=== PATIENT | female | born 1990 | race Caucasian/White ===

== ENCOUNTER → 2019-11-03 13:45 | Outpatient (CLI) | payer OTHER, SELFPAY ==
[2019-11-03 13:15] VITALS: BMI 18.1
[2019-11-03 15:29] LABS: Absolute Lymphocyte Count 2.03 X10^3/uL (0.83-4.51); Absolute Neutrophil Count 4.5 X10^3/uL (2.0-7.7); Basophil# 0.06 X10^3/uL; Basophil% 0.8 % (0-1); Eosinophil# 0.15 X10^3/uL; Hematocrit 40.6 % (37-47); Hemoglobin 13.5 g/dL (12.0-15.0); Lymphocyte # 2.03 X10^3/ul (4.0); Lymphocyte % 27.5 % (19-41); Mean Corp Hgb Conc 33.3 g/dL (32-36); Mean Corpuscular Hgb 30.8 pg (27.0-32.0); Mean Corpuscular Volume 92.5 fL (81-99); Mean Platelet Vol. 10.6 fl (6.2-12.0); Monocyte# 0.59 X10^3/uL; NRBC Flagged by Analyzer 0 % (0-5); Neutrophil # 4.54 X10^3/uL (2.7-7.7); Neutrophil % 61.4 % (47-70); Platelet Count 268 K/mm3 (150-450); RBC Distribution Width CV 12.5 % (11.6-14.6); RBC Distribution Width SD 42.1 fl (35.1-43.9); Red Blood Count 4.39 M/mm3 (4.2-5.4); White Blood Count 7.4 K/mm3 (4.4-11.0)
[2019-11-03 16:01] LABS: ALB/GLOB Ratio 1.2 RATIO (0.9-2.4); AST(SGOT) 17 U/L (15-37); Alanine Aminotransfer ALT/SGPT 21 U/L (13-56); Albumin, Serum 3.9 g/dL (3.2-5.0); Alkaline Phosphatase 56 U/L (45-117); Anion Gap 4 (5-15); BUN 16 mg/dL (7-18); BUN/Creat Ratio 21.7 RATIO (10-20); Calcium,Total 8.5 mg/dL (8.5-10.1); Chloride 106 mmol/L (98-107); Creatinine, Serum 0.74 mg/dL (0.55-1.02); EST Glomerular Filtration Rate 98 mL/min (>60); Est Glom Filt Rate - Afr Amer 118 mL/min (>60); Globulin 3.3 g/dL (2.2-4.2); Glucose 90 mg/dL (74-106); Potassium 3.7 mmol/L (3.5-5.1); Protein, Total 7.2 g/dL (6.4-8.2); Sodium Level 140 mmol/L (136-145); T4 Free Direct 0.83 ng/dL (0.76-1.46)
== END ==
PROVIDERS: PCP Internal Medicine; Visit Provider Internal Medicine
DX: N92.6 Irregular menstruation, unspecified (principal); R10.9 Unspecified abdominal pain
CPT/HCPCS: 36415; 80053; 84439; 84443; 85025

== ENCOUNTER → 2019-11-18 13:44 | Outpatient (CLI) | payer OTHER, SELFPAY ==
[2019-11-03 13:15] VITALS: BMI 18.1
--- NOTE | 2019-11-18 13:46 | RAD_ITS ---
STUDY: X-RAY - CERVICAL SPINE REASON FOR EXAM: Female, 29 years old. chronic neck pain TECHNIQUE: 3 view(s) of the cervical spine were obtained. COMPARISON: None FINDINGS: Normal anterior atlantoaxial articulation. Normal odontoid process. Normal cervical lordosis. Normal vertebral bodies and endplates. Normal disc space heights. The soft tissue structures are unremarkable. RAD/Cerv Spine 2 or 3 Views IMPRESSION: Normal x-ray examination of the visualized cervical spine. Electronically Signed: Deejay Marin MD at 17:54 EDT Tel , Service support ,
== END ==
PROVIDERS: PCP Internal Medicine; Referring Provider Internal Medicine; Visit Provider Internal Medicine
DX: M54.2 Cervicalgia (principal); G89.29 Other chronic pain
CPT/HCPCS: 72040

== ENCOUNTER → 2019-12-15 08:20 | Outpatient (CLI) | payer OTHER, SELFPAY ==
[2019-11-03 13:15] VITALS: BMI 18.1
--- NOTE | 2019-12-15 08:25 | RAD_ITS ---
PROCEDURE: SMALL BOWEL SERIES DATE OF EXAMINATION: 12/15/2019.. INDICATION: Female, 29 years old. Chronic constipation. PHYSICIAN: Pedro Fuller M.D. FLUOROSCOPY TIME (if supplied): (0:27) minutes/seconds TECHNIQUE: Radiographic and fluoroscopic images were taken of the small intestine following the ingestion of barium. COMPARISON: None. FINDINGS: A preliminary supine KUB was obtained. There is an unremarkable bowel gas pattern. A large amount of fecal material is present throughout the colon. The lung bases are unremarkable. Mild degree of levoscoliosis. The patient orally ingested approximately 12 ounces of thin barium Normal visualized fundus, body, and antrum of the stomach. Normal duodenal bulb, C-loop, and proximal jejunum. Normal visualized mucosal folds of the jejunum and ileum. There are no demonstrated dilatations, strictures, or masses of the small intestine. There is no mass displacement of the loops of small intestine. There is a normal motor pattern with barium reaching the colon within approximately 60 minutes. Spot films under fluoroscopic observation demonstrated a normal terminal ileum and ileocecal valve. RAD/Small Bowel Series Only IMPRESSION: Normal small bowel series. Electronically Signed: Pedro Fuller, at 12:33 EDT , Service support ,
== END ==
PROVIDERS: PCP Internal Medicine; Referring Provider Internal Medicine Gastroenterology; Visit Provider Internal Medicine Gastroenterology
DX: R10.9 Unspecified abdominal pain (principal)
CPT/HCPCS: 74250

== ENCOUNTER → 2020-04-08 13:54 | Outpatient (CLI) | payer OTHER, SELFPAY ==
[2020-04-08 08:22] VITALS: BMI 18.6
[2020-04-12 21:44] LABS: HPV APTIMA, High Risk Negative (Negative)
== END ==
PROVIDERS: PCP Internal Medicine; Referring Provider Obstetrics & Gynecology; Visit Provider Obstetrics & Gynecology
DX: Z12.4 Encounter for screening for malignant neoplasm of cervix (principal)
CPT/HCPCS: 87624; 88175; G0145

== ENCOUNTER → 2020-04-16 13:21 | Outpatient (CLI) | payer OTHER, SELFPAY ==
[2020-04-08 08:22] VITALS: BMI 18.6
--- NOTE | 2020-04-16 13:24 | US_ITS ---
STUDY: ULTRASOUND OF THE FEMALE PELVIS - COMPLETE REASON FOR EXAM: Female, 29 years old. PELVIC PAIN LMP: 04/10/2020. TECHNIQUE: Transabdominal and Transvaginal TECHNICAL QUALITY: Adequate. COMPARISON: None. FINDINGS: The uterus is anteverted and is in a midline position. The uterus measures 8.6 cm x 4.6 cm x 3 cm. Normal uterine cervix. The endometrium measures 5 mm in thickness, and is hyperechoic. There is no demonstrated endometrial mass. There is no demonstrated myometrial mass. I.U.D. - The patient does not have an I.U.D. The right ovary is visualized. The right ovary measures 3.4 cm x 3.5 cm x 1.6 cm. There is no right ovarian cyst or ovarian mass. There is no visualized right adnexal mass or complex lesion. There is normal arterial and normal venous vascularity. The left ovary is visualized. The left ovary measures 3.7 cm x 4.3 cm x 2.4 cm. A dominant follicle is seen within the left ovary measuring 1.8 cm x 1.1 cm x 0.9 cm There is no visualized left adnexal mass or complex lesion. There is normal arterial and normal venous vascularity. There is minimal fluid in the cul-de-sac. The pre void volume of the bladder was 295 ml. Polycystic ovary disease: No. US/Transvaginal Non- IMPRESSION: A dominant follicle is seen in the left ovary measuring 1.8 cm x 1.1 cm x 0.9 cm. Electronically Signed: Pedro Fuller MD at 15:25 EST , Service support ,
--- NOTE | 2020-04-16 13:24 | US_ITS ---
STUDY: ULTRASOUND OF THE FEMALE PELVIS - COMPLETE REASON FOR EXAM: Female, 29 years old. PELVIC PAIN LMP: 04/10/2020. TECHNIQUE: Transabdominal and Transvaginal TECHNICAL QUALITY: Adequate. COMPARISON: None. FINDINGS: The uterus is anteverted and is in a midline position. The uterus measures 8.6 cm x 4.6 cm x 3 cm. Normal uterine cervix. The endometrium measures 5 mm in thickness, and is hyperechoic. There is no demonstrated endometrial mass. There is no demonstrated myometrial mass. I.U.D. - The patient does not have an I.U.D. The right ovary is visualized. The right ovary measures 3.4 cm x 3.5 cm x 1.6 cm. There is no right ovarian cyst or ovarian mass. There is no visualized right adnexal mass or complex lesion. There is normal arterial and normal venous vascularity. The left ovary is visualized. The left ovary measures 3.7 cm x 4.3 cm x 2.4 cm. A dominant follicle is seen within the left ovary measuring 1.8 cm x 1.1 cm x 0.9 cm There is no visualized left adnexal mass or complex lesion. There is normal arterial and normal venous vascularity. There is minimal fluid in the cul-de-sac. The pre void volume of the bladder was 295 ml. Polycystic ovary disease: No. US/Pelvic (Non ) IMPRESSION: A dominant follicle is seen in the left ovary measuring 1.8 cm x 1.1 cm x 0.9 cm. Electronically Signed: Pedro Fuller MD at 15:25 EST , Service support ,
== END ==
PROVIDERS: PCP Internal Medicine; Referring Provider Obstetrics & Gynecology; Visit Provider Obstetrics & Gynecology
DX: R10.2 Pelvic and perineal pain (principal)
CPT/HCPCS: 76830; 76856; 93976

== ENCOUNTER 2020-06-04 09:00 | Outpatient (RCR) | payer OTHER, SELFPAY ==
[2020-04-08 08:22] VITALS: BMI 18.6
[2020-06-04] MEDS: COVID-19 VACC, MRNA(PFIZER)/PF 30 MCG/0.3 ML SYRINGE IM (11:16)
[2020-06-24] MEDS: COVID-19 VACC, MRNA(PFIZER)/PF 30 MCG/0.3 ML SYRINGE IM (16:25)
== END 2020-08-10 23:59 ==
LOC: IMMUN 09:00
PROVIDERS: PCP Internal Medicine; Visit Provider Family Medicine
DX: Z23 Encounter for immunization (principal)
CPT/HCPCS: 0001A; 0002A; 91300

== ENCOUNTER → 2020-10-12 10:49 | Outpatient (CLI) | payer OTHER, SELFPAY ==
[2020-09-28 13:18] VITALS: BMI 18.1
[2020-10-12 11:30] LABS: Absolute Neutrophil Count 3.3 X10^3/uL (2.0-7.7); Basophil# 0.08 X10^3/uL; Basophil% 1.3 % (0-1); Eosinophil# 0.11 X10^3/uL; Eosinophils% 1.8 % (0-5); Hemoglobin 14.2 g/dL (12.0-15.0); Lymphocyte % 31.9 % (19-41); Mean Corp Hgb Conc 32.3 g/dL (32-36); Mean Corpuscular Hgb 29.6 pg (27.0-32.0); Mean Corpuscular Volume 91.9 fL (81-99); Mean Platelet Vol. 10.1 fl (6.2-12.0); Monocyte# 0.54 X10^3/uL; Monocyte% 9.1 % (0-10); NRBC Flagged by Analyzer 0 % (0-5); Neutrophil % 55.6 % (47-70); Platelet Count 305 K/mm3 (150-450); RBC Distribution Width CV 12.3 % (11.6-14.6); RBC Distribution Width SD 42.1 fl (35.1-43.9); Red Blood Count 4.79 M/mm3 (4.2-5.4)
[2020-10-12 12:02] LABS: ALB/GLOB Ratio 1.3 RATIO (0.9-2.4); AST(SGOT) 15 U/L (15-37); Alanine Aminotransfer ALT/SGPT 21 U/L (13-56); Albumin, Serum 4.2 g/dL (3.2-5.0); Alkaline Phosphatase 61 U/L (45-117); Anion Gap 4 (5-15); BUN 13 mg/dL (7-18); BUN/Creat Ratio 19.2 RATIO (10-20); Calcium,Total 8.8 mg/dL (8.5-10.1); Chloride 103 mmol/L (98-107); Cholesterol 148 mg/dL (200); Creatinine, Serum 0.68 mg/dL (0.55-1.02); EST Glomerular Filtration Rate 108 mL/min (>60); Est Glom Filt Rate - Afr Amer 130 mL/min (>60); Globulin 3.2 g/dL (2.2-4.2); Glucose 85 mg/dL (74-106); High Density Lipoprotein 81 mg/dL; Potassium 3.7 mmol/L (3.5-5.1); Protein, Total 7.4 g/dL (6.4-8.2); Sodium Level 137 mmol/L (136-145); Triglycerides 58 mg/dL; Very Low Density Lipoprotein 12 mg/dL (5-40)
== END ==
PROVIDERS: PCP Internal Medicine; Referring Provider Internal Medicine; Visit Provider Internal Medicine
DX: Z00.00 Encounter for general adult medical examination without abnormal findings (principal)
CPT/HCPCS: 36415; 80053; 80061; 85025

== ENCOUNTER 2021-03-29 09:31 | Day surgery (SDC) | payer OTHER, SELFPAY ==
[2021-03-29] VITALS (7 sets, daily range): BP systolic 100–115; BP diastolic 63–76; PULSE 65–90; RESP 16–20; TEMP 36.3–36.8; O2SAT 96–100; BMI 17.7
--- NOTE | 2021-03-29 | FALS_PTH ---
PATIENT: PATRICIA DAVIES LOC: [facility] [place] U#:[id number] AGE/SX: 30/ ROOM: RE03/29/[address]: Dr. Mary Alicia DO : 1990 BED: DIS: 03/29/2021 SPEC #: [id number] RECD: 03/29/21 12:38 STATUS: DARYA BHAVIN #: [id number] DOMINIK: 03/29/21 00:[address]: Mary Alicia DEPT: SURGICAL PATHOLOGY RECD BY: Juanjose Blakely ENTERED: 03/29/21 12:38 SP TYPE: FALL TUBES OTHR DR: Dr. Mariya Bocanegra MD Tissues: Fallopian tube Procedures: Surgery Specimen Level IV HEADER OPERATION: Diagnostic laparoscopy, fulguration endometriosis PRE-OP DIAGNOSIS: Pelvic pain, infertility TISSUE SUBMITTED: Left fallopian tube MICROSCOPIC DIAGNOSIS Left fallopian tube, salpingectomy: Fallopian tube, no pathologic diagnosis. See comment. ISIS:isabel 03/30/2021 COMMENT Clinical correlation and appropriate follow up are necessary. MICROSCOPIC DESCRIPTION Slides are reviewed. GROSS DESCRIPTION Received in fixative is one container labeled with the patient's name and designated left fallopian tube. The specimen consists of a fallopian tube including fimbrial end. The fallopian tube measures 6 cm in length and 0.8 cm in diameter. Sections reveal unremarkable cut surfaces. The entire specimen is submitted in two cassettes. / ISIS:isabel 03/29/2021 TC:4 CPT: 44494
[2021-03-29 09:53] LABS: Internal QC Validated? YES +Cl - CLEAR BKGD; Pregnancy, Urine Negative Negative
--- NOTE | 2021-03-29 09:53 | HP.PCM_ITS ---
History and Physical Date of Admission: 03/29/21 :1990 Provider:Dr. Mary Alicia, DOAge/Sex: 30/F [facility] Intake Vital Signs 03/18/21 11:50 Height 5 ft 4 in Weight: 104 lb 6 oz BMI 17.9 BP 100/78 Intake Visit Reasons: preop diag. lap. 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 Required: No Is patient in pain?: No Allergies No Known Allergies Allergy (Verified 03/18/21 11:50) Medications inulin 2 gram chewable tablet g PO 02/17/21 [History Confirmed 03/18/21] multivitamin 1 tab PO DAILY 02/17/21 [History Confirmed 03/18/21] multivitamin with minerals 1 tab PO DAILY 02/17/21 [History Confirmed 03/18/21] Post menopausal: No Patient : No : No PFSH Medical History Female infertility unexplained after evaluation Flu vaccine need Preventative health care Seasonal allergies Surgical History History of tonsillectomy and adenoidectomy Family History Mother Cancer Aunt Breast cancer Grandfather Parkinson disease Grandmother Respiratory disease Social History Smoking Status: Never smoker alcohol intake: current alcohol intake frequency: a few times a month Alcohol type: wine substance use type: does not use caffeine: Yes frequency: 1-2 times per week seatbelt use: always do you feel safe at home: Yes additional social history: - [facility] preop diag. lap. Details: PATRICIA DAVIES is a 30 year old who presents for pre-op visit. She is scheduled for a diagnostic laparoscopy, possible fulguration of endometriosis, chromopertubation using methylene blue. She suffers with a long history of endometriosis pain and infertility. She has one adopted daughter currently and is working on adopting baby #2. Pregancy History 0 Elective abortions Hx Para Spontaneous abortions Hx # Term Pregnancies Ectopic pregnancies Hx # Pregnancies Multiple births # of living children ROS Const ROS Unobtainable: All systems reviewed & are unremarkable except as noted in H Resp Resp: Reports system reviewed and no additional complaints, except as documented; Denies cough GI GI: Reports as per HPI Psych Psych: Reports system reviewed and no additional complaints, except as documented Exam Const General: cooperative, healthy appearing, comfortable and no acute distress Resp Effort & Inspection: normal respiratory effort Skin General: no rashes or lesions noted Psych Appearance: grossly normal Speech and Movement: speech and movement normal Coding Level of Care Code Off vis,est,level 3 Diagnoses Pelvic pain R10.2 Female infertility unexplained after evaluation N97.9 Assessment and Plan Assessment and Plan (1) Pelvic pain: Status: Acute Plan - Dr. Mary Alicia DO: Plan for diagnostic laparoscopy, Chromopertubation using methylene blue, possible fulguration of endometriosis on Mar 29 at 7:30 am. consent form signed. (2) Female infertility unexplained after evaluation: Status: Chronic UPDATE- I have seen the patient and performed any clinically relevant updates to the history and physical exam. Mary Alicia DO
--- NOTE | 2021-03-29 09:54 | PCM.DC ---
Discharge Instructions Diet Discharge Diet: No restrictions Activity Discharge Activity: Return to Normal Activity, May Not Drive (for two weeks or while taking narcotic pain medications.), May Shower and May Take a Tub Bath (in 7 days) May resume sexual activity in: 1 week Weight Bearing Status: Full weight bearing Dressing / Incision Call your doctor if you observe: Using more than 1 pad per hour, Shortness of breath, Chest pain and Uncontrolled pain Suture Line Care: Avoid Pulling/Pushing and Avoid Pinching/Bending Remove Dressing in: 1 week (if present) Cleanse incision/area with: Soap & Water and Keep Dressing Clean & Dry Follow Up Care Please Follow Up With: Mary Alicia DO When: Call to make an appointment with your doctor for a follow up incision check in 1-2 weeks. Test Results: Test results from this visit will be discussed in further detail at your follow-up appointment, if applicable. Discharge Plan Admission Primary Reason for Your Visit: laparoscopy Attending Provider: Mary Alicia Primary Care Provider: Mariya Bocanegra Discharge Orders/Prescriptions Prescriptions: New ibuprofen 800 mg tablet 800 mg PO Q8H PRN (Reason: pain) 7 Days Qty: 30 RF: 0 oxycodone-acetaminophen [Percocet] 7.5-325 mg tablet 1 tab PO Q4H PRN (Reason: pain) 3 Days Qty: 18 RF: 0 Continued multivitamin Tablet 1 tab PO DAILY RF: 0 azelaic acid 15 % gel 1 applic TOPICAL DAILY RF: 0 Probiotic 10 billion cell Capsule 10,000 mmu cells PO DAILY RF: 0 Referrals / Follow Up: Mariya Bocanegra MD [Primary Care Provider] - Disposition Disposition (needs filled in before D/C Order can be placed): Home, Self Care
[2021-03-29] MEDS: Lactated Ringers 1,000 ML 15 ML IV (09:55)
[2021-03-29 10:05] LABS: Mean Corp Hgb Conc 32.6 g/dL (32-36); Mean Corpuscular Hgb 29.6 pg (27.0-32.0); Mean Corpuscular Volume 90.9 fL (81-99); Mean Platelet Vol. 10.4 fl (6.2-12.0); Platelet Count 253 K/mm3 (150-450); RBC Distribution Width CV 12.1 % (11.6-14.6); RBC Distribution Width SD 40.6 fl (35.1-43.9); Red Blood Count 4.73 M/mm3 (4.2-5.4); White Blood Count 5.3 K/mm3 (4.4-11.0)
[2021-03-29] MEDS: Bupivacaine 0.25% 30 ML Vial (10:51)
--- NOTE | 2021-03-29 11:50 | OP.PCM_ITS ---
Problems Associated Problem List Diagnoses (1) Abdominal pain: (2) Pelvic pain: (3) Endometriosis: Operative Report Date of Procedure: 03/29/21 Pre- operative diagnosis: unexplained infertility, chronic pelvic pain Post-operative diagnosis pelvic pain, endometriosis EBL: less than 5cc Surgeon: Mary Alicia DO Diaper Machine Tender: KIERRA Hdz Urine output : 200cc Specimens removed: left fallopian tube Procedure: diagnostic laparoscopy, fulguration of endometriosis, reroller hand mopertubation, left salpingectomy Findings: endometriosis of cul-de-sac, patent right fallopian tube, non-flowing left fallopian tube. left fallopian tube appeared slightly smaller and pale in color as compared to right fallopian tube. Surgical details: The patient was taken in the operating room and was placed under general anesthesia was prepped and draped in normal sterile fashion in the dorsal lithotomy position. Bladder was drained of clear urine and SCDs were on preoperatively. Uterus was sounded to 9cm and a uterine manipulator was placed. a 60 cc syringe filled with dilute methylene blue was attached to the manipulator. Attention was then paid to the abdominal portion of the procedure and the umbilicus and injected with Marcaine and after a 5 mm incision was made and a 5mm trocar was inserted into the abdomen under direct visualization with the laparoscope. Abdomen was insufflated with CO2 gas and a 5 mm optical trocar was placed under direct visualization at the left lower quadrant Uterus was well visualized and bilateral fallopian tubes and ovaries were visualized. There was noted to be adhesions of the cul-de-sac consistent with mild endometriosis. This was cauterized using the LigaSure device. Further powder burn stokes were noted on the anterior aspect of the uterus. The chromotubation was performed by pushing the methylene blue dye into the uterus. The right fallopian tube was freely flowing, however the left fallopian tube appeared slightly pale in color and did not spill dye despite reposition the uterine manipulator and even completely removed the device and re-inserting. The patient's was called and permission was given to remove the defective tubes. The left fallopian tube was elevated and transected across the mesosalpinx and the attachment to the uterine corpus. The tube was removed through the 5 mm port site. Excellent hemostasis was noted. Liver, bowel, and upper abdomen were visualized notably within normal limits and no other gross abnormalities were seen in the abdomen. All instruments removed from the abdomen after gas was desufflated. Port sites were closed with 3-0 Monocryl Steri's and op sites were applied. All instruments removed from the vagina and patient was awoken and taken recovery in stable condition. complications: none Implanted material: none Multi Select Codes Urinary/Genital Urinary/Genital CPT Codes: 80794 Laproscopic ablation endometriosis (laparoscopic left salpingectomy )
== END 2021-03-29 23:59 | disposition home or self-care (01) ==
LOC: SDC 09:34 → AC 09:37
PROVIDERS: PCP Internal Medicine; Referring Provider Obstetrics & Gynecology; Visit Provider Obstetrics & Gynecology
PROC: (CPT 49320; principal; 2021-03-29 10:50)
DX: N80.3 Endometriosis of pelvic peritoneum (principal); N97.9 Female infertility, unspecified; G89.29 Other chronic pain; Z20.822 Contact with and (suspected) exposure to COVID-19
CPT/HCPCS: 58662; 58661; 58350; 00840; 81025; 85027; 86850; 86900; 86901; 87426; 88302; 88305; J7120; J2405; Q9968

== ENCOUNTER → 2022-10-06 | Outpatient (CLI) | payer OTHER, SELFPAY ==
[2022-10-06 12:38] LABS: Absolute Lymphocyte Count 1.49 X10^3/uL (0.83-4.51); Absolute Neutrophil Count 2.5 X10^3/uL (2.0-7.7); Basophil# 0.06 X10^3/uL; Basophil% 1.3 % (0-1); Eosinophil# 0.11 X10^3/uL; Eosinophils% 2.4 % (0-5); Hematocrit 41.4 % (37-47); Hemoglobin 13.5 g/dL (12.0-15.0); Lymphocyte # 1.49 X10^3/ul (0.83-4.51); Lymphocyte % 32.3 % (19-41); Mean Corp Hgb Conc 32.6 g/dL (32-36); Mean Corpuscular Hgb 30.8 pg (27.0-32.0); Mean Corpuscular Volume 94.5 fL (81-99); Mean Platelet Vol. 10.7 fl (6.2-12.0); Monocyte# 0.45 X10^3/uL; Monocyte% 9.7 % (0-10); NRBC Flagged by Analyzer 0 % (0-5); Neutrophil % 54.1 % (47-70); Platelet Count 264 K/mm3 (150-450); RBC Distribution Width CV 13.2 % (11.6-14.6); Red Blood Count 4.38 M/mm3 (4.2-5.4); White Blood Count 4.6 K/mm3 (4.4-11.0)
[2022-10-06 12:52] LABS: ALB/GLOB Ratio 1.1 RATIO (0.9-2.4); AST(SGOT) 13 U/L (15-37); Alanine Aminotransfer ALT/SGPT 19 U/L (13-56); Albumin, Serum 3.7 g/dL (3.2-5.0); Alkaline Phosphatase 45 U/L (45-117); Anion Gap 4 (5-15); BUN 13 mg/dL (7-18); BUN/Creat Ratio 16.7 RATIO (10-20); Calcium,Total 8.9 mg/dL (8.5-10.1); Chloride 106 mmol/L (98-107); Cholesterol 148 mg/dL (200); Creatinine, Serum 0.78 mg/dL (0.55-1.02); EST Glomerular Filtration Rate 91 mL/min (>60); Est Glom Filt Rate - Afr Amer 110 mL/min (>60); Globulin 3.5 g/dL (2.2-4.2); Glucose 93 mg/dL (74-106); High Density Lipoprotein 100 mg/dL; Potassium 4.5 mmol/L (3.5-5.1); Protein, Total 7.2 g/dL (6.4-8.2); Sodium Level 139 mmol/L (136-145); Triglycerides 64 mg/dL; Very Low Density Lipoprotein 13 mg/dL (5-40)
== END | disposition home or self-care (01) ==
LOC: BIMLAB 08:27
PROVIDERS: PCP Internal Medicine; Referring Provider Internal Medicine; Visit Provider Internal Medicine
DX: Z00.00 Encounter for general adult medical examination without abnormal findings (principal)
CPT/HCPCS: 36415; 80053; 80061; 85025

== ENCOUNTER → 2023-02-02 | Outpatient (CLI) | payer OTHER, SELFPAY ==
--- NOTE | 2023-02-02 14:27 | US_ITS ---
STUDY: ULTRASOUND BREAST - right breast pain. REASON FOR EXAM: Female, 32 years old. Right breast pain. TECHNIQUE: Axial and longitudinal images of the right breast pain. breast were performed with a high resolution ultrasound transducer. # OF IMAGES: 0 COMPARISON: Comparison is made with prior mammogram done earlier in the day. FINDINGS: right breast pain. Breast: The upper outer quadrant of the right breast was examined with ultrasound. There is a 1.7 cm x 1.5 cm x 0.9 cm cyst at the 10:00 position of the breast at 4 cm from the nipple. US/Breast Limited Unilateral IMPRESSION: 1.7 cm x 1.5 cm x 0.9 cm cyst at the 10:00 position of the breast at 4; some nipple. ASSESSMENT CATEGORY: BIRADS Category 2: Benign. A letter regarding these results will be sent to the patient by the facility within 30 days. Electronically Signed: Pedro Fuller MD at 15:34 EST ,
--- NOTE | 2023-02-02 14:27 | BI_ITS ---
MAMMOGRAPHY - BILATERAL DIAGNOSTIC REASON FOR EXAM: Female, 32 years old. Pain in both upper outer quadrants of the breasts. PERTINENT HISTORY: Aunt with breast cancer. TECHNIQUE: Digital bilateral breast bowen (3D mammographic acquisition) in the CC and MLO projections. 2-D mediolateral oblique (MLO) and craniocaudad (CC) views of both breasts were obtained. CAD: Full Field Digital Mammography with Computer Added Detection was performed. COMPARISON: None. Baseline examination. FINDINGS: Breast Composition: The breasts are extremely dense, which lowers the sensitivity of mammography. There are no dominant masses or suspicious calcifications. No other significant abnormalities are identified. BI/DIAG MAMM W/CAD, BILAT IMPRESSION: Negative diagnostic mammogram. With the patient''s history of buttock pain in both upper outer quadrants, correlation with ultrasound is recommended. ASSESSMENT CATEGORY: BIRADS Category 0: Incomplete. Need additional imaging evaluation. A letter regarding these results will be sent to the patient by the facility within 30 days. Approximately 10% of breast cancers are not detected by mammography. A normal mammogram should not delay biopsy of a clinically suspicious abnormality. Electronically Signed: Pedro Fuller MD at 15:13 EST ,
== END | disposition home or self-care (01) ==
PROVIDERS: PCP Internal Medicine; Visit Provider Obstetrics & Gynecology
DX: N64.4 Mastodynia (principal)
CPT/HCPCS: 76642; 77062; 77066; G0279

== ENCOUNTER → 2023-11-07 | Outpatient (CLI) | payer OTHER, SELFPAY ==
[2023-11-07 16:37] LABS: Absolute Lymphocyte Count 1.92 X10^3/uL (0.83-4.51); Absolute Neutrophil Count 4.9 X10^3/uL (2.0-7.7); Basophil# 0.08 X10^3/uL; Eosinophil# 0.11 X10^3/uL; Eosinophils% 1.4 % (0-5); Hematocrit 40.6 % (37-47); Hemoglobin 13.2 g/dL (12.0-15.0); Lymphocyte # 1.92 X10^3/ul (0.83-4.51); Lymphocyte % 24.7 % (19-41); Mean Corp Hgb Conc 32.5 g/dL (32-36); Mean Corpuscular Hgb 29.9 pg (27.0-32.0); Mean Corpuscular Volume 91.9 fL (81-99); Mean Platelet Vol. 11.1 fl (6.2-12.0); Monocyte# 0.75 X10^3/uL; Monocyte% 9.6 % (0-10); NRBC Flagged by Analyzer 0 % (0-5); Platelet Count 262 K/mm3 (150-450); RBC Distribution Width CV 12.6 % (11.6-14.6); RBC Distribution Width SD 42.5 fl (35.1-43.9); Red Blood Count 4.42 M/mm3 (4.2-5.4); White Blood Count 7.8 K/mm3 (4.4-11.0)
[2023-11-07 16:56] LABS: ALB/GLOB Ratio 1.3 RATIO (0.9-2.4); AST(SGOT) 13 U/L (15-37); Alanine Aminotransfer ALT/SGPT 15 U/L (13-56); Alkaline Phosphatase 56 U/L (45-117); Anion Gap 4 (5-15); BUN 10 mg/dL (7-18); BUN/Creat Ratio 13.6 RATIO (10-20); Calcium,Total 9.4 mg/dL (8.5-10.1); Chloride 106 mmol/L (98-107); Cholesterol 151 mg/dL (200); Creatinine, Serum 0.74 mg/dL (0.55-1.02); EST Glomerular Filtration Rate 96 mL/min (>60); Est Glom Filt Rate - Afr Amer 116 mL/min (>60); Glucose 95 mg/dL (74-106); High Density Lipoprotein 92 mg/dL; Potassium 3.6 mmol/L (3.5-5.1); Sodium Level 138 mmol/L (136-145); Triglycerides 44 mg/dL; Very Low Density Lipoprotein 9 mg/dL (5-40)
== END | disposition home or self-care (01) ==
LOC: BIMLAB 14:29
PROVIDERS: PCP Internal Medicine; Visit Provider Internal Medicine
DX: Z00.00 Encounter for general adult medical examination without abnormal findings (principal)
CPT/HCPCS: 36415; 80053; 80061; 85025

== ENCOUNTER → 2024-01-19 | Outpatient (CLI) | payer OTHER, SELFPAY ==
--- NOTE | 2024-01-19 10:12 | RAD_ITS ---
INDICATION: sitz marker EXAMINATION/TECHNIQUE: X-RAY - XR Abdomen 2 views COMPARISON: December 15, 2019 FINDINGS: BOWEL GAS PATTERN: Non-obstructive. No bowel or stomach distention. FREE AIR: Not assessed on a single supine view. ORGANOMEGALY: Not seen. CALCIFICATIONS: No abnormal calcifications observed. LOWER CHEST: No acute pathology. BONES AND SOFT TISSUES: No acute pathology. There is a linear lucency projecting over the pelvis suggestive of a tampon. RAD/Abdomen Single View IMPRESSION: No Sitz marker identified. Nonspecific bowel gas pattern. Electronically Signed: Colleen Copeland MD at 17:13 EST ,
[2024-01-19 10:47] LABS: Erythrocyte Sedimentation Rate 1 mm/hr (0-30)
[2024-01-19 11:12] LABS: Amylase 54 U/L (25-115); CRP 5.36 mg/L (0.0-3.0); Ferritin 58 ng/mL (8-252); Iron 40 ug/dL (50-170); Iron Binding Capacity,Total 241 ug/dL (250-450); LDH 156 U/L (84-246); Lipase 37 U/L (13-75)
[2024-01-21 08:09] LABS: Vitamin D,25 Hydroxy 27.3 ng/mL
[2024-01-24 14:10] LABS: Anti-Centromere B Ab <0.2 AI (0.0-0.9); Anti-Chromatin <0.2 AI (0.0-0.9); Anti-Jo <0.2 AI (0.0-0.9); Anti-Scleroderma-70 AB <0.2 AI (0.0-0.9); Anti-dsDNA Ab <1 IU/mL (0-9); Beef <0.10 kU/L (Class 0); Chocolate <0.10 kU/L (Class 0); Codfish <0.10 kU/L (Class 0); Corn <0.10 kU/L (Class 0); Egg, Whole <0.10 kU/L (Class 0); Milk (Cow) <0.10 kU/L (Class 0); Mussels <0.10 kU/L (Class 0); Peanut 0.32 kU/L (Class I); Pork <0.10 kU/L (Class 0); RNP Ab <0.2 AI (0.0-0.9); SJOGREN'S Anti-SS-A test < 0.2 AI (0.0-0.9); SJOGREN'S Anti-SS-B test < 0.2 AI (0.0-0.9); Salmon <0.10 kU/L (Class 0); Shrimp <0.10 kU/L (Class 0); Smith Ab <0.2 AI (0.0-0.9); Soybean <0.10 kU/L (Class 0); Tuna <0.10 kU/L (Class 0); Vitamin D 1,25-Dihydroxy 48.3 pg/mL (24.8-81.5); Wheat <0.10 kU/L (Class 0)
[2024-01-25 16:10] LABS: ACCA 53 units (0-90); ALCA 22 units (0-60); AMCA 54 units (0-100); Albumin 4.2 g/dL (2.9-4.4); Alpha-1-Globulins 0.2 g/dL (0.0-0.4); Alpha-2-Globulins 0.6 g/dL (0.4-1.0); Chromogranin A 36.1 ng/mL (0.0-101.8); Cytoplasmic Ab (C-ANCA) <1:20 titer (Neg:<1:20); Endomysial Antibody IgA Negative (Negative); Gamma Globulin 1.2 g/dL (0.4-1.8); Gastrin, Serum 44 pg/mL (0-115); Haptoglobin 58 mg/dL (33-278); IMMUNOFIXATION RESULT,S Comment: (.); IgG, Quant 1159 mg/dL (586-1602); Immunoglobulin A 162 mg/dL (87-352); Immunoglobulin E 104 IU/mL (6-495); Immunoglobulin G, Subclass 1 571 mg/dL (248-810); Immunoglobulin G, Subclass 2 426 mg/dL (130-555); Immunoglobulin G, Subclass 3 50 mg/dL (15-102); Immunoglobulin G, Subclass 4 38 mg/dL (2-96); Immunoglobulin M 94 mg/dL (26-217); PROEL- TOTAL PROTEIN 6.9 g/dL (6.0-8.5); Perinuclear Ab (P-ANCA) <1:20 titer (Neg:<1:20); gASCA 5 units (0-50); t-Transglutaminase IgA <2 U/mL (0-3)
== END | disposition home or self-care (01) ==
LOC: LAB 09:48
PROVIDERS: PCP Internal Medicine; Referring Provider Internal Medicine Gastroenterology; Visit Provider Internal Medicine Gastroenterology
DX: R10.9 Unspecified abdominal pain (principal)
CPT/HCPCS: 36415; 74018; 82150; 82306; 82652; 82728; 82784; 82785; 82787; 82941; 83010; 83516; 83540; 83550; 83615; 83690; 84165; 84443; 85652; 86003; 86005; 86036; 86037; 86140; 86225; 86235; 86255; 86316; 86334; 86671

== ENCOUNTER → 2024-03-10 | Outpatient (CLI) | payer OTHER, SELFPAY ==
--- NOTE | 2024-03-10 13:09 | NM_ITS ---
CLINICAL: 33-year-old female with history of abdominal pain and bloating. SEMI-SOLID PHASE 99m Tc SULFUR COLLOID GASTRIC EMPTYING STUDY COMPARISON: None available FINDINGS: The patient was administered 7.98 mCi of 99m Tc sulfur colloid mixed with oatmeal and consumed per os. Image acquisitions in the anterior projection were obtained for 26 documented minutes of image acquisition. There is prompt visualization of the stomach. There is no gastroesophageal reflux identified. T ? linear fit was calculated to be 40.11 minutes, (Normal: 12-56 minutes). NM/Gastric Emptying Study IMPRESSION: 1. NORMAL 99m Tc sulfur colloid semi-solid phase (oatmeal) gastric emptying imaging examination. A. There is normal and preserved semi-solid phase gastric emptying compared to normal controls with maintained first order kinetics throughout all components of the examination. (Cara et al, J Nucl Med Tech 38: 186, 2010). Electronically Signed: Bertin Gamble DO at 22:07 EST ,
== END | disposition home or self-care (01) ==
PROVIDERS: PCP Internal Medicine; Referring Provider Internal Medicine Gastroenterology; Visit Provider Internal Medicine Gastroenterology
DX: R10.9 Unspecified abdominal pain (principal); R14.0 Abdominal distension (gaseous)
CPT/HCPCS: 78264; A9541

== ENCOUNTER 2024-03-18 10:55 | Day surgery (SDC) | payer OTHER, SELFPAY ==
[2024-03-18] VITALS (7 sets, daily range): BP systolic 92–119; BP diastolic 55–93; PULSE 64–78; RESP 14–16; TEMP 36.5–36.9; O2SAT 97–100; BMI 17.7
[2024-03-18 11:19] LABS: Internal QC Validated? YES +Cl - CLEAR BKGD; Pregnancy, Urine Negative Negative
--- NOTE | 2024-03-18 11:40 | PRE.ANES_ITS ---
ASA Classification* ASA Classification ASA Classification: 1 Assessment & Plan Anesthesia* Anesthesia Assessment Anesthesia Assessment: Discussed sedation and/or anesthesia options, risks, benefits, and alternatives with patient/parents/legal guardian/POA. Questions invited. The patient/parents/legal guardian/POA seems to understand and agrees to proceed with anesthesia plan. Reviewed the physical assessment, medical history, allergy history and patient home medications list prior to surgery/procedure/anesthetic and documented any changes. Performed airway and anesthesia risk assessments. Anesthesia Type Anesthesia Type: MAC History Source History Obtained from:: Patient and Chart Anesthesia Focused Assessment* Temperature: 98.1 F Pulse Rate: 78 Blood Pressure: 119/93 Respiratory Rate: 16 Pulse Ox: 100 Oxygen Delivery Method: Room Air Airway Assessment Mouth opens: >3 cm Mallampati Score: II Teeth Condition: Intact Neck Range of motion (ROM): Full ROM Focused Labs Anesthesia Preop lab: CBC WBC 7.8 K/mm3 (4.4-11.0) 11/07/23 14:30 RBC 4.42 M/mm3 (4.2-5.4) 11/07/23 14:30 Hgb 13.2 g/dL (12.0-15.0) 11/07/23 14:30 Hct 40.6 % (37-47) 11/07/23 14:30 Plt Count 262 K/mm3 (150-450) 11/07/23 14:30 CHEMISTRY Potassium 3.6 mmol/L (3.5-5.1) 11/07/23 14:30 Sodium 138 mmol/L (136-145) 11/07/23 14:30 BUN 10 mg/dL (7-18) 11/07/23 14:30 Creatinine 0.74 mg/dL (0.55-1.02) 11/07/23 14:30 Glucose 95 mg/dL (74-106) 11/07/23 14:30 TSH 1.140 uIU/mL (0.358-3.740) 01/19/24 09:51 COAG Urine Test Negative Negative 03/18/24 11:05 Pre-Assessment Diagnosis/Proposed Procedure Planned Operative Procedure(s): COLONOSCOPY Anesthesia History Anesthesia History - energy assistant: Anesthesia History - energy assistant Hx Hospitalization No 03/14/24 15:14 Any Problems With Anesthesia No 03/14/24 15:14 Cholinesterase deficiency No 03/14/24 15:14 You/Your Family Experience No 03/14/24 15:14 fever (hyperthermia) with Relationship Recent Exposure to Contagious No 03/18/24 11:15 Disease Does patient have nerve No 03/14/24 15:14 stimulator Patient instructed to have device shut off --Does patient have Pacemaker No 03/18/24 11:16 or ICD? When Was Last Pacemaker Check QUESTION #4 FULL TEXT: You/Your Family Experience fever (hyperthermia) with Anesthesia Last Oral Intake Last Oral intake: Last Oral Intake NPO since 09:00 03/18/24 11:16 Meds taken in AM with sips of No 03/18/24 11:16 water? Meds patient instructed to take am of surgery Any additional information?: Yes NPO since: 08:50 (Patient is a glass of water 8:50 AM.) PONV PONV - energy assistant: PONV - energy assistant Female Yes 03/14/24 15:14 HX of Motion Sickness No 03/14/24 15:14 HX of N/V After Surgery No 03/14/24 15:14 Non-Smoker Yes 03/14/24 15:14 Duration of Surgery greater No 03/14/24 15:14 than 60 minutes Number of Risk Factors 2 03/14/24 15:14 PONV Score Moderate Risk 03/14/24 15:14 Height & Weight Height & Weight: Anesthesia: Height & Weight Height 5 ft 4 in 03/18/24 11:16 Weight: 47 kg 03/18/24 11:16 Body Mass Index (BMI) 17.7 03/18/24 11:16 Respiratory Assessment Respiratory Assessment - energy assistant: Respiratory Tract Infection Hx - energy assistant Hx Respiratory Tract Infection No 03/14/24 15:14 STOP Sleep Apnea STOP Sleep Apnea - energy assistant: STOP Sleep Apnea - energy assistant Hx Hypertension No 03/14/24 15:14 Hx Sleep Apnea No 03/14/24 15:14 CPAP BIPAP Do you snore loudly (louder No 03/14/24 15:14 than talking or can be heard Do you often feel tired/ No 03/14/24 15:14 fatigued/ sleepy during daytime? Has anyone observed you stop No 03/14/24 15:14 breathing during sleep? STOP Results Negative 03/14/24 15:14 QUESTION #5 FULL TEXT : Do you snore loudly (louder than talking or can be heard through closed doors)? Tobacco Use History Tobacco Use History - energy assistant: Tobacco Use History - energy assistant Tobacco Use Smoking Status Never smoker 03/14/24 15:14 Hx Tobacco Use No 03/14/24 15:14 Years Smoking Packs Smoked per Day Smoking Cessation Date was within the last 15 years Hx Smoking Cessation Date Hx Smoking Cessation Counseling Hematologic Medial History Hematologic Hx - energy assistant: Hematologic Medical Hx - [employer] Hx of Blood Transfusion No 03/14/24 15:14 Hx of Transfusion in last 3 No 03/14/24 15:14 Months Date of Last Transfusion (if within last 3 months) Ever experience any problems No 03/14/24 15:14 with transfusion(s)? Specify any problems Hx of Preganancy in last 3 No 03/14/24 15:14 Months Nurse Filling Out Transfusion [email or web address] 03/14/24 15:14 & Questions: Date: 03/14/24 03/14/24 15:14 Time: 15:16 03/14/24 15:14 Patient unable to answer at this time (ie. confused, unrespo /Reproduction History /Reproductive History - energy assistant: /Reproductive Hx- energy assistant Hx Now No 03/14/24 15:14 Gestational Age (in weeks): EDC: Hx Hx Para Hx Section SAB No 03/14/24 15:14 PFSH Medical History Alcohol use Non-smoker Flu vaccine need Preventative health care Female infertility unexplained after evaluation Seasonal allergies Home Medications ?Medication ?Instructions ?Recorded ?Last Taken ?Type lactobacillus combo no.11 15 1 cap PO DAILY 01/17/23 03/16/24 History billion cell sprinkle capsule (Probiotic) calcium 600 mg (as 2 tab PO DAILY 03/14/24 03/16/24 History carbonate)-vitamin D3 5 mcg (200 unit) tablet (Calcium 600 + D(3)) Allergy/AdvReac Type Severity Reaction Status Date / Time No Known Allergies Allergy Verified 03/14/24 15:12 Family History Mother Cancer Aunt Breast cancer Grandfather Parkinson disease Grandmother Respiratory disease Surgical History H/O unilateral salpingectomy S/P laparoscopy History of tonsillectomy and adenoidectomy Social History household members: spouse and other details: adopted daughter Annabella Smoking Status: Never smoker alcohol intake: current alcohol intake frequency: a few times a month Alcohol type: wine substance use type: does not use caffeine: Yes what type of physical activity do you participate in: none seatbelt use: always do you feel safe at home: Yes additional social history: - [employer] Review of Systems (Anesthesia) ROS Narrative System reviewed and no additional complaints, except as documented.
--- NOTE | 2024-03-18 12:00 | COLBX_PTH ---
PATIENT: PATRICIA DAVIES LOC: EN U#:[id number] AGE/SX: 33/F ROOM: RE03/18/[address]: Dr. Jani Pahram DO : 1990 BED: DIS: 03/18/2024 SPEC #: [id number] RECD: 03/18/24 14:11 STATUS: DARYA RETiffanie #: [id number] DOMINIK: 03/18/24 12:[address]: Jani Parham DEPT: SURGICAL PATHOLOGY RECD BY: Sylwia Elmore ENTERED: 03/19/24 09:55 SP TYPE: COLON BX OTHR DR: Dr. Mariya Bocanegra MD Tissues: Ileum, NOS Procedures: Surgery Specimen Level IV HEADER OPERATION: Colonoscopy with biopsy PRE-OP DIAGNOSIS: Abdominal symptoms, abdominal pain TISSUE SUBMITTED: Terminal ileum biopsy MICROSCOPIC DIAGNOSIS Terminal ileum, biopsy: Fragments of small intestinal mucosa, no pathologic diagnosis. See lakeisha. 03/20/2024 COMMENT Prominent lymphoid aggregates are noted. MICROSCOPIC DESCRIPTION Slides are reviewed. GROSS DESCRIPTION Received in fixative is one container labeled with the patient's name and designated Terminal ileum biopsy. The specimen consists of multiple irregular fragments of light gonzalez soft tissue that in aggregate measure 0.9 x 0.4 x 0.2 cm. The specimen is totally submitted in one cassette. 03/19/2024 TC:4 CPT:99272
--- NOTE | 2024-03-18 12:25 | PCM.HP.STD ---
HPI - General General Date of Admission: 03/18/24 Date of Service: 03/18/24 Chief Complaint: Abdominal pain, bloating and constipation HPI Narrative PATRICIA DAVIES, is a 33 F who presents for colonoscopy to evaluate ongoing problems with abdominal pain and change in bowel habits. *BGI established 11.5.24 pt presents with a long history of episodes of constipation, nausea, gas/bloating, and severe abd pain. pt reports she has significantly changed her diet and is only having these episodes about twice a month. Pt reports these episodes last about 3-4 days. Pt reports that these episodes begin when she is unable to have a bm and then throughout the day will begin to have extreme abd aching and fullness that only heat and pressure will help. Pt reports when she is feeling well she is having a daily bm. [facility] Medical History Alcohol use Non-smoker Flu vaccine need Preventative health care Female infertility unexplained after evaluation Seasonal allergies Home Medications ?Medication ?Instructions ?Recorded ?Last Taken ?Type lactobacillus combo no.11 15 1 cap PO DAILY 01/17/23 03/16/24 History billion cell sprinkle capsule (Probiotic) calcium 600 mg (as 2 tab PO DAILY 03/14/24 03/16/24 History carbonate)-vitamin D3 5 mcg (200 unit) tablet (Calcium 600 + D(3)) Allergy/AdvReac Type Severity Reaction Status Date / Time No Known Allergies Allergy Verified 03/14/24 15:12 Family History Mother Cancer Aunt Breast cancer Grandfather Parkinson disease Grandmother Respiratory disease Surgical History H/O unilateral salpingectomy S/P laparoscopy History of tonsillectomy and adenoidectomy Social History household members: spouse and other details: adopted daughter Annabella Smoking Status: Never smoker alcohol intake: current alcohol intake frequency: a few times a month Alcohol type: wine substance use type: does not use caffeine: Yes what type of physical activity do you participate in: none seatbelt use: always do you feel safe at home: Yes additional social history: - Yoandy AYAD Constitutional Constitutional: Denies fatigue, fever(s), poor appetite, weight gain or weight loss Gastrointestinal Gastrointestinal: Denies belching, bloating, change in bowel habits, change in stool character, chewing difficulty, coffee ground emesis, constipation, cramping, diarrhea, dyspepsia, dysphagia, early satiety, excessive flatus, fecal incontinence, heartburn, hematemesis, hematochezia, hemorrhoids, loose stools, melena, nausea, odynophagia, rectal bleeding, tenesmus, vomiting or weight changes Vital Signs Vital Signs Vital Signs: 03/18/24 11:15 03/18/24 11:16 03/18/24 11:44 Temperature 98.1 F 98.1 F Temperature Source Temporal Pulse Rate 78 78 Respiratory Rate 16 16 Respiratory Pattern Normal Blood Pressure 119/93 H 119/93 H Blood Pressure Mean 101 Blood Pressure Source Monitor Blood Pressure Position Sitting Blood Pressure Location Left Arm Pulse Ox 100 100 Oxygen Delivery Method Room Air Room Air Weight Weight: 103 lb 9.876 oz Body Mass Index (BMI) 17.7 Physical Exam Const alert, oriented x3, no apparent distress and healthy appearing General Appearance: cooperative GI normal to inspection, nondistended, normoactive bowel sounds, soft to palpation, non-tender and non-distended Percussion: normal to percussion Rectal Exam: deferred Results Lab / Micro Data Labs: Laboratory Results - last 24 hr 03/18/24 11:05: Urine Test Negative Assessment & Plan Assessment/Plan (1) Abdominal pain: PLAN: (1) Abdominal symptoms: (2) Abdominal pain: Status: Chronic Plan: This is a very pleasant 33-year-old who comes in for the evaluation of abdominal pain that is gone on for a long time. It is not effective her weight. Sometimes it can vary with the food that she eats. Her is gluten-free because he has celiac disease so she has been maintaining a gluten-free diet also. She is struggled with some infertility issues. She denies any worsening stress abdominal pain or cramping. She did see it quality analyst several years ago and she was diagnosed with IBS C and recommended that she take MiraLAX on a daily basis. She comes in today wanting to know the etiology of her symptoms. Differential diagnosis does include: H. pylori associated gastritis or peptic ulcer disease because she does take Motrin, duodenal ulcer and duodenitis, for inflammatory bowel disease, acute intermittent porphyria Recommendations: She will undergo EGD and colonoscopy along with gastric emptying study and octreotide scan. She was explained alternatives, risk, benefits include not withstanding bleeding, infection, sepsis, perforation, need for charge and . She will have an ASA of 3.
--- NOTE | 2024-03-18 13:03 | PCM.POST.ANE ---
Anesthesia: Postop Eval I Current Vital Signs Temperature: 97.7 F Pulse Rate: 64 Blood Pressure: 92/55 Respiratory Rate: 16 Pulse Ox: 97 Oxygen Delivery Method: Room Air Assessment Airway patent: Yes Spontaneous unlabored respirations: Yes Mental status: Awake and Calm nausea: No Vomiting: No Anesthesia Complication: No Fluid Hydration Crystalloid volume administer (ml): 50 Total IV fluid infused: 50 Progress Note Anesthesia document: Postop Eval 1 completed: Yes
--- NOTE | 2024-03-18 13:05 | OP.COLON_ITS ---
Patient Name: Eula Suazo Procedure Date: 03/18/2024 12:22 PM Date of : 1990 Age: 33 Procedure: Colonoscopy Indications: Abdominal pain in the left lower quadrant, Abdominal pain in the left upper quadrant, Abdominal pain in the right lower quadrant, Abdominal pain in the right upper quadrant, Suspected irritable bowel syndrome Providers: Jani Parham DO Referring MD: Mariya Bocanegra MD Medicines: Monitored Anesthesia Care Patient Profile: This is a 33 year old female. Refer to note in patient chart for documentation of history and physical. Last Colonoscopy: none. The patient's first colonoscopy is today. Complications: No immediate complications. Procedure: Pre-Anesthesia Assessment: - Prior to the procedure, a History and Physical was performed, and patient medications and allergies were reviewed. The patient is competent. The risks and benefits of the procedure and the sedation options and risks were discussed with the patient. All questions were answered and informed consent was obtained. Patient identification and proposed procedure were verified by the physician in the pre-procedure area. Mental Status Examination: alert and oriented. Airway Examination: normal oropharyngeal airway and neck mobility. Respiratory Examination: clear to auscultation. CV Examination: normal. Prophylactic Antibiotics: The patient does not require prophylactic antibiotics. Prior Anticoagulants: The patient has taken no anticoagulant or antiplatelet agents except for NSAID medication. ASA Grade Assessment: II - A patient with mild systemic disease. After reviewing the risks and benefits, the patient was deemed in satisfactory condition to undergo the procedure. The anesthesia plan was to use monitored anesthesia care (MAC). Immediately prior to administration of medications, the patient was re-assessed for adequacy to receive sedatives. The heart rate, respiratory rate, oxygen saturations, blood pressure, adequacy of pulmonary ventilation, and response to care were monitored throughout the procedure. The physical status of the patient was re-assessed after the procedure. After I obtained informed consent, the scope was passed under direct vision. Throughout the procedure, the patient's blood pressure, pulse, and oxygen saturations were monitored continuously. The pediatric colonoscope was introduced through the anus and advanced to the terminal ileum. The colonoscopy was performed without difficulty. The patient tolerated the procedure well. The quality of the bowel preparation was adequate. The terminal ileum, ileocecal valve, appendiceal orifice, and rectum were photographed. Scope In: 12:40:34 PM Scope Withdrawal Time 0 hours 7 minutes 23 seconds Scope Out: 12:55:05 PM Total Procedure Duration Time 0 hours 14 minutes 31 seconds Findings: The perianal and digital rectal examinations were normal. The recto-sigmoid colon and hepatic flexure were moderately tortuous. A patchy area of the terminal ileum was congested. Biopsies were taken with a cold forceps for histology. Verification of patient identification for the specimen was done. Estimated blood loss was minimal. Impression: - Tortuous colon. - Congested mucosa in the terminal ileum. Biopsied. Recommendation: - Discharge patient to home. - Resume previous diet. - Continue present medications. - Await pathology results. - Repeat colonoscopy in 10 years for screening purposes. Procedure Code(s): --- Professional --- 05801, Colonoscopy, flexible; with biopsy, single or multiple CPT copyright 2021 [employer]. All rights reserved. The codes documented in this report are preliminary and upon custom designer review may be revised to meet current compliance requirements. Jani Parham DO 03/18/2024 1:04:25 PM This report has been signed electronically. Number of Addenda: 0 Note Initiated On: 03/18/2024 12:22 PM
--- NOTE | 2024-03-18 13:05 | OP.CCLET_ITS ---
03/18/2024 Mariya Bocanegra MD [address] [place] [address] [place] [address] Re : Colonoscopy procedure for Eula Gabriele Dear Dr. Bocanegra This procedure was performed on Monday, March 18, 2024. My impressions and recommendations are as follows: Impressions : - Tortuous colon. - Congested mucosa in the terminal ileum. Biopsied. Recommendations : - Discharge patient to home. - Resume previous diet. - Continue present medications. - Await pathology results. - Repeat colonoscopy in 10 years for screening purposes. My findings are described in the full procedure note, which is enclosed. If I can be of further assistance, please feel free to contact me at . Sincerely, Jani Parham, 03/18/2024 1:04:25 PM This report has been signed electronically.
--- NOTE | 2024-03-18 20:31 | PCM.POSTANE2 ---
Anesthesia Postop Eval I Sum Postop Eval Completion status Anesthesia document: Postop Eval 1 completed: Yes Anesthesia Postop Eval I Summary Anesthesia Postop Eval I Summary: Anesthesia Postop Eval I: Assessment Summary Airway patent Yes 03/18/24 13:05 [email or web address] Spontaneous unlabored Yes 03/18/24 13:05 [email or web address] respirations Mental status Awake,Calm 03/18/24 13:05 [email or web address] nausea No 03/18/24 13:05 [email or web address] Vomiting No 03/18/24 13:05 [email or web address] Anesthesia Postop Eval I: Fluid Summary Crystalloid volume administer 50 03/18/24 13:05 [email or web address] (ml) Colloids volume administered ( ml) Blood Product volume administered (ml) Total IV fluid infused 50 03/18/24 13:05 [email or web address] Anesthesia Postop Eval I: Summary Notes Anesthesia Complication No 03/18/24 13:05 [email or web address] Anesthesia Complication Comment: Post-operative progress note Anesthesia: Postop Eval II Evaluation Mental status: Awake and Calm Pain Level: 0 nausea: No Vomiting: No Complications Anesthesia Complication: No
== END 2024-03-18 13:44 | disposition home or self-care (01) ==
LOC: EN 10:56 → AC 10:58
PROVIDERS: Anesthesiology; PCP Internal Medicine; Referring Provider Internal Medicine; Visit Provider Internal Medicine Gastroenterology
PROC: 0DJD8ZZ Inspection of Lower Intestinal Tract, Via Natural or Artificial Opening Endoscopic (ICD-10-PCS; CPT 45378; principal; 2024-03-18 11:55)
DX: K63.89 Other specified diseases of intestine (principal); K58.9 Irritable bowel syndrome, unspecified; R10.31 Right lower quadrant pain; Q43.8 Other specified congenital malformations of intestine; R10.32 Left lower quadrant pain; R10.11 Right upper quadrant pain; R10.12 Left upper quadrant pain
CPT/HCPCS: 45380; 81025; 88305; A4216; J2405

== ENCOUNTER → 2024-07-22 | Outpatient (CLI) | payer OTHER, SELFPAY ==
[2024-07-22 14:33] LABS: hCG Titer Quant., Serum 2527 mIU/mL (<9 non-preg)
== END | disposition home or self-care (01) ==
PROVIDERS: PCP Internal Medicine; Referring Provider Obstetrics & Gynecology; Visit Provider Obstetrics & Gynecology
DX: O99.891 Other specified diseases and conditions complicating pregnancy (principal); N97.9 Female infertility, unspecified; Z3A.00 Weeks of gestation of pregnancy not specified
CPT/HCPCS: 36415; 84702

== ENCOUNTER → 2024-07-24 | Outpatient (CLI) | payer OTHER, SELFPAY ==
[2024-07-24 15:36] LABS: hCG Titer Quant., Serum 5436 mIU/mL (<9 non-preg)
== END | disposition home or self-care (01) ==
LOC: BWCLAB 13:54
PROVIDERS: Obstetrics & Gynecology; PCP Internal Medicine; Referring Provider Obstetrics & Gynecology; Visit Provider Obstetrics & Gynecology
DX: O99.891 Other specified diseases and conditions complicating pregnancy (principal); N97.9 Female infertility, unspecified; Z3A.00 Weeks of gestation of pregnancy not specified
CPT/HCPCS: 36415; 84702

== ENCOUNTER → 2024-07-26 | Outpatient (CLI) | payer OTHER, SELFPAY ==
--- NOTE | 2024-07-26 08:21 | US_ITS ---
PROCEDURE: TRANSVAGINAL W/PREG US 07/26/2024 REASON FOR EXAM: BLEEDING IN TECHNIQUE: Transvaginal ultrasound was performed in this 1st trimester sonogram COMPARISON: None FINDINGS: Intrauterine gestational is noted with gestational sac diameter of 0.9 cm, corresponding to gestational age of 5 weeks and 5 days. Yolk sac of 0.2 cm. CRL of 0.1 cm. No heart rate is detected at this time although this is likely due to early gestational age. Cervix is closed. Moderate fluid is noted within the cul-de-sac. Uterus measures 8.5 x 5.7 x 4.2 cm. Right ovary measures 3.2 x 2.1 x 1.8 cm and left ovary measures 2.3 x 2.0 x 1.0 cm. A 1.7 cm cyst is noted within the right ovary. Normal vasculature of the ovaries. US/Transvaginal w/Preg US IMPRESSION: Intrauterine gestational corresponding to 5 weeks and 5 days. No fet al heart rate is detected at this time although this is likely due to early gestational age. Cervix is closed. Moderate fluid noted within the cul-de-sac. Otherwise unremarkable. Reading Location: [id number]
== END | disposition home or self-care (01) ==
LOC: US 08:21
PROVIDERS: PCP Internal Medicine; Referring Provider Obstetrics & Gynecology; Visit Provider Obstetrics & Gynecology
DX: O46.90 Antepartum hemorrhage, unspecified, unspecified trimester (principal); Z3A.00 Weeks of gestation of pregnancy not specified
CPT/HCPCS: 76817

== ENCOUNTER → 2024-08-01 | Outpatient (CLI) | payer OTHER, SELFPAY ==
[2024-08-04 23:07] LABS: Chlamydia By Nucleic Acid AMP Negative (Negative); Gonococcus By Nucleic Acid AMP Negative (Negative)
== END | disposition home or self-care (01) ==
LOC: LABSPEC 14:49
PROVIDERS: PCP Internal Medicine; Referring Provider Obstetrics & Gynecology; Visit Provider Obstetrics & Gynecology
DX: N63.0 Unspecified lump in unspecified breast (principal)
CPT/HCPCS: 87086; 87491; 87591

== ENCOUNTER → 2024-08-27 | Outpatient (CLI) | payer OTHER, SELFPAY ==
[2024-08-27 12:08] LABS: Absolute Lymphocyte Count 1.52 X10^3/uL (0.83-4.51); Absolute Neutrophil Count 3.6 X10^3/uL (2.0-7.7); Basophil# 0.04 X10^3/uL; Basophil% 0.7 % (0-1); Eosinophil# 0.06 X10^3/uL; Hematocrit 37.8 % (37-47); Hemoglobin 12.7 g/dL (12.0-15.0); Lymphocyte # 1.52 X10^3/ul (0.83-4.51); Lymphocyte % 26.4 % (19-41); Mean Corp Hgb Conc 33.6 g/dL (32-36); Mean Corpuscular Hgb 30.8 pg (27.0-32.0); Mean Corpuscular Volume 91.5 fL (81-99); Mean Platelet Vol. 10.5 fl (6.2-12.0); Monocyte# 0.53 X10^3/uL; Monocyte% 9.2 % (0-10); NRBC Flagged by Analyzer 0 % (0-5); Neutrophil # 3.59 X10^3/uL (2.7-7.7); Neutrophil % 62.4 % (47-70); Platelet Count 270 K/mm3 (150-450); RBC Distribution Width CV 12.8 % (11.6-14.6); RBC Distribution Width SD 42.4 fl (35.1-43.9); Red Blood Count 4.13 M/mm3 (4.2-5.4); White Blood Count 5.8 K/mm3 (4.4-11.0)
[2024-08-27 12:56] LABS: HIV Nonreactive (Nonreactive); Hepatitis B Surface Antigen Nonreactive (Nonreactive); Hepatitis C Antibody Nonreactive (Nonreactive); Rubella IgG REAC (Nonreactive); Syphilis Antibodies Nonreactive (Nonreactive)
== END | disposition home or self-care (01) ==
PROVIDERS: PCP Internal Medicine; Referring Provider Obstetrics & Gynecology; Visit Provider Obstetrics & Gynecology
DX: Z34.01 Encounter for supervision of normal first pregnancy, first trimester (principal)
CPT/HCPCS: 36415; 85025; 86703; 86762; 86780; 86803; 86850; 86900; 86901; 87340

== ENCOUNTER → 2024-11-21 | Outpatient (CLI) | payer OTHER, SELFPAY | END | disposition home or self-care (01) | LOC: BWCLAB 10:37 | PROVIDERS: Advanced Practice Midwife; PCP Internal Medicine; Referring Provider Obstetrics & Gynecology; Visit Provider Obstetrics & Gynecology | DX: O09.92 Supervision of high risk pregnancy, unspecified, second trimester (principal); Z3A.00 Weeks of gestation of pregnancy not specified | CPT/HCPCS: 36415 ==

== ENCOUNTER → 2024-12-22 | Outpatient (CLI) | payer OTHER, SELFPAY ==
[2024-12-22 15:18] LABS: Hematocrit 33.8 % (37-47); Hemoglobin 11.7 g/dL (12.0-15.0); Immature Granulocytes Count 0.100 X10^3/uL (0.0-0.0); Mean Corp Hgb Conc 34.6 g/dL (32-36); Mean Corpuscular Volume 93.4 fL (81-99); Mean Platelet Vol. 9.4 fl (6.2-12.0); NRBC Flagged by Analyzer 0 % (0-5); Platelet Count 271 K/mm3 (150-450); RBC Distribution Width CV 13.5 % (11.6-14.6); RBC Distribution Width SD 46.7 fl (35.1-43.9); Red Blood Count 3.62 M/mm3 (4.2-5.4); White Blood Count 13.2 K/mm3 (4.4-11.0)
[2024-12-22 15:50] LABS: AST(SGOT) 23 U/L (<=31); Alanine Aminotransfer ALT/SGPT 22 U/L (<=34); Albumin, Serum 3.7 g/dL (3.5-5.0); Alkaline Phosphatase 74 U/L (35-104); Anion Gap 8 (5-15); BUN 7 mg/dL (4-19); BUN/Creat Ratio 12.4 RATIO (10-20); Calcium,Total 8.7 mg/dL (7.6-11.0); Carbon Dioxide 24.3 mmol/L (21.0-32.0); Chloride 105 mmol/L (98-108); Globulin 2.3 g/dL (2.2-4.2); Glucose 70 mg/dL (70-99); Potassium 3.8 mmol/L (3.3-5.1)
== END | disposition home or self-care (01) ==
LOC: LAB 14:47
PROVIDERS: PCP Internal Medicine; Referring Provider Internal Medicine; Visit Provider Internal Medicine
DX: Z00.00 Encounter for general adult medical examination without abnormal findings (principal)
CPT/HCPCS: 36415; 80053; 85025

== ENCOUNTER → 2024-12-25 | Outpatient (CLI) | payer OTHER, SELFPAY ==
[2024-12-25 10:36] LABS: Mucous, Urine 0 SEEN /hpf (<or=2+); Red Blood Cells-Urine 0 SEEN /hpf (0-5)
[2024-12-25 11:04] LABS: Color, Urine Yellow (Yellow); Glucose, Dipstick Normal (Normal); Ketone-Dipstick Negative (Negative); Leukocyte Esterase-Dipstick 25 /ul (Negative); Nitrite-Dipstick Negative (Negative); Occult Blood-Urine Negative /ul (Negative); Protein-Dipstick Negative (Negative); Specific Gravity, Urine 1.010 (1.002-1.030); Urine Bilirubin Dipstick Negative (Negative)
[2024-12-25 11:11] LABS: Squamous Epithelial Cells - UA 0-5 SEEN /hpf (5-10)
== END | disposition home or self-care (01) ==
LOC: LAB 10:31
PROVIDERS: PCP Internal Medicine; Referring Provider Internal Medicine; Visit Provider Internal Medicine
DX: Z34.90 Encounter for supervision of normal pregnancy, unspecified, unspecified trimester (principal); D72.829 Elevated white blood cell count, unspecified; R82.90 Unspecified abnormal findings in urine
CPT/HCPCS: 81001; 87086

== ENCOUNTER → 2024-12-29 | Outpatient (CLI) | payer OTHER, SELFPAY ==
[2024-12-29 12:25] LABS: Hematocrit 35.8 % (37-47); Hemoglobin 11.9 g/dL (12.0-15.0); Immature Granulocytes Count 0.130 X10^3/uL (0.0-0.0); Mean Corp Hgb Conc 33.2 g/dL (32-36); Mean Corpuscular Volume 94.5 fL (81-99); Mean Platelet Vol. 9.7 fl (6.2-12.0); NRBC Flagged by Analyzer 0 % (0-5); Platelet Count 267 K/mm3 (150-450); RBC Distribution Width CV 13.6 % (11.6-14.6); RBC Distribution Width SD 46.9 fl (35.1-43.9); Red Blood Count 3.79 M/mm3 (4.2-5.4); White Blood Count 10.5 K/mm3 (4.4-11.0)
[2024-12-29 13:17] LABS: Glucose Challenge Gest 1H 50g 92 mg/dL (70-140); HIV Nonreactive (Nonreactive); Syphilis Antibodies Nonreactive (Nonreactive)
== END | disposition home or self-care (01) ==
PROVIDERS: PCP Internal Medicine; Referring Provider Advanced Practice Midwife; Visit Provider Advanced Practice Midwife
DX: O09.92 Supervision of high risk pregnancy, unspecified, second trimester (principal); Z3A.25 25 weeks gestation of pregnancy; Z13.1 Encounter for screening for diabetes mellitus
CPT/HCPCS: 36415; 82950; 85025; 86703; 86780

== ENCOUNTER → 2025-01-30 | Outpatient (CLI) | payer OTHER, SELFPAY ==
--- NOTE | 2025-01-30 17:46 | US_ITS ---
PROCEDURE: OB LIMITED WITH BIOMETRICS 01/30/2025 REASON FOR EXAM: GROWTH TECHNIQUE: Procedure Code: [id number] Modality: US Procedure: OB LIMITED WITH BIOMETRICS COMPARISON: None FINDINGS LMP: June 15, 2024 Number: 1 Position: Vertex Placental Position: Anterior and not low lying. Placental Abnormalities: No placenta previa. DIMENSIONS: Biparietal Diameter: 8 cm: 32 weeks and 0 days: 23rd percentile/ Head Circumference: 29.9 cm: 33 weeks and 1 day: 24 percentile/ Abdominal Circumference: 28.5 cm: 32 weeks and 4 days: 46 percentile/ Femur Length: 6.3 cm: 32 weeks and 4 days: 34 percentile/ ESTIMATED WEIGHT: 2007 g plus/-301 g ESTIMATED WEIGHT PERCENTILE (24+ weeks): 37 ESTIMATED GESTATIONAL AGE: Baseline: 32 weeks and 5 days By Ultrasound: 32 weeks and 2 days ESTIMATED DATE OF DELIVERY: Baseline: March 22, 2025 By Ultrasound: March 25, 2025 BIOPHYSICAL ASSESSMENT: Amniotic Fluid Volume: 4.2 cm Amniotic Fluid Index: 15.4 (8-24 cm normal range) Cardiac Motion: 160 beats per minute (average) Trunk and Limb Motion: Present. US/OB Limited With Biometrics IMPRESSION: Single live intrauterine gestation with a mean gestational age of 32 weeks and 2 days. Reading Location: [place] [id number]
--- OUTSIDE RECORDS SUMMARY | 2025-01-30 18:05 | XMS RPT_ITS | CCD ---
Author Organization [facility] Care Team Providers Care Income Tax Investigator Name Role Phone Daljit AG, Dr. Meraz Primary Care Provider Dr. Mary Alicia DO Attending Provider Dr. Mary Alicia DO Referring Provider Trista AG, Dr. Meneses Attending Provider [phone] Dr. Zaira Wesotn MD Referring Provider [phone] Daljit AG, Dr. Meraz Referring Provider [phone] Mraguerite Valencia CNM Attending Provider Stephy Starkey Attending Provider [phone] Daljit AG, Dr. Meraz Primary Care Physician Dr. Mariya Bocanegra MD Referring Provider [phone] Marguerite Valencia CNM Attending Physician [phone] Dr. Mary Alicia DO Attending Physician Dr. Mary Alicia DO Referring Provider Stephy Starkey Attending Physician [phone] Dr. Zaira Weston MD Attending Physician Daljit AG, Dr. Meraz Primary Care Physician Dr. Mariya Bocanegra MD Referring Provider [phone] Ashley Joseph CNM Attending Physician MARY GAMING Referring Unavail KARISHMA Kay Attending Unavailable OLEGHE, EFEWONGBE B Primary Care Unavailable MARY SMITH Attending Unavailable OLEGHE, EFEWONGBE B Primary Care Unavailable MARY GAMING Referring Unavailab vasu Bocanegra MD, Dr. Meraz Primary Care Physician Dr. Mariya Bocanegra MD Referring Provider [phone] Dr. Mary Alicia DO Attending Physician Christine NAVARRO-C, Stephy Attending Physician [phone] Trista AG, Dr. Meneses Attending Physician Dr. Mary Alicia DO Referring Provider Ashley Joseph CNM Attending Physician [phone] Daljit AG, Dr. Meraz Attending Physician [phone] Ashley Joseph CNM Referring Provider [phone] Mary Alicia Attending Unavailabl e Oleghe, Efewongbe Primary Care Unavailable Oleghe, Efewongbe Referring Unavailable Vande Mary Herndon Attending Unavailabl e Oleghe, Efewongbe Primary Care Unavailable Oleghe, Efewongbe Referring Unavailable Friend, Jani Attending Unavailable Friend, Jani Consulting Unavailable Oleghe, Efewongbe Referring Unavailable Oleghe, Efewongbe Primary Care Unavailable Vande Mary Herndon Attending Unavailabl e Oleghe, Efewongbe Primary Care Unavailable Oleghe, Efewongbe Referring Unavailable Oleghe, Efewongbe Referring Unavailable Oleghe, Efewongbe Attending Unavailable Oleghe, Efewongbe Primary Care Unavailable Vande VelMary watson Referring Unavailabl e Vande Mary Herndon Attending Unavailabl e Oleghe, Efewongbe Primary Care Unavailable Oleghe, Efewongbe Primary Care Unavailable Zaira Weston Attending Unavailable Zaira Weston Referring Unavailable VandMary Brown Attending Unavailabl e Vande VelMary watson Referring Unavailabl e Oleghe, Efewongbe Primary Care Unavailable Oleghe, Efewongbe Referring Unavailable aZira Weston Attending Unavailable Oleghe, Efewongbe Primary Care Unavailable Oleghe, Efewongbe Attending Unavailable Oleghe, Efewongbe Primary Care Unavailable Oleghe, Efewongbe Referring Unavailable Oleghe, Efewongbe Primary Care Unavailable Zaira Weston Attending Unavailable Oleghe, Efewongbe Referring Unavailable Vande Velshirley, Mary Attending Unavailabl e Oleghe, Efewongbe Primary Care Unavailable Oleghe, Efewongbe Referring Unavailable Vande Velde, Mary Attending Unavailabl e Vande Velde, Mary Referring Unavailabl e Oleghe, Efewongbe Primary Care Unavailable Vande Velde, Mary Referring Unavailabl e Vande Velde, Mary Attending Unavailabl e Oleghe, Efewongbe Primary Care Unavailable Vande Velde, Mary Attending Unavailabl e Vande Velde, Mary Referring Unavailabl e Oleghe, Efewongbe Primary Care Unavailable Oleghe, Efewongbe Referring Unavailable Oleghe, Efewongbe Attending Unavailable Oleghe, Efewongbe Primary Care Unavailable Oleghe, Efewongbe Primary Care Unavailable Ashley Joseph Referring Unavailable Ashley Joseph Attending Unavailable Friend, Jani Attending Unavailable Oleghe, Efewongbe Referring Unavailable Oleghe, Efewongbe Primary Care Unavailable Friend, Jani Referring Unavailable Friend, Jani Attending Unavailable Oleghe, Efewongbe Primary Care Unavailable Oleghe, Efewongbe Primary Care Unavailable Oleghe, Efewongbe Referring Unavailable [place]ia COUGAR HUNTERStephy Attending Unavailable Friend, Jani Referring Unavailable Friend, Jani Attending Unavailable Oleghe, Efewongbe Primary Care Unavailable Oleghe, Efewongbe Primary Care Unavailable Oleghe, Efewongbe Referring Unavailable Christine COUGAR HUNTERStephy Attending Unavailable Oleghe, Efewongbe Referring Unavailable Oleghe, Efewongbe Primary Care Unavailable Solgoh[place]ia COUGAR HUNTERStephy Attending Unavailable Oleghe, Efewongbe Primary Care Unavailable Ashley Joseph Attending Unavailable Oleghe, Efewongbe Referring Unavailable Marguerite Valencia Attending Unavailable Oleghe, Efewongbe Primary Care Unavailable Oleghe, Efewongbe Referring Unavailable Medications Current Medications Medication Drug Class(es) Dates Sig (Normalized) Sig (Original) cetirizine hydrochloride 10 mg oral capsule (1 source) Histamine-1 Receptor Antagonist Start: 12-22-2024 take 1 capsule by mouth once daily as needed Lactobacillus Combo No.11 (Probiotic) 15 billion cell capsule, sprinkle (15 sources) Start: 01-17-2023 Start: 01-17-2023 Lactobacillus Combo No.11 (Probiotic) 15 billion cell capsule, sprinkle Active 1 NMA PO DAILY January 17, 2023 1:00am do not crush/chew/cut; swallow whole OR may open and sprinkle in cold drink/food Complies with drug therapy Start: 01-17-2023 Start: 01-17-2023 Lactobacillus Combo No.11 (Probiotic) 15 billion cell capsule, sprinkle Active 1 NMA PO DAILY January 17, 2023 1:00am do not crush/chew/cut; swallow whole OR may open and sprinkle in cold drink/food Mv-Mins 99-Oukh-Iokrk No.1-D koenig (Pnv-Lakeside) 28-1-300 mg capsule (15 sources) Start: 07-25-2024 Start: 07-25-2024 Mv-Mins 71-Iro n-Folic No.1-Dha (Pnv-Lakeside) 28-1-300 mg capsule Active NMA PO July 25, 2024 12:00am Complies with drug therapy Start: 07-25-2024 Start: 07-25-2024 Mv-Mins 71-Iro n-Folic No.1-Dha (Pnv-Lakeside) 28-1-300 mg capsule Active NMA PO July 25, 2024 12:00am nitrofurantoin, macrocrystals 25 mg / nitrofurantoin, monohydrate 75 mg oral capsule (1 source) Nitrofuran Antibacterial Start: 12-25-2024 End: 01-01-2025 take 1 capsule by mouth twice daily at mealtime Nitrofurantoin Monohyd/M-Cryst (Macrobid) 100 mg capsule Discontinued 100 mg PO TWICE A DAY 14 7 0 December 24, 2024 11:00pm December 30, 2024 11:00pm December 31, 2024 11:09pm must administer with a meal/food Completed/Discontinued Medications Medication Drug Class(es) Dates Sig (Normalized) Sig (Original) acetaminophen 325 mg / oxyCODONE hydrochloride 7.5 mg oral tablet (15 sources) Opioid Agonist Start: 03-29-2021 End: 04-13-2021 Oxycodone-Acetaminop hen (Percocet) 7.5-325 mg tablet Discontinued 1 {tbl} PO Q4H as needed for pain 18 3 0 March 29, 2021 April 13, 2021 11:52am Pain in pelvis Postoperative state Pelvic and perineal pain Other specified postprocedural states azelaic acid 0.15 mg/mg topical gel (15 sources) Start: 03-22-2021 End: 04-13-2021 Azelaic Acid 15 % gel Discontinued 1 NMA TOPICAL DAILY March 22, 2021 12:00am April 13, 2021 11:51am calcium carbonate 1250 mg oral tablet (20 sources) Start: 04-13-2021 End: 10-06-2022 take 1 tablet by mouth once daily Calcium Carbonate 500 mg calcium (1,250 mg) tablet Discontinued 500 mg PO DAILY April 13, 2021 12:00am October 06, 2022 7:05am Start: 10-15-2019 End: 02-17-2021 take 1 tablet by mouth once daily Calcium Carbonate (Calcium 500) 500 mg calcium (1,250 mg) tablet Discontinued 500 mg PO DAILY October 14, 2019 11:00pm February 17, 2021 1:06pm calcium carbonate 1500 mg / cholecalciferol 200 unt oral tablet (15 sources) Vitamin D Start: 03-14-2024 End: 12-22-2024 Calcium Carbonate-Vitamin D3 (Calcium 600 + D(3)) 600 mg-5 mcg (200 unit) tablet Discontinued 2 {tbl} PO DAILY March 14, 2024 12:00am December 22, 2024 1:06pm cholecalciferol 0.05 mg oral capsule (15 sources) Vitamin D Start: 04-13-2021 End: 10-06-2022 take 1 capsule by mouth once daily Cholecalciferol (Vitamin D3) 50 mcg (2,000 unit) capsule Discontinued 50 ug PO DAILY April 13, 2021 12:00am October 06, 2022 7:04am Clascoterone (15 sources) Start: 10-06-2021 End: 10-06-2022 Clascoterone (Winlevi) 1 % cream Discontinued 1 NMA TOPICAL DAILY October 05, 2021 11:00pm October 06, 2022 7:04am Start: 10-06-2021 End: 10-06-2022 Clascoterone (Winlevi) 1 % c ream Discontinued 1 NMA TOPICAL DAILY October 06, 2021 12:00am October 06, 2022 8:04am Norgestimate-Ethinyl Estradiol (15 sources) Progestin, Estrogen Start: 08-25-2022 End: 01-17-2023 Norgestimate-Ethinyl Estradiol (Sprintec (28)) 0.25-35 mg-mcg tablet Discontinued 1 {tbl} PO DAILY 84 4 August 24, 2022 11:00pm January 17, 2023 2:51pm Start: 08-25-2022 End: 01-17-2023 Norgestimate-Ethinyl Estradi ol (Sprintec (28)) 0.25-35 mg-mcg tablet Discontinued 1 {tbl} PO DAILY 84 4 August 25, 2022 12:00am January 17, 2023 3:51pm Start: 08-25-2022 End: 01-17-2023 Norgestimate-Ethinyl Estradi ol (Sprintec (28)) 0.25-35 mg-mcg tablet Discontinued 1 {tbl} PO DAILY 84 August 25, 2022 12:00am January 17, 2023 3:51pm fexofenadine hydrochloride 180 mg oral tablet (15 sources) Histamine-1 Receptor Antagonist Start: 10-15-2019 End: 02-17-2021 take 1 tablet by mouth once daily Fexofenadine (Cintia Allergy) 180 mg tablet Discontinued 180 mg PO DAILY October 14, 2019 11:00pm February 17, 2021 1:06pm ibuprofen 800 mg oral tablet (15 sources) Nonsteroidal Anti-inflammatory Drug Start: 03-29-2021 End: 04-13-2021 take 1 tablet by mouth every eight hours as needed for pain Ibuprofen 800 mg tablet Discontinued 800 mg PO Q8H as needed for pain 30 7 0 March 29, 2021 12:00am April 13, 2021 11:51am lactobacillus acidophilus [id number] unt oral capsule (15 sources) Start: 03-22-2021 End: 04-13-2021 take 10 capsules by mouth once daily Lactobacillus Acidophilus (Probiotic) 10 billion cell Capsule Discontinued 39662 NMA PO DAILY March 22, 2021 12:00am April 13, 2021 11:51am letrozole 2.5 mg oral tablet (15 sources) Aromatase Inhibitor Start: 04-13-2021 End: 10-06-2021 take 3 tablets by mouth once daily, then take 3-7 tablets by mouth once daily Letrozole 2.5 mg tablet Discontinued 2.5 mg PO DAILY 5 5 2 April 13, 2021 12:00am October 06, 2021 1:00pm take daily from day 3 of cycle (days 3-7) for 5 days Multivitamin tablet (15 sources) Start: 02-17-2021 End: 10-06-2022 Multivitamin tablet Discontinued 1 {tbl} PO DAILY February 17, 2021 12:00am October 06, 2022 7:04am Start: 02-17-2021 End: 10-06-2022 Multivitamin tablet Disconti nued 1 {tbl} PO DAILY February 17, 2021 1:00am October 06, 2022 8:04am Lakeside-3 Fatty Acids 1,000 mg capsule (15 sources) Start: 04-13-2021 End: 10-06-2022 take 1 capsule by mouth once daily Lakeside-3 Fatty Acids 1,000 mg capsule Discontinued 1000 mg PO DAILY April 13, 2021 12:00am October 06, 2022 7:05am Start: 04-13-2021 End: 10-06-2022 take 1 capsule by mouth once daily Lakeside-3 Fatty Acids 1,000 mg capsule Discontinued 1000 mg PO DAILY April 13, 2021 1:00am October 06, 2022 8:05am ondansetron 4 mg disintegrating oral tablet (20 sources) Serotonin-3 Receptor Antagonist Start: 08-01-2024 End: 11-11-2024 take 1 tablet by mouth every six hours as needed for nausea and vomiting Ondansetron 4 mg tablet,disintegrating Discontinued 4 mg PO EVERY 6 HOURS as needed for nausea and vomiting 01 09July 31, 2024 11:00pm November 11, 2024 9:43am Start: 03-29-2021 End: 04-13-2021 take 1 tablet by mouth three times daily as needed for nausea and vomiting Ondansetron 4 mg tablet,disintegrating Discontinued 4 mg PO THREE TIMES A DAY as needed for nausea and vomiting 5 0 March 29, 2021 12:00am April 13, 2021 11:51am Start: 03-29-2021 End: 04-13-2021 take 1 tablet by mouth every eight hours as needed for nausea and vomiting Ondansetron 4 mg tablet,disintegrating Discontinued 4 mg PO Q8H as needed for nausea and vomiting 20 5 0 March 29, 2021 12:00am April 13, 2021 11:51am polyethylene glycol 3350 74826 mg powder for oral solution (15 sources) Osmotic Laxative Start: 01-26-2020 End: 02-17-2021 Polyethylene Glycol 3350 (Miralax) 17 gram powder in packet Discontinued 17 g PO DAILY January 26, 2020 12:00am February 17, 2021 1:06pm Prenat.Vits,Gilson,Min-Iron -Folic tablet (15 sources) Start: 10-15-2019 End: 02-17-2021 Prenat.Vits,Gilson,Min-Iron -Folic tablet Discontinued 1 {tbl} PO DAILY October 14, 2019 11:00pm February 17, 2021 1:06pm Start: 10-15-2019 End: 02-17-2021 Prenat.Vits,Gilson,Ewg-Jrdk-Tys ic tablet Discontinued 1 {tbl} PO DAILY October 15, 2019 12:00am February 17, 2021 2:06pm progesterone 100 mg vaginal insert (20 sources) Progesterone Start: 07-26-2024 End: 11-11-2024 Progesterone Micronized 100 mg insert Discontinued 200 mg VAGINAL BEDTIME 60 70 3 July 25, 2024 11:00pm November 11, 2024 9:43am Start: 04-13-2021 End: 10-06-2021 Progesterone Micronized (Pro metrium) 100 mg capsule Discontinued 100 mg PO EVERY MORNING 21 21 April 13, 2021 12:00am October 06, 2021 1:00pm start taking 2 days after ovulation and take for 21 days. Take test after 21 days. saccharomyces boulardii 250 mg oral capsule (15 sources) Start: 10-15-2019 End: 02-17-2021 take 1 capsule by mouth twice daily Saccharomyces Boulardii (Daily Probiotic (S. Boulardii)) 250 mg capsule Discontinued 250 mg PO TWICE A DAY October 14, 2019 11:00pm February 17, 2021 1:06pm swallow whole Problems Active Problems Problem Classification Problem Date Documented Da te Episodic/Chronic Diseases of white blood cells (1 source) Leukocytosis; Translations: [Elevated white blood cell count, unspecified] 12-29-2024 Chronic Endometriosis (20 sources) Endometriosis (clinical); Translations: [Endometriosis, unspecified] Onset: 08-27-2024 03-29-2021 Chronic Female infertility (20 sources) Female infertility; Translations: [Female infertility, unspecified] Onset: 08-27-2024 10-15-2019 Chronic Genitourinary symptoms and ill-defined conditions (1 source) Abnormal urinalysis; Translations: [Unspecified abnormal findings in urine] 12-29-2024 Episodic Immunizations and screening for infectious disease (16 sources) Needs influenza immunization; Translations: [Encounter for immunization] Onset: 12-29-2024 07-25-2024 Episodic Menstrual disorders (20 sources) Amenorrhea; Translations: [Amenorrhea, unspecified] 07-29-2024 Chronic Other complications of (20 sources) High risk ; Translations: [Supervision of high risk , unspecified, unspecified trimester] 07-25-2024 Episodic Comment on above: , DUANE 03/22/24, Adopted 2 children-Annabella, Asael Yoandy PRR , DUANE , Adopted 2 children-Annabella, Asael Yoandy PRR , DUANE , boy Adopted 2 children-Annabella, Asael Yoandy Other complications of (20 sources) Advanced maternal age ; Translations: [Elderly multigravida, unspecified as to episode of care or not applicable] 07-25-2024 Episodic Comment on above: deliver by 39 and 36 weeks growth US Other complications of (2 sources) Urinary tract infection in ; Translations: [Unspecified infection of urinary tract in , unspecified trimester] 12-29-2024 Episodic Comment on above: neg culture. Other complications of (1 source) Supervision of high risk , unspecified, second trimester; Translations: [Supervision of high risk , unspecified, second trimester] Onset: 01-08-2025 Episodic Other gastrointestinal disorders (20 sources) Constipation; Translations: [Constipation, unspecified] 07-25-2024 Episodic Other nervous system disorders (1 source) Other chronic pain; Translations: [Other chronic pain] Onset: 08-27-2024 Chronic Other and delivery including normal (20 sources) Early stage of ; Translations: [Encounter for supervision of normal , unspecified, unspecified trimester] Onset: 09-01-2024 07-21-2024 Episodic Comment on above: discussed NIPT & Car rier testing- undecided NIPT low risk, elizabeth er neg. 14 NIPT low risk, elizabeth er neg. . nl anatomy undecided about afp screen. Other upper respiratory disease (20 sources) Seasonal allergy; Translations: [Other seasonal allergic rhinitis] 10-15-2019 Chronic Other upper respiratory disease (1 source) Other seasonal allergic rhinitis; Translations: [Other seasonal allergic rhinitis] Onset: 08-27-2024 Chronic Residual codes; unclassified (12 sources) Infertile 04-13-2021 Episodic Residual codes; unclassified (1 source) 25 weeks gestation of ; Translations: [25 weeks gestation of ] Onset: 12-08-2024 Episodic Unclassified (1 source) Other specified diseases and conditions complicating ; Translations: [Other specified diseases and conditions complicating ] Onset: 07-31-2024 Past or Other Problems Problem Classification Problem Date Documented Da te Episodic/Chronic Abdominal pain (20 sources) Pain in pelvis; Translations: [Pelvic and perineal pain] Onset: 04-08-2024 02-17-2021 Episodic Hemorrhage during ; abruptio placenta; placenta previa (20 sources) Antepartum hemorrhage; Translations: [Hemorrhage in early , unspecified] Onset: 07-31-2024 07-26-2024 Episodic Comment on above: intrauterine pregnan cy on scan 07/26/24- started on progesterone suppositories 200 q hs for threatened intrauterine pregnan cy on scan 07/26/24- started on progesterone suppositories 200 q hs for threatened . Stopped at 16 wk <2cm from cervix. Pe lvic rest. Rpt US 28 wk resolved Nonmalignant breast conditions (20 sources) Lump of upper outer quadrant of breast; Translations: [Unspecified lump in unspecified breast] Onset: 08-27-2024 01-17-2023 Episodic Other complications of (1 source) Other specified related conditions, unspecified trimester; Translations: [Other specified related conditions, unspecified trimester] Onset: 10-01-2024 Episodic Other complications of (1 source) Supervision of high risk , unspecified, unspecified trimester; Translations: [Supervision of high risk , unspecified, unspecified trimester] Onset: 08-27-2024 Episodic Other gastrointestinal disorders (1 source) Constipation, unspecified; Translations: [Constipation, unspecified] Onset: 08-27-2024 Episodic Residual codes; unclassified (1 source) 17 weeks gestation of ; Translations: [17 weeks gestation of ] Onset: 10-13-2024 Episodic Residual codes; unclassified (1 source) 10 weeks gestation of ; Translations: [10 weeks gestation of ] Onset: 08-27-2024 Episodic Residual codes; unclassified (1 source) Less than 8 weeks gestation of ; Translations: [Less than 8 weeks gestation of ] Onset: 08-08-2024 Episodic Spondylosis; intervertebral disc disorders; other back problems (20 sources) Chronic neck pain; Translations: [Cervicalgia] Onset: 08-27-2024 11-03-2019 Episodic Results Test Name Value Interpretation Reference Range Facility Absolute lymphocyte countOrd ered By: Ashley Joseph on 12-29-2024 Lymphocytes Auto (Unsp spec) [#/Vol] 1.44 10*3/uL 0.83-4.51 [facility] Absolute neutrophil countOrd ered By: Ashley Joseph on 12-29-2024 Neutrophils (Bld) [#/Vol] 8.2 10*3/uL High 2.0-7.7 [facility] Automated lymphocyte count a s percentage of total leukocytesOrdered By: Ashley Joseph on 12-29-2024 Lymphocytes/100 WBC Auto (Unsp spec) 13.8 % Low 19-41 [facility] Basophil percentageOrdered B y: Ashley Joseph on 12-29-2024 Basophils/100 WBC (Bld) 0.6 % 0-1 [facility] CBC W/Diff, Automatedon 12-04 Absolute Lymph 1.44 X10 3/uL Normal 0.83-4.51 [facility] Comment on above: Performed By: #### L 100.0100, L509.4006, L509.8002, L3890.6102, L3890.6006, L3890.6301, BTS #### [facility] [address] [place], [address] Absolute Neut 8.2 X10 3/uL High 2.0-7.7 [facility] Comment on above: Performed By: #### L 100.0100, L509.4006, L509.8002, L3890.6102, L3890.6006, L3890.6301, BTS #### [facility] [address] [place], [address] Basophils/100 WBC (Bld) 0.6 % Normal 0-1 [facility] Comment on above: Performed By: #### L 100.0100, L509.4006, L509.8002, L3890.6102, L3890.6006, L3890.6301, BTS #### [facility] [address] [place], [address] Eosinophils/100 WBC (Bld) 0.4 % Normal 0-5 [facility] Comment on above: Performed By: #### L 100.0100, L509.4006, L509.8002, L3890.6102, L3890.6006, L3890.6301, BTS #### [facility] [address] [place], [address] Erythrocyte distribution width (RBC) [Ratio] 13.6 % Normal 11.6-14.6 [facility] Comment on above: Performed By: #### L 100.0100, L509.4006, L509.8002, L3890.6102, L3890.6006, L3890.6301, BTS #### [facility] [address] [place], [address] Hematocrit (Bld) [Volume fraction] 35.8 % Low 37-47 [facility] Comment on above: Performed By: #### L 100.0100, L509.4006, L509.8002, L3890.6102, L3890.6006, L3890.6301, BTS #### [facility] [address] [place], [address] Hemoglobin (Bld) [Mass/Vol] 11.9 g/dL Low 12.0-15.0 [facility] Comment on above: Performed By: #### L 100.0100, L509.4006, L509.8002, L3890.6102, L3890.6006, L3890.6301, BTS #### [facility] [address] [place], [address] IG% 1.200 High 0.0-0.9 [facility] Comment on above: Result Comment: IG% - Immature Granulocytes (promyelocytes, myelocytes and metamyelocytes) > 1% indicates that a LEFT SHIFT is Present. Performed By: #### L 100.0100, L509.4006, L509.8002, L3890.6102, L3890.6006, L3890.6301, BTS #### [facility] [address] [place], [address] Lymphocytes/100 WBC (Bld) 13.8 % Low 19-41 [facility] Comment on above: Performed By: #### L 100.0100, L509.4006, L509.8002, L3890.6102, L3890.6006, L3890.6301, BTS #### [facility] [address] [place], [address] MCH (RBC) [Entitic mass] 31.4 pg Normal 27.0-32.0 [facility] Comment on above: Performed By: #### L 100.0100, L509.4006, L509.8002, L3890.6102, L3890.6006, L3890.6301, BTS #### [facility] [address] [place], [address] MCHC (RBC) [Mass/Vol] 33.2 g/dL Normal 32-36 [facility] Comment on above: Performed By: #### L 100.0100, L509.4006, L509.8002, L3890.6102, L3890.6006, L3890.6301, BTS #### [facility] [address] [place], [address] MCV (RBC) [Entitic vol] 94.5 fL Normal 81-99 [facility] Comment on above: Performed By: #### L 100.0100, L509.4006, L509.8002, L3890.6102, L3890.6006, L3890.6301, BTS #### [facility] [address] [place], [address] Monocytes/100 WBC (Bld) 6.0 % Normal 0-10 [facility] Comment on above: Performed By: #### L 100.0100, L509.4006, L509.8002, L3890.6102, L3890.6006, L3890.6301, BTS #### [facility] [address] [place], [address] Neutrophils/100 WBC (Bld) 78.0 % High 47-70 [facility] Comment on above: Performed By: #### L 100.0100, L509.4006, L509.8002, L3890.6102, L3890.6006, L3890.6301, BTS #### [facility] [address] [place], [address] Nucleated RBC (Bld) [#/Vol] 0 10*3/uL Normal 0-5 [facility] Comment on above: Performed By: #### L 100.0100, L509.4006, L509.8002, L3890.6102, L3890.6006, L3890.6301, BTS #### [facility] [address] [place], [address] Platelet mean volume (Bld) [Entitic vol] 9.7 fL Normal 6.2-12.0 [facility] Comment on above: Performed By: #### L 100.0100, L509.4006, L509.8002, L3890.6102, L3890.6006, L3890.6301, BTS #### [facility] [address] [place], [address] Platelets (Bld) [#/Vol] 267 10*3/uL Normal 150-450 [facility] Comment on above: Performed By: #### L 100.0100, L509.4006, L509.8002, L3890.6102, L3890.6006, L3890.6301, BTS #### [facility] [address] [place], [address] RBC (Bld) [#/Vol] 3.79 10*6/uL Low 4.2-5.4 [facility] Comment on above: Performed By: #### L 100.0100, L509.4006, L509.8002, L3890.6102, L3890.6006, L3890.6301, BTS #### [facility] [address] [place], [address] RDW SD 46.9 fl High 35.1-43.9 [facility] Comment on above: Performed By: #### L 100.0100, L509.4006, L509.8002, L3890.6102, L3890.6006, L3890.6301, BTS #### [facility] [address] [place], [address] WBC (Bld) [#/Vol] 10.5 10*3/uL Normal 4.4-11.0 [facility] Comment on above: Performed By: #### L 100.0100, L509.4006, L509.8002, L3890.6102, L3890.6006, L3890.6301, BTS #### [facility] [address] [place], [address] Eosinophil percentageOrdered By: Ashley Joseph on 12-29-2024 Eosinophils/100 WBC (Bld) 0.4 % 0-5 [facility] Erythrocyte distribution wid th ratioOrdered By: Ashley Joseph on 12-29-2024 Erythrocyte distribution width (RBC) [Ratio] 13.6 % 11.6-14.6 [facility] Erythrocyte distribution wid th standard deviationOrdered By: Ashley Joseph on 12-29-2024 Erythrocyte distribution width (RBC) [Ratio] 46.9 fl High 35.1-43.9 [facility] Glucose Challenge Gest 1H 50 carmen 12-29-2024 GLU GEST 50g 1H 92 mg/dL Normal 70-140 [facility] Comment on above: Performed By: #### L 100.0100, L509.4006, L509.8002, L3890.6102, L3890.6006, L3890.6301, BTS #### [facility] [address] [place], [address] Glucose measurement at 2 alessandro rs post-dose gestational glucose tolerance testOrdered By: Ashley Joseph on 12-29-2024 Glucose [Mass/Vol] 92 mg/dL 70-140 [facility] HIVon 12-29-2024 HIV Non-Reactive Normal Nonreactive [facility] Comment on above: Result Comment: Non- Reactive Reactive Repeatedly reactive samples must be confirmed according to CDC recommended confirmatory algorithms. The subresults for either HIVAG or AHIV can be used as an aid in the selection of the confirmation algorithm for reactive samples. Send out specimens with Reactive results to [facility] for confirmation. Order the HIV antibody detection and differentiation: lc#[id number] Performed By: #### L 100.0100, L509.4006, L509.8002, L3890.6102, L3890.6006, L3890.6301, BTS #### [facility] [address] [place], [place], [id number] Hematocrit Auto (Bld) [Volum e fraction]Ordered By: Ashley Joseph on 12-29-2024 Hematocrit (Bld) [Volume fraction] 35.8 % Low 37-47 [facility] Hemoglobin measurementOrdere d By: Ashley Joseph on 12-29-2024 Hemoglobin (Bld) [Mass/Vol] 11.9 g/dL Low 12.0-15.0 [facility] Immature granulocytes/100 WB C Auto (Bld)Ordered By: Ashley Joseph on 12-29-2024 Immature granulocytes/100 WBC (Bld) 1.200 % High 0.0-0.9 [facility] Comment on above: IG% - Immature Granu locytes (promyelocytes, myelocytes and metamyelocytes) > 1% indicates that a LEFT SHIFT is Present. Laboratory - Chemistry and C hemistry - challengeOrdered By: Stephy King on 12-29-2024 Glucose Ql (U) Negative [facility] - UrinalysisOrder ed By: Stephy King on 12-29-2024 Protein Ql (U) Negative [facility] MCV (mean corpuscular volume ) determinationOrdered By: Ashley Joseph on 12-29-2024 MCV (RBC) [Entitic vol] 94.5 fL 81-99 [facility] Mean corpuscular hemoglobin (MCH) determinationOrdered By: Ashley Joseph on 12-29-2024 MCH (RBC) [Entitic mass] 31.4 pg 27.0-32.0 [facility] Mean corpuscular hemoglobin concentration (MCHC) determinationOrdered By: Ashley Joseph on 12-29-2024 MCHC (RBC) [Mass/Vol] 33.2 g/dL 32-36 [facility] Mean platelet volume determi nationOrdered By: Ashley Joseph on 12-29-2024 Platelet mean volume (Bld) [Entitic vol] 9.7 fL 6.2-12.0 [facility] Monocyte percentageOrdered B y: Ashley Joseph on 12-29-2024 Monocytes/100 WBC (Bld) 6.0 % 0-10 [facility] Neutrophil percentageOrdered By: Ashley Joseph on 12-29-2024 Neutrophils/100 WBC (Bld) 78.0 % High 47-70 [facility] No Panel InformationOrdered By: Ashley Joseph on 12-29-2024 HIV (1&2) Antibody Non-Reactive Nonreactive [facility] Comment on above: Non-ReactiveReactive Repeatedly reactive samples must be confirmed according to CDC recommended confirmatory algorithms. The subresults for either HIVAG or AHIV can be used as an aid in the selection of the confirmation algorithm for reactive samples.Send out specimens with Reactive results to [facility] for confirmation.Order the HIV antibody detection and differentiation: #[id number] Nucleated red blood cell per centageOrdered By: Ashley Joseph on 12-29-2024 Nucleated RBC/100 WBC (Bld) [Ratio] 0 % 0-5 [facility] Visit Reporton 12-29-2024 [facility] Visit Report [facility] [address], [address] [place] [address] OFFICE VISIT Date of Service: 12/29/24 MR#: [id number] Acct: [id number] Name: PATRICIA DAVIES Rep #: [id number] : 1990 Provider: RUPAL luis Age/Sex: 34/F Location: [facility] Status: Signed Intake Vital Signs 10/13/24 08:26 12/22/24 14:11 12/29/24 09:39 Height 5 ft 4 in 5 ft 4 in 5 ft 4 in Weight: 131 lb 131 lb BMI 22.4 22.4 BP 112/64 109/69 Blood Pressure Location Lt brachial Position Sitting Respiration 16 Pulse 88 Pulse Source Monitor Temp 98 F Pulse Oximetry (%) 98 Oxygen Delivery Method room air Intake Visit Reasons: 28 WK OB/GLUCOSE Tetryl Dissolver Operator Required: No Is patient in pain?: No Allergies No Known Allergies Allergy (Verified 12/29/24 09:38) Medications ???Medication ???Instructions ???Recorded ???Confirmed ???Type lactobacillus combo no.11 15 1 cap PO DAILY 01/17/23 12/29/24 H istory billion cell sprinkle capsule (Probiotic) multivit-min no.71-iron fum 28 cap PO 07/25/24 12/29/24 History mg-folate no.1 1 mg-dha 300 mg capsule (PNV-[place]) cetirizine 10 mg capsule (Zyrtec) 10 mg PO QDAY PRN 12/22/24 History nitrofurantoin 100 mg PO BID 7 days #14 caps 12/0412/29/24 Rx monohydrate/macrocrystals 100 mg capsule (Macrobid) Last Menstrual Period: 06/15/24 Zika: Zika virus screening: Negative : Yes PFSH PFSH Medical History Abnormal urinalysis Leukocytosis Preventative health care Abdominal pain Alcohol use Non-smoker Flu vaccine need Female infertility unexplained after evaluation Seasonal allergies Surgical History H/O unilateral salpingectomy S/P laparoscopy History of tonsillectomy and adenoidectomy Family History Mother Cancer, Onset Age: 59 Dermafibroid sarcadoma Family history of recurrent miscarriage 2 losses one at 24 wks Aunt Breast cancer, Onset Age: 50 Maternal Maternal Grandfather Parkinson disease Maternal Grandmother Respiratory disease Paternal Grandfather Cancer metastic cancer Social History adopted: No household members: spouse, children and other details: adopted daughter Annabella Vyas housing: house number of children: 2 current occupation: [employer] pets and animals: Yes pets and animals: dog(s) history of recent travel: Yes ([place], [place], [place]) out of state: Yes out of country: No sexually active: Yes Smoking Status: Never smoker alcohol intake: current alcohol intake frequency: a few times a month Alcohol type: wine details: Not while substance use type: does not use diet: gluten free and lactose free well-balanced diet: daily or most days caffeine: No eating out: 1-3 times/week during the past year weight has: remained stable what type of physical activity do you participate in: none frequency: does not exercise minh/mandaeism: Faith seatbelt use: always do you feel safe at home: Yes additional social history: - Yoandy History 1 Elective abortions Hx Para 0 Spontaneous abortions Hx # Term Pregnancies Ectopic pregnancies Hx # Pregnancies Multiple births # of living children Past Pregnancies Del. Date Name GA/Weeks Outcome Route Bth Weight Infant Gen Labor Lgth Anesthesia Del Locatn Provider FOB 03/23/18 Adopted- Annabella 11/05/21 Adopted- Vyas HPI 28 WK OB/GLUCOSE Details: PATRICIA DAVIES is a 34 year old who presents for routine OB visit. OB Visit DUANE Calculator Estimated Delivery Date Method Current WG Current Estimate 03/22/25 LMP (Certain) 28w 1d Other Estimates 03/24/25 Ultrasound #1 27w 6d Expected Delivery Route/Plan Labor Preferences- CB/BF classes: encouraged labor support person: Yoandy labor intervention preferences: [] pain management options preferred: epidural cut cord/dad catch: yes : yes PP control planned: discussed. discussed possible routes of delivery and associated risks: [] special requests: [] Specific Issue/Plans Covid status: [] Flu vaccine: given Tdap vaccine: given Rhogam: na LARC form signed: yes Problem list reviewed and updated with the most current plan of care details and appropriate orders placed. Relevant counseling for the gestational age provided. Continue routine care and follow up unless otherwise noted in visit notes/problem list details Initial Weight: Not Recorded Date -???-???-???-???-???-???- ???-???-???-???-???-???- EGA Weight BP Urine Prot (more content not included)... Normal [facility] Platelet countOrdered By: David Joseph on 12-29-2024 Platelets (Bld) [#/Vol] 267 10*3/uL 150-450 [facility] RBC Auto (Bld) [#/Vol]Ordere d By: Ashley Joseph on 12-29-2024 RBC (Bld) [#/Vol] 3.79 10*6/uL Low 4.2-5.4 [facility] Syphilis Antibodieson 2024 Syphilis Abs Non-Reactive Normal Nonreactive [facility] Comment on above: Performed By: #### L 100.0100, L509.4006, L509.8002, L3890.6102, L3890.6006, L3890.6301, BTS #### [facility] [address] [place], [address] White blood cell (WBC) count Ordered By: Ashley Joseph on 12-29-2024 WBC (Bld) [#/Vol] 10.5 10*3/uL 4.4-11.0 [facility] Urine Cultureon 12-26-2024 URC Culture exhibits no growth. Normal [facility] Comment on above: Performed By: #### L 100.0100, L509.4006, L509.8002, L3890.6102, L3890.6006, L3890.6301, BTS #### [facility] [address] [place], [place], [id number] Amorphous sediment detection in urine sediment by light microscopyOrdered By: Mariya Bocanegra on 12-25-2024 Amorphous sediment LM Ql (Urine sed) 2+ [facility] Bilirubin Test strip Ql (U)O rdered By: Mariya Bocanegra on 12-25-2024 Bilirubin Ql (U) Negative Negative [facility] Ketones Test strip Ql (U)Ord ered By: Mariya Bocanegra on 12-25-2024 Ketones Ql (U) Negative Negative [facility] Microscopic analysis of urin e for red blood cells (RBC)Ordered By: Mariya Bocanegra on 12-25-2024 Microscopic analysis of urine for red blood cells (RBC) 0 SEEN /hpf 0-5 [facility] Mucus LM Ql (Urine sed)Order ed By: Mariya Bocanegra on 12-25-2024 Mucus Ql (Urine sed) 0 SEEN /hpf [facility] Nitrite Test strip Ql (U)Ord ered By: Mariya Bocanegra on 12-25-2024 Nitrite Ql (U) Negative Negative [facility] Protein Test strip Ql (U)Ord ered By: Saeidedith Daljit on 12-25-2024 Protein Ql (U) Negative Negative [facility] Squamous epithelial cells de tection in urine sediment by light microscopyOrdered By: Champjames Daljit on 12-25-2024 Epithelial cells.squamous LM Ql (Urine sed) 0-5 SEEN /hpf 5-10 [facility] Urinalysis, Completeon 12-25 AMORPHOUS 2+ Normal [facility] Comment on above: Order Comment: [place] CTOR TO SPECIFY Performed By: #### L 7000.0300 #### [facility] [address] [facility] [address] BACTERIA 2+ /hpf Normal None Seen [facility] Comment on above: Order Comment: [place] CTOR TO SPECIFY Performed By: #### L 7000.0300 #### [facility] [address] [place], [address] EPI,SQUAMOUS 0-5 SEEN Normal 5-10 [facility] Comment on above: Order Comment: [place] CTOR TO SPECIFY Performed By: #### L 7000.0300 #### [facility] [address] [place], [address] WBC 0-5 SEEN Normal 0-5 [facility] Comment on above: Order Comment: [place] CTOR TO SPECIFY Performed By: #### L 7000.0300 #### [facility] [address] [place], [address] Mucus Ql (Urine sed) 0 SEEN Normal [facility] Comment on above: Order Comment: [place] CTOR TO SPECIFY Performed By: #### L 7000.0300 #### [facility] [address] [place], [address] RBC 0 SEEN Normal 0-5 [facility] Comment on above: Order Comment: [place] CTOR TO SPECIFY Performed By: #### L 7000.0300 #### [facility] [address] [place], [address] Urine clarityOrdered By: Bartolo Bocanegra on 12-25-2024 Clarity (U) Cloudy Clear [facility] Urine color determinationOrd ered By: Mariya Bocanegra on 12-25-2024 Color (U) Yellow Yellow [facility] Urine cultureOrdered By: Bartolo Bocanegra on 12-25-2024 Bacteria identified Cx Nom (U) Culture exhibits no growth. [facility] Urine glucose detectionOrder ed By: Mariya Bocanegra on 12-25-2024 Glucose Ql (U) Normal mg/dl Normal [facility] Urine leukocyte esterase det ection by dipstickOrdered By: Mariya Bocanegra on 12-25-2024 Leukocyte esterase Test strip Ql (U) 25 /ul High Negative [facility] Urine pHOrdered By: Reagan Bocanegra on 12-25-2024 pH (U) 7.0 [pH] 5.0 - 8.0 [facility] Urine sediment bacteria coun t by microscopy (number/high power field)Ordered By: Mariya Bocanegra on 12-25-2024 Bacteria LM.HPF (Urine sed) [#/Area] 2 /[HPF] None Seen [facility] Urine specific gravity measu rementOrdered By: Mariya Bocanegra on 12-25-2024 Specific gravity (U) [Rel density] 1.010 1.002-1.030 [facility] Urine urobilinogen measureme ntOrdered By: Mariya Bocanegra on 12-25-2024 Urobilinogen Ql (U) Normal mg/dl Normal [facility] White blood cell countOrdere d By: Mariya Bocanegra on 12-25-2024 White blood cell count 0-5 SEEN /hpf 0-5 [facility] Absolute lymphocyte countOrd ered By: Mariya Bocanegra on 12-22-2024 Lymphocytes Auto (Unsp spec) [#/Vol] 2.06 10*3/uL 0.83-4.51 [facility] Absolute neutrophil countOrd ered By: Mariya Bocanegra on 12-22-2024 Neutrophils (Bld) [#/Vol] 9.9 10*3/uL High 2.0-7.7 [facility] Anion gap in Serum or Plasma Ordered By: Mariya Bocanegra on 12-22-2024 Anion gap [Moles/Vol] 8 mmol/L 07-17 [facility] Automated lymphocyte count a s percentage of total leukocytesOrdered By: Mariya Bocanegra on 12-22-2024 Lymphocytes/100 WBC Auto (Unsp spec) 15.6 % Low [facility] BUN/creatinine ratioOrdered By: [facility]an[facility] on 12-22-2024 Urea nitrogen/Creatinine [Mass ratio] 12.4 mg/mg 12-22 [facility] Basophil percentageOrdered B y: Mariya Bocanegra on 12-22-2024 Basophils/100 WBC (Bld) 0.4 % 0-1 [facility] Bilirubin, totalOrdered By: Mariya Bocanegra on 12-22-2024 Bilirubin [Mass/Vol] 0.15 mg/dL 0.00-1.30 [facility] CBC W/Diff, Automatedon 12-04 Absolute Lymph 2.06 X10 3/uL Normal 0.83-4.51 [facility] Comment on above: Performed By: #### L 100.0100, L500.4050 #### [facility] [address] [place], [address] Absolute Neut 9.9 X10 3/uL High 2.0-7.7 [facility] Comment on above: Performed By: #### L 100.0100, L500.4050 #### [facility] [address] [place], [address] Basophils/100 WBC (Bld) 0.4 % Normal 0-1 [facility] Comment on above: Performed By: #### L 100.0100, L500.4050 #### [facility] [address] [place], [address] Eosinophils/100 WBC (Bld) 0.8 % Normal 0-5 [facility] Comment on above: Performed By: #### L 100.0100, L500.4050 #### [facility] [address] [place], [address] Erythrocyte distribution width (RBC) [Ratio] 13.5 % Normal 11.6-14.6 [facility] Comment on above: Performed By: #### L 100.0100, L500.4050 #### [facility] [address] [place], [address] Hematocrit (Bld) [Volume fraction] 33.8 % Low 37-47 [facility] Comment on above: Performed By: #### L 100.0100, L500.4050 #### [facility] [address] [place], [address] Hemoglobin (Bld) [Mass/Vol] 11.7 g/dL Low 12.0-15.0 [facility] Comment on above: Performed By: #### L 100.0100, L500.4050 #### [facility] [address] [place], [address] IG% 0.800 Normal 0.0-0.9 [facility] Comment on above: Result Comment: IG% - Immature Granulocytes (promyelocytes, myelocytes and metamyelocytes) > 1% indicates that a LEFT SHIFT is Present. Performed By: #### L 100.0100, L500.4050 #### [facility] [address] [place], [address] Lymphocytes/100 WBC (Bld) 15.6 % Low 19-41 [facility] Comment on above: Performed By: #### L 100.0100, L500.4050 #### [facility] [address] [place], [address] MCH (RBC) [Entitic mass] 32.3 pg High 27.0-32.0 [facility] Comment on above: Performed By: #### L 100.0100, L500.4050 #### [facility] [address] [place], [address] MCHC (RBC) [Mass/Vol] 34.6 g/dL Normal 32-36 [facility] Comment on above: Performed By: #### L 100.0100, L500.4050 #### [facility] [address] [place], [address] MCV (RBC) [Entitic vol] 93.4 fL Normal 81-99 [facility] Comment on above: Performed By: #### L 100.0100, L500.4050 #### [facility] [address] [place], [address] Monocytes/100 WBC (Bld) 7.9 % Normal 0-10 [facility] Comment on above: Performed By: #### L 100.0100, L500.4050 #### [facility] [address] [place], [address] Neutrophils/100 WBC (Bld) 74.5 % High 47-70 [facility] Comment on above: Performed By: #### L 100.0100, L500.4050 #### [facility] [address] [place], [address] Nucleated RBC (Bld) [#/Vol] 0 10*3/uL Normal 0-5 [facility] Comment on above: Performed By: #### L 100.0100, L500.4050 #### [facility] [address] [place], [address] Platelet mean volume (Bld) [Entitic vol] 9.4 fL Normal 6.2-12.0 [facility] Comment on above: Performed By: #### L 100.0100, L500.4050 #### [facility] [address] [place], [address] Platelets (Bld) [#/Vol] 271 10*3/uL Normal 150-450 [facility] Comment on above: Performed By: #### L 100.0100, L500.4050 #### [facility] [address] [place], [address] RBC (Bld) [#/Vol] 3.62 10*6/uL Low 4.2-5.4 [facility] Comment on above: Performed By: #### L 100.0100, L500.4050 #### [facility] [address] [place], [address] RDW SD 46.7 fl High 35.1-43.9 [facility] Comment on above: Performed By: #### L 100.0100, L500.4050 #### [facility] [address] [place], [address] WBC (Bld) [#/Vol] 13.2 10*3/uL High 4.4-11.0 [facility] Comment on above: Performed By: #### L 100.0100, L500.4050 #### [facility] [address] [place], [address] Carbon dioxide, total [Moles /volume] in Central venous bloodOrdered By: Mariya Bocanegra on 12-22-2024 CO2 [Moles/Vol] 24.3 mmol/L 21.0-32.0 [facility] Chloride assayOrdered By: Champ Bocanegra on 12-22-2024 Chloride [Moles/Vol] 105 mmol/L 98-108 [facility] Comprehensive Metabolic Prof ilon 12-22-2024 Albumin [Mass/Vol] 3.7 g/dL Normal 3.5-5.0 [facility] Comment on above: Performed By: #### L 100.0100, L500.4050 #### [facility] [address] [place], [address] Albumin/Globulin [Mass ratio] 1.6 {ratio} Normal 0.9-2.4 [facility] Comment on above: Performed By: #### L 100.0100, L500.4050 #### [facility] [address] [place], [address] ALK PHOS 74 U/L Normal 35-104 [facility] Comment on above: Performed By: #### L 100.0100, L500.4050 #### [facility] [address] [place], [address] ALT [Catalytic activity/Vol] 22 U/L Normal <=34 [facility] Comment on above: Performed By: #### L 100.0100, L500.4050 #### [facility] [address] [place], [address] AST [Catalytic activity/Vol] 23 U/L Normal <=31 [facility] Comment on above: Performed By: #### L 100.0100, L500.4050 #### [facility] [address] [place], [address] Bilirubin [Mass/Vol] 0.15 mg/dL Normal 0.00-1.30 [facility] Comment on above: Performed By: #### L 100.0100, L500.4050 #### [facility] [address] [place], [address] BUN/CRE 12.4 RATIO Normal 10-20 [facility] Comment on above: Performed By: #### L 100.0100, L500.4050 #### [facility] [address] [place], [address] Calcium [Mass/Vol] 8.7 mg/dL Normal 7.6-11.0 [facility] Comment on above: Performed By: #### L 100.0100, L500.4050 #### [facility] [address] [place], [address] Chloride [Moles/Vol] 105 mmol/L Normal 98-108 [facility] Comment on above: Performed By: #### L 100.0100, L500.4050 #### [facility] [address] [place], [address] CO2 [Moles/Vol] 24.3 mmol/L Normal 21.0-32.0 [facility] Comment on above: Performed By: #### L 100.0100, L500.4050 #### [facility] [address] [place], [address] Creatinine [Mass/Vol] 0.52 mg/dL Low 0.70-1.20 [facility] Comment on above: Performed By: #### L 100.0100, L500.4050 #### [facility] [address] [place], [address] GAP 8 Normal 5-15 [facility] Comment on above: Performed By: #### L 100.0100, L500.4050 #### [facility] [address] [place], [address] GFR/1.73 sq M.predicted among non-blacks MDRD (S/P/Bld) [Vol rate/Area] 124 mL/min/{1.73_m2} Normal >60 [facility] Comment on above: Result Comment: mL/m in/1.73m2 CKD-EPI Creatinine Equation (2020) Performed By: #### L 100.0100, L500.4050 #### [facility] [address] [place], [address] Globulin (S) [Mass/Vol] 2.3 g/dL Normal 2.2-4.2 [facility] Comment on above: Performed By: #### L 100.0100, L500.4050 #### [facility] [address] [place], [address] Glucose [Mass/Vol] 70 mg/dL Normal 70-99 [facility] Comment on above: Performed By: #### L 100.0100, L500.4050 #### [facility] [address] [place], [address] Potassium [Moles/Vol] 3.8 mmol/L Normal 3.3-5.1 [facility] Comment on above: Performed By: #### L 100.0100, L500.4050 #### [facility] [address] [place], [address] Sodium [Moles/Vol] 138 mmol/L Normal 133-145 [facility] Comment on above: Performed By: #### L 100.0100, L500.4050 #### [facility] [address] [place], [address] T PROT 6.0 g/dL Normal 5.9-8.4 [facility] Comment on above: Performed By: #### L 100.0100, L500.4050 #### [facility] [address] [place], [address] Urea nitrogen [Mass/Vol] 7 mg/dL Normal 4-19 [facility] Comment on above: Performed By: #### L 100.0100, L500.4050 #### [facility] [address] [place], [address] Eosinophil percentageOrdered By: Mariya Bocanegra on 12-22-2024 Eosinophils/100 WBC (Bld) 0.8 % 0-5 [facility] Erythrocyte distribution wid th ratioOrdered By: Mariya Bocanegra on 12-22-2024 Erythrocyte distribution width (RBC) [Ratio] 13.5 % 11.6-14.6 [facility] Erythrocyte distribution wid th standard deviationOrdered By: Mariya Bocanegra on 12-22-2024 Erythrocyte distribution width (RBC) [Ratio] 46.7 fl High 35.1-43.9 [facility] Glomerular filtration rate ( GFR) estimation/1.73 sq m using serum, plasma, or whole bOrdered By: Mariya Bocanegra on 12-22-2024 GFR/1.73 sq M.predicted among non-blacks MDRD (S/P/Bld) [Vol rate/Area] 124 mL/min/{1.73_m2} >60 [facility] Comment on above: mL/min/1.73m2 CKD-EP I Creatinine Equation (2020) Hematocrit Auto (Bld) [Volum e fraction]Ordered By: Mariya Bocanegra on 12-22-2024 Hematocrit (Bld) [Volume fraction] 33.8 % Low 37-47 [facility] Hemoglobin measurementOrdere d By: Mariya Bocanegra on 12-22-2024 Hemoglobin (Bld) [Mass/Vol] 11.7 g/dL Low 12.0-15.0 [facility] Immature granulocytes/100 WB C Auto (Bld)Ordered By: Mariya Bocanegra on 12-22-2024 Immature granulocytes/100 WBC (Bld) 0.800 % 0.0-0.9 [facility] Comment on above: IG% - Immature Granu locytes (promyelocytes, myelocytes and metamyelocytes) > 1% indicates that a LEFT SHIFT is Present. Internal Medicine Office Vis ludmila 12-22-2024 Internal Medicine Office Visit [facility] Internal Medicine [facility] [place] [address] [place] [address] OFFICE VISIT Date of Service: 12/22/24 MR#: [id number] Acct: [id number] Name: PATRICIA DAVIES Rep #: [id number] : 1990 Provider: Dr. Mariya dewitt MD Age/Sex: 34/F [facility] [facility] Status: Signed Intake Vital Signs 11/07/23 14:10 10/13/24 08:26 12/08/24 10:23 12/22/24 14:11 Height 5 ft 4 in 5 ft 4 in 5 ft 4 in 5 ft 4 in Weight: 131 lb BMI 22.4 BP 112/64 Blood Pressure Location Lt brachial Position Sitting Respiration 16 Pulse 88 Pulse Source Monitor Temp 98 F Temp Source Temporal Pulse Oximetry (%) 98 Oxygen Delivery Method room air Intake Visit Reasons: Yearly Chief Complaint: Yearly visit Tetryl Dissolver Operator Required: No Is patient in pain?: No Allergies No Known Allergies Allergy (Verified 12/22/24 14:01) Medications ???Medication ???Instructions ???Recorded ???Confirmed ???Type lactobacillus combo no.11 15 1 cap PO DAILY 01/17/23 12/22/24 H istory billion cell sprinkle capsule (Probiotic) multivit-min no.71-iron fum 28 cap PO 07/25/24 12/22/24 History mg-folate no.1 1 mg-dha 300 mg capsule (PNV-Lakeside) cetirizine 10 mg capsule (Zyrtec) 10 mg PO QDAY PRN 12/22/24 History PFSH Medical History (Updated 12/22/24 @ 15:[address] Mariya Bocanegra MD) Preventative health care Abdominal pain Alcohol use Non-smoker Flu vaccine need Female infertility unexplained after evaluation Seasonal allergies Surgical History H/O unilateral salpingectomy S/P laparoscopy History of tonsillectomy and adenoidectomy Family History (Updated 12/22/24 @ 14:08 by Liana Finney MA) Mother Cancer, Onset Age: 59 Dermafibroid sarcadoma Family history of recurrent miscarriage 2 losses one at 24 wks Aunt Breast cancer, Onset Age: 50 Maternal Maternal Grandfather Parkinson disease Maternal Grandmother Respiratory disease Paternal Grandfather Cancer metastic cancer Social History (Updated 12/22/24 @ 14:10 by Liana Finney MA) adopted: No household members: spouse, children and other details: adopted daughter Annabella Vyas housing: house number of children: 2 current occupation: [employer] pets and animals: Yes pets and animals: dog(s) history of recent travel: Yes ([place], [place], [place]) out of state: Yes out of country: No sexually active: Yes Smoking Status: Never smoker alcohol intake: current alcohol intake frequency: a few times a month Alcohol type: wine details: Not while substance use type: does not use diet: gluten free and lactose free well-balanced diet: daily or most days caffeine: No eating out: 1-3 times/week during the past year weight has: remained stable what type of physical activity do you participate in: none frequency: does not exercise minh/mandaeism: Faith seatbelt use: always do you feel safe at home: Yes additional social history: - Yoandy HPI HPI Chief Complaint: Yearly visit Details: PATRICIA DAVIES, is a 34-year-old 1 female, with no significant medical history, presenting for an annual wellness visit. The patient is currently under the care of Dr. Alicia for her , with an DUANE of March 25 2025. This was unexpected. She reports no concerns today and is sleeping well with a good appetite. She denies emesis, dysphagia, or odynophagia. Bowel movements and urination are normal, though she does experience nocturia. She denies paresthesia or pedal edema. She received her last Tdap vaccination in the fall of 2018 and typically receives the influenza vaccine annually. There have been no changes in her family medical history since her last visit. ROS Const Constitutional: No body ache, chills, excessive sweating, fatigue, fever(s), frequent falls, headache(s), snoring, weakness, sleep problems or change in appetite Eyes Eyes: No blurry vision, change in vision, bulging eyes, floaters, visual disturbances, eye pain or Light sensitivity ENT ENT: No abnormal hearing, ear or mastoid pain, tinnitus, balance problems, nosebleed/epistaxis, nasal congestion, headache(s), neck pain or sore throat Resp Respiratory: No cough, excessive phlegm production, pain on inspiration, shortness of breath, snoring or wheezing Cardio Cardiology: No chest pain at rest, chest pain with exertion, excessive sweating, shortness of breath, dyspnea on exertion, lightheadedness, orthopnea or palpitations Gastro GI: No abdominal pain, change in bowel habits, constipation, cramping, diarrhea, nausea/dyspepsia or vomiting Genitourinary-Female: No burning urination, painful urination, urinary incontine (more content not included)... Normal [facility] - Chemistry and C hemistry - challengeOrdered By: Mariya Bocanegra on 12-22-2024 AST [Catalytic activity/Vol] 23 U/L <32 [facility] MCV (mean corpuscular volume ) determinationOrdered By: Mariya Bocanegra on 12-22-2024 MCV (RBC) [Entitic vol] 93.4 fL 81-99 [facility] Mean corpuscular hemoglobin (MCH) determinationOrdered By: Mariya Oliviereulaliosantiago on 12-22-2024 MCH (RBC) [Entitic mass] 32.3 pg High 27.0-32.0 [facility] Mean corpuscular hemoglobin concentration (MCHC) determinationOrdered By: Mariya Bocanegra on 12-22-2024 MCHC (RBC) [Mass/Vol] 34.6 g/dL 32-36 [facility] Mean platelet volume determi nationOrdered By: Mariya Bocanegra on 12-22-2024 Platelet mean volume (Bld) [Entitic vol] 9.4 fL 6.2-12.0 [facility] Monocyte percentageOrdered B y: Mariya Bocanegra on 12-22-2024 Monocytes/100 WBC (Bld) 7.9 % 0-10 [facility] Neutrophil percentageOrdered By: Mariya Oliviereulaliosantiago on 12-22-2024 Neutrophils/100 WBC (Bld) 74.5 % High 47-70 [facility] Nucleated red blood cell per centageOrdered By: Mariya Bocanegra on 12-22-2024 Nucleated RBC/100 WBC (Bld) [Ratio] 0 % 0-5 [facility] Platelet countOrdered By: Champ jusbev Bocanegra on 12-22-2024 Platelets (Bld) [#/Vol] 271 10*3/uL 150-450 [facility] Potassium measurement (mass/ volume)Ordered By: Mariya Bocanegra on 12-22-2024 Potassium (Unsp spec) [Mass/Vol] 3.8 mmol/L 3.3-5.1 [facility] RBC Auto (Bld) [#/Vol]Ordere d By: Mariya Bocanegra on 12-22-2024 RBC (Bld) [#/Vol] 3.62 10*6/uL Low 4.2-5.4 [facility] Serum creatinine measurement (mass/volume)Ordered By: Mariya Bocanegra on 12-22-2024 Creatinine [Mass/Vol] 0.52 mg/dL Low 0.70-1.20 [facility] Serum globulin measurementOr dered By: Mariya Bocanegra on 12-22-2024 Globulin (S) [Mass/Vol] 2.3 g/dL 2.2-4.2 [facility] Serum glucose measurement (m ass/volume)Ordered By: Mariya Bocanegra on 12-22-2024 Glucose [Mass/Vol] 70 mg/dL 70-99 [facility] Serum or plasma alanine verduzco otransferase (ALT) measurementOrdered By: Mariya Bocanegra on 12-22-2024 ALT [Catalytic activity/Vol] 22 U/L <35 [facility] Serum or plasma albumin talita urement (mass/volume)Ordered By: Mariya Bocanegra on 12-22-2024 Albumin [Mass/Vol] 3.7 g/dL 3.5-5.0 [facility] Serum or plasma albumin/glob ulin mass ratioOrdered By: Mariya Bocanegra on 12-22-2024 Albumin/Globulin [Mass ratio] 1.6 {ratio} 0.9-2.4 [facility] Serum or plasma alkaline sanjay sphatase measurementOrdered By: Mariya Bocanegra on 12-22-2024 ALP [Catalytic activity/Vol] 74 U/L 35-104 [facility] Serum or plasma calcium talita urement (mass/volume)Ordered By: Mariya Bocanegra on 12-22-2024 Calcium [Mass/Vol] 8.7 mg/dL 7.6-11.0 [facility] Serum or plasma urea nitroge n measurement (mass/volume)Ordered By: Mariya Bocanegra on 12-22-2024 Urea nitrogen [Mass/Vol] 7 mg/dL 4-19 [facility] Sodium levelOrdered By: Barbara Bocanegra on 12-22-2024 Sodium [Moles/Vol] 138 mmol/L 133-145 [facility] Total proteinOrdered By: Bartolo Bocanegra on 12-22-2024 Protein [Mass/Vol] 6.0 g/dL 5.9-8.4 [facility] White blood cell (WBC) count Ordered By: Mariya Bocanegra on 12-22-2024 WBC (Bld) [#/Vol] 13.2 10*3/uL High 4.4-11.0 [facility] - Chemistry and C hemistry - challengeOrdered By: Ashley Joseph on 12-08-2024 Glucose Ql (U) Negative [facility] - UrinalysisOrder ed By: Ashley Joseph on 12-08-2024 Protein Ql (U) Negative [facility] Visit Reporton 12-08-2024 [facility] Visit Report [facility] [address], [address] [place] [address] OFFICE VISIT Date of Service: 12/08/24 MR#: [id number] Acct: [id number] Name: PATRICIA DAVIES Rep #: [id number] : 1990 Provider: ERIC Dixon ams Age/Sex: 34/F Location: [facility] [place] [facility] Status: Signed Intake Vital Signs 10/01/24 13:40 11/11/24 09:29 12/08/24 10:23 Height 5 ft 4 in 5 ft 4 in 5 ft 4 in Weight: 126 lb 5 oz BMI 21.7 BP 107/74 Intake Visit Reasons: 25 WK OB Chief Complaint: 25wk OB Tetryl Dissolver Operator Required: No Is patient in pain?: No Allergies No Known Allergies Allergy (Verified 12/08/24 10:22) Medications ???Medication ???Instructions ???Recorded ???Confirmed ???Type lactobacillus combo no.11 15 1 cap PO DAILY 01/17/23 12/08/24 H istory billion cell sprinkle capsule (Probiotic) calcium 600 mg (as 2 tab PO DAILY 03/14/24 12/08/24 H istory carbonate)-vitamin D3 5 mcg (200 unit) tablet (Calcium 600 + D(3)) multivit-min no.71-iron fum 28 cap PO 07/25/24 12/08/24 History mg-folate no.1 1 mg-dha 300 mg capsule (PNV-Lakeside) Last Menstrual Period: 06/15/24 : No Have you fallen in the past year?: No PFSH PFSH Medical History Abdominal pain Alcohol use Non-smoker Flu vaccine need Preventative health care Female infertility unexplained after evaluation Seasonal allergies Surgical History H/O unilateral salpingectomy S/P laparoscopy History of tonsillectomy and adenoidectomy Family History Mother Cancer, Onset Age: 59 Dermafibroid sarcadoma Family history of recurrent miscarriage 2 losses one at 24 wks Aunt Breast cancer, Onset Age: 50 Maternal Grandfather Parkinson disease Maternal Grandmother Respiratory disease Paternal Social History adopted: No household members: spouse, children and other details: adopted daughter Annabella son Asael housing: house number of children: 2 current occupation: [employer] pets and animals: Yes pets and animals: dog(s) history of recent travel: Yes ([place], [place], [place]) out of state: Yes out of country: No sexually active: Yes Smoking Status: Never smoker alcohol intake: current alcohol intake frequency: a few times a month Alcohol type: wine details: Not while substance use type: does not use diet: gluten free and lactose free well-balanced diet: daily or most days caffeine: No eating out: 1-3 times/week during the past year weight has: remained stable what type of physical activity do you participate in: none minh/mandaeism: Faith seatbelt use: always do you feel safe at home: Yes additional social history: - Yoandy History 1 Elective abortions Hx Para 0 Spontaneous abortions Hx # Term Pregnancies Ectopic pregnancies Hx # Pregnancies Multiple births # of living children Past Pregnancies Del. Date Name GA/Weeks Outcome Route Bth Weight Gen Labor Lgth Anesthesia Del Locatn Provider FOB 03/23/18 Adopted- Annabella 11/05/21 Adopted- Asael HPI 25 WK OB Details: PATRICIA DAVIES is a 34 year old who presents for routine OB visit. OB Visit DUANE Calculator Estimated Delivery Date Method Current WG Current Estimate 03/22/25 LMP (Certain) 25w 1d Other Estimates 03/24/25 Ultrasound #1 24w 6d Expected Delivery Route/Plan Labor Preferences- CB/BF classes: [] labor support person: [] labor intervention preferences: [] pain management options preferred: [] cut cord/dad catch: [] : [] PP control planned: [] discussed possible routes of delivery and associated risks: [] special requests: [] Specific Issue/Plans Covid status: [] Flu vaccine: [] Tdap vaccine: [] Rhogam: [] LARC form signed: [] Problem list reviewed and updated with the most current plan of care details and appropriate orders placed. Relevant counseling for the gestational age provided. Continue routine care and follow up unless otherwise noted in visit notes/problem list details Initial Weight: Not Recorded Date -???-???-???-???-???-???- ???-???-???-???-???-???- EGA Weight BP Urine Prot -???-???-???-???-???-???- ???-???-???-???-???-???- Glucose FHR FuHt Pres Dilation -???-???-???-???-???-???- ???-???-???-???-???-???- Effaced St Visit Note 08/01/24 -???-???-???-???-???-???- ???-???-???-???-???-???- 6w 5d 110 lb 4 oz 120/77 -???-???-???-???-???-???- ???-???-???-???-???-???- 122 -???-???-???-???-???-???- ???-???-???-???-???-???- JV- CRL is c onsistent with LMP. desires NIPT. since had bleeding and has (more content not included)... Normal [facility] [id number] 11-27-2024 [facility] Misc. COMMENT Normal . [facility] Comment on above: Order Comment: Speci men Comment: SEE END OF THIS REPORT FOR CORRECTED REPORT COMMENTS [id number] AFP Result Comment: Test Ordered: [id number] AFP, Serum, Open Spina Bifida Results Comment TG Reference Range: . The MOM and risk factors of this report have been modified based on new information supplied to us by the client or their designated lifeline representatives. The Gestational Age Based On was changed from As provided to DUANE 03/22/2025. The Gestational Age was changed from Not provided. to 22.7. The Insulin Dependent Diabetes was changed from Not provided. to No. The Multiple Gestation was changed from Not provided. to No. The Race was changed from Not provided. to . The Weight was changed from Not provided. to 122. Test Results: Note: TG *Screen Negative* Reference Range: . Gest. Age on Collection Date 22.7 weeks TG Reference Range: . Gestat. Age Based On DUANE TG Reference Range: . 03/22/2025 Recalculations are not recommended when gestational dating by LMP and ultrasound are within 10 days. Maternal Age At DUANE 35.9 yr TG Reference Range: . Race TG Reference Range: . Weight 122 lbs TG Reference Range: . Insulin Dep Diabetes No TG Reference Range: . Multiple Gestation No TG Reference Range: . AFP Value 112.8 ng/mL TG Reference Range: . AFP MoM 1.21 TG Reference Range: . OSBR Risk 1 IN 6301 TG Reference Range: . Interpretation Comment TG Reference Range: . Interpretation: Screen Negative This result is screen negative for OSB. The AFP MoM calculated is based on the gestational age provided. MS-AFP can identify up to 80% of open neural tube defects. Closed neural tube defects and some open defects may not be detected by this test. This test does not screen for Down Syndrome or Trisomy 18. If screening for Down Syndrome or Trisomy 18 is desired, contact [facility] to discuss available options. The [employer] recommends amniocentesis be offered to women age 35 and older. This is a corrected report. The previously reported result(s) were: Test Result Date First Reported Updates reported on: 11/27/2024 11:17 AM AFP MOM VALUE 11/25/2024 10:01 PM See interpretation. INTERP 11/25/2024 10:01 PM Interpretation: An interpretation CANNOT be provided for this patient because necessary patient information was not provided (one or more of: gestational age, weight, or patient age). Please call us with new clinical information. OSBR RISK 1 IN 11/25/2024 10:01 PM See interpretation. TEST RESULTS: SCREEN 11/25/2024 10:01 PM See interpretation. Comment: Comment TG Reference Range: . Ritu Moss, Ph.D., [facility] Director References: Available Upon Request. Multiples Of Median Cutoffs For AFP Elevations Alfaro 2.5 Black 2.8 IDD 2.0 Twins 4.5 Abbreviation Definitions IDD - Insulin Dep Diabetes OSBR - Open Spina Bifida Risk For further inquiries contact [facility] at [phone]. This test was developed and its performance characteristics determined by [employer]. It has not been cleared or approved by the Food and Drug Administration. Performed at: - [address] [id number] Grocery Bagger: Gina Thompson [facility], Phone: [phone] Performed at: CB - [address] [id number] [employer]: Ok Bauer PhD, Phone: [phone] AMENDED REPORT 11/27/24 1209 [facility]. previously reported as: COMMENT Test Ordered: [id number] AFP, Serum, Open Spina Bifida Results Report TG Reference Range: . Test Results: Note: TG See interpretation. Reference Range: . Gest. Age on Collection Date Comment weeks TG Reference Range: . Not provided. Gestat. Age Based On As provided TG Reference Range: . Recalculations are not recommended when gestational dating by LMP and ultrasound are within 10 days. Maternal Age At DUANE 36.0 yr TG Reference Range: . Race Comment TG Reference Range: . Not provided. Weight Comment lbs TG Reference Range: . Not provided. Insulin Dep Diabetes Comment TG Reference Range: . Not provided. Multiple Gestation Comment TG Reference Range: . Not provided. AFP Value 112.8 ng/mL TG Reference Range: . AFP MoM Note: TG See interpretation. Reference Range: . OSBR Risk 1 IN Note: TG See interpretation. Reference Range: . Interpretation Comment TG Reference Range: . Interpretation: An interpretation CANNOT be provided for this patient because necessary patient information was not provided (one or more of: gestational age, weight, or patient age). Please call us with new clinical information. Comment: Comment TG Reference Range: . Ritu Moss, Ph.D., [facility] Director References: Available Upon Request. Multiples Of Median Cutoffs For AFP Elevations Alfaro 2.5 Black 2.8 IDD 2.0 Twins 4.5 Abbreviation Definitions IDD - Insulin Dep Diabete (more content not included)... Performed By: #### L 3410.9992 #### [facility] [address] [place], [address] Fecal Fat, Qualitativeon FATS, NEUTRAL Normal [facility] Comment on above: Result Comment: NO L ONGER NEEDED PER PT Performed By: #### L 7000.0300 #### [facility] [address] [place], [address] FATS, TOTAL Normal [facility] Comment on above: Result Comment: NO L ONGER NEEDED PER PT Performed By: #### L 7000.0300 #### [facility] [address] [place], [address] Laboratory - Chemistry and C hemistry - challengeOrdered By: Zaira Weston on 11-11-2024 Glucose Ql (U) Negative [facility] - UrinalysisOrder ed By: Zaira Weston on 11-11-2024 Protein Ql (U) Negative [facility] Visit Reporton 11-11-2024 [facility] Visit Report [facility] [address] [place] [address] OFFICE VISIT Date of Service: 11/11/24 MR#: [id number] Acct: [id number] Name: PATRICIA DAVIES Rep #: [id number] : 1990 Provider: Dr. Zaira carroll MD Age/Sex: 34/F Location: [facility] Status: Signed Intake Vital Signs 09/10/24 10:40 10/13/24 08:26 11/11/24 09:28 11/11/24 09:29 Height 5 ft 4 in 5 ft 4 in 5 ft 4 in 5 ft 4 in Weight: 122 lb 3 oz BMI 20.9 BP 110/72 Intake Visit Reasons: 21 wk ob Tetryl Dissolver Operator Required: No Is patient in pain?: No Allergies No Known Allergies Allergy (Verified 11/11/24 09:28) Medications ???Medication ???Instructions ???Recorded ???Confirmed ???Type lactobacillus combo no.11 15 1 cap PO DAILY 01/17/23 11/11/24 H istory billion cell sprinkle capsule (Probiotic) calcium 600 mg (as 2 tab PO DAILY 03/14/24 11/11/24 H istory carbonate)-vitamin D3 5 mcg (200 unit) tablet (Calcium 600 + D(3)) multivit-min no.71-iron fum 28 cap PO 07/25/24 11/11/24 History mg-folate no.1 1 mg-dha 300 mg capsule (PNV-Lakeside) progesterone micronized 100 mg 200 mg vaginal HS 10 weeks #60 ea 07/26/24 11/11/24 Rx vaginal insert ondansetron 4 mg disintegrating 4 mg PO Q6H PRN nausea and 5 11/11/24 Rx tablet vomiting #30 tabs Last Menstrual Period: 06/15/24 Zika: Zika virus screening: Negative : No PFSH PFSH Medical History (Updated 11/11/24 @ 10:[address] Zaira Weston MD) Abdominal pain Alcohol use Non-smoker Flu vaccine need Preventative health care Female infertility unexplained after evaluation Seasonal allergies Surgical History H/O unilateral salpingectomy S/P laparoscopy History of tonsillectomy and adenoidectomy Family History Mother Cancer, Onset Age: 59 Dermafibroid sarcadoma Family history of recurrent miscarriage 2 losses one at 24 wks Aunt Breast cancer, Onset Age: 50 Maternal Grandfather Parkinson disease Maternal Grandmother Respiratory disease Paternal Social History adopted: No household members: spouse, children and other details: adopted daughter Annabella son Asael housing: house number of children: 2 current occupation: [employer] pets and animals: Yes pets and animals: dog(s) history of recent travel: Yes ([place], [place], [place]) out of state: Yes out of country: No sexually active: Yes Smoking Status: Never smoker alcohol intake: current alcohol intake frequency: a few times a month Alcohol type: wine details: Not while substance use type: does not use diet: gluten free and lactose free well-balanced diet: daily or most days caffeine: No eating out: 1-3 times/week during the past year weight has: remained stable what type of physical activity do you participate in: none minh/mandaeism: Faith seatbelt use: always do you feel safe at home: Yes additional social history: - Yoandy History 1 Elective abortions Hx Para 0 Spontaneous abortions Hx # Term Pregnancies Ectopic pregnancies Hx # Pregnancies Multiple births # of living children Past Pregnancies Del. Date Name GA/Weeks Outcome Route Bth Weight Gen Labor Lgth Anesthesia Del Locatn Provider FOB 03/23/18 Adopted- Annabella 11/05/21 Adopted- [facility] HPI 21 wk ob Details: PATRICIA DAVIES is a 34 year old who presents for routine OB visit. OB Visit DUANE Calculator Estimated Delivery Date Method Current WG Current Estimate 03/22/25 LMP (Certain) 21w 2d Other Estimates 03/24/25 Ultrasound #1 21w 0d Expected Delivery Route/Plan Labor Preferences- CB/BF classes: [] labor support person: [] labor intervention preferences: [] pain management options preferred: [] cut cord/dad catch: [] : [] PP control planned: [] discussed possible routes of delivery and associated risks: [] special requests: [] Specific Issue/Plans Covid status: [] Flu vaccine: [] Tdap vaccine: [] Rhogam: [] LARC form signed: [] Problem list reviewed and updated with the most current plan of care details and appropriate orders placed. Relevant counseling for the gestational age provided. Continue routine care and follow up unless otherwise noted in visit notes/problem list details Initial Weight: Not Recorded Date -???-???-???-???-???-???- ???-???-???-???-???-???- EGA Weight BP Urine Prot -???-???-???-???-???-???- ???-???-???-???-???-???- Glucose FHR FuHt Pres Dilation -???-???-???-???-???-???- ???-???-???-???-???-???- Effaced St Visit Note 08/01/24 -???-?? (more content not included)... Normal [facility] - Chemistry and C hemistry - challengeOrdered By: Stephy King on 10-13-2024 Glucose Ql (U) Negative [facility] - UrinalysisOrder ed By: Stephy King on 10-13-2024 Protein Ql (U) Negative [facility] Visit Reporton 10-13-2024 [facility] Visit Report [facility] [address], [address] [place] [address] OFFICE VISIT Date of Service: 10/13/24 MR#: [id number] Acct: [id number] Name: PATRICIA DAVIES Rep #: [id number] : 1990 Provider: RUPAL luis Age/Sex: 34/F Location: [facility] [place] Status: Signed Intake Vital Signs 09/10/24 10:40 10/01/24 13:40 10/13/24 08:26 Height 5 ft 4 in 5 ft 4 in 5 ft 4 in Weight: 117 lb 3 oz BMI 20.1 BP 109/64 Intake Visit Reasons: 16 wk ob Tetryl Dissolver Operator Required: No Is patient in pain?: No Allergies No Known Allergies Allergy (Verified 10/13/24 08:26) Medications ???Medication ???Instructions ???Recorded ???Confirmed ???Type lactobacillus combo no.11 15 1 cap PO DAILY 01/17/23 10/13/24 H istory billion cell sprinkle capsule (Probiotic) calcium 600 mg (as 2 tab PO DAILY 03/14/24 10/13/24 H istory carbonate)-vitamin D3 5 mcg (200 unit) tablet (Calcium 600 + D(3)) multivit-min no.71-iron fum 28 cap PO 07/25/24 10/13/24 History mg-folate no.1 1 mg-dha 300 mg capsule (PNV-Lakeside) progesterone micronized 100 mg 200 mg vaginal HS 10 weeks #60 ea 07/26/24 10/13/24 Rx vaginal insert ondansetron 4 mg disintegrating 4 mg PO Q6H PRN nausea and 5 10/13/24 Rx tablet vomiting #30 tabs Last Menstrual Period: 06/15/24 Zika: Zika virus screening: Negative : No Have you fallen in the past year?: No PFSH PFSH Medical History Abdominal pain Alcohol use Non-smoker Flu vaccine need Preventative health care Female infertility unexplained after evaluation Seasonal allergies Surgical History H/O unilateral salpingectomy S/P laparoscopy History of tonsillectomy and adenoidectomy Family History Mother Cancer, Onset Age: 59 Dermafibroid sarcadoma Family history of recurrent miscarriage 2 losses one at 24 wks Aunt Breast cancer, Onset Age: 50 Maternal Grandfather Parkinson disease Maternal Grandmother Respiratory disease Paternal Social History adopted: No household members: spouse, children and other details: adopted daughter Annabella Vyas housing: house number of children: 2 current occupation: [employer] pets and animals: Yes pets and animals: dog(s) history of recent travel: Yes ([place], [place], [place]) out of state: Yes out of country: No sexually active: Yes Smoking Status: Never smoker alcohol intake: current alcohol intake frequency: a few times a month Alcohol type: wine details: Not while substance use type: does not use diet: gluten free and lactose free well-balanced diet: daily or most days caffeine: No eating out: 1-3 times/week during the past year weight has: remained stable what type of physical activity do you participate in: none minh/mandaeism: Faith seatbelt use: always do you feel safe at home: Yes additional social history: - Yoandy History 1 Elective abortions Hx Para 0 Spontaneous abortions Hx # Term Pregnancies Ectopic pregnancies Hx # Pregnancies Multiple births # of living children Past Pregnancies Del. Date Name GA/Weeks Outcome Route Bth Weight Infant Gen Labor Lgth Anesthesia Del Locatn Provider FOB 03/23/18 Adopted- Annabella 11/05/21 Adopted- Vyas HPI 16 wk ob Details: PATRICIA DAVIES is a 34 year old who presents for routine OB visit. OB Visit DUANE Calculator Estimated Delivery Date Method Current WG Current Estimate 03/22/25 LMP (Certain) 17w 1d Other Estimates 03/24/25 Ultrasound #1 16w 6d Expected Delivery Route/Plan Labor Preferences- CB/BF classes: [] labor support person: [] labor intervention preferences: [] pain management options preferred: [] cut cord/dad catch: [] : [] PP control planned: [] discussed possible routes of delivery and associated risks: [] special requests: [] Specific Issue/Plans Covid status: [] Flu vaccine: [] Tdap vaccine: [] Rhogam: [] LARC form signed: [] Problem list reviewed and updated with the most current plan of care details and appropriate orders placed. Relevant counseling for the gestational age provided. Continue routine care and follow up unless otherwise noted in visit notes/problem list details Initial Weight: Not Recorded Date -???-???-???-???-???-???- ???-???-???-???-???-???- EGA Weight BP Urine Prot -???-???-???-???-???-???- ???-???-???-???-???-???- Glucose FHR FuHt Pres Dilation -???-???-???-???-???-???- ???-???-???-???-???-???- Effaced St Visit Note 08/01/24 -???-???-???-???-??? (more content not included)... Normal [facility] - Chemistry and C hemistry - challengeOrdered By: Stephy King on 10-01-2024 Bilirubin Ql (U) Negative [facility] Glucose Ql (U) Negative [facility] Ketones Ql (U) Negative [facility] pH (U) 5.0 [pH] [facility] Specific gravity (U) [Rel density] 1.005 [facility] Urobilinogen (U) [Mass/Vol] Negative [facility] - Hematology and Cell countsOrdered By: Stephy King on 10-01-2024 Hemoglobin Ql (U) Negative [facility] - Specimen inform ationOrdered By: Stephy King on 10-01-2024 Clarity (U) Clear [facility] Color (U) Colorless [facility] - UrinalysisOrder ed By: Stephy King on 10-01-2024 Nitrite Ql (U) Negative [facility] Protein Ql (U) Negative [facility] No Panel InformationOrdered By: Stephy King on 10-01-2024 Urine Leukocytes Negatve [facility] Urine Non-Hemolyzed Blood Negative [facility] Visit Reporton 10-01-2024 [facility] Visit Report [facility] [address], [address] [place] [address] OFFICE VISIT Date of Service: 10/01/24 MR#: [id number] Acct: [id number] Name: PATRICIA DAVIES Rep #: [id number] : 1990 Provider: RUPAL luis Age/Sex: 34/F Location: [facility] Status: Signed Intake Vital Signs 09/10/24 10:40 10/01/24 09:10 10/01/24 13:40 Height 5 ft 4 in 5 ft 4 in 5 ft 4 in Weight: 114 lb BMI 19.5 BP 107/67 Intake Visit Reasons: cramping/FHT Chief Complaint: Cramping/FHT check Tetryl Dissolver Operator Required: No Is patient in pain?: No Allergies No Known Allergies Allergy (Verified 10/01/24 13:32) Medications ???Medication ???Instructions ???Recorded ???Confirmed ???Type lactobacillus combo no.11 15 1 cap PO DAILY 01/17/23 10/01/24 H istory billion cell sprinkle capsule (Probiotic) calcium 600 mg (as 2 tab PO DAILY 03/14/24 10/01/24 H istory carbonate)-vitamin D3 5 mcg (200 unit) tablet (Calcium 600 + D(3)) multivit-min no.71-iron fum 28 cap PO 07/25/24 10/01/24 History mg-folate no.1 1 mg-dha 300 mg capsule (PNV-Lakeside) progesterone micronized 100 mg 200 mg vaginal HS 10 weeks #60 ea 07/26/24 10/01/24 Rx vaginal insert ondansetron 4 mg disintegrating 4 mg PO Q6H PRN nausea and 5 10/01/24 Rx tablet vomiting #30 tabs Last Menstrual Period: 06/15/24 Zika: Zika virus screening: Negative : No PFSH PFSH Medical History Abdominal pain Alcohol use Non-smoker Flu vaccine need Preventative health care Female infertility unexplained after evaluation Seasonal allergies Surgical History H/O unilateral salpingectomy S/P laparoscopy History of tonsillectomy and adenoidectomy Family History Mother Cancer, Onset Age: 59 Dermafibroid sarcadoma Family history of recurrent miscarriage 2 losses one at 24 wks Aunt Breast cancer, Onset Age: 50 Maternal Grandfather Parkinson disease Maternal Grandmother Respiratory disease Paternal Social History adopted: No household members: spouse, children and other details: adopted daughter Annabella son Asael housing: house number of children: 2 current occupation: [employer] pets and animals: Yes pets and animals: dog(s) history of recent travel: Yes ([place], [place], [place]) out of state: Yes out of country: No sexually active: Yes Smoking Status: Never smoker alcohol intake: current alcohol intake frequency: a few times a month Alcohol type: wine details: Not while substance use type: does not use diet: gluten free and lactose free well-balanced diet: daily or most days caffeine: No eating out: 1-3 times/week during the past year weight has: remained stable what type of physical activity do you participate in: none minh/mandaeism: Faith seatbelt use: always do you feel safe at home: Yes additional social history: - Yoandy History 1 Elective abortions Hx Para 0 Spontaneous abortions Hx # Term Pregnancies Ectopic pregnancies Hx # Pregnancies Multiple births # of living children Past Pregnancies Del. Date Name GA/Weeks Outcome Route Bth Weight Gen Labor Lgth Anesthesia Del Locatn Provider FOB 03/23/18 Adopted- Annabella 11/05/21 Adopted- Asael HPI cramping/FHT Details: PATRICIA DAVIES is a 34 year old who presents for routine OB visit. OB Visit DUANE Calculator Estimated Delivery Date Method Current WG Current Estimate 03/22/25 LMP (Certain) 15w 3d Other Estimates 03/24/25 Ultrasound #1 15w 1d Expected Delivery Route/Plan Labor Preferences- CB/BF classes: [] labor support person: [] labor intervention preferences: [] pain management options preferred: [] cut cord/dad catch: [] : [] PP control planned: [] discussed possible routes of delivery and associated risks: [] special requests: [] Specific Issue/Plans Covid status: [] Flu vaccine: [] Tdap vaccine: [] Rhogam: [] LARC form signed: [] Problem list reviewed and updated with the most current plan of care details and appropriate orders placed. Relevant counseling for the gestational age provided. Continue routine care and follow up unless otherwise noted in visit notes/problem list details Initial Weight: Not Recorded Date -???-???-???-???-???-???- ???-???-???-???-???-???- EGA Weight BP Urine Prot -???-???-???-???-???-???- ???-???-???-???-???-???- Glucose FHR FuHt Pres Dilation -???-???-???-???-???-???- ???-???-???-???-???-???- Effaced St Visit Note 08/01/24 (more content not included)... Normal [facility] - Chemistry and C hemistry - challengeOrdered By: Mary Herndon on 09-10-2024 Glucose Ql (U) Negative [facility] - UrinalysisOrder ed By: Mary Herndon on 09-10-2024 Protein Ql (U) Negative [facility] Visit Reporton 09-10-2024 [facility] Visit Report [facility] [address] [place] [address], [address] [place] [address] OFFICE VISIT Date of Service: 09/10/24 MR#: [id number] Acct: [id number] Name: PATRICIA DAVIES Rep #: [id number] : 1990 Provider: Dr. Mary Jones DO Age/Sex: 34/F Location: [facility] Status: Signed Intake Vital Signs 08/27/24 09:28 09/10/24 10:40 Height 5 ft 4 in 5 ft 4 in Weight: 112 lb BMI 19.2 BP 109/69 Intake Visit Reasons: 12 wk ob recheck Tetryl Dissolver Operator Required: No Is patient in pain?: No Allergies No Known Allergies Allergy (Verified 09/10/24 10:44) Medications ???Medication ???Instructions ???Recorded ???Confirmed ???Type lactobacillus combo no.11 15 1 cap PO DAILY 01/17/23 09/10/24 H istory billion cell sprinkle capsule (Probiotic) calcium 600 mg (as 2 tab PO DAILY 03/14/24 09/10/24 H istory carbonate)-vitamin D3 5 mcg (200 unit) tablet (Calcium 600 + D(3)) multivit-min no.71-iron fum 28 cap PO 07/25/24 09/10/24 History mg-folate no.1 1 mg-dha 300 mg capsule (PNV-Lakeside) progesterone micronized 100 mg 200 mg vaginal HS 10 weeks #60 ea 07/26/24 09/10/24 Rx vaginal insert ondansetron 4 mg disintegrating 4 mg PO Q6H PRN nausea and 5 09/10/24 Rx tablet vomiting #30 tabs Last Menstrual Period: 06/15/24 Zika: Zika virus screening: Negative : No PFSH PFSH Medical History Abdominal pain Alcohol use Non-smoker Flu vaccine need Preventative health care Female infertility unexplained after evaluation Seasonal allergies Surgical History H/O unilateral salpingectomy S/P laparoscopy History of tonsillectomy and adenoidectomy Family History Mother Cancer, Onset Age: 59 Dermafibroid sarcadoma Family history of recurrent miscarriage 2 losses one at 24 wks Aunt Breast cancer, Onset Age: 50 Maternal Grandfather Parkinson disease Maternal Grandmother Respiratory disease Paternal Social History adopted: No household members: spouse, children and other details: adopted daughter Annabella son Asael housing: house number of children: 2 current occupation: [employer] pets and animals: Yes pets and animals: dog(s) history of recent travel: Yes ([place], [place], [place]) out of state: Yes out of country: No sexually active: Yes Smoking Status: Never smoker alcohol intake: current alcohol intake frequency: a few times a month Alcohol type: wine details: Not while substance use type: does not use diet: gluten free and lactose free well-balanced diet: daily or most days caffeine: No eating out: 1-3 times/week during the past year weight has: remained stable what type of physical activity do you participate in: none minh/mandaeism: Faith seatbelt use: always do you feel safe at home: Yes additional social history: - Yoandy History 1 Elective abortions Hx Para 0 Spontaneous abortions Hx # Term Pregnancies Ectopic pregnancies Hx # Pregnancies Multiple births # of living children Past Pregnancies Del. Date Name GA/Weeks Outcome Route Bth Weight Infant Gen Labor Lgth Anesthesia Del Locatn Provider FOB 03/23/18 Adopted- Annabella 11/05/21 Adopted- Vyas HPI 12 wk ob recheck Details: PATRICIA DAVIES is a 34 year old who presents for routine OB visit. OB Visit DUANE Calculator Estimated Delivery Date Method Current WG Current Estimate 03/22/25 LMP (Certain) 12w 3d Other Estimates 03/24/25 Ultrasound #1 12w 1d Expected Delivery Route/Plan Labor Preferences- CB/BF classes: [] labor support person: [] labor intervention preferences: [] pain management options preferred: [] cut cord/dad catch: [] : [] PP control planned: [] discussed possible routes of delivery and associated risks: [] special requests: [] Specific Issue/Plans Covid status: [] Flu vaccine: [] Tdap vaccine: [] Rhogam: [] LARC form signed: [] Problem list reviewed and updated with the most current plan of care details and appropriate orders placed. Relevant counseling for the gestational age provided. Continue routine care and follow up unless otherwise noted in visit notes/problem list details Initial Weight: Not Recorded Date -???-???-???-???-???-???- ???-???-???-???-???-???- EGA Weight BP Urine Prot -???-???-???-???-???-???- ???-???-???-???-???-???- Glucose FHR FuHt Pres Dilation -???-???-???-???-???-???- ???-???-???-???-???-???- Effaced St Visit Note 08/01/24 -???-???-???-???-???-???- ???-???-???-???-???-???- 6w 5d 1 (more content not included)... Normal [facility] Absolute lymphocyte countOrd ered By: Mary Herndon on 08-27-2024 Lymphocytes Auto (Unsp spec) [#/Vol] 1.52 10*3/uL 0.83-4.51 [facility] Absolute neutrophil countOrd ered By: Mary Herndon on 08-27-2024 Neutrophils (Bld) [#/Vol] 3.6 10*3/uL 2.0-7.7 [facility] Automated lymphocyte count a s percentage of total leukocytesOrdered By: Mary Herndon on 08-27-2024 Lymphocytes/100 WBC Auto (Unsp spec) 26.4 % 19-41 [facility] Basophil percentageOrdered B y: Mary Herndon on 08-27-2024 Basophils/100 WBC (Bld) 0.7 % 0-1 [facility] CBC W/Diff, Automatedon 08-04 Absolute Lymph 1.52 X10 3/uL Normal 0.83-4.51 [facility] Comment on above: Performed By: #### L 100.0100, L509.4006, L509.8002, L3890.6102, L3890.6006, L3890.6301, BTS #### [facility] [address] [place], [address] Absolute Neut 3.6 X10 3/uL Normal 2.0-7.7 [facility] Comment on above: Performed By: #### L 100.0100, L509.4006, L509.8002, L3890.6102, L3890.6006, L3890.6301, BTS #### [facility] [address] [place], [address] Basophils/100 WBC (Bld) 0.7 % Normal 0-1 [facility] Comment on above: Performed By: #### L 100.0100, L509.4006, L509.8002, L3890.6102, L3890.6006, L3890.6301, BTS #### [facility] [address] [place], [address] Eosinophils/100 WBC (Bld) 1.0 % Normal 0-5 [facility] Comment on above: Performed By: #### L 100.0100, L509.4006, L509.8002, L3890.6102, L3890.6006, L3890.6301, BTS #### [facility] [address] [place], [address] Erythrocyte distribution width (RBC) [Ratio] 12.8 % Normal 11.6-14.6 [facility] Comment on above: Performed By: #### L 100.0100, L509.4006, L509.8002, L3890.6102, L3890.6006, L3890.6301, BTS #### [facility] [address] [place], [address] Hematocrit (Bld) [Volume fraction] 37.8 % Normal 37-47 [facility] Comment on above: Performed By: #### L 100.0100, L509.4006, L509.8002, L3890.6102, L3890.6006, L3890.6301, BTS #### [facility] [address] [place], [address] Hemoglobin (Bld) [Mass/Vol] 12.7 g/dL Normal 12.0-15.0 [facility] Comment on above: Performed By: #### L 100.0100, L509.4006, L509.8002, L3890.6102, L3890.6006, L3890.6301, BTS #### [facility] [address] [place], [address] IG% 0.300 Normal 0.0-0.9 [facility] Comment on above: Result Comment: IG% - Immature Granulocytes (promyelocytes, myelocytes and metamyelocytes) > 1% indicates that a LEFT SHIFT is Present. Performed By: #### L 100.0100, L509.4006, L509.8002, L3890.6102, L3890.6006, L3890.6301, BTS #### [facility] [address] [place], [address] Lymphocytes/100 WBC (Bld) 26.4 % Normal 19-41 [facility] Comment on above: Performed By: #### L 100.0100, L509.4006, L509.8002, L3890.6102, L3890.6006, L3890.6301, BTS #### [facility] [address] [place], [address] MCH (RBC) [Entitic mass] 30.8 pg Normal 27.0-32.0 [facility] Comment on above: Performed By: #### L 100.0100, L509.4006, L509.8002, L3890.6102, L3890.6006, L3890.6301, BTS #### [facility] [address] [place], [address] MCHC (RBC) [Mass/Vol] 33.6 g/dL Normal 32-36 [facility] Comment on above: Performed By: #### L 100.0100, L509.4006, L509.8002, L3890.6102, L3890.6006, L3890.6301, BTS #### [facility] [address] [place], [address] MCV (RBC) [Entitic vol] 91.5 fL Normal 81-99 [facility] Comment on above: Performed By: #### L 100.0100, L509.4006, L509.8002, L3890.6102, L3890.6006, L3890.6301, BTS #### [facility] [address] [place], [address] Monocytes/100 WBC (Bld) 9.2 % Normal 0-10 [facility] Comment on above: Performed By: #### L 100.0100, L509.4006, L509.8002, L3890.6102, L3890.6006, L3890.6301, BTS #### [facility] [address] [place], [address] Neutrophils/100 WBC (Bld) 62.4 % Normal 47-70 [facility] Comment on above: Performed By: #### L 100.0100, L509.4006, L509.8002, L3890.6102, L3890.6006, L3890.6301, BTS #### [facility] [address] [place], [address] Nucleated RBC (Bld) [#/Vol] 0 10*3/uL Normal 0-5 [facility] Comment on above: Performed By: #### L 100.0100, L509.4006, L509.8002, L3890.6102, L3890.6006, L3890.6301, BTS #### [facility] [address] [place], [address] Platelet mean volume (Bld) [Entitic vol] 10.5 fL Normal 6.2-12.0 [facility] Comment on above: Performed By: #### L 100.0100, L509.4006, L509.8002, L3890.6102, L3890.6006, L3890.6301, BTS #### [facility] [address] [place], [address] Platelets (Bld) [#/Vol] 270 10*3/uL Normal 150-450 [facility] Comment on above: Performed By: #### L 100.0100, L509.4006, L509.8002, L3890.6102, L3890.6006, L3890.6301, BTS #### [facility] [address] [place], [address] RBC (Bld) [#/Vol] 4.13 10*6/uL Low 4.2-5.4 [facility] Comment on above: Performed By: #### L 100.0100, L509.4006, L509.8002, L3890.6102, L3890.6006, L3890.6301, BTS #### [facility] [address] [place], [address] RDW SD 42.4 fl Normal 35.1-43.9 [facility] Comment on above: Performed By: #### L 100.0100, L509.4006, L509.8002, L3890.6102, L3890.6006, L3890.6301, BTS #### [facility] [address] [place], [address] WBC (Bld) [#/Vol] 5.8 10*3/uL Normal 4.4-11.0 [facility] Comment on above: Performed By: #### L 100.0100, L509.4006, L509.8002, L3890.6102, L3890.6006, L3890.6301, BTS #### [facility] [address] [place], [address] Eosinophil percentageOrdered By: Mary Herndon on 08-27-2024 Eosinophils/100 WBC (Bld) 1.0 % 0-5 [facility] Erythrocyte distribution wid th ratioOrdered By: Mary Herndon on 08-27-2024 Erythrocyte distribution width (RBC) [Ratio] 12.8 % 11.6-14.6 [facility] Erythrocyte distribution wid th standard deviationOrdered By: Mary Herndon on 08-27-2024 Erythrocyte distribution width (RBC) [Ratio] 42.4 fl 35.1-43.9 [facility] HIVon 08-27-2024 HIV Non-Reactive Normal Nonreactive [facility] Comment on above: Result Comment: Non- Reactive Reactive Repeatedly reactive samples must be confirmed according to CDC recommended confirmatory algorithms. The subresults for either HIVAG or AHIV can be used as an aid in the selection of the confirmation algorithm for reactive samples. Send out specimens with Reactive results to [facility] for confirmation. Order the HIV antibody detection and differentiation: lc#[id number] Performed By: #### L 100.0100, L509.4006, L509.8002, L3890.6102, L3890.6006, L3890.6301, BTS #### [facility] [address] [place], [place], [id number] Hematocrit Auto (Bld) [Volum e fraction]Ordered By: Mary Herndon on 08-27-2024 Hematocrit (Bld) [Volume fraction] 37.8 % 37-47 [facility] Hemoglobin measurementOrdere d By: Mary Herndon on 08-27-2024 Hemoglobin (Bld) [Mass/Vol] 12.7 g/dL 12.0-15.0 [facility] Hepatitis C Antibodyon 08-27 Hepatitis C Ab Non-Reactive Normal Nonreactive [facility] Comment on above: Result Comment: Reac tive: Presumptive evidence of antibodies to HCV. Follow CDC recommendations for supplemental testing. Non-Reactive: Antibodies to HCV were not detected; does not exclude the possibility of exposure to HCV Reactive Results are presumptive evidence of antibodies to HCV. Follow CDC recommendations for supplemental testing. Order confirmation testing: HCV Quant by PCR testing - HCVPCR #[id number] Non Reactive: < 0.8 Equivocal: >/= 0.8 to < 1.0 Reactive: >/= 1.0 The CDC requires that a reactive/equivocal HCV antibody result be sent out for confirmation. HCV Quant by PCR testing. Performed By: #### L 100.0100, L500.4050 #### [facility] [address] [place], [address] Immature granulocytes/100 WB C Auto (Bld)Ordered By: Mary Herndon on 08-27-2024 Immature granulocytes/100 WBC (Bld) 0.300 % 0.0-0.9 [facility] Comment on above: IG% - Immature Granu locytes (promyelocytes, myelocytes and metamyelocytes) > 1% indicates that a LEFT SHIFT is Present. L3890.6102on 08-27-2024 HEP B Surf Ag Non-Reactive Normal Nonreactive [facility] Comment on above: Result Comment: Reac tive: Presumptive evidence of HBV. Repeatedly reactive samples must be confirmed using a neutralization test ([employer] HBsAg Confirmatory Test) Non-Reactive: HBsAg not detected; does not exclude the possibility of exposure to HBV Performed By: #### L 100.0100, L509.4006, L509.8002, L3890.6102, L3890.6006, L3890.6301, BTS #### [facility] [address] [place], [place], [id number] L509.4006on 08-27-2024 Rubella IgG REAC Normal Nonreactive [facility] Comment on above: Result Comment: Anti body Result: Interpretation Non-Reactive: Non-Immune Reactive: Immune The following results were obtained with the [employer] Rubella IgG assay. Results from assays of other manufacturers cannot be used interchangeably. Performed By: #### L 100.0100, L509.4006, L509.8002, L3890.6102, L3890.6006, L3890.6301, BTS #### [facility] [address] [place], [place], [id number] Laboratory - Chemistry and C hemistry - challengeOrdered By: Mary Herndon on 08-27-2024 Glucose Ql (U) Negative [facility] - Microbiology an d Antimicrobial susceptibilityOrdered By: Mary Herndon on 08-27-2024 HBV surface Ag Ql (S) Non-Reactive Nonreactive [facility] Comment on above: Reactive: Presumptiv e evidence of HBV. Repeatedly reactive samples must be confirmed using a neutralization test ([employer] HBsAg Confirmatory Test)Non-Reactive: HBsAg not detected; does not exclude the possibility of exposure to HBV Laboratory - UrinalysisOrder ed By: Mary Herndon on 08-27-2024 Protein Ql (U) Negative [facility] MCV (mean corpuscular volume ) determinationOrdered By: Mary Herndon on 08-27-2024 MCV (RBC) [Entitic vol] 91.5 fL 81-99 [facility] Mean corpuscular hemoglobin (MCH) determinationOrdered By: Mary Herndon on 08-27-2024 MCH (RBC) [Entitic mass] 30.8 pg 27.0-32.0 [facility] Mean corpuscular hemoglobin concentration (MCHC) determinationOrdered By: Mary Herndon on 08-27-2024 MCHC (RBC) [Mass/Vol] 33.6 g/dL 32-36 [facility] Mean platelet volume determi nationOrdered By: Mary Herndon on 08-27-2024 Platelet mean volume (Bld) [Entitic vol] 10.5 fL 6.2-12.0 [facility] Monocyte percentageOrdered B y: Mary Herndon on 08-27-2024 Monocytes/100 WBC (Bld) 9.2 % 0-10 [facility] NATERAon 08-27-2024 NATURA SEE SCANNED REPORT Normal [facility] Comment on above: Performed By: #### L 7000.0300 #### [facility] [address] [place] [address], [address] Neutrophil percentageOrdered By: Mary Herndon on 08-27-2024 Neutrophils/100 WBC (Bld) 62.4 % 47-70 [facility] No Panel InformationOrdered By: Mary Herndon on 08-27-2024 HIV (1&2) Antibody Non-Reactive Nonreactive [facility] Comment on above: Non-ReactiveReactive Repeatedly reactive samples must be confirmed according to CDC recommended confirmatory algorithms. The subresults for either HIVAG or AHIV can be used as an aid in the selection of the confirmation algorithm for reactive samples.Send out specimens with Reactive results to [facility] for confirmation.Order the HIV antibody detection and differentiation: #[id number] Nucleated red blood cell per centageOrdered By: Mary Herndon on 08-27-2024 Nucleated RBC/100 WBC (Bld) [Ratio] 0 % 0-5 [facility] [employer] [facility] [facility] Visit Reporton 08-27-2024 [facility] Visit Report [facility] [address], [address] [place] [address] OFFICE VISIT Date of Service: 08/27/24 MR#: [id number] Acct: [id number] Name: PATRICIA DAVIES Rep #: [id number] : 1990 Provider: Dr. Mary Jones DO Age/Sex: 34/F Location: [facility] [place] Status: Signed Intake Vital Signs 07/24/24 12:53 08/08/24 11:36 08/27/24 09:26 08/27/24 09:28 Height 5 ft 4 in 5 ft 4 in 5 ft 4 in 5 ft 4 in Weight: 109 lb 4 oz BMI 18.7 BP 111/72 Intake Visit Reasons: 10 wk ob Tetryl Dissolver Operator Required: No Is patient in pain?: No Allergies No Known Allergies Allergy (Verified 08/27/24 09:26) Medications ???Medication ???Instructions ???Recorded ???Confirmed ???Type lactobacillus combo no.11 15 1 cap PO DAILY 01/17/23 08/27/24 H istory billion cell sprinkle capsule (Probiotic) calcium 600 mg (as 2 tab PO DAILY 03/14/24 08/27/24 H istory carbonate)-vitamin D3 5 mcg (200 unit) tablet (Calcium 600 + D(3)) multivit-min no.71-iron fum 28 cap PO 07/25/24 08/27/24 History mg-folate no.1 1 mg-dha 300 mg capsule (PNV-Lakeside) progesterone micronized 100 mg 200 mg vaginal HS 10 weeks #60 ea 07/26/24 08/27/24 Rx vaginal insert ondansetron 4 mg disintegrating 4 mg PO Q6H PRN nausea and 5 08/27/24 Rx tablet vomiting #30 tabs Last Menstrual Period: 06/15/24 Zika: Zika virus screening: Negative : No PFSH PFSH Medical History Abdominal pain Alcohol use Non-smoker Flu vaccine need Preventative health care Female infertility unexplained after evaluation Seasonal allergies Surgical History H/O unilateral salpingectomy S/P laparoscopy History of tonsillectomy and adenoidectomy Family History Mother Cancer, Onset Age: 59 Dermafibroid sarcadoma Family history of recurrent miscarriage 2 losses one at 24 wks Aunt Breast cancer, Onset Age: 50 Maternal Grandfather Parkinson disease Maternal Grandmother Respiratory disease Paternal Social History adopted: No household members: spouse, children and other details: adopted daughter Annabella Vyas housing: house number of children: 2 current occupation: [employer] pets and animals: Yes pets and animals: dog(s) history of recent travel: Yes ([place], [place], [place]) out of state: Yes out of country: No sexually active: Yes Smoking Status: Never smoker alcohol intake: current alcohol intake frequency: a few times a month Alcohol type: wine details: Not while substance use type: does not use diet: gluten free and lactose free well-balanced diet: daily or most days caffeine: No eating out: 1-3 times/week during the past year weight has: remained stable what type of physical activity do you participate in: none minh/mandaeism: Faith seatbelt use: always do you feel safe at home: Yes additional social history: - Yoandy History 1 Elective abortions Hx Para 0 Spontaneous abortions Hx # Term Pregnancies Ectopic pregnancies Hx # Pregnancies Multiple births # of living children Past Pregnancies Del. Date Name GA/Weeks Outcome Route Bth Weight Infant Gen Labor Lgth Anesthesia Del Locatn Provider FOB 03/23/18 Adopted- Annabella 11/05/21 Adopted- Asael HPI 10 wk ob Details: PATRICIA DAVIES is a 34 year old who presents for routine OB visit. OB Visit DUANE Calculator Estimated Delivery Date Method Current WG Current Estimate 03/22/25 LMP (Certain) 10w 3d Other Estimates 03/24/25 Ultrasound #1 10w 1d Expected Delivery Route/Plan Labor Preferences- CB/BF classes: [] labor support person: [] labor intervention preferences: [] pain management options preferred: [] cut cord/dad catch: [] : [] PP control planned: [] discussed possible routes of delivery and associated risks: [] special requests: [] Specific Issue/Plans Covid status: [] Flu vaccine: [] Tdap vaccine: [] Rhogam: [] LARC form signed: [] Problem list reviewed and updated with the most current plan of care details and appropriate orders placed. Relevant counseling for the gestational age provided. Continue routine care and follow up unless otherwise noted in visit notes/problem list details Initial Weight: Not Recorded Date -???-???-???-???-???-???- ???-???-???-???-???-???- EGA Weight BP Urine Prot -???-???-???-???-???-???- ???-???-???-???-???-???- Glucose FHR FuHt Pres Dilation -???-???-???-???-???-???- ???-???-???-???-???-???- Effaced St Visit Note 08/01/24 -???-??? (more content not included)... Normal [facility] Platelet countOrdered By: Norbert Herndon on 08-27-2024 Platelets (Bld) [#/Vol] 270 10*3/uL 150-450 [facility] RBC Auto (Bld) [#/Vol]Ordere d By: Mary Herndon on 08-27-2024 RBC (Bld) [#/Vol] 4.13 10*6/uL Low 4.2-5.4 [facility] Syphilis Antibodieson 2024 Syphilis Abs Non-Reactive Normal Nonreactive [facility] Comment on above: Performed By: #### L 100.0100, L509.4006, L509.8002, L3890.6102, L3890.6006, L3890.6301, BTS #### [facility] [address] [place], [place], [address] Type AND Screenon 08-27-2024 Ab SCREEN GEL Negative Normal [facility] Comment on above: Order Comment: PN Performed By: #### L 100.0100, L509.4006, L509.8002, L3890.6102, L3890.6006, L3890.6301, BTS #### [facility] [address] [place], [address] White blood cell (WBC) count Ordered By: Mary Herndon on 08-27-2024 WBC (Bld) [#/Vol] 5.8 10*3/uL 4.4-11.0 [facility] - Chemistry and C hemistry - challengeOrdered By: Marguerite Valencia on 08-08-2024 Glucose Ql (U) Negative [facility] - UrinalysisOrder ed By: Marguerite Valencia on 08-08-2024 Protein Ql (U) Negative [facility] Visit Reporton 08-08-2024 [facility] Visit Report [facility], [address] [place] [address] OFFICE VISIT Date of Service: 08/08/24 MR#: [id number] Acct: [id number] Name: PATRICIA DAVIES Rep #: [id number] : 1990 Provider: ERIC pinedo Age/Sex: 34/F Location: [facility] Status: Signed Intake Vital Signs 08/01/24 10:36 08/08/24 11:34 08/08/24 11:36 Height 5 ft 4 in 5 ft 4 in 5 ft 4 in Weight: 111 lb 8 oz BMI 19.1 BP 113/74 Intake Visit 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 Operator Required: No Is patient in pain?: No Allergies No Known Allergies Allergy (Verified 08/08/24 11:34) Medications ???Medication ???Instructions ???Recorded ???Confirmed ???Type lactobacillus combo no.11 15 1 cap PO DAILY 01/17/23 08/08/24 H istory billion cell sprinkle capsule (Probiotic) calcium 600 mg (as 2 tab PO DAILY 03/14/24 08/08/24 H istory carbonate)-vitamin D3 5 mcg (200 unit) tablet (Calcium 600 + D(3)) multivit-min no.71-iron fum 28 cap PO 07/25/24 08/08/24 History mg-folate no.1 1 mg-dha 300 mg capsule (PNV-Lakeside) progesterone micronized 100 mg 200 mg vaginal HS 10 weeks #60 ea 07/26/24 08/08/24 Rx vaginal insert ondansetron 4 mg disintegrating 4 mg PO Q6H PRN nausea and 5 08/08/24 Rx tablet vomiting #30 tabs Last Menstrual Period: 06/15/24 Zika: Zika virus screening: Negative : No PFSH PFSH Medical History Abdominal pain Alcohol use Non-smoker Flu vaccine need Preventative health care Female infertility unexplained after evaluation Seasonal allergies Surgical History H/O unilateral salpingectomy S/P laparoscopy History of tonsillectomy and adenoidectomy Family History Mother Cancer, Onset Age: 59 Dermafibroid sarcadoma Family history of recurrent miscarriage 2 losses one at 24 wks Aunt Breast cancer, Onset Age: 50 Maternal Grandfather Parkinson disease Maternal Grandmother Respiratory disease Paternal Social History adopted: No household members: spouse, children and other details: adopted daughter Annabella Vyas housing: house number of children: 2 current occupation: [employer] pets and animals: Yes pets and animals: dog(s) history of recent travel: Yes ([place], [place], [place]) out of state: Yes out of country: No sexually active: Yes Smoking Status: Never smoker alcohol intake: current alcohol intake frequency: a few times a month Alcohol type: wine details: Not while substance use type: does not use diet: gluten free and lactose free well-balanced diet: daily or most days caffeine: No eating out: 1-3 times/week during the past year weight has: remained stable what type of physical activity do you participate in: none minh/mandaeism: Faith seatbelt use: always do you feel safe at home: Yes additional social history: - Yoandy History 1 Elective abortions Hx Para 0 Spontaneous abortions Hx # Term Pregnancies Ectopic pregnancies Hx # Pregnancies Multiple births # of living children Past Pregnancies Del. Date Name GA/Weeks Outcome Route Bth Weight Infant Gen Labor Lgth Anesthesia Del Locatn Provider FOB 03/23/18 Adopted- Annabella 11/05/21 Adopted- Asael HPI HEARTBEAT CHECK Details: PATRICIA DAVIES is a 34 year old who presents for routine OB visit. OB Visit DUANE Calculator Estimated Delivery Date Method Current WG Current Estimate 03/22/25 LMP (Certain) 7w 5d Other Estimates 03/24/25 Ultrasound #1 7w 3d Expected Delivery Route/Plan Labor Preferences- CB/BF classes: [] labor support person: [] labor intervention preferences: [] pain management options preferred: [] cut cord/dad catch: [] : [] PP control planned: [] discussed possible routes of delivery and associated risks: [] special requests: [] Specific Issue/Plans Covid status: [] Flu vaccine: [] Tdap vaccine: [] Rhogam: [] LARC form signed: [] Problem list reviewed and updated with the most current plan of care details and appropriate orders placed. Relevant counseling for the gestational age provided. Continue routine care and follow up unless otherwise noted in visit notes/problem list details Initial Weight: Not Recorded Date -???-???-???-???-???-???- ???-???-???-???-???-???- EGA Weight BP Urine Prot -???-???-???-???-???-???- ???-???-???-???-???-???- Glucose FHR FuHt Pres Dilation -???-???-???-???-???-???- ???-???-???-???-???-???- Effaced St Visit Note 08/01/24 -???-???-???-???-???-???- ???-??? (more content not included)... Normal [facility] Chlamydia/GC RAMBO aptimaon CHLAMY,NUC ACID Negative Normal Negative [facility] Comment on above: Performed By: #### L 100.0100, L509.4006, L509.8002, L3890.6102, L3890.6006, L3890.6301, BTS #### [facility] [address] [place], [place], [id number] GC BY NUC ACID Negative Normal Negative [facility] Comment on above: Result Comment: Perf ormed at: =G - [facility] [address] [id number] Grocery Bagger: Bernarda Singleton MD, Phone: [phone] Performed By: #### L 100.0100, L509.4006, L509.8002, L3890.6102, L3890.6006, L3890.6301, BTS #### [facility] [address] [place], [place], [id number] Urine Cultureon 08-02-2024 URC Culture exhibits no growth. Normal [facility] Comment on above: Performed By: #### L 100.0100, L509.4006, L509.8002, L3890.6102, L3890.6006, L3890.6301, BTS #### [facility] [address] [place], [place], [id number] Chlamydia trachomatis rRNA d etection by probe and target amplification methodOrdered By: Mary Herndon on 08-01-2024 C. trachomatis rRNA RAMBO+probe Ql (Unsp spec) Negative Negative [facility] Neisseria gonorrhoeae nuclei c acid detection by amplified probe techniqueOrdered By: Mary Herndon on 08-01-2024 N. gonorrhoeae DNA RAMBO+probe Ql (Unsp spec) Negative Negative [facility] Comment on above: Performed at: =G - [facility] [id number] [place] [id number] Director: Bernarda Singleton MD, Phone: [phone] [facility] Visit Reporton 08-01-2024 [facility] Visit Report [facility] [address], [address] [place] [address] OFFICE VISIT Date of Service: 08/01/24 MR#: [id number] Acct: [id number] Name: PATRICIA DAVIES Rep #: [id number] : 1990 Provider: Dr. Mary Jones DO Age/Sex: 34/F Location: [facility] [place] Status: Signed Intake Vital Signs 03/18/24 11:16 07/24/24 12:53 08/01/24 10:36 Height 5 ft 4 in 5 ft 4 in 5 ft 4 in Weight: 110 lb 4 oz BMI 18.9 BP 120/77 Intake Visit Reasons: New OB! LMP 06/15, DUANE 03/22, hx infertility Tetryl Dissolver Operator Required: No Is patient in pain?: No Allergies No Known Allergies Allergy (Verified 08/01/24 10:34) Medications ???Medication ???Instructions ???Recorded ???Confirmed ???Type lactobacillus combo no.11 15 1 cap PO DAILY 01/17/23 08/01/24 H istory billion cell sprinkle capsule (Probiotic) calcium 600 mg (as 2 tab PO DAILY 03/14/24 08/01/24 H istory carbonate)-vitamin D3 5 mcg (200 unit) tablet (Calcium 600 + D(3)) multivit-min no.71-iron fum 28 cap PO 07/25/24 08/01/24 History mg-folate no.1 1 mg-dha 300 mg capsule (PNV-Lakeside) progesterone micronized 100 mg 200 mg vaginal HS 10 weeks #60 ea 07/26/24 08/01/24 Rx vaginal insert ondansetron 4 mg disintegrating 4 mg PO Q6H PRN nausea and 5 08/01/24 Rx tablet vomiting #30 tabs Last Menstrual Period: 06/15/24 Zika: Zika virus screening: Negative : No PFSH PFSH Medical History Abdominal pain Alcohol use Non-smoker Flu vaccine need Preventative health care Female infertility unexplained after evaluation Seasonal allergies Surgical History H/O unilateral salpingectomy S/P laparoscopy History of tonsillectomy and adenoidectomy Family History Mother Cancer, Onset Age: 59 Dermafibroid sarcadoma Family history of recurrent miscarriage 2 losses one at 24 wks Aunt Breast cancer, Onset Age: 50 Maternal Grandfather Parkinson disease Maternal Grandmother Respiratory disease Paternal Social History adopted: No household members: spouse, children and other details: adopted daughter Annabella Vyas housing: house number of children: 2 current occupation: [employer] pets and animals: Yes pets and animals: dog(s) history of recent travel: Yes ([place], [place], [place]) out of state: Yes out of country: No sexually active: Yes Smoking Status: Never smoker alcohol intake: current alcohol intake frequency: a few times a month Alcohol type: wine details: Not while substance use type: does not use diet: gluten free and lactose free well-balanced diet: daily or most days caffeine: No eating out: 1-3 times/week during the past year weight has: remained stable what type of physical activity do you participate in: none minh/mandaeism: Faith seatbelt use: always do you feel safe at home: Yes additional social history: - Yoandy History 1 Elective abortions Hx Para 0 Spontaneous abortions Hx # Term Pregnancies Ectopic pregnancies Hx # Pregnancies Multiple births # of living children Past Pregnancies Del. Date Name GA/Weeks Outcome Route Bth Weight Gen Labor Lgth Anesthesia Del Locatn Provider FOB 03/23/18 Adopted- Annabella 11/05/21 Adopted- [facility]ael HPI New OB! LMP 06/15, DUANE 03/22, hx infertility Details: PATRICIA DAVIES is a 34 year old who presents for New OB visit. OB Visit DUANE Calculator Estimated Delivery Date Method Current WG Current Estimate 03/22/25 LMP (Certain) 6w 5d Estimated Due Date: 03/22/25 Expected Delivery Route/Plan Labor Preferences- CB/BF classes: [] labor support person: [] labor intervention preferences: [] pain management options preferred: [] cut cord/dad catch: [] : [] PP control planned: [] discussed possible routes of delivery and associated risks: [] special requests: [] Specific Issue/Plans Covid status: [] Flu vaccine: [] Tdap vaccine: [] Rhogam: [] LARC form signed: [] Problem list reviewed and updated with the most current plan of care details and appropriate orders placed. Relevant counseling for the gestational age provided. Continue routine care and follow up unless otherwise noted in visit notes/problem list details Initial Weight: Not Recorded Date -???-???-???-???-???-???- ???-???-???-???-???-???- EGA Weight BP Urine Prot -???-???-???-???-???-???- ???-???-???-???-???-???- Glucose FHR FuHt Pres Dilation -???-???-???-???-???-???- ???-???-???-???-???-???- Effaced St Visit Note 05 (more content not included)... Normal [facility] Urine cultureOrdered By: Stephanie Herndon on 08-01-2024 Bacteria identified Cx Nom (U) Culture exhibits no growth. [facility] Transvaginal w/Preg USon Transvaginal w/Preg [facility] Services [address] [place] [address] Transvaginal w/Preg MR#: [id number] Acct: [id number] Name: PATRICIA DAVIES Rep #: [id number] : 1990 F 34 From: Aren Newsome PCP: Dr. Mariya Bocanegra MD Status: REG CLI Study: Transvaginal w/Preg US Date of Exam: 07/26/24 Exam# [id number] Ordering Dr: Mary Alicia DO PROCEDURE: TRANSVAGINAL W/PREG US 07/26/2024 REASON FOR EXAM: BLEEDING IN TECHNIQUE: Transvaginal ultrasound was performed in this 1st trimester sonogram COMPARISON: None FINDINGS: Intrauterine gestational is noted with gestational sac diameter of 0.9 cm, corresponding to gestational age of 5 weeks and 5 days. Yolk sac of 0.2 cm. CRL of 0.1 cm. No heart rate is detected at this time although this is likely due to early gestational age. Cervix is closed. Moderate fluid is noted within the cul-de-sac. Uterus measures 8.5 x 5.7 x 4.2 cm. Right ovary measures 3.2 x 2.1 x 1.8 cm and left ovary measures 2.3 x 2.0 x 1.0 cm. A 1.7 cm cyst is noted within the right ovary. Normal vasculature of the ovaries. US/Transvaginal w/Preg US IMPRESSION: Intrauterine gestational corresponding to 5 weeks and 5 days. No heart rate is detected at this time although this is likely due to early gestational age. Cervix is closed. Moderate fluid noted within the cul-de-sac. Otherwise unremarkable. Reading Location: [facility] CC: Dr. Mariya Bocanegra MD; Dr. Mary Alicia DO Flash Welding Machine Operator: Signed Normal [facility] - Chemistry and C hemistry - challengeOrdered By: Mary Herndon on 07-25-2024 HCG ( test) Ql (U) Positive [facility] Office Visit Reporton 2024 Office Visit Report [facility] [address] [place] [address] OFFICE VISIT Date of Service: 07/25/24 MR#: [id number] Acct: [id number] Patient: PATRICIA DAVIES Rep #: [id number] : 1990 Provider: Dr. Mary Jones DO Age/Sex: 34/F Location: [facility] [place] Status: Signed Intake Vital Signs 07/24/24 12:53 Height 5 ft 4 in Weight: 111 lb BMI 19.0 BP 100/64 Blood Pressure Location Lt brachial Position Sitting Intake Visit Reasons: Pre new ob, confirmation, vitals Chief Complaint: Yearly. Tetryl Dissolver Operator Required: No Is patient in pain?: No Allergies No Known Allergies Allergy (Verified 07/25/24 14:12) Medications ???Medication ???Instructions ???Recorded ???Confirmed ???Type lactobacillus combo no.11 15 1 cap PO DAILY 01/17/23 07/25/24 H istory billion cell sprinkle capsule (Probiotic) calcium 600 mg (as 2 tab PO DAILY 03/14/24 07/25/24 H istory carbonate)-vitamin D3 5 mcg (200 unit) tablet (Calcium 600 + D(3)) multivit-min no.71-iron fum 28 cap PO 07/25/24 07/25/24 History mg-folate no.1 1 mg-dha 300 mg capsule (PNV-Lakeside) progesterone micronized 100 mg 200 mg vaginal HS 10 weeks #60 ea 07/26/24 07/26/24 Rx vaginal insert Is last menstrual period known: Yes Last menstrual period: 06/15/24 Post menopausal: No Patient : Yes Current gender identity: female Nurse's Note: Pt here for secondary amenorrhea. Office UPT: positive. Vitals WNL. PNOB questions completed. Problem list, allergies, and medications updated. First trimester ACOG education completed. Results POC Urine Office , Urine Positive Last Edit by Shanel Busatmante on 07/25/24 14:15 Nursing Note here for amenorrhea and test Assessment and Plan Assessment and Plan (1) Amenorrhea: Status: Acute Orders: Orders CBC W/Diff, Automated 07/25/24 N63.0 - Unspecified lump in unspecified breast Type Screen 07/25/24 N63.0 - Unspecified lump in unspecified breast Rubella IgG 07/25/24 N63.0 - Unspecified lump in unspecified breast Hepatitis C Antibody 07/25/24 N63.0 - Unspecified lump in unspecified breast Hepatitis B Surface Antigen 07/25/24 N63.0 - Unspecified lump in unspecified breast Culture, Urine 07/25/24 N63.0 - Unspecified lump in unspecified breast Syphilis Antibodies 07/25/24 N63.0 - Unspecified lump in unspecified breast Chlamydia/GC RAMBO aptima 07/25/24 N63.0 - Unspecified lump in unspecified breast HIV 07/25/24 N63.0 - Unspecified lump in unspecified breast POC Urine 07/25/24 N91.2 - Amenorrhea, unspecified Medications: New progesterone micronized 200 mg vaginal HS 60 ea 3RF 10 weeks 07/29/24 1506 Date Mary Alicia DO [facility] Signature: Date (if applicable) CC: Normal [facility] Serum human chorionic gonado tropin detection for pregnancyOrdered By: Mary Herndon on 07-24-2024 HCG ( test) Ql 5436 mIU/mL High <9 [facility] Comment on above: Gestational Age0.2-1 Week: 5-50 mIU/mL1-2 Weeks: 50-500 mIU/mL2-3 Weeks: 100-5000 mIU/mL3-4 Weeks: 500-10,000 mIU/mL4-5 Weeks:1000-50,000 mIU/mL5-6 Weeks: 10,000-100,000 mIU/mL6-8 Weeks: 15,000-200,000 mIU/mL2-3 Months:10,000-100,000 mIU/mL hCG Titer Quant., Serumon HCG QUANT. 5436 mIU/mL High <9 non-preg [facility] Comment on above: Result Comment: Gest ational Age 0.2-1 Week: 5-50 mIU/mL 1-2 Weeks: 50-500 mIU/mL 2-3 Weeks: 100-5000 mIU/mL 3-4 Weeks: 500-10,000 mIU/mL 4-5 Weeks:1000-50,000 mIU/mL 5-6 Weeks: 10,000-100,000 mIU/mL 6-8 Weeks: 15,000-200,000 mIU/mL 2-3 Months:10,000-100,000 mIU/mL Performed By: #### L 100.0100, L509.4006, L509.8002, L3890.6102, L3890.6006, L3890.6301, BTS #### [facility] [address] [place], [address] Serum human chorionic gonado tropin detection for pregnancyOrdered By: Mary Herndon on 07-22-2024 HCG ( test) Ql 2527 mIU/mL High <9 [facility] Comment on above: Gestational Age0.2-1 Week: 5-50 mIU/mL1-2 Weeks: 50-500 mIU/mL2-3 Weeks: 100-5000 mIU/mL3-4 Weeks: 500-10,000 mIU/mL4-5 Weeks:1000-50,000 mIU/mL5-6 Weeks: 10,000-100,000 mIU/mL6-8 Weeks: 15,000-200,000 mIU/mL2-3 Months:10,000-100,000 mIU/mL hCG Titer Quant., Serumon HCG QUANT. 2527 mIU/mL High <9 non-preg [facility] Comment on above: Result Comment: Gest ational Age 0.2-1 Week: 5-50 mIU/mL 1-2 Weeks: 50-500 mIU/mL 2-3 Weeks: 100-5000 mIU/mL 3-4 Weeks: 500-10,000 mIU/mL 4-5 Weeks:1000-50,000 mIU/mL 5-6 Weeks: 10,000-100,000 mIU/mL 6-8 Weeks: 15,000-200,000 mIU/mL 2-3 Months:10,000-100,000 mIU/mL Performed By: #### L 100.0100, L500.4050 #### [facility] [address] [place], [address] Colonoscopy Reporton 025 Colonoscopy Report [facility] Medical Records Department [address] [place] [address] Colonoscopy Report MR#: [id number] Acct: [id number] Name: PATRICIA DAVIES Rep #: [id number] : 1990 33 From: Jani Parham DO PCP: Dr. Mariya Bocanegra MD Status:REG [facility] [place] Patient Name: Patricia Davies Procedure Date: 03/18/2024 12:22 PM Date of : 1990 Age: 33 Procedure: Colonoscopy Indications: Abdominal pain in the left lower quadrant, Abdominal pain in the left upper quadrant, Abdominal pain in the right lower quadrant, Abdominal pain in the right upper quadrant, Suspected irritable bowel syndrome Providers: Jani Parham DO Referring MD: Mariya Bocanegra MD Medicines: Monitored Anesthesia Care Patient Profile: This is a 33 year old female. Refer to note in patient chart for documentation of history and physical. Last Colonoscopy: none. The patient's first colonoscopy is today. Complications: No immediate complications. Procedure: Pre-Anesthesia Assessment: - Prior to the procedure, a History and Physical was performed, and patient medications and allergies were reviewed. The patient is competent. The risks and benefits of the procedure and the sedation options and risks were discussed with the patient. All questions were answered and informed consent was obtained. Patient identification and proposed procedure were verified by the physician in the pre-procedure area. Mental Status Examination: alert and oriented. Airway Examination: normal oropharyngeal airway and neck mobility. Respiratory Examination: clear to auscultation. CV Examination: normal. Prophylactic Antibiotics: The patient does not require prophylactic antibiotics. Prior Anticoagulants: The patient has taken no anticoagulant or antiplatelet agents except for NSAID medication. ASA Grade Assessment: II - A patient with mild systemic disease. After reviewing the risks and benefits, the patient was deemed in satisfactory condition to undergo the procedure. The anesthesia plan was to use monitored anesthesia care (MAC). Immediately prior to administration of medications, the patient was re-assessed for adequacy to receive sedatives. The heart rate, respiratory rate, oxygen saturations, blood pressure, adequacy of pulmonary ventilation, and response to care were monitored throughout the procedure. The physical status of the patient was re-assessed after the procedure. After I obtained informed consent, the scope was passed under direct vision. Throughout the procedure, the patient's blood pressure, pulse, and oxygen saturations were monitored continuously. The pediatric colonoscope was introduced through the anus and advanced to the terminal ileum. The colonoscopy was performed without difficulty. The patient tolerated the procedure well. The quality of the bowel preparation was adequate. The terminal ileum, ileocecal valve, appendiceal orifice, and rectum were photographed. Scope In: 12:40:34 PM Scope Withdrawal Time 0 hours 7 minutes 23 seconds Scope Out: 12:55:05 PM Total Procedure Duration Time 0 hours 14 minutes 31 seconds Findings: The perianal and digital rectal examinations were normal. The recto-sigmoid colon and hepatic flexure were moderately tortuous. A patchy area of the terminal ileum was congested. Biopsies were taken with a cold forceps for histology. Verification of patient identification for the specimen was done. Estimated blood loss was minimal. Impression: - Tortuous colon. - Congested mucosa in the terminal ileum. Biopsied. Recommendation: - Discharge patient to home. - Resume previous diet. - Continue present medications. - Await pathology results. - Repeat colonoscopy in 10 years for screening purposes. Procedure Code(s): --- Professional --- 70095, Colonoscopy, flexible; with biopsy, single or multiple CPT copyright 2021 [employer]. All rights reserved. The codes documented in this report are preliminary and upon director paid media review may be revised to meet current compliance requirements. Jani Parham DO 03/18/2024 1:04:25 PM This report has been signed electronically. Number of Addenda: 0 Note Initiated On: 03/18/2024 12:22 PM 03/18/24 1304 Date Jani Marsh Signature: Date (if indicated) CC: Dr. Mariya Bocanegra MD; Jani Parham DO Date Dictated: 03/18/24 1222 Date Transcribed: Flash Welding Machine Operator: RF Signed [facility] MR/POSTOP.ANEon 03-18-2024 MR/POSTOP.ANE [facility] Medical Records Department [address] [place] [address] Anesthesia Postop Eval I 03/18/24 1303 MR#: [id number] Acct: [id number] Name: PTARICIA DAVIES Rep #: [id number] : 1990 33 From: Paul Kan PCP: Dr. Mariya Bocanegra MD Status:REG [facility] Y Race: C Location: [place] [address] Anesthesia: Postop Eval I Current Vital Signs Temperature: 97.7 F Pulse Rate: 64 Blood Pressure: 92/55 Respiratory Rate: 16 Pulse Ox: 97 Oxygen Delivery Method: Room Air Assessment Airway patent: Yes Spontaneous unlabored respirations: Yes Mental status: Awake and Calm nausea: No Vomiting: No Anesthesia Complication: No Fluid Hydration Crystalloid volume administer (ml): 50 Total IV fluid infused: 50 Progress Note Anesthesia document: Postop Eval 1 completed: Yes 03/18/24 1305 Date Paul Shah Signature: Date CC: Signed [facility] [id number] 03-18-2024 MR/POSTOPAN2 [facility] Medical Records Department [address] [place] [address] Anesthesia Postop Eval II 03/18/24 203 MR#: [id number] Acct: [id number] Name: PATRICIA DAVIES Rep #: [id number] : 1990 33 From: Chai Rojas MD PCP: Dr. Mariya Bocanegra MD Status:[facility] Y Race: C Location: [place] Anesthesia Postop Eval I Sum Postop Eval Completion status Anesthesia document: Postop Eval 1 completed: Yes Anesthesia Postop Eval I Summary Anesthesia Postop Eval I Summary: Anesthesia Postop Eval I: Assessment Summary Airway patent Yes 03/18/24 13:05 [email or web address] Spontaneous unlabored Yes 03/18/24 13:05 [email or web address] respirations Mental status Awake,Calm 03/18/24 13:05 [email or web address] nausea No 03/18/24 13:05 [email or web address] Vomiting No 03/18/24 13:05 [email or web address] Anesthesia Postop Eval I: Fluid Summary Crystalloid volume administer 50 03/18/24 13:05 [email or web address] (ml) Colloids volume administered ( ml) Blood Product volume administered (ml) Total IV fluid infused 50 03/18/24 13:05 [email or web address] Anesthesia Postop Eval I: Summary Notes Anesthesia Complication No 03/18/24 13:05 [email or web address] Anesthesia Complication Comment: Post-operative progress note Anesthesia: Postop Eval II Evaluation Mental status: Awake and Calm Pain Level: 0 nausea: No Vomiting: No Complications Anesthesia Complication: No 03/18/242031 Date Chai Rojas MD Cosigner Signature: Date CC: Signed Normal [facility] ,Urineon 03-18-2024 Beta HCG ( test) Ql (U) Negative Normal [facility] Comment on above: Result Comment: Very dilute urine specimens, as indicated by a low specific gravity, may not contain lifeline representatives levels of hCG. If is still suspected, a first morning urine specimen should be collected 48 hours later and tested. Performed By: #### L 100.0100, L500.4050 #### [facility] [place], [address] Surgery Specimen Level Edelmira 03-18-2024 Surgery Specimen Level IV Patient Age/Sex Location Account Attending Physician PATRICIA DAVIES 33/F EN [id number] Jani Parham DO Specimen: [id number] Received: 03/18/24 Status: DARYA Rosado Num: [id number] Spec Type: COLON BX Subm Dr: Jnai Parham DO HEADAMBER OPERATION: Colonoscopy with biopsy PRE-OP DIAGNOSIS: Abdominal symptoms, abdominal pain TISSUE SUBMITTED: Terminal ileum biopsy MICROSCOPIC DIAGNOSIS Terminal ileum, biopsy: Fragments of small intestinal mucosa, no pathologic diagnosis. See comment. ISIS.mr 03/20/2024 COMMENT Prominent lymphoid aggregates are noted. MICROSCOPIC DESCRIPTION Slides are reviewed. GROSS DESCRIPTION Received in fixative is one container labeled with the patient's name and designated Terminal ileum biopsy. The specimen consists of multiple irregular fragments of light gonzalez soft tissue that in aggregate measure 0.9 x 0.4 x 0.2 cm. The specimen is totally submitted in one cassette. BW.mr 03/19/2024 TC:4 [facility]:[id number] Patient Age/Sex Location Account Attending Physician PATRICIA DAVIES 33/F EN [id number] Jani Parham DO Signed (signature on file) Dr. Ishan Bullard MD 03/20/24 1159 Normal [facility] Comment on above: Performed By: #### L 7000.0300 #### [facility] [address] [place], [place], [address] Gastric Emptying Studyon Gastric Emptying Study [facility] Imaging Services [address] [place] [address] Gastric Emptying Study MR#: [id number] Acct: [id number] Name: PATRICIA DAVIES Rep #: [id number] : 1990 F 33 From: Bertin Solorio PCP: Dr. Mariya Bocanegra MD Status: REG CLI Study: Gastric Emptying Study Date of Exam: 03/10/24 Exam# [id number] Ordering Dr: Jani Parham DO [id number] CLINICAL: 33-year-old female with history of abdominal pain and bloating. SEMI-SOLID PHASE 99m Tc SULFUR COLLOID GASTRIC EMPTYING STUDY COMPARISON: None available FINDINGS: The patient was administered 7.98 mCi of 99m Tc sulfur colloid mixed with oatmeal and consumed per os. Image acquisitions in the anterior projection were obtained for 26 documented minutes of image acquisition. There is prompt visualization of the stomach. There is no gastroesophageal reflux identified. T ? linear fit was calculated to be 40.11 minutes, (Normal: 12-56 minutes). NM/Gastric Emptying Study IMPRESSION: 1. NORMAL 99m Tc sulfur colloid semi-solid phase (oatmeal) gastric emptying imaging examination. A. There is normal and preserved semi-solid phase gastric emptying compared to normal controls with maintained first order kinetics throughout all components of the examination. (Alona, J Nucl Med Tech 38: 186, 2010). Electronically Signed: Bertin Gamble DO at 22:07 EST , CC: Dr. Mariya Bocanegra MD; Jani Friend, Flash Welding Machine Operator: Signed Normal [facility] ANCAon 01-25-2024 Atypical pANCA <1:20 Normal Neg:<1:20 [facility] Comment on above: Order Comment: Y Result Comment: The atypical pANCA pattern has been observed in a significant percentage of patients with ulcerative colitis, primary sclerosing cholangitis and autoimmune hepatitis. Performed By: #### L 7000.0300 #### [facility] [address] [place], [place], [id number] Cytoplasmic Ab <1:20 Normal Neg:<1:20 [facility] Comment on above: Order Comment: Y Performed By: #### L 7000.0300 #### [facility] [address] [place], [place], [id number] Perinuclear Ab. <1:20 Normal Neg:<1:20 [facility] Comment on above: Order Comment: Y Result Comment: The presence of positive fluorescence exhibiting P-ANCA or C-ANCA patterns alone is not specific for the diagnosis of Codie's Granulomatosis (WG) or microscopic polyangiitis. Decisions about treatment should not be based solely on ANCA IFA results. The International ANCA Group Consensus recommends follow up testing of positive sera with both MS- 3 and MPO-ANCA enzyme immunoassays. As many as 5% serum samples are positive only by EIA. Ref. AM J Clin Pathol 1999;111:507-513. Performed By: #### L 7000.0300 #### [facility] [address] [place], [address] Celiac Disease Profileon ENDOMYSIAL IGA Negative Normal Negative [facility] Comment on above: Order Comment: Y Performed By: #### L 7000.0300 #### [facility] [address] [place], [address] tTG IGA <2 Normal 0-3 [facility] Comment on above: Order Comment: Y Result Comment: Nega tive 0 - 3 Weak Positive 4 - 10 Positive >10 Tissue Transglutaminase (tTG) has been identified as the endomysial antigen. Studies have demonstr- ated that endomysial IgA antibodies have over 99% specificity for gluten sensitive enteropathy. Performed By: #### L 7000.0300 #### [facility] [address] [place], [place], [address] Gastrin, Serumon 01-25-2024 GASTRIN 44 pg/mL Normal 0-115 [facility] Comment on above: Order Comment: Y Result Comment: Siem ens Immulite 2000 Immunochemiluminometric assay (ICMA) Values obtained with different assay methods or kits cannot be used interchangeably. Results cannot be interpreted as absolute evidence of the presence or absence of malignant disease. Performed By: #### L 7000.0300 #### [facility] [address] [place], [place], [address] Haptoglobinon 01-25-2024 HAPTOGLOBIN 58 mg/dL Normal 33-278 [facility] Comment on above: Order Comment: Speci men Comment: SEE END OF THIS REPORT FOR CORRECTED REPORT COMMENTS [id number] AFP Result Comment: Perf ormed at: - [facility] [address] [id number] Grocery Bagger: Ok Bauer PhD, Phone: [phone] Performed at: - [facility] [address] [id number] Grocery Bagger: Delisa Sprague MD, Phone: [phone] Performed By: #### L 3410.9992 #### [facility] [address] [place], [place], [address] MAYDA + Protein Elect, Serumon 01-25-2024 Albumin [Mass/Vol] 4.2 g/dL Normal 2.9-4.4 [facility] Comment on above: Order Comment: Speci men Comment: SEE END OF THIS REPORT FOR CORRECTED REPORT COMMENTS [id number] AFP Performed By: #### L 3410.9992 #### [facility] [address] [place], [address] Albumin/Globulin [Mass ratio] 1.6 {ratio} Normal 0.7-1.7 [facility] Comment on above: Order Comment: Speci men Comment: SEE END OF THIS REPORT FOR CORRECTED REPORT COMMENTS [id number] AFP Performed By: #### L 3410.9992 #### [facility] [address] [place], [address] KAKJD-6-[id number] 0.2 g/dL Normal 0.0-0.4 [facility] Comment on above: Order Comment: Speci men Comment: SEE END OF THIS REPORT FOR CORRECTED REPORT COMMENTS [id number] AFP Performed By: #### L 3410.9992 #### [facility] [address] [place], [address] NQGHU-8-NAWK 0.6 g/dL Normal 0.4-1.0 [facility] Comment on above: Order Comment: Speci men Comment: SEE END OF THIS REPORT FOR CORRECTED REPORT COMMENTS [id number] AFP Performed By: #### L 3410.9992 #### [facility] [address] [place], [address] BETA GLOBULIN 0.7 g/dL Normal 0.7-1.3 [facility] Comment on above: Order Comment: Speci men Comment: SEE END OF THIS REPORT FOR CORRECTED REPORT COMMENTS [id number] AFP Performed By: #### L 3410.9992 #### [facility] [address] [place], [address] GAMMA GLOBULIN 1.2 g/dL Normal 0.4-1.8 [facility] Comment on above: Order Comment: Speci men Comment: SEE END OF THIS REPORT FOR CORRECTED REPORT COMMENTS [id number] AFP Performed By: #### L 3410.9992 #### [facility] [address] [place], [address] Globulin (S) [Mass/Vol] 2.7 g/dL Normal 2.2-3.9 [facility] Comment on above: Order Comment: Raymundo holguin Comment: SEE END OF THIS REPORT FOR CORRECTED REPORT COMMENTS [id number] AFP Performed By: #### L 3410.9992 #### [facility] [address] [place], [address] MAYDA RESULT,S Comment: Normal . [facility] Comment on above: Order Comment: Raymundo holguin Comment: SEE END OF THIS REPORT FOR CORRECTED REPORT COMMENTS [id number] AFP Result Comment: Pres ence of monoclonal protein is unclear at this time. Suggest repeat in 3 to 6 months if clinically indicated. Performed By: #### L 3410.9992 #### [facility] [address] [place], [address] IMMUNOGLOB A QN 162 mg/dL Normal 87-352 [facility] Comment on above: Order Comment: Raymundo holguin Comment: SEE END OF THIS REPORT FOR CORRECTED REPORT COMMENTS [id number] AFP Performed By: #### L 3410.9992 #### [facility] [address] [place], [address] IMMUNOGLOB M QN 94 mg/dL Normal 26-217 [facility] Comment on above: Order Comment: Raymundo holguin Comment: SEE END OF THIS REPORT FOR CORRECTED REPORT COMMENTS [id number] AFP Performed By: #### L 3410.9992 #### [facility] [address] [place], [address] M-Sai Not Observed Normal Not Observed [facility] Comment on above: Order Comment: Raymundo holguin Comment: SEE END OF THIS REPORT FOR CORRECTED REPORT COMMENTS [id number] AFP Performed By: #### L 3410.9992 #### [facility] [address] [place], [address] NOTE: Comment Normal . [facility] Comment on above: Order Comment: Speci men Comment: SEE END OF THIS REPORT FOR CORRECTED REPORT COMMENTS [id number] AFP Result Comment: Prot ein electrophoresis scan will follow via computer, mail, or middle school special education teacher delivery. Performed By: #### L 3410.9992 #### [facility] [address] [place], [address] Protein [Mass/Vol] 6.9 g/dL Normal 6.0-8.5 [facility] Comment on above: Order Comment: Speci men Comment: SEE END OF THIS REPORT FOR CORRECTED REPORT COMMENTS [id number] AFP Performed By: #### L 3410.9992 #### [facility] [address] [place], [address] IgG Subclasseson 01-25-2024 IgG, SUBCLASS 1 571 mg/dL Normal 248-810 [facility] Comment on above: Order Comment: Y Performed By: #### L 7000.0300 #### [facility] [address] [place], [address] IgG, SUBCLASS 2 426 mg/dL Normal 130-555 [facility] Comment on above: Order Comment: Y Performed By: #### L 7000.0300 #### [facility] [address] [place], [address] IgG, SUBCLASS 3 50 mg/dL Normal 15-102 [facility] Comment on above: Order Comment: Y Performed By: #### L 7000.0300 #### [facility] [address] [place], [address] IgG, SUBCLASS 4 38 mg/dL Normal 2-96 [facility] Comment on above: Order Comment: Y Performed By: #### L 7000.0300 #### [facility] [address] [place], [address] IGG,QUANT 1159 mg/dL Normal 586-1602 [facility] Comment on above: Order Comment: Y Performed By: #### L 7000.0300 #### [facility] [address] [place], [address] Immunoglobulins G/A/M/Antonio IMMUNOGLOB E QN 104 IU/mL Normal 6-495 [facility] Comment on above: Order Comment: Y Performed By: #### L 7000.0300 #### [facility] [address] [place], [address] L2100.0000on 01-25-2024 ACCA 53 units Normal 0-90 [facility] Comment on above: Order Comment: Speci men Comment: SEE END OF THIS REPORT FOR CORRECTED REPORT COMMENTS [id number] AFP Result Comment: Nega tive: <80 Equivocal: 80-90 Positive: >90 Performed By: #### L 3410.9992 #### [facility] [address] [place], [address] ALCA 22 units Normal 0-60 [facility] Comment on above: Order Comment: Speci men Comment: SEE END OF THIS REPORT FOR CORRECTED REPORT COMMENTS [id number] AFP Result Comment: Nega tive:<55 Equivocal: 55-60 Positive: >60 Performed By: #### L 3410.9992 #### [facility] [address] [place], [address] AMCA 54 units Normal 0-100 [facility] Comment on above: Order Comment: Speci men Comment: SEE END OF THIS REPORT FOR CORRECTED REPORT COMMENTS [id number] AFP Result Comment: Nega tive: <90 Equivocal: 90-100 Positive: >100 This test was developed and its performance characteristics determined by [facility]. It has not been cleared or approved by the Food and Drug Administration. The FDA has determined that such clearance or approval is not necessary. Performed By: #### L 3410.9992 #### [facility] [address] [place], [place], [address] Atypical pANCA Negative Normal Negative [facility] Comment on above: Order Comment: Speci men Comment: SEE END OF THIS REPORT FOR CORRECTED REPORT COMMENTS [id number] AFP Performed By: #### L 3410.9992 #### [facility] [address] [place], [address] COMMENT Comment Normal . [facility] Comment on above: Order Comment: Speci men Comment: SEE END OF THIS REPORT FOR CORRECTED REPORT COMMENTS [id number] AFP Result Comment: Juliette noelle is not suggestive of Inflammatory Bowel Disease Performed By: #### L 3410.9992 #### [facility] [address] [place], [address] Mariam 5 units Normal 0-50 [facility] Comment on above: Order Comment: Speci men Comment: SEE END OF THIS REPORT FOR CORRECTED REPORT COMMENTS [id number] AFP Result Comment: Nega tive: <45 Equivocal: 45-50 Positive: >50 Performed By: #### L 3410.9992 #### [facility] [address] [place], [address] L3100.4810on 01-25-2024 Chromogranin A 36.1 ng/mL Normal 0.0-101.8 [facility] Comment on above: Order Comment: Speci men Comment: SEE END OF THIS REPORT FOR CORRECTED REPORT COMMENTS [id number] AFP Result Comment: Frame Coverer mogranin A performed by [employer] KRYPTOR methodology Values obtained with different assay methods or kits cannot be used interchangeably. Performed By: #### L 3410.9992 #### [facility] [address] [place], [place], [id number] KERRI Comprehensive Panelon KERRI TABLE Comment Normal . [facility] Comment on above: Result Comment: Auto antibody Disease Association Condition Frequency --------- Antinuclear Antibody, SLE, mixed connective Direct (KERRI-D) tissue diseases --------- dsDNA SLE 40 - 60% --------- Chromatin Drug induced SLE 90% SLE 48 - 97% --------- SSA (Ro) SLE 25 - 35% Sjogren's Syndrome 40 - 70% Lupus 100% --------- SSB (La) SLE 10% Sjogren's Syndrome 30% --------- Sm (anti-Petersen) SLE 15 - 30% --------- SILVERING DEPARTMENT SUPERVISOR Mixed Connective Tissue Disease 95% (U1 nRNP, SLE 30 - 50% anti-ribonucleoprotein) Polymyositis and/or Dermatomyositis 20% --------- Scl-70 (antiDNA Scleroderma (diffuse) 20 - 35% topoisomerase) Crest 13% --------- Marylin-1 Polymyositis and/or Dermatomyositis 20 - 40% --------- Centromere B Scleroderma - Crest variant 80% Performed By: #### L 3410.9992 #### [facility] [address] [facility] [place], [address] ANTI-CENT B AB <0.2 Normal 0.0-0.9 [facility] Comment on above: Performed By: #### L 3410.9992 #### [facility] [address] [facility] [place], [address] ANTI-DNA (DS)AB <1 Normal 0-9 [facility] Comment on above: Result Comment: Nega tive <5 Equivocal 5 - 9 Positive >9 Performed By: #### L 3410.9992 #### [facility] [address] [place], [address] ANTI-MARYLIN-1 <0.2 Normal 0.0-0.9 [facility] Comment on above: Performed By: #### L 3410.9992 #### [facility] [address] [place], [address] ANTI-SS-A < 0.2 Normal 0.0-0.9 [facility] Comment on above: Performed By: #### L 3410.9992 #### [facility] [address] [place], [address] ANTI-SS-B < 0.2 Normal 0.0-0.9 [facility] Comment on above: Performed By: #### L 3410.9992 #### [facility] [address] [place], [address] ANTICHROMATIN <0.2 Normal 0.0-0.9 [facility] Comment on above: Performed By: #### L 3410.9992 #### [facility] [address] [place], [address] ANTISCLERODERM <0.2 Normal 0.0-0.9 [facility] Comment on above: Performed By: #### L 3410.9992 #### [facility] [address] [place], [address] SILVERING DEPARTMENT SUPERVISOR Ab <0.2 Normal 0.0-0.9 [facility] Comment on above: Performed By: #### L 3410.9992 #### [facility] [address] [place], [address] PETERSEN Ab <0.2 Normal 0.0-0.9 [facility] Comment on above: Performed By: #### L 3410.9992 #### [facility] [address] [place], [address] L5500.0550on 01-24-2024 BEEF <0.10 Normal Class 0 [facility] Comment on above: Performed By: #### L 3410.9992 #### [facility] [address] [place], [address] CHOCOLATE <0.10 Normal Class 0 [facility] Comment on above: Performed By: #### L 3410.9992 #### [facility] [address] [place], [place], [address] CODFISH <0.10 Normal Class 0 [facility] Comment on above: Performed By: #### L 3410.9992 #### [facility] [address] [place], [place], [address] COMMENT Comment Normal . [facility] Comment on above: Result Comment: Alpesh nolan of Specific IgE Class Description of Class ----- < 0.10 0 Negative 0.10 - 0.31 0/I Equivocal/Low 0.32 - 0.55 I Low 0.56 - 1.40 II Moderate 1.41 - 3.90 III High 3.91 - 19.00 IV Very High 19.01 - 100.00 V Very High >100.00 Very High Performed By: #### L 3410.9992 #### [facility] [address] [place], [place], [address] CORN <0.10 Normal Class 0 [facility] Comment on above: Performed By: #### L 3410.9992 #### [facility] [address] [place], [place], [address] EGG, WHOLE <0.10 Normal Class 0 [facility] Comment on above: Result Comment: Perf ormed at: [facility] [address] [id number] Grocery Bagger: Ok Bauer PhD, Phone: [phone] Performed at: [facility] [address] [id number] Grocery Bagger: Delisa Sprague MD, Phone: [phone] Performed By: #### L 3410.9992 #### [facility] [address] [place], [place], [address] MILK (COW) <0.10 Normal Class 0 [facility] Comment on above: Performed By: #### L 3410.9992 #### [facility] [address] [place], [address] MUSSELS <0.10 Normal Class 0 [facility] Comment on above: Performed By: #### L 3410.9992 #### [facility] [address] [place], [address] PEANUT 0.32 kU/L Abnormal Class I [facility] Comment on above: Performed By: #### L 3410.9992 #### [facility] [address] [place], [address] PORK <0.10 Normal Class 0 [facility] Comment on above: Performed By: #### L 3410.9992 #### [facility] [address] [place], [address] SALMON <0.10 Normal Class 0 [facility] Comment on above: Performed By: #### L 3410.9992 #### [facility] [address] [place], [address] SHRIMP <0.10 Normal Class 0 [facility] Comment on above: Performed By: #### L 3410.9992 #### [facility] [address] [place], [address] SOYBEAN <0.10 Normal Class 0 [facility] Comment on above: Performed By: #### L 3410.9992 #### [facility] [address] [place], [address] TUNA <0.10 Normal Class 0 [facility] Comment on above: Performed By: #### L 3410.9992 #### [facility] [address] [place], [address] WHEAT <0.10 Normal Class 0 [facility] Comment on above: Performed By: #### L 3410.9992 #### [facility] [address] [place], [place], [id number] Vitamin D 1,25-Dihydroxyon 1 03-25-2023 VIT D 1,25 DIHY 48.3 pg/mL Normal 24.8-81.5 [facility] Comment on above: Performed By: #### L 3410.9992 #### [facility] [address] [place], [place], [address] Vitamin D,25 Hydroxyon 01-20 Vitamin D 25-OH 27.3 ng/mL Normal [facility] Comment on above: Result Comment: Keya min D 25(OH) Status Range Deficiency <20 ng/mL (50nmol/L) Insufficiency 20 - 30 ng/mL (50 - 75 nmol/L) Sufficiency 30 - 100 ng/mL (75 - 250 nmol/L) Toxicity >100 ng/mL (>250 nmol/L) Performed By: #### L 7250.9992 #### [facility] [address] [place], [place], [id number] Abdomen Single Viewon 2023 Abdomen Single View [facility] [address] [place], [place] [id number] Abdomen Single View MR#: [id number] Acct: [id number] Name: PATRICIA DAVIES Rep #: [id number] : 1990 F 33 From: Colleen Copeland MD PCP: Dr. Mariya Bocanegra MD Status: REG CLI Study: Abdomen Single View Date of Exam: 01/19/24 Exam# [id number] Ordering Dr: Jani Parham DO [id number] INDICATION: sitz marker EXAMINATION/TECHNIQUE: X-RAY - XR Abdomen 2 views COMPARISON: December 15, 2019 FINDINGS: BOWEL GAS PATTERN: Non-obstructive. No bowel or stomach distention. FREE AIR: Not assessed on a single supine view. ORGANOMEGALY: Not seen. CALCIFICATIONS: No abnormal calcifications observed. LOWER CHEST: No acute pathology. BONES AND SOFT TISSUES: No acute pathology. There is a linear lucency projecting over the pelvis suggestive of a tampon. RAD/Abdomen Single View IMPRESSION: No Sitz marker identified. Nonspecific bowel gas pattern. Electronically Signed: Colleen Copeland MD at 17:13 EST , CC: Dr. Mariya Bocanegra MD; Jani Parham, [employer] Welding [employer] Operator: Signed Normal [facility] Amylaseon 01-19-2024 LALA 54 U/L Normal 25-115 [facility] Comment on above: Order Comment: 1 Performed By: #### L 100.0100, L500.4050 #### [facility] [address] [place], [address] CRPon 01-19-2024 C-REACTIVE PROT 5.36 mg/L High 0.0-3.0 [facility] Comment on above: Order Comment: 1 Result Comment: C-Re active Protein (CRP) provides useful information for the diagnosis, therapy and monitoring of inflammatory processes and associated diseases. For the evaluation of Relative Risk for Cardiovascular Disease, a High Sensitivity CRP (HSCRP) should be ordered. Performed By: #### L 100.0100, L500.4050 #### [facility] [address] [place], [address] Erythrocyte Sed Rateon 01-18 SED RATE 1 mm/hr Normal 0-30 [facility] Comment on above: Performed By: #### L 100.0100, L500.4050 #### [facility] [address] [place], [address] Ferritinon 11-16-2024 Ferritin [Mass/Vol] 58 ng/mL Normal 8-252 [facility] Comment on above: Order Comment: Speci men Comment: SEE END OF THIS REPORT FOR CORRECTED REPORT COMMENTS [id number] AFP Performed By: #### L 3410.9992 #### [facility] [address] [place], [address] Ironon 01-19-2024 Iron [Mass/Vol] 40 ug/dL Low 50-170 [facility] Comment on above: Order Comment: 1 Performed By: #### L 100.0100, L500.4050 #### [facility] [address] [place], [address] Iron Binding Capacity,Totalo n 01-19-2024 TIBC 241 ug/dL Low 250-450 [facility] Comment on above: Order Comment: 1 Performed By: #### L 100.0100, L500.4050 #### [facility] [address] [place], [address] LDHon 01-19-2024 LDH 156 U/L Normal 84-246 [facility] Comment on above: Order Comment: Speci men Comment: SEE END OF THIS REPORT FOR CORRECTED REPORT COMMENTS [id number] AFP Performed By: #### L 3410.9992 #### [facility] [address] [place], [address] Lipaseon 01-19-2024 Lipase [Catalytic activity/Vol] 37 U/L Normal 13-75 [facility] Comment on above: Order Comment: 1 Result Comment: Lou maya note: LIPASE revised reference range effective 22. New Lipase methodology. Expected to produce lower values than the previous assay method. NEW Reference Range: 13 - 75 U/L Performed By: #### L 100.0100, L500.4050 #### [facility] [address] [place], [address] Thyroid Stim Hormone (TSH)on 01-19-2024 TSH 1.140 uIU/mL Normal 0.358-3.740 [facility] Comment on above: Order Comment: 1 Performed By: #### L 100.0100, L500.4050 #### [facility] [address] [place], [address] Vital Signs Date Time Vital Sign Value Performing Clinician Faci frederick 12-29-2024 09:39-0400 Body height 162.[address] Mariya Bocanegra MD Work Phone: [facility] 12-29-2024 09:39-0400 Body mass index (BMI) [Ratio] 22.4 kg/m2 Dr. Mariya Bocanegra MD Work Phone: [facility] 12-29-2024 09:39-0400 Body weight 59.[address] Mariya Bocanegra MD Work Phone: [facility] 12-29-2024 09:39-0400 Diastolic blood pressure 69 mm[Hg] Dr. Mariya Bocanegra MD Work Phone: [facility] 12-29-2024 09:39-0400 Systolic blood pressure 109 mm[Hg] Dr. Mariya Bocanegra MD Work Phone: [facility] 12-22-2024 14:11-0400 Body mass index (BMI) [Ratio] 22.4 kg/m2 Dr. Mariya Bocanegra MD Work Phone: [facility] 12-22-2024 14:11-0400 Body temperature 98 [degF] Dr. Mariya Bocanegra MD Work Phone: [facility] 12-22-2024 14:11-0400 Body weight 59.[address] Mariya Bocanegra MD Work Phone: [facility] 12-22-2024 14:11-0400 Diastolic blood pressure 64 mm[Hg] Dr. Mariya Bocanegra MD Work Phone: [facility] 12-22-2024 14:11-0400 Heart rate 88 /min Dr. Mariya Bocanegra MD Work Phone: [facility] 12-22-2024 14:11-0400 Respiratory rate 16 /min Dr. Mariya Bocanegra MD Work Phone: [facility] 12-22-2024 14:11-0400 SaO2% (BldA) [Mass fraction] 98 % Dr. Mariya Bocanegra MD Work Phone: [facility] 12-22-2024 14:11-0400 Systolic blood pressure 112 mm[Hg] Dr. Mariya Bocanegra MD Work Phone: [facility] 12-08-2024 10:23-0400 Body height 162.[address] Mariya Bocanegra MD Work Phone: [facility] 12-08-2024 10:23-0400 Body mass index (BMI) [Ratio] 21.7 kg/m2 Dr. Mariya Bocanegra MD Work Phone: [facility] 12-08-2024 10:23-0400 Body weight 57.[address] Mariya Bocanegra MD Work Phone: [facility] 12-08-2024 10:23-0400 Diastolic blood pressure 74 mm[Hg] Dr. Mariya Bocanegra MD Work Phone: [facility] 12-08-2024 10:23-0400 Systolic blood pressure 107 mm[Hg] Dr. Mariya Bocanegra MD Work Phone: [facility] 11-11-2024 09:29-0400 Body height 162.[address] Mariya Bocanegra MD Work Phone: [facility] 11-11-2024 09:28-0400 Body mass index (BMI) [Ratio] 20.9 kg/m2 Dr. Mariya Bocanegra MD Work Phone: [facility] 11-11-2024 09:28-0400 Body weight 55.[address] Mariya Bocanegra MD Work Phone: [facility] 11-11-2024 09:28-0400 Diastolic blood pressure 72 mm[Hg] Dr. Mariya Bocanegra MD Work Phone: [facility] 11-11-2024 09:28-0400 Systolic blood pressure 110 mm[Hg] Dr. Mariya Bocanegra MD Work Phone: [facility] 10-13-2024 08:26-0400 Body height 162.[address] Mariya Bcoanegra MD Work Phone: [facility] 10-13-2024 08:26-0400 Body mass index (BMI) [Ratio] 20.1 kg/m2 Dr. Mariya Bocanegra MD Work Phone: [facility] 10-13-2024 08:26-0400 Body weight 53.[address] Mariya Bocanegra MD Work Phone: [facility] 10-13-2024 08:26-0400 Diastolic blood pressure 64 mm[Hg] Dr. Mariya Bocanegra MD Work Phone: [facility] 10-13-2024 08:26-0400 Systolic blood pressure 109 mm[Hg] Dr. Mariya Bocanegra MD Work Phone: [facility] 10-01-2024 13:40-0400 Body height 162.[address] Mariya Bocanegra MD Work Phone: [facility] 10-01-2024 09:10-0400 Body mass index (BMI) [Ratio] 19.5 kg/m2 Dr. Mariya Bocanegra MD Work Phone: [facility] 10-01-2024 09:10-0400 Body weight 51.[address] Mariya Bocanegra MD Work Phone: [facility] 10-01-2024 09:10-0400 Diastolic blood pressure 67 mm[Hg] Dr. Mariya Bocanegra MD Work Phone: [facility] 10-01-2024 09:10-0400 Systolic blood pressure 107 mm[Hg] Dr. Mariya Bocanegra MD Work Phone: [facility] 09-10-2024 10:40-0400 Body height 162.[address] Mariya Bocanegra MD Work Phone: [facility] 09-10-2024 10:40-0400 Body mass index (BMI) [Ratio] 19.2 kg/m2 Dr. Mariya Bocanegra MD Work Phone: [facility] 09-10-2024 10:40-0400 Body weight 50.[address] Mariya Bocanegra MD Work Phone: [facility] 09-10-2024 10:40-0400 Diastolic blood pressure 69 mm[Hg] Dr. Mariya Bocanegra MD Work Phone: [facility] 09-10-2024 10:40-0400 Systolic blood pressure 109 mm[Hg] Dr. Mariya Bocanegra MD Work Phone: [facility] 08-27-2024 09:28-0400 Body height 162.[address] Mariya Bocanegra MD Work Phone: [facility] 08-27-2024 09:26-0400 Body mass index (BMI) [Ratio] 18.7 kg/m2 Dr. Mariya Bocanegra MD Work Phone: [facility] 08-27-2024 09:26-0400 Body weight 49.[address] Mariya Bocanegra MD Work Phone: [facility] 08-27-2024 09:26-0400 Diastolic blood pressure 72 mm[Hg] Dr. Mariya Bocanegra MD Work Phone: [facility] 08-27-2024 09:26-0400 Systolic blood pressure 111 mm[Hg] Dr. Mariya Bocanegra MD Work Phone: [facility] 08-08-2024 11:36-0400 Body height 162.[address] Mariya Bocanegra MD Work Phone: [facility] 08-08-2024 11:34-0400 Body mass index (BMI) [Ratio] 19.1 kg/m2 Dr. Mariya Bocanegra MD Work Phone: [facility] 08-08-2024 11:34-0400 Body weight 50.[address] Mariya Bocanegra MD Work Phone: [facility] 08-08-2024 11:34-0400 Diastolic blood pressure 74 mm[Hg] Dr. Mariya Bocanegra MD Work Phone: [facility] 08-08-2024 11:34-0400 Systolic blood pressure 113 mm[Hg] Dr. Mariya Bocanegra MD Work Phone: [facility] 08-01-2024 10:36-0400 Body height 162.[address] Mariya Bocanegra MD Work Phone: [facility] 08-01-2024 10:36-0400 Body mass index (BMI) [Ratio] 18.9 kg/m2 Dr. Mariya Bocanegra MD Work Phone: [facility] 08-01-2024 10:36-0400 Body weight [address] Mariya Bocanegra MD Work Phone: [facility] 08-01-2024 10:36-0400 Diastolic blood pressure 77 mm[Hg] Dr. Mariya Bocanegra MD Work Phone: [facility] 08-01-2024 10:36-0400 Systolic blood pressure 120 mm[Hg] Dr. Mariya Bocanegra MD Work Phone: [facility] 07-24-2024 12:53-0400 Body height 162.[address] Mariya Bocanegra MD Work Phone: [facility] 07-24-2024 12:53-0400 Body mass index (BMI) [Ratio] 19 kg/m2 Dr. Mariya Bocanegra MD Work Phone: [facility] 07-24-2024 12:53-0400 Body weight 50.[address] Mariya Bocanegra MD Work Phone: [facility] 07-24-2024 12:53-0400 Diastolic blood pressure 64 mm[Hg] Dr. Mariya Bocanegra MD Work Phone: [facility] 07-24-2024 12:53-0400 Systolic blood pressure 100 mm[Hg] Dr. Mariya Bocanegra MD Work Phone: [facility] Encounters Encounter Date Encounter Type Care Provider Facility Start: 01-14-2025 ambulatory Mariya Bocanegra Facili ty:[facility] Start: 12-29-2024 Encounter for genera l adult medical examination without abnormal findings james Bocanegra [facility] Start: 12-29-2024 End: 12-29-2024 ambulatory Mariya Bocanegra Facility:[facility] [place] Start: 12-29-2024 End: 12-29-2024 ambulatory [facility] Daljit Facility:[facility] Start: 12-25-2024 End: 12-25-2024 ambulatory [facility] Start: 12-25-2024 End: 12-25-2024 [facility] Start: 12-22-2024 End: 12-22-[address] Mariya Bocanegra MD -[facility] Work Phone: Start: 12-22-2024 End: 12-22-[address] Mariya Bocanegra MD [facility] Start: 12-22-2024 End: 12-22-[address] Mariya Bocanegra MD Work Phone: -[facility] Start: 12-22-2024 End: 12-22-2024 ambulatory Mariya Bocanegra Facility:[facility] Start: 12-08-2024 End: 12-08-2024 Patient encounter procedure Ashley Jake REYES -[facility] Work Phone: Start: 12-08-2024 End: 12-08-[address] Mariya Bocanegra MD Work Phone: [facility] Start: 11-21-2024 End: 11-21-[address] Mariya Bocanegra MD Work Phone: [facility] Start: 11-21-2024 End: 11-21-[address] Mary Alicia [facility] Start: 11-21-2024 End: 11-21-2024 ambulatory Mary Alicia Facility:[facility] Start: 11-11-2024 End: 11-11-[address] Zaira Weston MD -[facility] Work Phone: Start: 11-11-2024 End: 11-11-[address] Mariya Bocanegra MD Work Phone: [facility] Start: 10-30-2024 End: 10-30-2024 ambulatory MARY GAMING [facility] Start: 10-13-2024 End: 10-13-2024 Patient encounter procedure Stephy GOLDSMITH -[facility] Work Phone: Start: 10-13-2024 End: 10-13-[address] Mariya Bocanegra MD Work Phone: [facility] Start: 10-01-2024 End: 10-01-2024 Patient encounter procedure Stephy GOLDSMITH -[facility] Work Phone: Start: 10-01-2024 End: 10-01-[address] Mariya Bocanegra MD Work Phone: [facility] Start: 09-10-2024 End: 09-10-[address] Mary Alicia DO [facility] Work Phone: Start: 09-10-2024 End: 09-10-[address] Mariya Bocanegra MD Work Phone: [facility] Start: 08-27-2024 End: 08-27-[address] Mary Alicia DO [facility] Work Phone: Start: 08-27-2024 End: 08-27-[address] Mariya Bocanegra MD Work Phone: [facility] Work Phone: Start: 08-27-2024 End: 08-27-2024 ambulatory Mary Alicia Facility:[facility] Start: 08-08-2024 End: 08-08-2024 Patient encounter procedure Marguerite Valencia [facility] Work Phone: Start: 08-08-2024 End: 08-08-[address] Mariya Bocanegra MD Work Phone: [facility] Work Phone: Start: 08-01-2024 End: 08-01-[address] Mariya Bocanegra MD Work Phone: [facility] Work Phone: Start: 08-01-2024 End: 08-01-[address] Mary Alicia DO [facility] Work Phone: Start: 08-01-2024 End: 08-01-[address] Mary Alicia DO [facility] Work Phone: Start: 08-01-2024 End: 08-01-[address] Mariya Bocanegra MD Work Phone: [facility] Work Phone: Start: 08-01-2024 End: 08-01-2024 ambulatory Mary Alicia Facility:[facility] Start: 07-26-2024 End: 07-26-[address] Mariya Bocanegra MD Work Phone: [facility] Work Phone: Start: 07-26-2024 End: 07-26-[address] Mary Alicia DO -[facility] Work Phone: Start: 07-25-2024 End: 07-25-[address] Mary Alicia DO -[facility] Work Phone: Start: 07-25-2024 End: 07-26-2024 ambulatory Mary Alicia Facility:[facility] Start: 07-24-2024 End: 07-24-[address] Mariya Bocanegra MD Work Phone: [facility] Work Phone: Start: 07-24-2024 End: 07-24-[address] Zaira Weston MD -[facility] Start: 07-24-2024 End: 07-24-2024 ambulatory Mariya Bocanegra Facility:[facility] Start: 07-22-2024 End: 07-22-[address] Mariya Bocanerga MD Work Phone: [facility] Work Phone: Start: 07-22-2024 End: 07-22-[address] Mary Alicia DO -[facility] Start: 07-22-2024 End: 07-22-2024 ambulatory Mary Alicia Facility:[facility] Start: 04-08-2024 Encounter for other preprocedural examination Jani Parham [facility] Start: 03-18-2024 ambulatory Jani Parham Facility :[facility] [place] Start: 03-18-2024 End: 03-18-2024 ambulatory Jani Parham Facility:[facility] Start: 03-10-2024 End: 03-10-2024 [facility] Janishe Parham Facility:[facility] Start: 01-19-2024 End: 01-19-2024 [facility] Jani [place] Facility:[facility] Start: 09-28-[address] Santiago Bocanegra MD Work Phone: [facility] Procedures Date Procedure Procedure Detail Performing Clinician Start: 12-29-2024 Serologic test for syphilis Dr. Reagan Bocanegra MD Work Phone: Start: 12-25-2024 Urnls dip stick/tablet reagent auto microscopy Dr. Mariya Bocanegra MD Work Phone: Start: 11-21-[address]ardia [address] assay [address] Jigar Bocanegra MD Work Phone: Start: 11-21-[address] [address] parasites identification [address] Barbara Bocanegra MD Work Phone: Start: 11-21-[address] Mariya Bocanegra MD Work Phone: Comment on above: Test Ordered: [id number] AFP, Serum, Open Sp siri BifidaResults Comment TG Reference Range: .The MOM and risk factors of this report have been modifiedbased on new information supplied to us by the client ortheir designated lifeline representatives.The Gestational Age Based On was changed from As provided to EDD03/22/2025.The Gestational Age was changed from Not provided. to 22.7.The Insulin Dependent Diabetes was changed from Not provided. to No.The Multiple Gestation was changed from Not provided. to No.The Race was changed from Not provided. to .The Weight was changed from Not provided. to 122.Test Results: Note: TG *Screen Negative* Reference Range: .Gest. Age on Collection Date 22.7 weeks TG Reference Range: .Gestat. Age Based On DUANE TG Reference Range: . 03/22/2025Recalculations are not recommended when gestational datingby LMP and ultrasound are within 10 days.Maternal Age [age] DUANE 35[age]9 yr TG Reference Range: .Race TG Reference Range: .Weight 122 lbs TG Reference Range: .Insulin Dep Diabetes No TG Reference Range: .Multiple Gestation No TG Reference Range: .AFP Value 112.8 ng/mL TG Reference Range: .AFP MoM 1.21 TG Reference Range: .OSBR Risk 1 [place] 6301 TG Reference Range: .Interpretation Comment TG Reference Range: .Interpretation: Screen NegativeThis result is screen negative for OSB. The AFP MoMcalculated is based on the gestational age provided. MS-AFPcan identify up to 80% of open neural tube defects.Closed neural tube defects and some open defects may not bedetected by this test. This test does not screen for fetalDown Syndrome or Trisomy 18. If screening for Down Syndromeor Trisomy 18 is desired, contact [employer] to discuss available options. The AmericanCollege of Obstetricians and Gynecologists recommendsamniocentesis be offered to women age 35 and older.This is a corrected report. The previously reported result(s) were:Test Result Date First Reported Updates reported on: 11/27/2024 11:17 AMAFP MOM VALUE 11/25/2024 10:01 PM See interpretation.INTERP 11/25/2024 10:01 PM Interpretation: An interpretation CANNOT be provided for this patient because necessary patient information was not provided (one or more of: gestational age, weight, or patient age). Please call us with new clinical information.OSBR RISK 1 IN 11/25/2024 10:01 PM See interpretation.TEST RESULTS: SCREEN 11/25/2024 10:01 PM See interpretation.Comment: Comment TG Reference Range: .Ritu Moss, Ph.D., DABCCDirectorReferences: Available Upon Request.Multiples Of Median Cutoffs For AFP ElevationsSingleton 2.5 Black 2.8IDD 2.0 Twins 4.5 Abbreviation DefinitionsIDD - Insulin Dep DiabetesOSBR - Open Spina Bifida RiskFor further inquiries contact [employer] [facility] at [phone].This test was developed and its performance characteristicsdetermined by [employer]. It has not been cleared or approvedby the Food and Drug Administration.Performed at: TG - [facility] [id number] [place], [place] [id number] Director: Gina Thompson [facility], Phone: [phone] at: CB - [facility] [address] [id number] Director: Ok Bauer PhD, Phone: [phone] reported result: COMMENT Edited by: ENIO on 11/27/24:1209 AMENDED REPORT 11/27/24 1209 [facility]. previously reported as: COMMENT Test Ordered: [id number] AFP, Serum, Open Spina BifidaResults Report TG Reference Range: .Test Results: Note: TG See interpretation. Reference Range: .Gest. Age on Collection Date Comment weeks TG Reference Range: .Not provided.Gestat. Age Based On As provided TG Reference Range: .Recalculations are not recommended when gestational datingby LMP and ultrasound are within 10 days.Maternal Age [age] DUANE 36[age]0 yr TG Reference Range: .Race Comment TG Reference Range: .Not provided.Weight Comment lbs TG Reference Range: .Not provided.Insulin Dep Diabetes Comment TG Reference Range: .Not provided.Multiple Gestation Comment TG Reference Range: .Not provided.AFP Value 112.8 ng/mL TG Reference Range: .AFP MoM Note: TG See interpretation. Reference Range: .OSBR Risk 1 IN Note: TG See interpretation. Reference Range: .Interpretation Comment TG Reference Range: .Interpretation:An interpretation CANNOT be provided for this patientbecause necessary patient information was not provided (oneor more of: gestational age, weight, or patient age).Please call us with new clinical information.Comment: Comment TG Reference Range: .Ritu Moss, Ph.D., DABCCDirectorReferences: Available Upon Request.Multiples Of Median Cutoffs For AFP ElevationsSingleton 2.5 Black 2.8IDD 2.0 Twins 4.5 Abbreviation DefinitionsIDD - Insulin Dep DiabetesOSBR - Open Spina Bifida RiskFor further inquiries contact [employer] [facility] at [phone].This test was developed and its performance characteristicsdetermined by [employer]. It has not been cleared or approvedby the Food and Drug Administration.Performed at: [facility] [id number] [place], [place] [id number] Di (more content not included)... Start: 08-27-[address] Mariya Bocanegra MD Work Phone: Start: 08-27-2024 Hepatitis C antibody measurement Dr. Bartolo Bocanegra MD Work Phone: Comment on above: Reactive: Presumptive evidence of antibo dies to HCV. Follow CDC recommendations for supplemental testing.Non-Reactive: Antibodies to HCV were not detected; does not exclude the possibility of exposure to HCVReactive Results are presumptive evidence of antibodies to HCV. Follow CDC recommendations for supplemental testing.Order confirmation testing: HCV Quant by PCR testing - HCVPCR #[id number] Non Reactive: < 0.8 Equivocal: >/= 0.8 to < 1.0 Reactive: >/= 1.0The CDC requires that a reactive/equivocal HCV antibody result be sent out for confirmation. HCV Quant by PCR testing. Start: 08-27-[address] Mariya Bocanegra MD Work Phone: Comment on above: Antibody Result: InterpretationNon-React brianna: Non-ImmuneReactive: ImmuneThe following results were obtained with the [employer] Rubella IgG assay. Results from assays of other manufacturers cannot be used interchangeably. Start: 08-27-2024 Serologic test for syphilis Dr. Reagan Bocanegra MD Work Phone: Start: 08-01-[address] Mariya Bocanegra MD Work Phone: Start: 07-26-[address] Mariya Bocanegra MD Work Phone: Plan of Treatment Date Care Activity Detail Author Start: 12-29-2024 End: 12-29-2024 Patient encounter procedure -[facility] Phone: Start: 12-25-2024 Urine culture Urine Culture [facility] Start: 12-25-2024 End: 12-25-2024 Patient encounter procedure Departed Clinical -Laboratory Work Phone: Start: 12-08-2024 Measurement of gluco se 2 hours after glucose challenge for glucose tolerance test [facility] Start: 12-08-2024 Serologic test for syphilis [facility] Start: 12-08-2024 [facility] Start: 08-27-2024 Procedure [facility] Start: 08-27-2024 CBC W Auto Different ial panel - Blood [facility] Start: 08-27-2024 Hepatitis C antibody measurement [facility] Start: 08-27-2024 Rubella IgG measurement [facility] Start: 08-27-2024 Serologic test for syphilis [facility] Start: 08-27-2024 [facility] CBC W Auto Different ial panel - Blood [facility] CBC W Auto Different ial panel - Blood [facility] Chlamydia deoxyribon ucleic acid detection [facility] Chlamydia deoxyribon ucleic acid detection [facility] Erythrocyte mean cor puscular volume determination [facility] Hematocrit [Volume F raction] of Blood [facility] Hemoglobin [Mass/vol ume] in Blood [facility] Hepatitis B virus jewell rface Ag [Presence] in Serum [facility] Hepatitis C antibody measurement [facility] Leukocytes [#/volume ] in Blood [facility] Mean corpuscular hem oglobin concentration determination [facility] Mean corpuscular hem oglobin determination [facility] Neutrophil count [facility] Neutrophil percent differential count [facility] Platelets [#/volume] in Blood [facility] Red blood cell count [facility] Red cell distributio n width determination [facility] Rubella IgG measurement [facility] Serologic test for syphilis [facility] Immunizations Immunization Date Immunization Notes Care Provider Fa cility 12-29-2024 tetanus toxoid, redu marcie diphtheria toxoid, and acellular pertussis vaccine, adsorbed Dr. Mariya Bocanegra MD Work Phone: [facility] 12-22-2024 influenza, injectabl e, madin noel canine kidney, preservative free Dr. Mariya Bocanegra MD Work Phone: [facility] 12-28-2022 influenza, injectabl e, quadrivalent, preservative free Dr. Mariya Bocanegra MD Work Phone: [facility] 06-24-2020 Covid (Pfizer) Dr. Mariya Bocanegra MD Work Phone: [facility] 06-04-2020 Covid (Pfizer) Dr. Mariya Bocanegra MD Work Phone: [facility] 01-06-2020 influenza, injectable,quadrivalent , preservative free, pediatric Dr. Mariya Bocanegra MD Work Phone: [facility] Payers Date Payer Category Payer Self-pay 2023 Private Health Insurance [id number] 1990 Unknown [id number] 2.16. [id number] 1990 Unknown [id number] 2.16. [id number] Unknown [id number] Unknown [id number] 2.16.8 40.1.295451.3.579.2.462 Unknown [id number] 2.16.8 40.1.355095.3.579.2.462 Unknown [id number] 2.16.8 40.1.057819.3.579.2.462 Unknown [id number] 2.16.8 40.1.421030.3.579.2.462 Unknown [id number] 2.16.8 40.1.563163.3.579.2.462 Unknown [id number] 2.16.8 40.1.153472.3.579.2.462 Unknown [id number] 2.16.8 40.1.621416.3.579.2.462 Unknown [id number] 2.16.8 40.1.818894.3.579.2.462 Unknown [id number] 2.16.8 40.1.873410.3.579.2.462 Unknown [id number] 2.16.8 40.1.651918.3.579.2.462 Unknown [id number] 2.16.8 40.1.554325.3.579.2.462 Unknown [id number] 2.16.8 40.1.807591.3.579.2.462 Unknown [id number] 2.16.8 40.1.000496.3.579.2.462 Unknown [id number] 2.16.8 40.1.722073.3.579.2.462 Unknown [id number] 2.16.8 40.1.591492.3.579.2.462 Unknown [id number] 2.16.8 40.1.004356.3.579.2.462 Unknown [id number] 2.16.8 40.1.954273.3.579.2.462 Unknown [id number] 2.16.8 40.1.926614.3.579.2.462 Unknown [id number] 2.16.8 40.1.182058.3.579.2.462 Unknown [id number] 2.16.8 40.1.642518.3.579.2.462 Unknown [id number] 2.16.8 40.1.083777.3.579.2.462 Unknown [id number] 2.16.8 40.1.603026.3.579.2.462 Unknown [id number] 2.16.8 40.1.624237.3.579.2.462 Unknown [id number] 2.16.8 40.1.355629.3.579.2.462 Unknown [id number] 2.16.8 40.1.045331.3.579.2.462 Social History Date Type Detail Facility Start: 07-25-2024 End: 12-22-2024 Tobacco smoking status NHIS Never smoked tobacco (finding) [facility] Start: 1990 Sex Assigned At Female [facility] Gender Identity Identifies as fe male gender (finding) [facility] Clinical Notes 03-18-2024 to 12-22-2024 Note Date & Type Note Facility 12-22-2024 Progress note [facility] 12-22-2024 Progress note Note Date/Time December 22, 2024 3:34pm [facility] [address] [place] [address] [place] [address] OFFICE VISIT Date of Service: 12/22/24 MR#: [id number] Acct: [id number] Name: PATRICIA DAVIES Rep #: [id number] : 1990 Provider: Dr. 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 Mariya Bocanegra MD) Preventative health care Abdominal pain Alcohol use Non-smoker Flu vaccine need Female infertility unexplained after evaluation Seasonal allergies Surgical History H/O unilateral salpingectomy S/P laparoscopy History of tonsillectomy and adenoidectomy Family History (Updated 12/22/24 @ 14:08 by Liana Finney MA) Mother Cancer, Onset Age: 59 Dermafibroid sarcadoma Family history of recurrent miscarriage 2 losses one at 24 wks Aunt Breast cancer, Onset Age: 50 Maternal Maternal Grandfather Parkinson disease Maternal Grandmother Respiratory disease Paternal Grandfather Cancer metastic cancer Social History (Updated 12/22/24 @ 14:10 by Liana Finney MA) adopted: No household members: spouse, children and other details: adopted daughter Annabella & son Asael housing: house number of children: 2 current occupation: [employer] pets and animals: Yes pets and animals: dog(s) history of recent travel: Yes ([place], [place], [place]) out of state: Yes out of country: No sexually active: Yes Smoking Status: Never smoker alcohol intake: current alcohol intake frequency: a few times a month Alcohol type: wine details: Not while substance use type: does not use diet: gluten free and lactose free well-balanced diet: daily or most days caffeine: No eating out: 1-3 times/week during the past year weight has: remained stable what type of physical activity do you participate in: none frequency: does not exercise minh/mandaeism: Faith seatbelt use: always do you feel safe at home: Yes additional social history: - Yoandy [facility] Chief Complaint: Yearly visit Details: PATRICIA DAVIES, is a 34-year-old 1 female, with no significant medical history, presenting for an annual wellness visit. The patient is currently under the care of Dr. Alicia for her , with an DUANE of March 25 2025. This was unexpected. She reports no concerns today and is sleeping well with a good appetite. She denies emesis, dysphagia, or odynophagia. Bowel movements and urination are normal, though she does experience nocturia. She denies paresthesia or pedal edema. She received her last Tdap vaccination in the fall of 2018 and typically receives the influenza vaccine annually. There have been no changes in her family medical history since her last visit. ROS Const Constitutional: No body ache, chills, excessive sweating, fatigue, fever(s), frequent falls, headache(s), snoring, weakness, sleep problems or change in appetite Eyes Eyes: No blurry vision, change in vision, bulging eyes, floaters, visual disturbances, eye pain or Light sensitivity ENT ENT: No abnormal hearing, ear or mastoid pain, tinnitus, balance problems, nosebleed/epistaxis, nasal congestion, headache(s), neck pain or sore throat Resp Respiratory: No cough, excessive phlegm production, pain on inspiration, shortness of breath, snoring or wheezing Cardio Cardiology: No chest pain at rest, chest pain with exertion, excessive sweating,shortness of breath, dyspnea on exertion, lightheadedness, orthopnea or palpitations Gastro GI: No abdominal pain, change in bowel habits, constipation, cramping, diarrhea,nausea/dyspepsia or vomiting Genitourinary-Female: No burning urination, painful urination, urinary incontinence, urinary frequency, abnormal vaginal bleeding or pelvic pain Musc Musculoskeletal: No abnormal gait, joint pain, back pain, limited range of motion, neck pain or numbness Skin Skin: No dry skin, redness, excessive hair growth, yellowing of the eye, lesions, itchy eyes, rash or wounds Neuro Neurology: No abnormal gait, abnormal hearing, behavioral changes, unsteady gait/balance, weakness, frequent falls, headache(s), memory loss, numbness or visual disturbances Psych Psychiatric: No anxiety, No behavioral changes, No change in appetite, No depression, No memory loss and No Thoughts of harming yourself/Others Endo Endocrine: No cold intolerance, excessive sweating, fatigue, flushing, heat intolerance, increased thirst/drinking or increased hunger Aller/Imm Allergy/Immunologic: No itchy eyes, seasonal allergy symptoms, hives or wheezing Jose/Lymp Hematologic/Lymphatic: No easy bleeding, easy bruising, enlarged lymph nodes or other Exam Const General: cooperative and comfortable Orientation: alert, awake and oriented x3 HENMT Head: normal to inspection, normocephalic and atraumatic Ears: hearing grossly normal bilaterally Neck Neck: normal visual inspection, full ROM, no lymphadenopathy and supple Neck mass: No Thyroid: thyroid normal Resp Effort & Inspection: normal respiratory effort and able to speak in complete sentences Auscultation: Bilateral: Clear to Auscultation Cardio Rate: regular rate Rhythm: regular rhythm Heart Sounds: S1 normal and S2 normal GI Palpation: soft (Nontender, no palpable organomegaly.) Neuro General: patient alert, patient awake, patient oriented x3, moves all extremities and CN's II-XI intact bilaterally Extrem General: no clubbing, cyanosis or edema Psych Appearance: grossly normal Mental Status: mental status grossly normal Mood: congruent mood Affect: normal affect Immunizations Flucelvax 4529-1097 (PF) 45 mcg (15 mcg x 3)/0.5 mL IM syringe Performing Provider: Mariya Bocanegra MD Performing Location: [facility] Administered by: Mariela Anaya MA on 12/22/24 14:52 Dose Route Admin Location Dispensed Lot Number Expiration Date Pack age NDC NDC Slip Maker 0.5 mL IM Right Deltoid 0.5 mL [id number] 07/12/25 [id number] [employer]. VIS Given Date VIS Provided VIS Publication Date 12/22/24 Single Vaccine 24 Eligibility Eligibility Date Funding Source Not Applicable Coding Level of Care Code Off vis,est,prev 18-39yrs Diagnoses Preventative health care Z00.00 Z34.90 Assessment and Plan Assessment and Plan (1) Preventative health care: Status: Acute (2) : Status: Acute Comment: NIPT low risk, carrier neg. . nl anatomy undecided about afp screen. Orders: Orders Influenza Immunization Today Z23 - Encounter for immunization CBC W/Diff, Automated Today Z00.00 - Encounter for general adult medical examination without abnormal findings Comprehensive Metabolic Profil Today Z00.00 - Encounter for general adult medical examination without abnormal findings Plan Here primarily for her yearly visit. Currently after unexplained female infertility. so far has been uneventful and follows up closelywith her OB. No significant personal or family history changes since her last visit. Patient has not yet received the flu vaccine this season; last Tdap was in fall 2017. - Order CBC and CMP; no fasting required. - Hold cholesterol testing at this time. - Administer flu vaccine. - Discussed Tdap timing; advised that current interval is within 10-year guideline, but to follow OB recommendations if otherwise indicated. - Continue dietary and lifestyle modifications. - Mammogram at age 40 and colon cancer screening at age 45 - Follow-up in a year or sooner if needed. This note was generated with [employer] software. It may contain incorrectwords, spelling, and punctuation that were not noted in checking the note beforesigning. Patient Instructions: - Get a complete blood count (CBC) and comprehensive metabolic panel (CMP) at your earliest convenience; no fasting is needed. - Receive your influenza (flu) vaccine today. - Routine mammogram screening at age 40 since there have been no changes in yourfamily history. - Return for your next annual visit in one year. 12/22/24 1534 <Electronically signed by Mariya olguin MD> Date _ Mariya Bocanegra MD Cosigner Signature: Date (if applicable) CC: ~ [facility] Work Phone: 1(366) 740-836610-06-2025 [facility] [address], [address] [place] [id number] OFFICE VISIT Date of Service: 12/08/24 MR#: [id number] Acct: [id number] Name: PATRICIA DAVIES Rep #: [id number] : 1990 Provider: ERIC Joseph Age/Sex: 34/F Location: [facility] [place] Status: Signed Intake Vital Signs 10/01/24 13:40 11/11/24 09:29 12/08/24 10:23 Height 5 ft 4 in 5 ft 4 in 5 ft 4 in Weight: 126 lb 5 oz BMI 21.7 BP 107/74 Intake Visit Reasons: 25 WK OB Chief Complaint: 25wk OB Tetryl Dissolver Operator Required: No Is patient in pain?: No Allergies No Known Allergies Allergy (Verified 12/08/24 10:22) Medications ?Medication ?Instructions ?Recorded ?Confirmed ?Type lactobacillus combo no.11 15 1 cap PO DAILY 01/17/23 1 History billion cell sprinkle capsule (Probiotic) calcium 600 mg (as 2 tab PO DAILY 03/14/2408/27 History carbonate)-vitamin D3 5 mcg (200 unit) tablet (Calcium 600 + D(3)) multivit-min no.71-iron fum 28 cap PO 07/25/24 5 History mg-folate no.1 1 mg-dha 300 mg capsule (PNV-Lakeside) Last Menstrual Period: 06/15/24 : No Have you fallen in the past year?: No PFSH PFSH Medical History Abdominal pain Alcohol use Non-smoker Flu vaccine need Preventative health care Female infertility unexplained after evaluation Seasonal allergies Surgical History H/O unilateral salpingectomy S/P laparoscopy History of tonsillectomy and adenoidectomy Family History Mother Cancer, Onset Age: 59 Dermafibroid sarcadoma Family history of recurrent miscarriage 2 losses one at 24 wks Aunt Breast cancer, Onset Age: 50 Maternal Grandfather Parkinson disease Maternal Grandmother Respiratory disease Paternal Social History adopted: No household members: spouse, children and other details: adopted daughter Annabella & son Asael housing: house number of children: 2 current occupation: [employer] pets and animals: Yes pets and animals: dog(s) history of recent travel: Yes ([place], [place], [place]) out of state: Yes out of country: No sexually active: Yes Smoking Status: Never smoker alcohol intake: current alcohol intake frequency: a few times a month Alcohol type: wine details: Not while substance use type: does not use diet: gluten free and lactose free well-balanced diet: daily or most days caffeine: No eating out: 1-3 times/week during the past year weight has: remained stable what type of physical activity do you participate in: none minh/mandaeism: Faith seatbelt use: always do you feel safe at home: Yes additional social history: - Yoandy History 1 Elective abortions Hx Para 0 Spontaneous abortions Hx # Term Pregnancies Ectopic pregnancies Hx # Pregnancies Multiple births # of living children Past Pregnancies Del. Date Name GA/Weeks Outcome Route Bth Weight Infant Gen Labor Lgth Anesthesia Del Locatn Provider FOB 03/23/18 Adopted- [facility] 11/05/21 Adopted- [facility] HPI 25 WK OB Details: PATRICIA DAVIES is a 34 year old who presents for routine OB visit. OB Visit DUANE Calculator Estimated Delivery Date Method Current WG Current Estimate 03/22/25 LMP (Certain) 25w 1d Other Estimates 03/24/25 Ultrasound #1 24w 6d Expected Delivery Route/Plan Labor Preferences- CB/BF classes: [] labor support person: [] labor intervention preferences: [] pain management options preferred: [] cut cord/dad catch: [] : [] PP control planned: [] discussed possible routes of delivery and associated risks: [] special requests: [] Specific Issue/Plans Covid status: [] Flu vaccine: [] Tdap vaccine: [] Rhogam: [] LARC form signed: [] Problem list reviewed and updated with the most current plan of care details and appropriate ordersplaced. Relevant counseling for the gestational age provided. Continue routine care and follow up unless otherwise noted in visit notes/problem list details Initial Weight: Not Recorded Date -?-?-?-?-?-?-?-?-?-?-?-?- EGA Weight BP Urine Prot -?-?-?-?-?-?-?-?-?-?-?-?- Glucose FHR FuHt Pres Dilation -?-?-?-?-?-?-?-?-?-?-?-?- Effaced St Visit Note 08/01/24 -?-?-?-?-?-?-?-?-?-?-?-?- 6w 5d 110 lb 4 oz 120/77 -?-?-?--?-?-?-?-?-?-?-?-?- 122 -?-?-?-?-?-?-?-?-?-?-?-?- JV- CRL is consi stent with LMP. desires NIPT. since had bleeding and has a .33 cm BRITNEY and is so early and has struggled with infertility for so long, will bring back weekly for heart beat checks. 08/08/24 -?-?-?-?-?-?-?-?-?-?-?-?- 7w 5d 111 lb 8 oz 113/74 Nega tive -?-?-?-?-?-?-?--?-?-?-?-?- Negative 154 -?-?-?-?-?-?-?-?-?-?-?-?- LC-no vb/crampin g since progesterone. 08/27/24 -?-?-?-?-?-?-?-?-?-?-?-?- 10w 3d 109 lb 4 oz 111/72 Nega tive -?-?-?-?-?-?-?-?-?-?-?-?- Negative 170 -?-?-?-?-?-?-?-?-?-?-?-?- JV- no further c ramping or spotting. states does not feel . nateral and PNL today. pt reassured by bedsde ultrasound. CRL measuring 10 week. overall looking great! 09/10/24 -?-?-?-?-?-?-?-?-?-?-?-?- 12w 3d 112 lb 109/69 Negative -?-?-?-?-?-?-?-?-?-?-?-?- Negative 163 -?-?-?-?-?-?-?-?-?-?-?-?- JV- no complaint s today. CRL measuring 12 weeks. has anatomy scan scheduled. having a boy! low risk NIPT. 10/01/24 -?-?-?-?-?-?-?-?-?-?-?-?- 15w 3d 114 lb 107/67 Negative -?-?-?-?-?-?-?-?-?-?-?-?- Negative 159 -?-?-?-?--?-?-?-?-?-?-?-?- MH-work in for i ncreased pelvic cramping. No VB. UA negative. Reassured. 10/13/24 -?-?-?-?-?-?-?-?-?-?-?-?- 17w 1d 117 lb 3 oz 109/64 Nega tive -?-?-?-?-?-?-?-?-?-?-?-?- Negative 153 -?-?-?-?-?-?-?-?-?-?-?-?- -No Vb. No fl utters yet. Denies concerns 11/11/24 -?-?-?-?-?-?-?-?-?-?-?-?- 21w 2d 122 lb 3 oz 110/72 Nega tive -?-?-?-?-?-?-?-?-?-?-?-?- Negative 145 21 -?-?-?-?-?-?-?-?-?-?-?-?- SM- no vb lof go od fm sometimes no regular ctx discussed low lying plcaenta, discussed afp- to decide. 12/08/24 -?-?-?-?-?-?-?-?-?-?-?-?- 25w 1d 126 lb 5 oz 107/74 Nega tive -?-?-?-?-?-?-?-?-?-?-?-?- Negative 145 25 -?-?-?-?-?-?-?-?-?-?-?-?- KW- no vb/lof/ct x. good fm. doing well. has US scheduled and discussed glucose labs ACOG First Trimester First Trimester: Desire for , Alcohol, Tobacco Cessation, Illicit/Recreational Drug/Substance Use, Intimate Partner Violence, Barriers to care, Unstable Housing, Communication Barriers, Environmental/Work Hazards, Anticipated Course of Care, Toxoplasmosis Precations, Use of Any med ications, Sexual activity, Exercise, Dental Care, Sauna/Hot tub use, Seat Belt use, Childbirth classes/Hospital facilities, Travel, Indications for Ultrasound and Screening for Aneuploidy; Discussed ROS Const Reports system reviewed and no additional complaints, except as documented Eyes Reports system reviewed and no additional complaints, except as documented ENT Reports system reviewed and no additional complaints, except as documented Card Reports system reviewed and no additional complaints, except as documented Resp Reports system reviewed and no additional complaints, except as documented GI Reports system reviewed and no additional complaints, except as documented, Denies nausea and Denies vomiting Reports system reviewed and no additional complaints, except as documented Musc Reports system reviewed and no additional complaints, except as documented Skin/Breast Reports system reviewed and no additional complaints, except as documented Neuro Yes system reviewed and no additional complaints, except as documented Psych Reports system reviewed and no additional complaints, except as documented Endo Reports system reviewed and no additional complaints, except as documented Jose/Lymph Reports system reviewed and no additional complaints, except as documented Aller/Immun Reports system reviewed and no additional complaints, except as documented Exam Const General: cooperative, healthy appearing and no acute distress Orientation: alert, awake and oriented x3 Neck Neck: normal visual inspection and full ROM Resp Effort & Inspection: normal respiratory effort, able to speak in complete sentences and symmetric chest movement GI Inspection: normal to inspection Palpation: soft and other Other: gravid Skin General: no rashes or lesions noted Neuro General: patient alert, patient awake and patient oriented x3 Cognition: normal cognition Speech: speech normal Gait: normal gait Motor: muscle tone normal throughout Extrem General: normal to inspection and full ROM Psych Appearance: grossly normal Mental Status: mental status grossly normal Mood: congruent mood Affect: normal affect Speech and Movement: speech and movement normal Attitude: cooperative Thought Process: normal Thought Content: normal Judgment: judgment good Results POC Urinalysis 2 Dip (Clinic) Office Urine Glucose Negative Last Edit by Lucia Wyatt on 12/08/24 10:33 Office Urine Protein Negative Last Edit by Lucia Wyatt on 12/08/24 10:33 Coding Level of Care Code OB Routine Diagnoses Low lying placenta, antepartum O44.40 Advanced maternal age (AMA) in Supervision of high risk in second trimester O09.92 Trimester: second trimester 25 weeks gestation of Z3A.25 Weeks of gestation: 25 weeks Assessment and Plan Assessment and Plan (1) Low lying placenta, antepartum: Status: Acute Comment: <2cm from cervix. Pelvic rest. Rpt US 28 wk (2) Advanced maternal age (AMA) in : Status: Acute Comment: deliver by 39 and 36 weeks growth US (3) Supervision of high-risk : Status: Acute Qualifiers: Trimester: second trimester Qualified Code(s): O09.92 - Supervision of high risk , unspecified, second trimester Comment: PRR , DUANE 03/22/24, boy Adopted 2 children-Asael Winchester Yoandy (4) : Status: Acute Qualifiers: Weeks of gestation: 25 weeks Qualified Code(s): Z3A.25 - 25 weeks gestation of Comment: NIPT low risk, carrier neg. . nl anatomy undecided about afp screen. Orders: Orders POC Urinalysis 2 Dip (Clinic) Today O09.92 - Supervision of high risk , unspecified, second trimester, Z3A.25 - 25 weeks gestation of CBC W/Diff, Automated Today O09.92 - Supervision of high risk , unspecified, second trimester, Z3A.25 - 25 weeks gestation of Glucose Challenge Gest 1H 50g Today O09.92 - Supervision of high risk , unspecified, second trimester, Z13.1 - Encounter for screening for diabetes mellitus, Z3A.25 - 25 weeks gestation of HIV Today O09.92 - Supervision of high risk , unspecified, second trimester, Z3A.25 - 25 weeks gestation of Syphilis Antibodies Today O09.92 - Supervision of high risk , unspecified, second trimester, Z3A.25 - 25 weeks gestation of Plan Details Additional Comments: ACOG trimester education reviewed and updated. see problem list details for updated plan management information and see below for orders placed atthis visit. GA appropriate handout given. Clinical Quality Measures Falls Risk Screening/Assistive Devices Have you fallen in the past year?: No 12/08/24 1043 s ERIC> Date _ Ashley Shah Signature: Date (if applicable) CC: ~ [facility]08-11-2025 [facility] [address], [address] [place] [address] OFFICE VISIT Date of Service: 10/13/24 MR#: [id number] Acct: [id number] Name: PATRICIA DAVIES Rep #: [id number] : 1990 Provider: RUPAL King Age/Sex: 34/F Location: [facility] Status: Signed Intake Vital Signs 09/10/24 10:40 10/01/24 13:40 10/13/24 08:26 Height 5 ft 4 in 5 ft 4 in 5 ft 4 in Weight: 117 lb 3 oz BMI 20.1 BP 109/64 Intake Visit Reasons: 16 wk ob Tetryl Dissolver Operator Required: No Is patient in pain?: No Allergies No Known Allergies Allergy (Verified 10/13/24 08:26) Medications ?Medication ?Instructions ?Recorded ?Confirmed ?Type lactobacillus combo no.11 15 1 cap PO DAILY 01/17/23 0 10/13/24 History billion cell sprinkle capsule (Probiotic) calcium 600 mg (as 2 tab PO DAILY 03/14/2410/03 History carbonate)-vitamin D3 5 mcg (200 unit) tablet (Calcium 600 + D(3)) multivit-min no.71-iron fum 28 cap PO 07/25/24 5 History mg-folate no.1 1 mg-dha 300 mg capsule (PNV-Lakeside) progesterone micronized 100 mg 200 mg vaginal HS 10 we eks #60 ea 07/26/24 10/13/24 Rx vaginal insert ondansetron 4 mg disintegrating 4 mg PO Q6H PRN nausea and 08/01/24 10/13/24 Rx tablet vomiting #30 tabs Last Menstrual Period: 06/15/24 Zika: Zika virus screening: Negative : No Have you fallen in the past year?: No PFSH PFSH Medical History Abdominal pain Alcohol use Non-smoker Flu vaccine need Preventative health care Female infertility unexplained after evaluation Seasonal allergies Surgical History H/O unilateral salpingectomy S/P laparoscopy History of tonsillectomy and adenoidectomy Family History Mother Cancer, Onset Age: 59 Dermafibroid sarcadoma Family history of recurrent miscarriage 2 losses one at 24 wks Aunt Breast cancer, Onset Age: 50 Maternal Grandfather Parkinson disease Maternal Grandmother Respiratory disease Paternal Social History adopted: No household members: spouse, children and other details: adopted daughter Annabella & son Asael housing: house number of children: 2 current occupation: [employer] pets and animals: Yes pets and animals: dog(s) history of recent travel: Yes ([place], [place], [place]) out of state: Yes out of country: No sexually active: Yes Smoking Status: Never smoker alcohol intake: current alcohol intake frequency: a few times a month Alcohol type: wine details: Not while substance use type: does not use diet: gluten free and lactose free well-balanced diet: daily or most days caffeine: No eating out: 1-3 times/week during the past year weight has: remained stable what type of physical activity do you participate in: none minh/mandaeism: Faith seatbelt use: always do you feel safe at home: Yes additional social history: - Yoandy History 1 Elective abortions Hx Para 0 Spontaneous abortions Hx # Term Pregnancies Ectopic pregnancies Hx # Pregnancies Multiple births # of living children Past Pregnancies Del. Date Name GA/Weeks Outcome Route Bth Weight Infant Gen Labor Lgth Anesthesia Del Locatn Provider FOB 03/23/18 Adopted- Annabella 11/05/21 Adopted- Asael HPI 16 wk ob Details: PATRICIA DAVIES is a 34 year old who presents for routine OB visit. OB Visit DUANE Calculator Estimated Delivery Date Method Current WG Current Estimate 03/22/25 LMP (Certain) 17w 1d Other Estimates 03/24/25 Ultrasound #1 16w 6d Expected Delivery Route/Plan Labor Preferences- CB/BF classes: [] labor support person: [] labor intervention preferences: [] pain management options preferred: [] cut cord/dad catch: [] : [] PP control planned: [] discussed possible routes of delivery and associated risks: [] special requests: [] Specific Issue/Plans Covid status: [] Flu vaccine: [] Tdap vaccine: [] Rhogam: [] LARC form signed: [] Problem list reviewed and updated with the most current plan of care details and appropriate ordersplaced. Relevant counseling for the gestational age provided. Continue routine care and follow up unless otherwise noted in visit notes/problem list details Initial Weight: Not Recorded Date -?-?-?-?-?-?-?-?-?-?-?-?- EGA Weight BP Urine Prot -?-?-?-?-?-?-?-?-?-?-?-?- Glucose FHR FuHt Pres Dilation -?-?-?-?-?-?-?-?-?-?-?-?- Effaced St Visit Note 08/01/24 -?-?-?-?-?-?-?-?-?-?-?-?- 6w 5d 110 lb 4 oz 120/77 -?-?-?-?-?-?-?-?-?-?-?-?- 122 -?-?-?-?-?-?-?-?-?-?-?-?- JV- CRL is consi stent with LMP. desires NIPT. since had bleeding and has a .33 cm BRITNEY and is so early and has struggled with infertility for so long, will bring back weekly for heart beat checks. 08/08/24 -?-?-?-?-?-?-?-?-?-?-?-?- 7w 5d 111 lb 8 oz 113/74 Nega tive -?-?-?-?-?-?-?-?-?-?-?-?- Negative 154 -?-?-?-?-?-?-?-?-?-?-?-?- LC-no vb/crampin g since progesterone. 08/27/24 -?-?-?-?-?-?-?-?-?-?-?-?- 10w 3d 109 lb 4 oz 111/72 Nega tive -?-?-?-?-?-?-?-?-?-?-?-?- Negative 170 -?-?-?-?-?-?-?-?-?-?-?-?- JV- no further c ramping or spotting. states does not feel . nateral and PNL today. pt reassured by bedsde ultrasound. CRL measuring 10 week. overall looking great! 09/10/24 -?-?-?-?-?-?-?-?-?-?-?-?- 12w 3d 112 lb 109/69 Negative -?-?-?-?-?-?-?-?-?-?-?-?- Negative 163 -?-?-?-?-?-?-?-?-?-?-?-?- JV- no complaint s today. CRL measuring 12 weeks. has anatomy scan scheduled. having a boy! low risk NIPT. 10/01/24 -?-?-?-?-?-?-?-?-?-?-?-?- 15w 3d 114 lb 107/67 Negative -?-?-?-?-?-?-?-?-?-?-?-?- Negative 159 -?-?-?-?-?-?-?-?-?-?-?-?- -work in for i ncreased pelvic cramping. No VB. UA negative. Reassured. 10/13/24 -?-?-?-?-?-?-?-?-?-?-?-?- 17w 1d 117 lb 3 oz 109/64 Nega tive -?-?-?-?-?-?-?-?-?-?-?-?- Negative 153 -?-?-?-?-?-?-?-?-?-?-?-?- -No Vb. No fl utters yet. Denies concerns ACOG First Trimester First Trimester: Desire for , Alcohol, Tobacco Cessation, Illicit/Recreational Drug/Substance Use, Intimate Partner Violence, Barriers to care, Unstable Housing, Communication Barriers, Environmental/Work Hazards, Anticipated Course of Care, Toxoplasmosis Precations, Use of Any med ications, Sexual activity, Exercise, Dental Care, Sauna/Hot tub use, Seat Belt use, Childbirth classes/Hospital facilities, Travel, Indications for Ultrasound and Screening for Aneuploidy; Discussed ROS Const Reports system reviewed and no additional complaints, except as documented GI Denies abdominal pain, Denies nausea and Denies vomiting Exam Const General: cooperative Nutritional Appearance: well nourished GI Palpation: soft, nontender and other (gravid) Results POC Urinalysis 2 Dip (Clinic) Office Urine Glucose Negative Last Edit by Brianna Hall on 10/13/24 08:33 Office Urine Protein Negative Last Edit by Brianna Hall on 10/13/24 08:33 Coding Level of Care Code OB Routine Diagnoses Supervision of high risk in second trimester O09.92 Trimester: second trimester Bleeding in early O20.9 Advanced maternal age (AMA) in 17 weeks gestation of Z3A.17 Weeks of gestation: 17 weeks Assessment and Plan Assessment and Plan (1) Supervision of high-risk : Status: Acute Qualifiers: Trimester: second trimester Qualified Code(s): O09.92 - Supervision of high risk , unspecified, second trimester Comment: , DUANE 03/22/24, Adopted 2 children-Asael Winchester Yoandy (2) Bleeding in early : Status: Acute Comment: intrauterine on scan 07/26/24- started on progesterone suppositories 200 q hs for threatened . Stopped at 16 wk (3) Advanced maternal age (AMA) in : Status: Acute (4) : Status: Acute Qualifiers: Weeks of gestation: 17 weeks Qualified Code(s): Z3A.17 - 17 weeks gestation of Comment: NIPT low risk, carrier neg. Orders: Orders POC Urinalysis 2 Dip (Clinic) Today Plan problem list reviewed and updated for most current plan of care and appropriate orders placed. Relevant counseling for the gestational age appropriate provided and ACOG education checklist updated. Continue routine care and follow up. Clinical Quality Measures Falls Risk Screening/Assistive Devices Have you fallen in the past year?: No 10/13/24 0846 s COUGAR HUNTER COUGAR HUNTER-C> Date _ Stephy Solgohachia COUGAR HUNTER COUGAR HUNTER-C Cosigner Signature: Date (if applicable) CC: ~ [facility]07-09-2025 Evaluation note* Diagnosis Onset Date Resolution Status Admit Date Advanced maternal age (AMA) in acute September 10, 2024 1 0:38am acute September 10, 2024 10:38am Supervision of high-risk acute September 10, 2024 1 0:38am Bleeding in early resolved September 10, 2024 10:38am Breast lump in upper outer quadrant resolved September 10, 2024 1 0:38am Chronic neck pain resolved September 10:38am Constipation resolved September 10 10:38am Endometriosis resolved September 10 10:38am Female infertility unexplained after evaluation resolved September 10, 2024 1 0:38am Pelvic pain resolved September 10 10:38am Seasonal allergies resolved September 102024 10:38am at early stage deleted September 10, 2024 10:38am Advanced maternal age (AMA) in acute October 01, 2024 1:30pm acute October 01 1:30pm Supervision of high-risk acute October 01, 2024 1:30pm Constipation resolved October 01 1:30pm Advanced maternal age (AMA) in acute October 13 8:22am acute October 13 8:22am Supervision of high-risk acute October 13 8:22am Bleeding in early resolved October 13, 2024 8:22am Advanced maternal age (AMA) in acute November 11 9:16am acute November 11, 2024 9:16am Supervision of high-risk acute November 11 9:16am Low lying placenta, antepartum November, resolved November 11 9:16am Advanced maternal age (AMA) in acute December 08 10:19am acute December 08 10:19am Supervision of high-risk acute December 08 10:19am Low lying placenta, antepartum November, resolved December 08 10:19am acute December 22, 2024 1:55pm Preventative health care resolved December 22, 2024 1:55pm Advanced maternal age (AMA) in acute December 29 9:26am acute December 29, 2024 9:26am Supervision of high-risk acute December 29 9:26am UTI in acute December 29, 2024 9:26am [facility] Work Phone: 1(636) 547-749906-25-2025 Evaluation note* Diagnosis Onset Date Resolution Status Admit Date Advanced maternal age (AMA) in acute August 27, 2024 9:25am acute August 27 9:25am Supervision of high-risk acute August 27, 2024 9:25am Bleeding in early resolved August 27, 2024 9:25am Breast lump in upper outer quadrant resolved August 27, 2024 9:25am Chronic neck pain resolved August 272024 9:25am Constipation resolved August 27, 9:25am Endometriosis resolved August 27, 2024 9:25am Female infertility unexplained after evaluation resolved August 27, 2024 9:25am Pelvic pain resolved August 27 9:25am Seasonal allergies resolved August 042024 9:25am at early stage deleted August 27, 2024 9:25am Advanced maternal age (AMA) in acute September 10, 2024 1 0:38am acute September 10, 2024 10:38am Supervision of high-risk acute September 10, 2024 1 0:38am Bleeding in early resolved September 10, 2024 10:38am Breast lump in upper outer quadrant resolved September 10, 2024 1 0:38am Chronic neck pain resolved September 10:38am Constipation resolved September 10 10:38am Endometriosis resolved September 10, 2 025 10:38am Female infertility unexplained after evaluation resolved September 10, 2024 1 0:38am Pelvic pain resolved September 10 10:38am Seasonal allergies resolved September 102024 10:38am at early stage deleted September 10, 2024 10:38am Advanced maternal age (AMA) in acute October 01, 2024 1:30pm acute October 01 1:30pm Supervision of high-risk acute October 01, 2024 1:30pm Constipation resolved October 01 025 1:30pm Advanced maternal age (AMA) in acute October 13 8:22am acute October 13 025 8:22am Supervision of high-risk acute October 13 8:22am Bleeding in early resolved October 13, 2024 8:22am Advanced maternal age (AMA) in acute November 11 9:16am Low lying placenta, antepartum November, acute November 11 025 9:16am acute November 11, 2024 9:16am Supervision of high-risk acute November 11 025 9:16am Advanced maternal age (AMA) in acute December 08 10:19am Low lying placenta, antepartum November, acute December 08 10:19am acute December 08 10:19am Supervision of high-risk acute December 08 10:19am [facility] Work Phone: 1(940) 252-734006-25-2025 [facility] [address] [place] [address], [address] [place] [address] OFFICE VISIT Date of Service: 08/27/24 MR#: [id number] Acct: [id number] Name: PATRICIA DAVIES Rep #: [id number] : 1990 Provider: Dr. Marcelina Alicia DO Age/Sex: 34/F Location: [facility] Status: Signed Intake Vital Signs 07/24/24 12:53 08/08/24 11:36 08/27/24 09:26 08/27/24 09:28 Height 5 ft 4 in 5 ft 4 in 5 ft 4 in 5 ft 4 in Weight: 109 lb 4 oz BMI 18.7 BP 111/72 Intake Visit Reasons: 10 wk ob Tetryl Dissolver Operator Required: No Is patient in pain?: No Allergies No Known Allergies Allergy (Verified 08/27/24 09:26) Medications ?Medication ?Instructions ?Recorded ?Confirmed ?Type lactobacillus combo no.11 15 1 cap PO DAILY 01/17/23 0 08/27/24 History billion cell sprinkle capsule (Probiotic) calcium 600 mg (as 2 tab PO DAILY 03/14/2408/04 History carbonate)-vitamin D3 5 mcg (200 unit) tablet (Calcium 600 + D(3)) multivit-min no.71-iron fum 28 cap PO 07/25/24 5 History mg-folate no.1 1 mg-dha 300 mg capsule (PNV-Lakeside) progesterone micronized 100 mg 200 mg vaginal HS 10 we eks #60 ea 07/26/24 08/27/24 Rx vaginal insert ondansetron 4 mg disintegrating 4 mg PO Q6H PRN nausea and 08/01/24 08/27/24 Rx tablet vomiting #30 tabs Last Menstrual Period: 06/15/24 Zika: Zika virus screening: Negative : No PFSH PFSH Medical History Abdominal pain Alcohol use Non-smoker Flu vaccine need Preventative health care Female infertility unexplained after evaluation Seasonal allergies Surgical History H/O unilateral salpingectomy S/P laparoscopy History of tonsillectomy and adenoidectomy Family History Mother Cancer, Onset Age: 59 Dermafibroid sarcadoma Family history of recurrent miscarriage 2 losses one at 24 wks Aunt Breast cancer, Onset Age: 50 Maternal Grandfather Parkinson disease Maternal Grandmother Respiratory disease Paternal Social History adopted: No household members: spouse, children and other details: adopted daughter Annabella & son Asael housing: house number of children: 2 current occupation: [employer] pets and animals: Yes pets and animals: dog(s) history of recent travel: Yes ([place], [place], [place]) out of state: Yes out of country: No sexually active: Yes Smoking Status: Never smoker alcohol intake: current alcohol intake frequency: a few times a month Alcohol type: wine details: Not while substance use type: does not use diet: gluten free and lactose free well-balanced diet: daily or most days caffeine: No eating out: 1-3 times/week during the past year weight has: remained stable what type of physical activity do you participate in: none minh/mandaeism: Faith seatbelt use: always do you feel safe at home: Yes additional social history: - Yaondy History 1 Elective abortions Hx Para 0 Spontaneous abortions Hx # Term Pregnancies Ectopic pregnancies Hx # Pregnancies Multiple births # of living children Past Pregnancies Del. Date Name GA/Weeks Outcome Route Bth Weight Gen Labor Lgth Anesthesia Del Locatn Provider MALIK 03/23/18 Adopted- Annabella 11/05/21 Adopted- Asael HPI 10 wk ob Details: PATRICIA DAVIES is a 34 year old who presents for routine OB visit. OB Visit DUANE Calculator Estimated Delivery Date Method Current WG Current Estimate 03/22/25 LMP (Certain) 10w 3d Other Estimates 03/24/25 Ultrasound #1 10w 1d Expected Delivery Route/Plan Labor Preferences- CB/BF classes: [] labor support person: [] labor intervention preferences: [] pain management options preferred: [] cut cord/dad catch: [] : [] PP control planned: [] discussed possible routes of delivery and associated risks: [] special requests: [] Specific Issue/Plans Covid status: [] Flu vaccine: [] Tdap vaccine: [] Rhogam: [] LARC form signed: [] Problem list reviewed and updated with the most current plan of care details and appropriate ordersplaced. Relevant counseling for the gestational age provided. Continue routine care and follow up unless otherwise noted in visit notes/problem list details Initial Weight: Not Recorded Date -?-?-?-?-?-?-?-?-?-?-?-?- EGA Weight BP Urine Prot -?-?-?-?-?-?-?-?-?-?-?-?- Glucose FHR FuHt Pres Dilation -?-?-?-?-?-?-?-?-?-?-?-?- Effaced St Visit Note 08/01/24 -?-?-?-?-?-?-?-?-?-?-?-?- 6w 5d 110 lb 4 oz 120/77 -?-?-?-?-?-?-?-?-?-?-?-?- 122 -?-?-?-?-?-?-?-?-?-?-?-?- JV- CRL is consi stent with LMP. desires NIPT. since had bleeding and has a .33 cm BRITNEY and is so early and has struggled with infertility for so long, will bring back weekly for heart beat checks. 08/08/24 -?-?-?-?-?-?-?-?-?-?-?-?- 7w 5d 111 lb 8 oz 113/74 Nega tive -?-?-?-?-?-?-?-?-?-?-?-?- Negative 154 -?-?-?-?-?-?-?-?-?-?-?-?- LC-no vb/crampin g since progesterone. 08/27/24 -?-?-?-?-?-?-?-?-?-?-?-?- 10w 3d 109 lb 4 oz 111/72 -?-?-?-?-?-?-?-?-?-?-?-?- 170 -?-?-?-?-?-?-?-?-?-?-?-?- JV- no further c ramping or spotting. states does not feel . nateral and PNL today. pt reassured by bedsde ultrasound. CRL measuring 10 week. overall looking great! ACOG First Trimester First Trimester: Desire for , Alcohol, Tobacco Cessation, Illicit/Recreational Drug/Substance Use, Intimate Partner Violence, Barriers to care, Unstable Housing, Communication Barriers, Environmental/Work Hazards, Anticipated Course of Care, Toxoplasmosis Precations, Use of Any med ications, Sexual activity, Exercise, Dental Care, Sauna/Hot tub use, Seat Belt use, Childbirth classes/Hospital facilities, Travel, Indications for Ultrasound and Screening for Aneuploidy; Discussed Coding Level of Care Code OB Routine Diagnoses Bleeding in early O20.9 Constipation K59.00 Advanced maternal age (AMA) in Supervision of high-risk O09.90 10 weeks gestation of Z3A.10 Weeks of gestation: 10 weeks at early stage Z34.90 Breast lump in upper outer quadrant N63.0 Endometriosis N80.9 Pelvic pain R10.2 Chronic neck pain M54.2; G89.29 Female infertility unexplained after evaluation N97.9 Seasonal allergies J30.2 Assessment and Plan Assessment and Plan (1) Bleeding in early : Status: Acute Comment: intrauterine on scan 07/26/24- started on progesterone suppositories 200 q hs for threatened (2) Constipation: Status: Acute (3) Advanced maternal age (AMA) in : Status: Acute (4) Supervision of high-risk : Status: Acute Comment: , DUANE 03/22/24, Adopted 2 children-Asael Winchester Yoandy (5) : Status: Acute Qualifiers: Weeks of gestation: 10 weeks Qualified Code(s): Z3A.10 - 10 weeks gestation of Comment: discussed NIPT & Carrier testing- undecided (6) at early stage: Status: Acute (7) Breast lump in upper outer quadrant: Status: Acute (8) Endometriosis: Status: Acute (9) Pelvic pain: Status: Acute (10) Chronic neck pain: Status: Chronic (11) Female infertility unexplained after evaluation: Status: Chronic (12) Seasonal allergies: Status: Chronic Orders: Orders POC Urinalysis 2 Dip (Clinic) Today 08/27/24 1018 e Yanick DO> Date _ Mary Alicia DO Cosign Signature: Date (if applicable) CC: ~ [facility]06-06-2025 Evaluation note* Diagnosis Onset Date Resolution Status Admit Date Advanced maternal age (AMA) in acute August 08, 2024 1 1:31am acute August 08, 2024 11:31am Supervision of high-risk acute August 08, 2024 1 1:31am Bleeding in early resolved August 08, 2024 11:31am Breast lump in upper outer quadrant resolved August 08, 2024 1 1:31am Chronic neck pain resolved August 11:31am Constipation resolved August 08 11:31am Endometriosis resolved August 08, 2 025 11:31am Female infertility unexplained after evaluation resolved August 08, 2024 1 1:31am Pelvic pain resolved August 08 11:31am Seasonal allergies resolved August 082024 11:31am at early stage deleted August 08, 2024 11:31am Advanced maternal age (AMA) in acute August 27, 2024 9:25am acute August 27 9:25am Supervision of high-risk acute August 27, 2024 9:25am Bleeding in early resolved August 27, 2024 9:25am Breast lump in upper outer quadrant resolved August 27, 2024 9:25am Chronic neck pain resolved August 272024 9:25am Constipation resolved August 27 9:25am Endometriosis resolved August 27, 2024 9:25am Female infertility unexplained after evaluation resolved August 27, 2024 9:25am Pelvic pain resolved August 27 9:25am Seasonal allergies resolved August 042024 9:25am at early stage deleted August 27, 2024 9:25am Advanced maternal age (AMA) in acute September 10, 2024 1 0:38am acute September 10, 2024 10:38am Supervision of high-risk acute September 10, 2024 1 0:38am Bleeding in early resolved September 10, 2024 10:38am Breast lump in upper outer quadrant resolved September 10, 2024 1 0:38am Chronic neck pain resolved September 10:38am Constipation resolved September 10 10:38am Endometriosis resolved September 10 10:38am Female infertility unexplained after evaluation resolved September 10, 2024 1 0:38am Pelvic pain resolved September 10 10:38am Seasonal allergies resolved September 102024 10:38am at early stage deleted September 10, 2024 10:38am Advanced maternal age (AMA) in acute October 01, 2024 1:30pm acute October 01 1:30pm Supervision of high-risk acute October 01, 2024 1:30pm Constipation resolved October 01 025 1:30pm Advanced maternal age (AMA) in acute October 13 8:22am acute October 13 025 8:22am Supervision of high-risk acute October 13 8:22am Bleeding in early resolved October 13, 2024 8:22am Advanced maternal age (AMA) in acute November 11 025 9:16am Low lying placenta, antepartum November, acute November 11 025 9:16am acute November 11, 2024 9:16am Supervision of high-risk acute November 11 025 9:16am [facility] Work Phone: 1(411) 226-407106-06-2025 [facility] [address] [place] [address], [address] [place] [address] OFFICE VISIT Date of Service: 08/08/24 MR#: [id number] Acct: [id number] Name: PATRICIA DAVIES Rep #: [id number] : 1990 Provider: ERIC Valencia Age/Sex: 34/F Location: [facility] Status: Signed Intake Vital Signs 08/01/24 10:36 08/08/24 11:34 08/08/24 11:36 Height 5 ft 4 in 5 ft 4 in 5 ft 4 in Weight: 111 lb 8 oz BMI 19.1 BP 113/74 Intake Visit 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 Operator Required: No Is patient in pain?: No Allergies No Known Allergies Allergy (Verified 08/08/24 11:34) Medications ?Medication ?Instructions ?Recorded ?Confirmed ?Type lactobacillus combo no.11 15 1 cap PO DAILY 01/17/23 0 08/08/24 History billion cell sprinkle capsule (Probiotic) calcium 600 mg (as 2 tab PO DAILY 03/14/2408/27 History carbonate)-vitamin D3 5 mcg (200 unit) tablet (Calcium 600 + D(3)) multivit-min no.71-iron fum 28 cap PO 07/25/24 5 History mg-folate no.1 1 mg-dha 300 mg capsule (PNV-Lakeside) progesterone micronized 100 mg 200 mg vaginal HS 10 we eks #60 ea 07/26/24 08/08/24 Rx vaginal insert ondansetron 4 mg disintegrating 4 mg PO Q6H PRN nausea and 08/01/24 08/08/24 Rx tablet vomiting #30 tabs Last Menstrual Period: 06/15/24 Zika: Zika virus screening: Negative : No PFSH PFSH Medical History Abdominal pain Alcohol use Non-smoker Flu vaccine need Preventative health care Female infertility unexplained after evaluation Seasonal allergies Surgical History H/O unilateral salpingectomy S/P laparoscopy History of tonsillectomy and adenoidectomy Family History Mother Cancer, Onset Age: 59 Dermafibroid sarcadoma Family history of recurrent miscarriage 2 losses one at 24 wks Aunt Breast cancer, Onset Age: 50 Maternal Grandfather Parkinson disease Maternal Grandmother Respiratory disease Paternal Social History adopted: No household members: spouse, children and other details: adopted daughter Annabella & son Asael housing: house number of children: 2 current occupation: [employer] pets and animals: Yes pets and animals: dog(s) history of recent travel: Yes ([place], [place], [place]) out of state: Yes out of country: No sexually active: Yes Smoking Status: Never smoker alcohol intake: current alcohol intake frequency: a few times a month Alcohol type: wine details: Not while substance use type: does not use diet: gluten free and lactose free well-balanced diet: daily or most days caffeine: No eating out: 1-3 times/week during the past year weight has: remained stable what type of physical activity do you participate in: none minh/mandaeism: Faith seatbelt use: always do you feel safe at home: Yes additional social history: - Yoandy History 1 Elective abortions Hx Para 0 Spontaneous abortions Hx # Term Pregnancies Ectopic pregnancies Hx # Pregnancies Multiple births # of living children Past Pregnancies Del. Date Name GA/Weeks Outcome Route Bth Weight Gen Labor Lgth Anesthesia Del Locatn Provider FOB 03/23/18 Adopted- [facility] 11/05/21 Adopted- [facility] HPI HEARTBEAT CHECK Details: PATRICIA DAVIES is a 34 year old who presents for routine OB visit. OB Visit DUANE Calculator Estimated Delivery Date Method Current WG Current Estimate 03/22/25 LMP (Certain) 7w 5d Other Estimates 03/24/25 Ultrasound #1 7w 3d Expected Delivery Route/Plan Labor Preferences- CB/BF classes: [] labor support person: [] labor intervention preferences: [] pain management options preferred: [] cut cord/dad catch: [] : [] PP control planned: [] discussed possible routes of delivery and associated risks: [] special requests: [] Specific Issue/Plans Covid status: [] Flu vaccine: [] Tdap vaccine: [] Rhogam: [] LARC form signed: [] Problem list reviewed and updated with the most current plan of care details and appropriate ordersplaced. Relevant counseling for the gestational age provided. Continue routine care and follow up unless otherwise noted in visit notes/problem list details Initial Weight: Not Recorded Date -?-?-?-?-?-?-?-?-?-?-?-?- EGA Weight BP Urine Prot -?-?-?-?-?-?-?-?-?-?-?-?- Glucose FHR FuHt Pres Dilation -?-?-?-?-?-?-?-?-?-?-?-?- Effaced St Visit Note 08/01/24 -?-?-?-?-?-?-?-?-?-?-?-?- 6w 5d 110 lb 4 oz 120/77 -?-?-?-?-?-?-?-?-?-?-?-?- 122 -?-?-?-?-?-?-?-?-?-?-?-?- JV- CRL is consi stent with LMP. desires NIPT. since had bleeding and has a .33 cm BRITNEY and is so early and has struggled with infertility for so long, will bring back weekly for heart beat checks. 08/08/24 -?-?-?-?-?-?-?-?-?-?-?-?- 7w 5d 111 lb 8 oz 113/74 Nega tive -?-?-?-?-?-?-?-?-?-?-?-?- Negative 154 -?-?-?-?-?-?-?-?-?-?-?-?- LC-no vb/crampin g since progesterone. ACOG First Trimester First Trimester: Desire for , Alcohol, Tobacco Cessation, Illicit/Recreational Drug/Substance Use, Intimate Partner Violence, Barriers to care, Unstable Housing, Communication Barriers, Environmental/Work Hazards, Anticipated Course of Care, Toxoplasmosis Precations, Use of Any med ications, Sexual activity, Exercise, Dental Care, Sauna/Hot tub use, Seat Belt use, Childbirth classes/Hospital facilities, Travel, Indications for Ultrasound and Screening for Aneuploidy; Discussed ROS Const Reports system reviewed and no additional complaints, except as documented GI Denies nausea and Denies vomiting Denies urinary hesitancy and Denies urinary urgency Exam Const Orientation: alert, awake and oriented x3 Resp Effort & Inspection: normal respiratory effort, able to speak in complete sentences and symmetric chest movement GI Palpation: soft (gravid) OB/External & Speculum: other (fundus appriopriate for GA) Results POC Urinalysis 2 Dip (Clinic) Office Urine Glucose Negative Last Edit by Mariela Nguyen on 08/08/24 11: 47 Office Urine Protein Negative Last Edit by Mariela Nguyen on 08/08/24 11: 47 Coding Level of Care Code OB Routine Diagnoses Bleeding in early O20.9 Constipation K59.00 Advanced maternal age (AMA) in Supervision of high-risk O09.90 Less than 8 weeks gestation of Z3A.01 Weeks of gestation: less than 8 weeks at early stage Z34.90 Breast lump in upper outer quadrant N63.0 Endometriosis N80.9 Pelvic pain R10.2 Chronic neck pain M54.2; G89.29 Female infertility unexplained after evaluation N97.9 Seasonal allergies J30.2 Assessment and Plan Assessment and Plan (1) Bleeding in early : Status: Acute Comment: intrauterine on scan 07/26/24- started on progesterone suppositories 200 q hs for threatened (2) Constipation: Status: Acute (3) Advanced maternal age (AMA) in : Status: Acute (4) Supervision of high-risk : Status: Acute Comment: , DUANE 03/22/24, Adopted 2 children-[facility] [place] Yoandy (5) : Status: Acute Qualifiers: Weeks of gestation: less than 8 weeks Qualified Code(s): Z3A.01 - Less than 8 weeks gestation of Comment: discussed NIPT & Carrier testing- undecided (6) at early stage: Status: Acute (7) Breast lump in upper outer quadrant: Status: Acute (8) Endometriosis: Status: Acute (9) Pelvic pain: Status: Acute (10) Chronic neck pain: Status: Chronic (11) Female infertility unexplained after evaluation: Status: Chronic (12) Seasonal allergies: Status: Chronic Orders: Orders POC Urinalysis 2 Dip (Clinic) Today Plan Details Additional Comments: ACOG trimester education reviewed and updated. see problem list details for updated plan management information and see below for orders placed atthis visit. GA appropriate handout given. 08/08/24 1153 ns CNM> Date _ Marguerite Valencia CNM Cosigner Signature: Date (if applicable) CC: ~ [facility]05-24-2025 Radiology Diagnostic study note [facility] Imaging Services [address] [place] [address] Transvaginal w/Preg US MR#: [id number] Acct: [id number] Name: PATRICIA DAVIES Rep #: [id number] : 1990 F 34 From: Baylee Grullon MD PCP: Dr. Mariya Bocanegra MD Status: R EG CLI Study:Transvaginal w/Preg US Date of Exam: 07/26/24 Exam# [id number] Ordering Dr: Mary Bernstein DO PROCEDURE: TRANSVAGINAL W/PREG US 07/26/2024 REASON FOR EXAM: BLEEDING IN TECHNIQUE: Transvaginal ultrasound was performed in this 1st trimester sonogram COMPARISON: None FINDINGS: Intrauterine gestational is noted with gestational sac diameter of 0.9cm, corresponding to gestational age of 5 weeks and 5 days. Yolk sac of 0.2 cm. CRL of 0.1 cm. No heart rate is detected at this time although this is likely due to early gestational age. Cervix is closed. Moderate fluid is noted within the cul-de-sac. Uterus measures 8.5 x 5.7 x 4.2 cm. Right ovary measures 3.2 x 2.1 x 1.8 cm and left ovary measures 2.3 x 2.0 x 1.0 cm. A 1.7 cm cyst is noted within the right ovary. Normal vasculature of the ovaries. US/Transvaginal w/Preg US IMPRESSION: Intrauterine gestational corresponding to 5 weeks and 5 days. No heart rate is detected at this time although this is likely due to early gestational age. Cervix is closed. Moderate fluid noted within the cul-de-sac. Otherwise unremarkable. Reading Location: [id number] CC: Dr. Mariya Bocanegra MD; Dr. Mary Alicia DO ~ [employer] Operator: Signed [facility]05-23-2025 Evaluation note* Diagnosis Onset Date Resolution Status Admit Date Amenorrhea acute July 25, 2024 12:57pm [facility] Work Phone: 1(181) 567-823605-23-2025 Evaluation note* Diagnosis Onset Date Resolution Status Admit Date Amenorrhea deleted July 25, 2024 12:57pm Advanced maternal age (AMA) in acute August 01, 2024 1 0:32am Bleeding in early acute August 01, 2024 10:32am Breast lump in upper outer quadrant acute August 01, 2024 1 0:32am Constipation acute August 01, 25 10:32am Endometriosis acute August 01, 2 025 10:32am Pelvic pain acute August 01 10:32am acute August 01, 2024 10:32am at early stage acute August 01, 2024 10:32am Supervision of high-risk acute August 01, 2024 1 0:32am Chronic neck pain chronic July 10:32am Female infertility unexplain ed after evaluation chronic August 01, 2024 10:32am Seasonal allergies chronic August 012024 10:32am Amenorrhea deleted August 01, 2024 10:32am Infertility deleted August 01 10:32am [employer] [facility] Work Phone: 1(480) 404-924705-23-2025 Evaluation note* Diagnosis Onset Date Resolution Status Admit Date Amenorrhea deleted July 25, 2024 12:57pm Advanced maternal age (AMA) in acute August 01, 2024 1 0:32am Bleeding in early acute August 01, 2024 10:32am Breast lump in upper outer quadrant acute August 01, 2024 1 0:32am Constipation acute August 01 10:32am Endometriosis acute August 01, 025 10:32am Pelvic pain acute August 01 10:32am acute August 01, 2024 10:32am at early stage acute August 01, 2024 10:32am Supervision of high-risk acute August 01, 2024 1 0:32am Chronic neck pain chronic July 10:32am Female infertility unexplain ed after evaluation chronic August 01, 2024 10:32am Seasonal allergies chronic August 012024 10:32am Amenorrhea deleted August 01, 2024 10:32am Infertility deleted August 01 10:32am Advanced maternal age (AMA) in acute August 08, 2024 1 1:31am Bleeding in early acute August 08, 2024 11:31am Breast lump in upper outer quadrant acute August 08, 2024 1 1:31am Constipation acute August 08 11:31am Endometriosis acute August 08, 2 025 11:31am Pelvic pain acute August 08 11:31am acute August 08, 2024 11:31am at early stage acute August 08, 2024 11:31am Supervision of high-risk acute August 08, 2024 1 1:31am Chronic neck pain chronic August 11:31am Female infertility unexplain ed after evaluation chronic August 08, 2024 11:31am Seasonal allergies chronic August 082024 11:31am [employer] Work Phone: 1([phone]) 153-771705-23-2025 Evaluation note* Diagnosis Onset Date Resolution Status Admit Date Amenorrhea deleted July 25, 2024 12:57pm Advanced maternal age (AMA) in acute August 01, 2024 1 0:32am Bleeding in early acute August 01, 2024 10:32am Breast lump in upper outer quadrant acute August 01, 2024 1 0:32am Constipation acute August 01 10:32am Endometriosis acute August 01, 2 025 10:32am Pelvic pain acute August 01 10:32am acute August 01, 2024 10:32am at early stage acute August 01, 2024 10:32am Supervision of high-risk acute August 01, 2024 1 0:32am Chronic neck pain chronic July 10:32am Female infertility unexplain ed after evaluation chronic August 01, 2024 10:32am Seasonal allergies chronic August 012024 10:32am Amenorrhea deleted August 01, 2024 10:32am Infertility deleted August 01 10:32am Advanced maternal age (AMA) in acute August 08, 2024 1 1:31am Bleeding in early acute August 08, 2024 11:31am Breast lump in upper outer quadrant acute August 08, 2024 1 1:31am Constipation acute August 08 11:31am Endometriosis acute August 08, 11:31am Pelvic pain acute August 08 11:31am acute August 08, 2024 11:31am at early stage acute August 08, 2024 11:31am Supervision of high-risk acute August 08, 2024 1 1:31am Chronic neck pain chronic August 11:31am Female infertility unexplain ed after evaluation chronic August 08, 2024 11:31am Seasonal allergies chronic August 082024 11:31am Advanced maternal age (AMA) in acute August 27, 2024 9:25am Bleeding in early acute August 27, 2024 9:25am Breast lump in upper outer quadrant acute August 27, 2024 9:25am Constipation acute August 27, 025 9:25am Endometriosis acute August 27, 2024 9:25am Pelvic pain acute August 27 9:25am acute August 27 9:25am at early stage acute August 27, 2024 9:25am Supervision of high-risk acute August 27, 2024 9:25am Chronic neck pain chronic August 272024 9:25am Female infertility unexplain ed after evaluation chronic August 27, 2024 9:25am Seasonal allergies chronic August 042024 9:25am [facility] Work Phone: 1(729) 837-341705-23-2025 Evaluation note* Diagnosis Onset Date Resolution Status Admit Date Amenorrhea deleted July 25, 2024 12:57pm Advanced maternal age (AMA) in acute August 01, 2024 1 0:32am Bleeding in early acute August 01, 2024 10:32am Breast lump in upper outer quadrant acute August 01, 2024 1 0:32am Constipation acute August 01 10:32am Endometriosis acute August 01, 2 025 10:32am Pelvic pain acute August 01 10:32am acute August 01, 2024 10:32am at early stage acute August 01, 2024 10:32am Supervision of high-risk acute August 01, 2024 1 0:32am Chronic neck pain chronic July 10:32am Female infertility unexplain ed after evaluation chronic August 01, 2024 10:32am Seasonal allergies chronic August 012024 10:32am Amenorrhea deleted August 01, 2024 10:32am Infertility deleted August 01 10:32am Advanced maternal age (AMA) in acute August 08, 2024 1 1:31am Bleeding in early acute August 08, 2024 11:31am Breast lump in upper outer quadrant acute August 08, 2024 1 1:31am Constipation acute August 08 11:31am Endometriosis acute August 08, 2 025 11:31am Pelvic pain acute August 08 11:31am acute August 08, 2024 11:31am at early stage acute August 08, 2024 11:31am Supervision of high-risk acute August 08, 2024 1 1:31am Chronic neck pain chronic August 11:31am Female infertility unexplain ed after evaluation chronic August 08, 2024 11:31am Seasonal allergies chronic August 082024 11:31am Advanced maternal age (AMA) in acute August 27, 2024 9:25am Bleeding in early acute August 27, 2024 9:25am Breast lump in upper outer quadrant acute August 27, 2024 9:25am Constipation acute August 27, 9:25am Endometriosis acute August 27, 2024 9:25am Pelvic pain acute August 27 9:25am acute August 27 9:25am at early stage acute August 27, 2024 9:25am Supervision of high-risk acute August 27, 2024 9:25am Chronic neck pain chronic August 272024 9:25am Female infertility unexplain ed after evaluation chronic August 27, 2024 9:25am Seasonal allergies chronic August 042024 9:25am Advanced maternal age (AMA) in acute September 10, 2024 1 0:38am Bleeding in early acute September 10, 2024 10:38am Breast lump in upper outer quadrant acute September 10, 2024 1 0:38am Constipation acute September 10 10:38am Endometriosis acute September 10 10:38am Pelvic pain acute September 10 10:38am acute September 10, 2024 10:38am at early stage acute September 10, 2024 10:38am Supervision of high-risk acute September 10, 2024 1 0:38am Chronic neck pain chronic September 10:38am Female infertility unexplain ed after evaluation chronic September 10, 2024 10:38am Seasonal allergies chronic September 102024 10:38am [facility] Work Phone: 1(722) 347-215005-23-2025 Evaluation note* Diagnosis Onset Date Resolution Status Admit Date Amenorrhea deleted July 25, 2024 12:57pm Advanced maternal age (AMA) in acute August 01, 2024 1 0:32am Bleeding in early acute August 01, 2024 10:32am Breast lump in upper outer quadrant acute August 01, 2024 1 0:32am Constipation acute August 01 10:32am Endometriosis acute August 01, 2 025 10:32am Pelvic pain acute August 01 10:32am acute August 01, 2024 10:32am at early stage acute August 01, 2024 10:32am Supervision of high-risk acute August 01, 2024 1 0:32am Chronic neck pain chronic July 10:32am Female infertility unexplain ed after evaluation chronic August 01, 2024 10:32am Seasonal allergies chronic August 012024 10:32am Amenorrhea deleted August 01, 2024 10:32am Infertility deleted August 01 10:32am Advanced maternal age (AMA) in acute August 08, 2024 1 1:31am Bleeding in early acute August 08, 2024 11:31am Breast lump in upper outer quadrant acute August 08, 2024 1 1:31am Constipation acute August 08 11:31am Endometriosis acute August 08 11:31am Pelvic pain acute August 08 11:31am acute August 08, 2024 11:31am at early stage acute August 08, 2024 11:31am Supervision of high-risk acute August 08, 2024 1 1:31am Chronic neck pain chronic August 11:31am Female infertility unexplain ed after evaluation chronic August 08, 2024 11:31am Seasonal allergies chronic August 082024 11:31am Advanced maternal age (AMA) in acute August 27, 2024 9:25am Bleeding in early acute August 27, 2024 9:25am Breast lump in upper outer quadrant acute August 27, 2024 9:25am Constipation acute August 27, 025 9:25am Endometriosis acute August 27, 2024 9:25am Pelvic pain acute August 27 9:25am acute August 27 9:25am at early stage acute August 27, 2024 9:25am Supervision of high-risk acute August 27, 2024 9:25am Chronic neck pain chronic August 272024 9:25am Female infertility unexplain ed after evaluation chronic August 27, 2024 9:25am Seasonal allergies chronic August 042024 9:25am Advanced maternal age (AMA) in acute September 10, 2024 1 0:38am Bleeding in early acute September 10, 2024 10:38am Breast lump in upper outer quadrant acute September 10, 2024 1 0:38am Constipation acute September 10 10:38am Endometriosis acute September 10, 2 025 10:38am Pelvic pain acute September 10 10:38am acute September 10, 2024 10:38am at early stage acute September 10, 2024 10:38am Supervision of high-risk acute September 10, 2024 1 0:38am Chronic neck pain chronic September 10:38am Female infertility unexplain ed after evaluation chronic September 10, 2024 10:38am Seasonal allergies chronic September 102024 10:38am Advanced maternal age (AMA) in acute October 01, 2024 1:30pm Bleeding in early acute October 01, 2024 1:30pm Breast lump in upper outer quadrant acute October 01, 2024 1:30pm Constipation acute October 01, 2 025 1:30pm Endometriosis acute October 01, 2024 1:30pm Pelvic pain acute October 01 1:30pm acute October 01 1:30pm at early stage acute October 01, 2024 1:30pm Supervision of high-risk acute October 01, 2024 1:30pm Chronic neck pain chronic October 012024 1:30pm Female infertility unexplain ed after evaluation chronic October 01, 2024 1:30pm Seasonal allergies chronic September 042024 1:30pm [facility] Work Phone: 1(634) 533-809805-23-2025 Evaluation note* Diagnosis Onset Date Resolution Status Admit Date Amenorrhea deleted July 25, 2024 12:57pm Advanced maternal age (AMA) in acute August 01, 2024 1 0:32am Bleeding in early acute August 01, 2024 10:32am Breast lump in upper outer quadrant acute August 01, 2024 1 0:32am Endometriosis acute August 01, 2 025 10:32am Pelvic pain acute August 01 10:32am acute August 01, 2024 10:32am Supervision of high-risk acute August 01, 2024 1 0:32am Chronic neck pain chronic July 10:32am Female infertility unexplain ed after evaluation chronic August 01, 2024 10:32am Seasonal allergies chronic August 012024 10:32am Constipation resolved August 01 10:32am Amenorrhea deleted August 01, 2024 10:32am Infertility deleted August 01 10:32am at early stage deleted August 01, 2024 10:32am Advanced maternal age (AMA) in acute August 08, 2024 1 1:31am Bleeding in early acute August 08, 2024 11:31am Breast lump in upper outer quadrant acute August 08, 2024 1 1:31am Endometriosis acute August 08 11:31am Pelvic pain acute August 08 11:31am acute August 08, 2024 11:31am Supervision of high-risk acute August 08, 2024 1 1:31am Chronic neck pain chronic August 11:31am Female infertility unexplain ed after evaluation chronic August 08, 2024 11:31am Seasonal allergies chronic August 082024 11:31am Constipation resolved August 08 11:31am at early stage deleted August 08, 2024 11:31am Advanced maternal age (AMA) in acute August 27, 2024 9:25am Bleeding in early acute August 27, 2024 9:25am Breast lump in upper outer quadrant acute August 27, 2024 9:25am Endometriosis acute August 27, 2024 9:25am Pelvic pain acute August 27 9:25am acute August 27 9:25am Supervision of high-risk acute August 27, 2024 9:25am Chronic neck pain chronic August 272024 9:25am Female infertility unexplain ed after evaluation chronic August 27, 2024 9:25am Seasonal allergies chronic August 042024 9:25am Constipation resolved August 27 9:25am at early stage deleted August 27, 2024 9:25am Advanced maternal age (AMA) in acute September 10, 2024 1 0:38am Bleeding in early acute September 10, 2024 10:38am Breast lump in upper outer quadrant acute September 10, 2024 1 0:38am Endometriosis acute September 10 10:38am Pelvic pain acute September 10 10:38am acute September 10, 2024 10:38am Supervision of high-risk acute September 10, 2024 1 0:38am Chronic neck pain chronic September 10:38am Female infertility unexplain ed after evaluation chronic September 10, 2024 10:38am Seasonal allergies chronic September 102024 10:38am Constipation resolved September 10 10:38am at early stage deleted September 10, 2024 10:38am Advanced maternal age (AMA) in acute October 01, 2024 1:30pm acute October 01 1:30pm Supervision of high-risk acute October 01, 2024 1:30pm Constipation resolved October 01, 025 1:30pm Advanced maternal age (AMA) in acute October 13 8:22am Bleeding in early acute October 13, 2024 8:22am acute October 13, 025 8:22am Supervision of high-risk acute October 13 8:22am [facility] Work Phone: 1(359) 436-178205-23-2025 Evaluation note* Diagnosis Onset Date Resolution Status Admit Date Amenorrhea deleted July 25, 2024 12:57pm Advanced maternal age (AMA) in acute August 01, 2024 1 0:32am acute August 01, 2024 10:32am Supervision of high-risk acute August 01, 2024 1 0:32am Bleeding in early resolved August 01, 2024 10:32am Breast lump in upper outer quadrant resolved August 01, 2024 1 0:32am Chronic neck pain resolved July 10:32am Constipation resolved August 01 10:32am Endometriosis resolved August 01, 025 10:32am Female infertility unexplained after evaluation resolved August 01, 2024 10:32am Pelvic pain resolved August 01 10:32am Seasonal allergies resolved August 012024 10:32am Amenorrhea deleted August 01, 2024 10:32am Infertility deleted August 01 10:32am at early stage deleted August 01, 2024 10:32am Advanced maternal age (AMA) in acute August 08, 2024 1 1:31am acute August 08, 2024 11:31am Supervision of high-risk acute August 08, 2024 1 1:31am Bleeding in early resolved August 08, 2024 11:31am Breast lump in upper outer quadrant resolved August 08, 2024 1 1:31am Chronic neck pain resolved August 11:31am Constipation resolved August 08 11:31am Endometriosis resolved August 08 11:31am Female infertility unexplained after evaluation resolved Aug 11:31am Pelvic pain resolved August 08 11:31am Seasonal allergies resolved August 082024 11:31am at early stage deleted August 08, 2024 11:31am Advanced maternal age (AMA) in acute August 27, 2024 9:25am acute August 27 9:25am Supervision of high-risk acute August 27, 2024 9:25am Bleeding in early resolved August 27, 2024 9:25am Breast lump in upper outer quadrant resolved August 27, 2024 9:25am Chronic neck pain resolved August 272024 9:25am Constipation resolved August 27 9:25am Endometriosis resolved August 27, 2024 9:25am Female infertility unexplained after evaluation resolved Aug 9:25am Pelvic pain resolved August 27 9:25am Seasonal allergies resolved August 042024 9:25am at early stage deleted August 27, 2024 9:25am Advanced maternal age (AMA) in acute September 10, 2024 1 0:38am acute September 10, 2024 10:38am Supervision of high-risk acute September 10, 2024 1 0:38am Bleeding in early resolved September 10, 2024 10:38am Breast lump in upper outer quadrant resolved September 10, 2024 1 0:38am Chronic neck pain resolved September 10:38am Constipation resolved September 10 10:38am Endometriosis resolved September 10 10:38am Female infertility unexplained after evaluation resolved Sep 10:38am Pelvic pain resolved September 10 10:38am Seasonal allergies resolved September 102024 10:38am at early stage deleted September 10, 2024 10:38am Advanced maternal age (AMA) in acute October 01, 2024 1:30pm acute October 01 1:30pm Supervision of high-risk acute October 01, 2024 1:30pm Constipation resolved October 01 1:30pm Advanced maternal age (AMA) in acute October 13 8:22am acute October 13 025 8:22am Supervision of high-risk acute October 13 8:22am Bleeding in early resolved October 13, 2024 8:22am Advanced maternal age (AMA) in acute November 11 025 9:16am Low lying placenta, antepartum acute November 11 025 9:16am acute November 11, 2024 9:16am Supervision of high-risk acute November 11 9:16am [facility] Work Phone: 1(529) 352-789101-14-2025 [facility] Medical Records Department [address] [place] [address] History Physical Exam 03/18/24 1225 MR#: [id number] Acct: [id number] Name: PATRICIA DAVIES Rep #: [id number] : 1990 33 From: Jani Parham DO PCP: Dr. Mariya Bocanegra MD Status:[facility] Location: [place] [address] HPI - General General Date of Admission: 03/18/24 Date of Service: 03/18/24 Chief Complaint: Abdominal pain, bloating and constipation HPI Narrative PATRICIA DAVIES, is a 33 F who presents for colonoscopy to evaluate ongoing problems with abdominal pain and change in bowel habits. *BGI established 11.5.24 pt presents with a long history of episodes of constipation, nausea, gas/bloating, and severe abd pain. pt reports she has significantly changed her diet and is only having these episodes about twice a month. Pt reports these episodes last about 3-4 days. Pt reports that these episodes begin when she is unable to have a bm and then throughout the day will begin to have extreme abd aching and fullness that only heat and pressure will help. Pt reports when she is feeling well she is having a daily bm. [facility] Medical History Alcohol use Non-smoker Flu vaccine need Preventative health care Female infertility unexplained after evaluation Seasonal allergies Home Medications ???Medication ???Instructions ???Recorded ???Last Taken ???Type lactobacillus combo no.11 15 1 cap PO DAILY 01/17/23 03/16/24 History billion cell sprinkle capsule (Probiotic) calcium 600 mg (as 2 tab PO DAILY 03/14/24 03/16/24 History carbonate)-vitamin D3 5 mcg (200 unit) tablet (Calcium 600 + D(3)) Allergy/AdvReac Type Severity Reaction Status Date / Time No Known Allergies Allergy Verified 03/14/24 15:12 Family History Mother Cancer Aunt Breast cancer Grandfather Parkinson disease Grandmother Respiratory disease Surgical History H/O unilateral salpingectomy S/P laparoscopy History of tonsillectomy and adenoidectomy Social History household members: spouse and other details: adopted daughter Annabella Smoking Status: Never smoker alcohol intake: current alcohol intake frequency: a few times a month Alcohol type: wine substance use type: does not use caffeine: Yes what type of physical activity do you participate in: none seatbelt use: always do you feel safe at home: Yes additional social history: - Yoandy ROS Constitutional Constitutional: Denies fatigue, fever(s), poor appetite, weight gain or weight loss Gastrointestinal Gastrointestinal: Denies belching, bloating, change in bowel habits, change in stool character, chewing difficulty, coffee ground emesis, constipation, cramping, diarrhea, dyspepsia, dysphagia, early satiety, excessive flatus, fecal incontinence, heartburn, hematemesis, hematochezia, hemorrhoids, loose stools, melena, nausea, odynophagia, rectal bleeding, tenesmus, vomiting or weight changes Vital Signs Vital Signs Vital Signs: 03/18/24 11:15 03/18/24 11:16 03/18/24 11:44 Temperature 98.1 F 98.1 F Temperature Source Temporal Pulse Rate 78 78 Respiratory Rate 16 16 Respiratory Pattern Normal Blood Pressure 119/93 H 119/93 H Blood Pressure Mean 101 Blood Pressure Source Monitor Blood Pressure Position Sitting Blood Pressure Location Left Arm Pulse Ox 100 100 Oxygen Delivery Method Room Air Room Air Weight Weight: 103 lb 9.876 oz Body Mass Index (BMI) 17.7 Physical Exam Const alert, oriented x3, no apparent distress and healthy appearing General Appearance: cooperative GI normal to inspection, nondistended, normoactive bowel sounds, soft to palpation, non-tender and non- distended Percussion: normal to percussion Rectal Exam: deferred Results Lab / Micro Data Labs: Laboratory Results - last 24 hr 03/18/24 11:05: Urine Test Negative Assessment Plan Assessment/Plan (1) Abdominal pain: PLAN: (1) Abdominal symptoms: (2) Abdominal pain: Status: Chronic Plan: This is a very pleasant 33-year-old who comes in for the evaluation of abdominal pain that is gone on for a long time. It is not effective her weight. Sometimes it can vary with the food that she eats. Her is gluten-free because he has celiac disease so she has been maintaining a gluten-free diet also. She is struggled with some infertility issues. She denies any worsening stress abdominal pain or cramping. She did see electrical development engineer several years ago and she was diagnosed with IBS C and recommended that she take MiraLAX on a daily basis. She (more content not included)...[facility] note Author Marguerite Valencia [facility] Note Date/Time August 08, 2024 11:53 am [facility] [address] [place] [address], [address] [place] [address] OFFICE VISIT Date of Service: 08/08/24 MR#: [id number] Acct: [id number] Name: PATRICIA DAVIES Rep #: [id number] : 1990 Provider: ERIC Valencia Age/Sex: 34/F Location: [facility] Status: Signed Intake Vital Signs 08/01/24 10:36 08/08/24 11:34 08/08/24 11:36 Height 5 ft 4 in 5 ft 4 in 5 ft 4 in Weight: 111 lb 8 oz BMI 19.1 BP 113/74 Intake Visit 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 Operator Required: No Is patient in pain?: No Allergies No Known Allergies Allergy (Verified 08/08/24 11:34) Medications ?Medication ?Instructions ?Recorded ?Confirmed ?Type lactobacillus combo no.11 15 1 cap PO DAILY 01/17/23 0 08/08/24 History billion cell sprinkle capsule (Probiotic) calcium 600 mg (as 2 tab PO DAILY 03/14/2408/27 History carbonate)-vitamin D3 5 mcg (200 unit) tablet (Calcium 600 + D(3)) multivit-min no.71-iron fum 28 cap PO 07/25/24 5 History mg-folate no.1 1 mg-dha 300 mg capsule (PNV-Lakeside) progesterone micronized 100 mg 200 mg vaginal HS 10 we eks #60 ea 07/26/24 08/08/24 Rx vaginal insert ondansetron 4 mg disintegrating 4 mg PO Q6H PRN nausea and 08/01/24 08/08/24 Rx tablet vomiting #30 tabs Last Menstrual Period: 06/15/24 Zika: Zika virus screening: Negative : No PFSH PFSH Medical History Abdominal pain Alcohol use Non-smoker Flu vaccine need Preventative health care Female infertility unexplained after evaluation Seasonal allergies Surgical History H/O unilateral salpingectomy S/P laparoscopy History of tonsillectomy and adenoidectomy Family History Mother Cancer, Onset Age: 59 Dermafibroid sarcadoma Family history of recurrent miscarriage 2 losses one at 24 wks Aunt Breast cancer, Onset Age: 50 Maternal Grandfather Parkinson disease Maternal Grandmother Respiratory disease Paternal Social History adopted: No household members: spouse, children and other details: adopted daughter Annabella & son Asael housing: house number of children: 2 current occupation: [employer] pets and animals: Yes pets and animals: dog(s) history of recent travel: Yes ([place], [place], [place]) out of state: Yes out of country: No sexually active: Yes Smoking Status: Never smoker alcohol intake: current alcohol intake frequency: a few times a month Alcohol type: wine details: Not while substance use type: does not use diet: gluten free and lactose free well-balanced diet: daily or most days caffeine: No eating out: 1-3 times/week during the past year weight has: remained stable what type of physical activity do you participate in: none minh/mandaeism: Faith seatbelt use: always do you feel safe at home: Yes additional social history: - Yoandy History 1 Elective abortions Hx Para 0 Spontaneous abortions Hx # Term Pregnancies Ectopic pregnancies Hx # Pregnancies Multiple births # of living children Past Pregnancies Del. Date Name GA/Weeks Outcome Route Bth Weight Infant Gen Labor Lgth Anesthesia Del Locatn Provider FOB 03/23/18 Adopted- Annabella 11/05/21 Adopted- Asael HPI HEARTBEAT CHECK Details: PATRICIA DAVIES is a 34 year old who presents for routine OB visit. OB Visit DUANE Calculator Estimated Delivery Date Method Current WG Current Estimate 03/22/25 LMP (Certain) 7w 5d Other Estimates 03/24/25 Ultrasound #1 7w 3d Expected Delivery Route/Plan Labor Preferences- CB/BF classes: [] labor support person: [] labor intervention preferences: [] pain management options preferred: [] cut cord/dad catch: [] : [] PP control planned: [] discussed possible routes of delivery and associated risks: [] special requests: [] Specific Issue/Plans Covid status: [] Flu vaccine: [] Tdap vaccine: [] Rhogam: [] LARC form signed: [] Problem list reviewed and updated with the most current plan of care details and appropriate orders placed. Relevant counseling for the gestational age provided. Continue routine care and follow up unless otherwise noted in visit notes/problem list details Initial Weight: Not Recorded Date -?-?-?-?-?-?-?-?-?-?-?-?- EGA Weight BP Urine Prot -?-?-?-?-?-?-?-?-?-?-?-?- Glucose FHR FuHt Pres Dilation -?-?-?-?-?-?-?-?-?-?-?-?- Effaced St Visit Note 08/01/24 -?-?-?-?-?-?-?-?-?-?-?-?- 6w 5d 110 lb 4 oz 120/77 -?-?-?-?-?-?-?-?-?-?-?-?- 122 -?-?-?-?-?-?-?-?-?-?-?-?- JV- CRL is consi stent with LMP. desires NIPT. since had bleeding and has a .33 cm BRITNEY and is so early and has struggled with infertility for so long, will bring back weekly for heart beat checks. 08/08/24 -?-?-?-?-?-?-?-?-?-?-?-?- 7w 5d 111 lb 8 oz 113/74 Nega tive -?-?-?-?-?-?-?-?-?-?-?-?- Negative 154 -?-?-?-?-?-?-?-?-?-?-?-?- LC-no vb/crampin g since progesterone. ACOG First Trimester First Trimester: Desire for , Alcohol, Tobacco Cessation, Illicit/Recreational Drug/Substance Use, Intimate Partner Violence, Barriers to care, Unstable Housing, Communication Barriers, Environmental/Work Hazards, Anticipated Course of Care, Toxoplasmosis Precations, Use of Any medications, Sexual activity, Exercise, Dental Care, Sauna/Hot tub use, Seat Belt use, Childbirth classes/Hospital facilities, Travel, Indications for Ultrasound and Screening for Aneuploidy; Discussed ROS Const Reports system reviewed and no additional complaints, except as documented GI Denies nausea and Denies vomiting Denies urinary hesitancy and Denies urinary urgency Exam Const Orientation: alert, awake and oriented x3 Resp Effort & Inspection: normal respiratory effort, able to speak in complete sentences and symmetric chest movement GI Palpation: soft (gravid) OB/External & Speculum: other (fundus appriopriate for GA) Results POC Urinalysis 2 Dip (Clinic) Office Urine Glucose Negative Last Edit by Mariela Nguyen on 08/08/24 11: 47 Office Urine Protein Negative Last Edit by Mariela Nguyen on 08/08/24 11: 47 Coding Level of Care Code OB Routine Diagnoses Bleeding in early O20.9 Constipation K59.00 Advanced maternal age (AMA) in Supervision of high-risk O09.90 Less than 8 weeks gestation of Z3A.01 Weeks of gestation: less than 8 weeks at early stage Z34.90 Breast lump in upper outer quadrant N63.0 Endometriosis N80.9 Pelvic pain R10.2 Chronic neck pain M54.2; G89.29 Female infertility unexplained after evaluation N97.9 Seasonal allergies J30.2 Assessment and Plan Assessment and Plan (1) Bleeding in early : Status: Acute Comment: intrauterine on scan 07/26/24- started on progesterone suppositories 200 q hs for threatened (2) Constipation: Status: Acute (3) Advanced maternal age (AMA) in : Status: Acute (4) Supervision of high-risk : Status: Acute Comment: , DUANE 03/22/24, Adopted 2 children-Asael Winchester Yoandy (5) : Status: Acute Qualifiers: Weeks of gestation: less than 8 weeks Qualified Code(s): Z3A.01 - Less than 8 weeks gestation of Comment: discussed NIPT & Carrier testing- undecided (6) at early stage: Status: Acute (7) Breast lump in upper outer quadrant: Status: Acute (8) Endometriosis: Status: Acute (9) Pelvic pain: Status: Acute (10) Chronic neck pain: Status: Chronic (11) Female infertility unexplained after evaluation: Status: Chronic (12) Seasonal allergies: Status: Chronic Orders: Orders POC Urinalysis 2 Dip (Clinic) Today Plan Details Additional Comments: ACOG trimester education reviewed and updated. see problem list details for updated plan management information and see below for orders placed at this visit. GA appropriate handout given. 08/08/24 6913 <Electronically signed by Marguerite puckett CNM> Date _ Marguerite Valencia CNM Cosigner Signature: Date (if applicable) CC: ~ [facility] Work Phone: Progress note Author Mary Herndon [facility] Note Date/Time August 27, 2024 10:1 8am [facility] [address] [place] [address], [address] [place] [address] OFFICE VISIT Date of Service: 08/27/24 MR#: [id number] Acct: [id number] Name: PATRICIA DAVIES Rep #: [id number] : 1990 Provider: Dr. Marcelina Alicia DO Age/Sex: 34/F Location: [facility] Status: Signed Intake Vital Signs 07/24/24 12:53 08/08/24 11:36 08/27/24 09:26 08/27/24 09:28 Height 5 ft 4 in 5 ft 4 in 5 ft 4 in 5 ft 4 in Weight: 109 lb 4 oz BMI 18.7 BP 111/72 Intake Visit Reasons: 10 wk ob Tetryl Dissolver Operator Required: No Is patient in pain?: No Allergies No Known Allergies Allergy (Verified 08/27/24 09:26) Medications ?Medication ?Instructions ?Recorded ?Confirmed ?Type lactobacillus combo no.11 15 1 cap PO DAILY 01/17/23 0 08/27/24 History billion cell sprinkle capsule (Probiotic) calcium 600 mg (as 2 tab PO DAILY 03/14/2408/04 History carbonate)-vitamin D3 5 mcg (200 unit) tablet (Calcium 600 + D(3)) multivit-min no.71-iron fum 28 cap PO 07/25/24 5 History mg-folate no.1 1 mg-dha 300 mg capsule (PNV-Lakeside) progesterone micronized 100 mg 200 mg vaginal HS 10 we eks #60 ea 07/26/24 08/27/24 Rx vaginal insert ondansetron 4 mg disintegrating 4 mg PO Q6H PRN nausea and 08/01/24 08/27/24 Rx tablet vomiting #30 tabs Last Menstrual Period: 06/15/24 Zika: Zika virus screening: Negative : No PFSH PFSH Medical History Abdominal pain Alcohol use Non-smoker Flu vaccine need Preventative health care Female infertility unexplained after evaluation Seasonal allergies Surgical History H/O unilateral salpingectomy S/P laparoscopy History of tonsillectomy and adenoidectomy Family History Mother Cancer, Onset Age: 59 Dermafibroid sarcadoma Family history of recurrent miscarriage 2 losses one at 24 wks Aunt Breast cancer, Onset Age: 50 Maternal Grandfather Parkinson disease Maternal Grandmother Respiratory disease Paternal Social History adopted: No household members: spouse, children and other details: adopted daughter Annabella & son Asael housing: house number of children: 2 current occupation: [employer] pets and animals: Yes pets and animals: dog(s) history of recent travel: Yes ([place], [place], [place]) out of state: Yes out of country: No sexually active: Yes Smoking Status: Never smoker alcohol intake: current alcohol intake frequency: a few times a month Alcohol type: wine details: Not while substance use type: does not use diet: gluten free and lactose free well-balanced diet: daily or most days caffeine: No eating out: 1-3 times/week during the past year weight has: remained stable what type of physical activity do you participate in: none minh/mandaeism: Faith seatbelt use: always do you feel safe at home: Yes additional social history: - Yoandy History 1 Elective abortions Hx Para 0 Spontaneous abortions Hx # Term Pregnancies Ectopic pregnancies Hx # Pregnancies Multiple births # of living children Past Pregnancies Del. Date Name GA/Weeks Outcome Route Bth Weight Infant Gen Labor Lgth Anesthesia Del Locatn Provider FOB 03/23/18 Adopted- Annabella 11/05/21 Adopted- Asael HPI 10 wk ob Details: PATRICIA DAVIES is a 34 year old who presents for routine OB visit. OB Visit DUANE Calculator Estimated Delivery Date Method Current WG Current Estimate 03/22/25 LMP (Certain) 10w 3d Other Estimates 03/24/25 Ultrasound #1 10w 1d Expected Delivery Route/Plan Labor Preferences- CB/BF classes: [] labor support person: [] labor intervention preferences: [] pain management options preferred: [] cut cord/dad catch: [] : [] PP control planned: [] discussed possible routes of delivery and associated risks: [] special requests: [] Specific Issue/Plans Covid status: [] Flu vaccine: [] Tdap vaccine: [] Rhogam: [] LARC form signed: [] Problem list reviewed and updated with the most current plan of care details and appropriate orders placed. Relevant counseling for the gestational age provided. Continue routine care and follow up unless otherwise noted in visit notes/problem list details Initial Weight: Not Recorded Date -?-?-?-?-?-?-?-?-?-?-?-?- EGA Weight BP Urine Prot -?-?-?-?-?-?-?-?-?-?-?-?- Glucose FHR FuHt Pres Dilation -?-?-?-?-?-?-?-?-?-?-?-?- Effaced St Visit Note 08/01/24 -?-?-?-?-?-?-?-?-?-?-?-?- 6w 5d 110 lb 4 oz 120/77 -?-?-?-?-?-?-?-?-?-?-?-?- 122 -?-?-?-?-?-?-?-?-?-?-?-?- JV- CRL is consi stent with LMP. desires NIPT. since had bleeding and has a .33 cm BRITNEY and is so early and has struggled with infertility for so long, will bring back weekly for heart beat checks. 08/08/24 -?-?-?-?-?-?-?-?-?-?-?-?- 7w 5d 111 lb 8 oz 113/74 Nega tive -?-?-?-?-?-?-?-?-?-?-?-?- Negative 154 -?-?-?-?-?-?-?-?-?-?-?-?- LC-no vb/crampin g since progesterone. 08/27/24 -?-?-?-?-?-?-?-?-?-?-?-?- 10w 3d 109 lb 4 oz 111/72 -?-?-?-?-?-?-?-?-?-?-?-?- 170 -?-?-?-?-?-?-?-?-?-?-?-?- JV- no further c ramping or spotting. states does not feel . nateral and PNL today. pt reassured by bedsde ultrasound. CRL measuring 10 week. overall looking great! ACOG First Trimester First Trimester: Desire for , Alcohol, Tobacco Cessation, Illicit/Recreational Drug/Substance Use, Intimate Partner Violence, Barriers to care, Unstable Housing, Communication Barriers, Environmental/Work Hazards, Anticipated Course of Care, Toxoplasmosis Precations, Use of Any medications, Sexual activity, Exercise, Dental Care, Sauna/Hot tub use, Seat Belt use, Childbirth classes/Hospital facilities, Travel, Indications for Ultrasound and Screening for Aneuploidy; Discussed Coding Level of Care Code OB Routine Diagnoses Bleeding in early O20.9 Constipation K59.00 Advanced maternal age (AMA) in Supervision of high-risk O09.90 10 weeks gestation of Z3A.10 Weeks of gestation: 10 weeks at early stage Z34.90 Breast lump in upper outer quadrant N63.0 Endometriosis N80.9 Pelvic pain R10.2 Chronic neck pain M54.2; G89.29 Female infertility unexplained after evaluation N97.9 Seasonal allergies J30.2 Assessment and Plan Assessment and Plan (1) Bleeding in early : Status: Acute Comment: intrauterine on scan 07/26/24- started on progesterone suppositories 200 q hs for threatened (2) Constipation: Status: Acute (3) Advanced maternal age (AMA) in : Status: Acute (4) Supervision of high-risk : Status: Acute Comment: , DUANE 03/22/24, Adopted 2 children-Asael Winchester Yoandy (5) : Status: Acute Qualifiers: Weeks of gestation: 10 weeks Qualified Code(s): Z3A.10 - 10 weeks gestation of Comment: discussed NIPT & Carrier testing- undecided (6) at early stage: Status: Acute (7) Breast lump in upper outer quadrant: Status: Acute (8) Endometriosis: Status: Acute (9) Pelvic pain: Status: Acute (10) Chronic neck pain: Status: Chronic (11) Female infertility unexplained after evaluation: Status: Chronic (12) Seasonal allergies: Status: Chronic Orders: Orders POC Urinalysis 2 Dip (Clinic) Today 08/27/24 1018 <Electronically signed by Mary Pimentel DO> Date _ Mary Alicia DO Cosigner Signature: Date (if applicable) CC: ~ [facility] Work Phone: Progress note Author Stephy King [facility] Note Date/Time October 13, 2024 8: 46am [facility] [address], [address] [place] [address] OFFICE VISIT Date of Service: 10/13/24 MR#: [id number] Acct: [id number] Name: PATRICIA DAVIES Rep #: [id number] : 1990 Provider: RUPAL King Age/Sex: 34/F Location: [facility] Status: Signed Intake Vital Signs 09/10/24 10:40 10/01/24 13:40 10/13/24 08:26 Height 5 ft 4 in 5 ft 4 in 5 ft 4 in Weight: 117 lb 3 oz BMI 20.1 BP 109/64 Intake Visit Reasons: 16 wk ob Tetryl Dissolver Operator Required: No Is patient in pain?: No Allergies No Known Allergies Allergy (Verified 10/13/24 08:26) Medications ?Medication ?Instructions ?Recorded ?Confirmed ?Type lactobacillus combo no.11 15 1 cap PO DAILY 01/17/23 0 10/13/24 History billion cell sprinkle capsule (Probiotic) calcium 600 mg (as 2 tab PO DAILY 03/14/2410/03 History carbonate)-vitamin D3 5 mcg (200 unit) tablet (Calcium 600 + D(3)) multivit-min no.71-iron fum 28 cap PO 05/23/25 08/11/2 5 History mg-folate no.1 1 mg-dha 300 mg capsule (PNV-Lakeside) progesterone micronized 100 mg 200 mg vaginal HS 10 we eks #60 ea 07/26/24 10/13/24 Rx vaginal insert ondansetron 4 mg disintegrating 4 mg PO Q6H PRN nausea and 08/01/24 10/13/24 Rx tablet vomiting #30 tabs Last Menstrual Period: 06/15/24 Zika: Zika virus screening: Negative : No Have you fallen in the past year?: No PFSH PFSH Medical History Abdominal pain Alcohol use Non-smoker Flu vaccine need Preventative health care Female infertility unexplained after evaluation Seasonal allergies Surgical History H/O unilateral salpingectomy S/P laparoscopy History of tonsillectomy and adenoidectomy Family History Mother Cancer, Onset Age: 59 Dermafibroid sarcadoma Family history of recurrent miscarriage 2 losses one at 24 wks Aunt Breast cancer, Onset Age: 50 Maternal Grandfather Parkinson disease Maternal Grandmother Respiratory disease Paternal Social History adopted: No household members: spouse, children and other details: adopted daughter Annabella & son Asael housing: house number of children: 2 current occupation: [employer] pets and animals: Yes pets and animals: dog(s) history of recent travel: Yes ([place], [place], [place]) out of state: Yes out of country: No sexually active: Yes Smoking Status: Never smoker alcohol intake: current alcohol intake frequency: a few times a month Alcohol type: wine details: Not while substance use type: does not use diet: gluten free and lactose free well-balanced diet: daily or most days caffeine: No eating out: 1-3 times/week during the past year weight has: remained stable what type of physical activity do you participate in: none minh/mandaeism: Faith seatbelt use: always do you feel safe at home: Yes additional social history: - Yoandy History 1 Elective abortions Hx Para 0 Spontaneous abortions Hx # Term Pregnancies Ectopic pregnancies Hx # Pregnancies Multiple births # of living children Past Pregnancies Del. Date Name GA/Weeks Outcome Route Bth Weight Infant Gen Labor Lgth Anesthesia Del Locatn Provider MALIK 03/23/18 Adopted- Annabella 11/05/21 Adopted- Asael HPI 16 wk ob Details: PATRICIA DAVIES is a 34 year old who presents for routine OB visit. OB Visit DUANE Calculator Estimated Delivery Date Method Current WG Current Estimate 03/22/25 LMP (Certain) 17w 1d Other Estimates 03/24/25 Ultrasound #1 16w 6d Expected Delivery Route/Plan Labor Preferences- CB/BF classes: [] labor support person: [] labor intervention preferences: [] pain management options preferred: [] cut cord/dad catch: [] : [] PP control planned: [] discussed possible routes of delivery and associated risks: [] special requests: [] Specific Issue/Plans Covid status: [] Flu vaccine: [] Tdap vaccine: [] Rhogam: [] LARC form signed: [] Problem list reviewed and updated with the most current plan of care details and appropriate orders placed. Relevant counseling for the gestational age provided. Continue routine care and follow up unless otherwise noted in visit notes/problem list details Initial Weight: Not Recorded Date -?-?-?-?-?-?-?-?-?-?-?-?- EGA Weight BP Urine Prot -?-?-?-?-?-?-?-?-?-?-?-?- Glucose FHR FuHt Pres Dilation -?-?-?-?-?-?-?-?-?-?-?-?- Effaced St Visit Note 08/01/24 -?-?-?-?-?-?-?-?-?-?-?-?- 6w 5d 110 lb 4 oz 120/77 -?-?-?-?-?-?-?-?-?-?-?-?- 122 -?-?-?-?-?-?-?-?-?-?-?-?- JV- CRL is consi stent with LMP. desires NIPT. since had bleeding and has a .33 cm BRITNEY and is so early and has struggled with infertility for so long, will bring back weekly for heart beat checks. 08/08/24 -?-?-?-?-?-?-?-?-?-?-?-?- 7w 5d 111 lb 8 oz 113/74 Nega tive -?-?-?-?-?-?-?-?-?-?-?-?- Negative 154 -?-?-?-?-?-?-?-?-?-?-?-?- LC-no vb/crampin g since progesterone. 08/27/24 -?-?-?-?-?-?-?-?-?-?-?-?- 10w 3d 109 lb 4 oz 111/72 Nega tive -?-?-?-?-?-?-?-?-?-?-?-?- Negative 170 -?-?-?-?-?-?-?-?-?-?-?-?- JV- no further c ramping or spotting. states does not feel . nateral and PNL today. pt reassured by bedsde ultrasound. CRL measuring 10 week. overall looking great! 09/10/24 -?-?-?-?-?-?-?-?-?-?-?-?- 12w 3d 112 lb 109/69 Negative -?-?-?-?-?-?-?-?-?-?-?-?- Negative 163 -?-?-?-?-?-?-?-?-?-?-?-?- JV- no complaint s today. CRL measuring 12 weeks. has anatomy scan scheduled. having a boy! low risk NIPT. 10/01/24 -?-?-?-?-?-?-?-?-?-?-?-?- 15w 3d 114 lb 107/67 Negative -?-?-?-?-?-?-?-?-?-?-?-?- Negative 159 -?-?-?-?-?-?-?-?-?-?-?-?- -work in for i ncreased pelvic cramping. No VB. UA negative. Reassured. 10/13/24 -?-?-?-?-?-?-?-?-?-?-?-?- 17w 1d 117 lb 3 oz 109/64 Nega tive -?-?-?-?-?-?-?-?-?-?-?-?- Negative 153 -?-?-?-?-?-?-?-?-?-?-?-?- MH-No Vb. No fl utters yet. Denies concerns ACOG First Trimester First Trimester: Desire for , Alcohol, Tobacco Cessation, Illicit/Recreational Drug/Substance Use, Intimate Partner Violence, Barriers to care, Unstable Housing, Communication Barriers, Environmental/Work Hazards, Anticipated Course of Care, Toxoplasmosis Precations, Use of Any medications, Sexual activity, Exercise, Dental Care, Sauna/Hot tub use, Seat Belt use, Childbirth classes/Hospital facilities, Travel, Indications for Ultrasound and Screening for Aneuploidy; Discussed ROS Const Reports system reviewed and no additional complaints, except as documented GI Denies abdominal pain, Denies nausea and Denies vomiting Exam Const General: cooperative Nutritional Appearance: well nourished GI Palpation: soft, nontender and other (gravid) Results POC Urinalysis 2 Dip (Clinic) Office Urine Glucose Negative Last Edit by Brianna Hall on 10/13/24 08:33 Office Urine Protein Negative Last Edit by Brianna Hall on 10/13/24 08:33 Coding Level of Care Code OB Routine Diagnoses Supervision of high risk in second trimester O09.92 Trimester: second trimester Bleeding in early O20.9 Advanced maternal age (AMA) in 17 weeks gestation of Z3A.17 Weeks of gestation: 17 weeks Assessment and Plan Assessment and Plan (1) Supervision of high-risk : Status: Acute Qualifiers: Trimester: second trimester Qualified Code(s): O09.92 - Supervision of high risk , unspecified, second trimester Comment: , DUANE 03/22/24, Adopted 2 children-Asael Winchester Yoandy (2) Bleeding in early : Status: Acute Comment: intrauterine on scan 07/26/24- started on progesterone suppositories 200 q hs for threatened . Stopped at 16 wk (3) Advanced maternal age (AMA) in : Status: Acute (4) : Status: Acute Qualifiers: Weeks of gestation: 17 weeks Qualified Code(s): Z3A.17 - 17 weeks gestation of Comment: NIPT low risk, carrier neg. Orders: Orders POC Urinalysis 2 Dip (Clinic) Today Plan problem list reviewed and updated for most current plan of care and appropriate orders placed. Relevant counseling for the gestational age appropriate provided and ACOG education checklist updated. Continue routine care and follow up. Clinical Quality Measures Falls Risk Screening/Assistive Devices Have you fallen in the past year?: No 10/13/24 0846 <Electronically signed by Stephy cuellar COUGAR HUNTER COUGAR HUNTER-C> Date _ Stephy King NP COUGAR HUNTER-C Cosigner Signature: Date (if applicable) CC: ~ [facility] Work Phone: Progress note Author Ashley Joseph [facility] Note Date/Time December 08, 2024 10 :41am [facility] [address], [address] [address] OFFICE VISIT Date of Service: 12/08/24 MR#: [id number] Acct: [id number] Name: JORGEDONPATRICIA BENSON Rep #: [id number] : 1990 Provider: ERIC Joseph Age/Sex: 34/F Location: [facility] Status: Signed Intake Vital Signs 10/01/24 13:40 11/11/24 09:29 12/08/24 10:23 Height 5 ft 4 in 5 ft 4 in 5 ft 4 in Weight: 126 lb 5 oz BMI 21.7 BP 107/74 Intake Visit Reasons: 25 WK OB Chief Complaint: 25wk OB Tetryl Dissolver Operator Required: No Is patient in pain?: No Allergies No Known Allergies Allergy (Verified 12/08/24 10:22) Medications ?Medication ?Instructions ?Recorded ?Confirmed ?Type lactobacillus combo no.11 15 1 cap PO DAILY 01/17/23 1 History billion cell sprinkle capsule (Probiotic) calcium 600 mg (as 2 tab PO DAILY 03/14/2408/27 History carbonate)-vitamin D3 5 mcg (200 unit) tablet (Calcium 600 + D(3)) multivit-min no.71-iron fum 28 cap PO 07/25/24 5 History mg-folate no.1 1 mg-dha 300 mg capsule (PNV-[place]) Last Menstrual Period: 06/15/24 : No Have you fallen in the past year?: No PFSH PFSH Medical History Abdominal pain Alcohol use Non-smoker Flu vaccine need Preventative health care Female infertility unexplained after evaluation Seasonal allergies Surgical History H/O unilateral salpingectomy S/P laparoscopy History of tonsillectomy and adenoidectomy Family History Mother Cancer, Onset Age: 59 Dermafibroid sarcadoma Family history of recurrent miscarriage 2 losses one at 24 wks Aunt Breast cancer, Onset Age: 50 Maternal Grandfather Parkinson disease Maternal Grandmother Respiratory disease Paternal Social History adopted: No household members: spouse, children and other details: adopted daughter Annabella & son Asael housing: house number of children: 2 current occupation: [employer] pets and animals: Yes pets and animals: dog(s) history of recent travel: Yes ([place], [place], [place]) out of state: Yes out of country: No sexually active: Yes Smoking Status: Never smoker alcohol intake: current alcohol intake frequency: a few times a month Alcohol type: wine details: Not while substance use type: does not use diet: gluten free and lactose free well-balanced diet: daily or most days caffeine: No eating out: 1-3 times/week during the past year weight has: remained stable what type of physical activity do you participate in: none minh/mandaeism: Faith seatbelt use: always do you feel safe at home: Yes additional social history: - Yoandy History 1 Elective abortions Hx Para 0 Spontaneous abortions Hx # Term Pregnancies Ectopic pregnancies Hx # Pregnancies Multiple births # of living children Past Pregnancies Del. Date Name GA/Weeks Outcome Route Bth Weight Gen Labor Lgth Anesthesia Del Locatn Provider MALIK 03/23/18 Adopted- Annabella 11/05/21 Adopted- Vyas HPI 25 WK OB Details: PATRICIA DAVIES is a 34 year old who presents for routine OB visit. OB Visit DUANE Calculator Estimated Delivery Date Method Current WG Current Estimate 03/22/25 LMP (Certain) 25w 1d Other Estimates 03/24/25 Ultrasound #1 24w 6d Expected Delivery Route/Plan Labor Preferences- CB/BF classes: [] labor support person: [] labor intervention preferences: [] pain management options preferred: [] cut cord/dad catch: [] : [] PP control planned: [] discussed possible routes of delivery and associated risks: [] special requests: [] Specific Issue/Plans Covid status: [] Flu vaccine: [] Tdap vaccine: [] Rhogam: [] LARC form signed: [] Problem list reviewed and updated with the most current plan of care details and appropriate orders placed. Relevant counseling for the gestational age provided. Continue routine care and follow up unless otherwise noted in visit notes/problem list details Initial Weight: Not Recorded Date -?-?-?-?-?-?-?-?-?-?-?-?- EGA Weight BP Urine Prot -?-?-?-?-?-?-?-?-?-?-?-?- Glucose FHR FuHt Pres Dilation -?-?-?-?-?-?-?-?-?-?-?-?- Effaced St Visit Note 08/01/24 -?-?-?-?-?-?-?-?-?-?-?-?- 6w 5d 110 lb 4 oz 120/77 -?-?-?--?-?-?-?-?-?-?-?-?- 122 -?-?-?-?-?-?-?-?-?-?-?-?- JV- CRL is consi stent with LMP. desires NIPT. since had bleeding and has a .33 cm BRINTEY and is so early and has struggled with infertility for so long, will bring back weekly for heart beat checks. 08/08/24 -?-?-?-?-?-?-?-?-?-?-?-?- 7w 5d 111 lb 8 oz 113/74 Nega tive -?-?-?-?-?-?-?--?-?-?-?-?- Negative 154 -?-?-?-?-?-?-?-?-?-?-?-?- LC-no vb/crampin g since progesterone. 08/27/24 -?-?-?-?-?-?-?-?-?-?-?-?- 10w 3d 109 lb 4 oz 111/72 Nega tive -?-?-?-?-?-?-?-?-?-?-?-?- Negative 170 -?-?-?-?-?-?-?-?-?-?-?-?- JV- no further c ramping or spotting. states does not feel . nateral and PNL today. pt reassured by bedsde ultrasound. CRL measuring 10 week. overall looking great! 09/10/24 -?-?-?-?-?-?-?-?-?-?-?-?- 12w 3d 112 lb 109/69 Negative -?-?-?-?-?-?-?-?-?-?-?-?- Negative 163 -?-?-?-?-?-?-?-?-?-?-?-?- JV- no complaint s today. CRL measuring 12 weeks. has anatomy scan scheduled. having a boy! low risk NIPT. 10/01/24 -?-?-?-?-?-?-?-?-?-?-?-?- 15w 3d 114 lb 107/67 Negative -?-?-?-?-?-?-?-?-?-?-?-?- Negative 159 -?-?-?-?--?-?-?-?-?-?-?-?- -work in for i ncreased pelvic cramping. No VB. UA negative. Reassured. 10/13/24 -?-?-?-?-?-?-?-?-?-?-?-?- 17w 1d 117 lb 3 oz 109/64 Nega tive -?-?-?-?-?-?-?-?-?-?-?-?- Negative 153 -?-?-?-?-?-?-?-?-?-?-?-?- MH-No Vb. No fl utters yet. Denies concerns 11/11/24 -?-?-?-?-?-?-?-?-?-?-?-?- 21w 2d 122 lb 3 oz 110/72 Nega tive -?-?-?-?-?-?-?-?-?-?-?-?- Negative 145 21 -?-?-?-?-?-?-?-?-?-?-?-?- SM- no vb lof go od fm sometimes no regular ctx discussed low lying plcaenta, discussed afp- to decide. 12/08/24 -?-?-?-?-?-?-?-?-?-?-?-?- 25w 1d 126 lb 5 oz 107/74 Nega tive -?-?-?-?-?-?-?-?-?-?-?-?- Negative 145 25 -?-?-?-?-?-?-?-?-?-?-?-?- KW- no vb/lof/ct x. good fm. doing well. has US scheduled and discussed glucose labs ACOG First Trimester First Trimester: Desire for , Alcohol, Tobacco Cessation, Illicit/Recreational Drug/Substance Use, Intimate Partner Violence, Barriers to care, Unstable Housing, Communication Barriers, Environmental/Work Hazards, Anticipated Course of Care, Toxoplasmosis Precations, Use of Any medications, Sexual activity, Exercise, Dental Care, Sauna/Hot tub use, Seat Belt use, Childbirth classes/Hospital facilities, Travel, Indications for Ultrasound and Screening for Aneuploidy; Discussed ROS Const Reports system reviewed and no additional complaints, except as documented Eyes Reports system reviewed and no additional complaints, except as documented ENT Reports system reviewed and no additional complaints, except as documented Card Reports system reviewed and no additional complaints, except as documented Resp Reports system reviewed and no additional complaints, except as documented GI Reports system reviewed and no additional complaints, except as documented, Denies nausea and Denies vomiting Reports system reviewed and no additional complaints, except as documented Musc Reports system reviewed and no additional complaints, except as documented Skin/Breast Reports system reviewed and no additional complaints, except as documented Neuro Yes system reviewed and no additional complaints, except as documented Psych Reports system reviewed and no additional complaints, except as documented Endo Reports system reviewed and no additional complaints, except as documented Jose/Lymph Reports system reviewed and no additional complaints, except as documented Aller/Immun Reports system reviewed and no additional complaints, except as documented Exam Const General: cooperative, healthy appearing and no acute distress Orientation: alert, awake and oriented x3 Neck Neck: normal visual inspection and full ROM Resp Effort & Inspection: normal respiratory effort, able to speak in complete sentences and symmetric chest movement GI Inspection: normal to inspection Palpation: soft and other Other: gravid Skin General: no rashes or lesions noted Neuro General: patient alert, patient awake and patient oriented x3 Cognition: normal cognition Speech: speech normal Gait: normal gait Motor: muscle tone normal throughout Extrem General: normal to inspection and full ROM Psych Appearance: grossly normal Mental Status: mental status grossly normal Mood: congruent mood Affect: normal affect Speech and Movement: speech and movement normal Attitude: cooperative Thought Process: normal Thought Content: normal Judgment: judgment good Results POC Urinalysis 2 Dip (Clinic) Office Urine Glucose Negative Last Edit by Lucia Wyatt on 12/08/24 10:33 Office Urine Protein Negative Last Edit by Lucia Wyatt on 12/08/24 10:33 Coding Level of Care Code OB Routine Diagnoses Low lying placenta, antepartum O44.40 Advanced maternal age (AMA) in Supervision of high risk in second trimester O09.92 Trimester: second trimester 25 weeks gestation of Z3A.25 Weeks of gestation: 25 weeks Assessment and Plan Assessment and Plan (1) Low lying placenta, antepartum: Status: Acute Comment: <2cm from cervix. Pelvic rest. Rpt US 28 wk (2) Advanced maternal age (AMA) in : Status: Acute Comment: deliver by 39 and 36 weeks growth US (3) Supervision of high-risk : Status: Acute Qualifiers: Trimester: second trimester Qualified Code(s): O09.92 - Supervision of high risk , unspecified, second trimester Comment: PRR , DUANE 03/22/24, boy Adopted 2 children-Asael Winchester Yoandy (4) : Status: Acute Qualifiers: Weeks of gestation: 25 weeks Qualified Code(s): Z3A.25 - 25 weeks gestation of Comment: NIPT low risk, carrier neg. . nl anatomy undecided about afp screen. Orders: Orders POC Urinalysis 2 Dip (Clinic) Today O09.92 - Supervision of high risk , unspecified, second trimester, Z3A.25 - 25 weeks gestation of CBC W/Diff, Automated Today O09.92 - Supervision of high risk , unspecified, second trimester, Z3A.25 - 25 weeks gestation of Glucose Challenge Gest 1H 50g Today O09.92 - Supervision of high risk , unspecified, second trimester, Z13.1 - Encounter for screening for diabetes mellitus, Z3A.25 - 25 weeks gestation of HIV Today O09.92 - Supervision of high risk , unspecified, second trimester, Z3A.25 - 25 weeks gestation of Syphilis Antibodies Today O09.92 - Supervision of high risk , unspecified, second trimester, Z3A.25 - 25 weeks gestation of Plan Details Additional Comments: ACOG trimester education reviewed and updated. see problem list details for updated plan management information and see below for orders placed at this visit. GA appropriate handout given. Clinical Quality Measures Falls Risk Screening/Assistive Devices Have you fallen in the past year?: No 12/08/24 1043 <Electronically signed by Ashley cuellar CNM> Date _ Ashley Joseph CNM Cosigner Signature: Date (if applicable) CC: ~ [facility] Work Phone: Reason for referral (narrative)No reason for referral information availableWPark[facility] Work Phone: Chief Complaint and Reason for Visit Chief Complaint Admit Date Pre new ob, confirmation, vitals July 12:57pm bleeding in July 26, 2024 8:2 0am Reason for Visit Admit Date Amenorrhea July 25, 2024 12:57 pm Chief Complaint Admit Date Pre new ob, confirmation, vitals July 12:57pm bleeding in July 26, 2024 8:2 0am New OB! LMP 06/15, DUANE 03/22, hx infertili ty August 01, 2024 10:32am Reason for Visit Admit Date Amenorrhea July 25, 2024 12:57 pm Advanced maternal age (AMA) in August 01, 2024 10:32am Bleeding in early August 01 10:32am Breast lump in upper outer quadrant August 01, 2024 10:32am Constipation August 01, 2024 10:32 am Endometriosis August 01, 2024 10:32 am Pelvic pain August 01, 2024 10:32 am August 01, 2024 10:32 am at early stage August 01, 2024 10:32am Supervision of high-risk July 052024 10:32am Chronic neck pain August 01, 2024 10:32 am Female infertility unexplained after oly luation August 01, 2024 10:32am Seasonal allergies August 01, 2024 10:32 am Amenorrhea August 01, 2024 10:32 am Infertility August 01, 2024 10:32 am Chief Complaint Admit Date Pre new ob, confirmation, vitals July 12:57pm bleeding in July 26, 2024 8:2 0am New OB! LMP 06/15, DUANE 03/22, hx infertili ty August 01, 2024 10:32am HEARTBEAT CHECK August 08, 2024 11:31 am Reason for Visit Admit Date Amenorrhea July 25, 2024 12:57 pm Advanced maternal age (AMA) in August 01, 2024 10:32am Bleeding in early August 01 10:32am Breast lump in upper outer quadrant August 01, 2024 10:32am Constipation August 01, 2024 10:32 am Endometriosis August 01, 2024 10:32 am Pelvic pain August 01, 2024 10:32 am August 01, 2024 10:32 am at early stage August 01, 2024 10:32am Supervision of high-risk July 052024 10:32am Chronic neck pain August 01, 2024 10:32 am Female infertility unexplained after oly luation August 01, 2024 10:32am Seasonal allergies August 01, 2024 10:32 am Amenorrhea August 01, 2024 10:32 am Infertility August 01, 2024 10:32 am Advanced maternal age (AMA) in August 08, 2024 11:31am Bleeding in early August 08 11:31am Breast lump in upper outer quadrant August 08, 2024 11:31am Constipation August 08, 2024 11:31 am Endometriosis August 08, 2024 11:31 am Pelvic pain August 08, 2024 11:31 am August 08, 2024 11:31 am at early stage August 08, 2024 11:31am Supervision of high-risk August 08, 2024 11:31am Chronic neck pain August 08, 2024 11:31 am Female infertility unexplained after oly luation August 08, 2024 11:31am Seasonal allergies August 08, 2024 11:31 am Chief Complaint Admit Date Pre new ob, confirmation, vitals July 12:57pm bleeding in July 26, 2024 8:2 0am New OB! LMP 4/13, DUANE /, hx infertili ty August 01, 2024 10:32am HEARTBEAT CHECK August 08, 2024 11:31 am 10 wk ob August 27, 2024 9:25 am Reason for Visit Admit Date Amenorrhea July 25, 2024 12:57 pm Advanced maternal age (AMA) in August 01, 2024 10:32am Bleeding in early August 01 10:32am Breast lump in upper outer quadrant August 01, 2024 10:32am Constipation August 01, 2024 10:32 am Endometriosis August 01, 2024 10:32 am Pelvic pain August 01, 2024 10:32 am August 01, 2024 10:32 am at early stage August 01, 2024 10:32am Supervision of high-risk July 052024 10:32am Chronic neck pain August 01, 2024 10:32 am Female infertility unexplained after oly luation August 01, 2024 10:32am Seasonal allergies August 01, 2024 10:32 am Amenorrhea August 01, 2024 10:32 am Infertility August 01, 2024 10:32 am Advanced maternal age (AMA) in August 08, 2024 11:31am Bleeding in early August 08 11:31am Breast lump in upper outer quadrant August 08, 2024 11:31am Constipation August 08, 2024 11:31 am Endometriosis August 08, 2024 11:31 am Pelvic pain August 08, 2024 11:31 am August 08, 2024 11:31 am at early stage August 08, 2024 11:31am Supervision of high-risk August 08, 2024 11:31am Chronic neck pain August 08, 2024 11:31 am Female infertility unexplained after oly luation August 08, 2024 11:31am Seasonal allergies August 08, 2024 11:31 am Advanced maternal age (AMA) in August 27, 2024 9:25am Bleeding in early August 27 9:25am Breast lump in upper outer quadrant August 27, 2024 9:25am Constipation August 27, 2024 9:25 am Endometriosis August 27, 2024 9:25 am Pelvic pain August 27, 2024 9:25 am August 27, 2024 9:25 am at early stage August 27, 2024 9:25am Supervision of high-risk August 27, 2024 9:25am Chronic neck pain August 27, 2024 9:25 am Female infertility unexplained after oly luation August 27, 2024 9:25am Seasonal allergies August 27, 2024 9:25 am Chief Complaint Admit Date Pre new ob, confirmation, vitals July 12:57pm bleeding in July 26, 2024 8:2 0am New OB! LMP 06/15, DUANE 03/22, hx infertili ty August 01, 2024 10:32am HEARTBEAT CHECK August 08, 2024 11:31 am 10 wk ob August 27, 2024 9:25 am 12 wk ob recheck September 10, 2024 10:38 am Reason for Visit Admit Date Amenorrhea July 25, 2024 12:57 pm Advanced maternal age (AMA) in August 01, 2024 10:32am Bleeding in early August 01 10:32am Breast lump in upper outer quadrant August 01, 2024 10:32am Constipation August 01, 2024 10:32 am Endometriosis August 01, 2024 10:32 am Pelvic pain August 01, 2024 10:32 am August 01, 2024 10:32 am at early stage August 01, 2024 10:32am Supervision of high-risk July 052024 10:32am Chronic neck pain August 01, 2024 10:32 am Female infertility unexplained after oly luation August 01, 2024 10:32am Seasonal allergies August 01, 2024 10:32 am Amenorrhea August 01, 2024 10:32 am Infertility August 01, 2024 10:32 am Advanced maternal age (AMA) in August 08, 2024 11:31am Bleeding in early August 08 11:31am Breast lump in upper outer quadrant August 08, 2024 11:31am Constipation August 08, 2024 11:31 am Endometriosis August 08, 2024 11:31 am Pelvic pain August 08, 2024 11:31 am August 08, 2024 11:31 am at early stage August 08, 2024 11:31am Supervision of high-risk August 08, 2024 11:31am Chronic neck pain August 08, 2024 11:31 am Female infertility unexplained after oly luation August 08, 2024 11:31am Seasonal allergies August 08, 2024 11:31 am Advanced maternal age (AMA) in August 27, 2024 9:25am Bleeding in early August 27, 2 025 9:25am Breast lump in upper outer quadrant August 27, 2024 9:25am Constipation August 27, 2024 9:25 am Endometriosis August 27, 2024 9:25 am Pelvic pain August 27, 2024 9:25 am August 27, 2024 9:25 am at early stage August 27, 2024 9:25am Supervision of high-risk August 27, 2024 9:25am Chronic neck pain August 27, 2024 9:25 am Female infertility unexplained after oly luation August 27, 2024 9:25am Seasonal allergies August 27, 2024 9:25 am Advanced maternal age (AMA) in September 10, 2024 10:38am Bleeding in early September 10 10:38am Breast lump in upper outer quadrant September 10, 2024 10:38am Constipation September 10, 2024 10:38 am Endometriosis September 10, 2024 10:38 am Pelvic pain September 10, 2024 10:38 am September 10, 2024 10:38 am at early stage September 10, 2024 10:38am Supervision of high-risk September 10, 2024 10:38am Chronic neck pain September 10, 2024 10:38 am Female infertility unexplained after oly luation September 10, 2024 10:38am Seasonal allergies September 10, 2024 10:38 am Chief Complaint Admit Date Pre new ob, confirmation, vitals July 12:57pm bleeding in July 26, 2024 8:2 0am New OB! LMP 06/15, DUANE 03/22, hx infertili ty August 01, 2024 10:32am HEARTBEAT CHECK August 08, 2024 11:31 am 10 wk ob August 27, 2024 9:25 am 12 wk ob recheck September 10, 2024 10:38 am cramping/FHT October 01, 2024 1:30 pm Reason for Visit Admit Date Amenorrhea July 25, 2024 12:57 pm Advanced maternal age (AMA) in August 01, 2024 10:32am Bleeding in early August 01 10:32am Breast lump in upper outer quadrant August 01, 2024 10:32am Constipation August 01, 2024 10:32 am Endometriosis August 01, 2024 10:32 am Pelvic pain August 01, 2024 10:32 am August 01, 2024 10:32 am at early stage August 01, 2024 10:32am Supervision of high-risk July 052024 10:32am Chronic neck pain August 01, 2024 10:32 am Female infertility unexplained after oly luation August 01, 2024 10:32am Seasonal allergies August 01, 2024 10:32 am Amenorrhea August 01, 2024 10:32 am Infertility August 01, 2024 10:32 am Advanced maternal age (AMA) in August 08, 2024 11:31am Bleeding in early August 08 11:31am Breast lump in upper outer quadrant August 08, 2024 11:31am Constipation August 08, 2024 11:31 am Endometriosis August 08, 2024 11:31 am Pelvic pain August 08, 2024 11:31 am August 08, 2024 11:31 am at early stage August 08, 2024 11:31am Supervision of high-risk August 08, 2024 11:31am Chronic neck pain August 08, 2024 11:31 am Female infertility unexplained after oly luation August 08, 2024 11:31am Seasonal allergies August 08, 2024 11:31 am Advanced maternal age (AMA) in August 27, 2024 9:25am Bleeding in early August 27 9:25am Breast lump in upper outer quadrant August 27, 2024 9:25am Constipation August 27, 2024 9:25 am Endometriosis August 27, 2024 9:25 am Pelvic pain August 27, 2024 9:25 am August 27, 2024 9:25 am at early stage August 27, 2024 9:25am Supervision of high-risk August 27, 2024 9:25am Chronic neck pain August 27, 2024 9:25 am Female infertility unexplained after oly luation August 27, 2024 9:25am Seasonal allergies August 27, 2024 9:25 am Advanced maternal age (AMA) in September 10, 2024 10:38am Bleeding in early September 10 10:38am Breast lump in upper outer quadrant September 10, 2024 10:38am Constipation September 10, 2024 10:38 am Endometriosis September 10, 2024 10:38 am Pelvic pain September 10, 2024 10:38 am September 10, 2024 10:38 am at early stage September 10, 2024 10:38am Supervision of high-risk September 10, 2024 10:38am Chronic neck pain September 10, 2024 10:38 am Female infertility unexplained after oly luation September 10, 2024 10:38am Seasonal allergies September 10, 2024 10:38 am Advanced maternal age (AMA) in October 01, 2024 1:30pm Bleeding in early October 01, 2 025 1:30pm Breast lump in upper outer quadrant October 01, 2024 1:30pm Constipation October 01, 2024 1:30 pm Endometriosis October 01, 2024 1:30 pm Pelvic pain October 01, 2024 1:30 pm October 01, 2024 1:30 pm at early stage October 01, 2024 1:30pm Supervision of high-risk October 01, 2024 1:30pm Chronic neck pain October 01, 2024 1:30 pm Female infertility unexplained after oly luation October 01, 2024 1:30pm Seasonal allergies October 01, 2024 1:30 pm Chief Complaint Admit Date Pre new ob, confirmation, vitals July 12:57pm bleeding in July 26, 2024 8:2 0am New OB! LMP 06/15, DUANE 03/22, hx infertili ty August 01, 2024 10:32am HEARTBEAT CHECK August 08, 2024 11:31 am 10 wk ob August 27, 2024 9:25 am 12 wk ob recheck September 10, 2024 10:38 am cramping/FHT October 01, 2024 1:30 pm 16 wk ob October 13, 2024 8: 22am Reason for Visit Admit Date Amenorrhea July 25, 2024 12:57 pm Advanced maternal age (AMA) in August 01, 2024 10:32am Bleeding in early August 01 10:32am Breast lump in upper outer quadrant August 01, 2024 10:32am Endometriosis August 01, 2024 10:32 am Pelvic pain August 01, 2024 10:32 am August 01, 2024 10:32 am Supervision of high-risk July 052024 10:32am Chronic neck pain August 01, 2024 10:32 am Female infertility unexplained after oly luation August 01, 2024 10:32am Seasonal allergies August 01, 2024 10:32 am Constipation August 01, 2024 10:32 am Amenorrhea August 01, 2024 10:32 am Infertility August 01, 2024 10:32 am at early stage August 01, 2024 10:32am Advanced maternal age (AMA) in August 08, 2024 11:31am Bleeding in early August 08 11:31am Breast lump in upper outer quadrant August 08, 2024 11:31am Endometriosis August 08, 2024 11:31 am Pelvic pain August 08, 2024 11:31 am August 08, 2024 11:31 am Supervision of high-risk August 08, 2024 11:31am Chronic neck pain August 08, 2024 11:31 am Female infertility unexplained after oly luation August 08, 2024 11:31am Seasonal allergies August 08, 2024 11:31 am Constipation August 08, 2024 11:31 am at early stage August 08, 2024 11:31am Advanced maternal age (AMA) in August 27, 2024 9:25am Bleeding in early August 27 9:25am Breast lump in upper outer quadrant August 27, 2024 9:25am Endometriosis August 27, 2024 9:25 am Pelvic pain August 27, 2024 9:25 am August 27, 2024 9:25 am Supervision of high-risk August 27, 2024 9:25am Chronic neck pain August 27, 2024 9:25 am Female infertility unexplained after oly luation August 27, 2024 9:25am Seasonal allergies August 27, 2024 9:25 am Constipation August 27, 2024 9:25 am at early stage August 27, 2024 9:25am Advanced maternal age (AMA) in September 10, 2024 10:38am Bleeding in early September 10 10:38am Breast lump in upper outer quadrant September 10, 2024 10:38am Endometriosis September 10, 2024 10:38 am Pelvic pain September 10, 2024 10:38 am September 10, 2024 10:38 am Supervision of high-risk September 10, 2024 10:38am Chronic neck pain September 10, 2024 10:38 am Female infertility unexplained after oly luation September 10, 2024 10:38am Seasonal allergies September 10, 2024 10:38 am Constipation September 10, 2024 10:38 am at early stage September 10, 2024 10:38am Advanced maternal age (AMA) in October 01, 2024 1:30pm October 01, 2024 1:30 pm Supervision of high-risk October 01, 2024 1:30pm Constipation October 01, 2024 1:30 pm Advanced maternal age (AMA) in October 13, 2024 8:22am Bleeding in early October 13, 2024 8:22am October 13, 2024 8: 22am Supervision of high-risk Augus t 2024 8:22am Chief Complaint Admit Date Pre new ob, confirmation, vitals July 12:57pm bleeding in July 26, 2024 8:2 0am New OB! LMP 06/15, DUANE 03/22, hx infertili ty August 01, 2024 10:32am HEARTBEAT CHECK August 08, 2024 11:31 am 10 wk ob August 27, 2024 9:25 am 12 wk ob recheck September 10, 2024 10:38 am cramping/FHT October 01, 2024 1:30 pm 17 wk ob October 13, 2024 8: 22am 21 wk ob November 11, 2024 9:16am Reason for Visit Admit Date Amenorrhea July 25, 2024 12:57 pm Advanced maternal age (AMA) in August 01, 2024 10:32am August 01, 2024 10:32 am Supervision of high-risk July 052024 10:32am Bleeding in early August 01, 10:32am Breast lump in upper outer quadrant August 01, 2024 10:32am Chronic neck pain August 01, 2024 10:32 am Constipation August 01, 2024 10:32 am Endometriosis August 01, 2024 10:32 am Female infertility unexplained after oly luation August 01, 2024 10:32am Pelvic pain August 01, 2024 10:32 am Seasonal allergies August 01, 2024 10:32 am Amenorrhea August 01, 2024 10:32 am Infertility August 01, 2024 10:32 am at early stage August 01, 2024 10:32am Advanced maternal age (AMA) in August 08, 2024 11:31am August 08, 2024 11:31 am Supervision of high-risk August 08, 2024 11:31am Bleeding in early August 08 11:31am Breast lump in upper outer quadrant August 08, 2024 11:31am Chronic neck pain August 08, 2024 11:31 am Constipation August 08, 2024 11:31 am Endometriosis August 08, 2024 11:31 am Female infertility unexplained after oly luation August 08, 2024 11:31am Pelvic pain August 08, 2024 11:31 am Seasonal allergies August 08, 2024 11:31 am at early stage August 08, 2024 11:31am Advanced maternal age (AMA) in August 27, 2024 9:25am August 27, 2024 9:25 am Supervision of high-risk August 27, 2024 9:25am Bleeding in early August 27 9:25am Breast lump in upper outer quadrant August 27, 2024 9:25am Chronic neck pain August 27, 2024 9:25 am Constipation August 27, 2024 9:25 am Endometriosis August 27, 2024 9:25 am Female infertility unexplained after oly luation August 27, 2024 9:25am Pelvic pain August 27, 2024 9:25 am Seasonal allergies August 27, 2024 9:25 am at early stage August 27, 2024 9:25am Advanced maternal age (AMA) in September 10, 2024 10:38am September 10, 2024 10:38 am Supervision of high-risk September 10, 2024 10:38am Bleeding in early September 10 10:38am Breast lump in upper outer quadrant September 10, 2024 10:38am Chronic neck pain September 10, 2024 10:38 am Constipation September 10, 2024 10:38 am Endometriosis September 10, 2024 10:38 am Female infertility unexplained after oly luation September 10, 2024 10:38am Pelvic pain September 10, 2024 10:38 am Seasonal allergies September 10, 2024 10:38 am at early stage September 10, 2024 10:38am Advanced maternal age (AMA) in October 01, 2024 1:30pm October 01, 2024 1:30 pm Supervision of high-risk October 01, 2024 1:30pm Constipation October 01, 2024 1:30 pm Advanced maternal age (AMA) in October 13, 2024 8:22am October 13, 2024 8: 22am Supervision of high-risk Augus t 2024 8:22am Bleeding in early October 13, 2024 8:22am Advanced maternal age (AMA) in November 11, 2024 9:16am Low lying placenta, antepartum November 11, 2024 9:16am November 11, 2024 9:16am Supervision of high-risk Septe mber 2024 9:16am Chief Complaint Admit Date HEARTBEAT CHECK August 08, 2024 11:31 am 10 wk ob August 27, 2024 9:25 am 12 wk ob recheck September 10, 2024 10:38 am cramping/FHT October 01, 2024 1:30 pm 17 wk ob October 13, 2024 8: 22am 21 wk ob November 11, 2024 9:16am Reason for Visit Admit Date Advanced maternal age (AMA) in August 08, 2024 11:31am August 08, 2024 11:31 am Supervision of high-risk August 08, 2024 11:31am Bleeding in early August 08 11:31am Breast lump in upper outer quadrant August 08, 2024 11:31am Chronic neck pain August 08, 2024 11:31 am Constipation August 08, 2024 11:31 am Endometriosis August 08, 2024 11:31 am Female infertility unexplained after oly luation August 08, 2024 11:31am Pelvic pain August 08, 2024 11:31 am Seasonal allergies August 08, 2024 11:31 am at early stage August 08, 2024 11:31am Advanced maternal age (AMA) in August 27, 2024 9:25am August 27, 2024 9:25 am Supervision of high-risk August 27, 2024 9:25am Bleeding in early August 27 9:25am Breast lump in upper outer quadrant August 27, 2024 9:25am Chronic neck pain August 27, 2024 9:25 am Constipation August 27, 2024 9:25 am Endometriosis August 27, 2024 9:25 am Female infertility unexplained after oly luation August 27, 2024 9:25am Pelvic pain August 27, 2024 9:25 am Seasonal allergies August 27, 2024 9:25 am at early stage August 27, 2024 9:25am Advanced maternal age (AMA) in September 10, 2024 10:38am September 10, 2024 10:38 am Supervision of high-risk September 10, 2024 10:38am Bleeding in early September 10 10:38am Breast lump in upper outer quadrant September 10, 2024 10:38am Chronic neck pain September 10, 2024 10:38 am Constipation September 10, 2024 10:38 am Endometriosis September 10, 2024 10:38 am Female infertility unexplained after oly luation September 10, 2024 10:38am Pelvic pain September 10, 2024 10:38 am Seasonal allergies September 10, 2024 10:38 am at early stage September 10, 2024 10:38am Advanced maternal age (AMA) in October 01, 2024 1:30pm October 01, 2024 1:30 pm Supervision of high-risk October 01, 2024 1:30pm Constipation October 01, 2024 1:30 pm Advanced maternal age (AMA) in October 13, 2024 8:22am October 13, 2024 8: 22am Supervision of high-risk Augus t 2024 8:22am Bleeding in early October 13, 2024 8:22am Advanced maternal age (AMA) in November 11, 2024 9:16am Low lying placenta, antepartum November 11, 2024 9:16am November 11, 2024 9:16am Supervision of high-risk Septe mber 2024 9:16am Chief Complaint Admit Date 10 wk ob August 27, 2024 9:25 am 12 wk ob recheck September 10, 2024 10:38 am cramping/FHT October 01, 2024 1:30 pm 17 wk ob October 13, 2024 8: 22am 21 wk ob November 11, 2024 9:16am 25 WK OB December 08, 2024 10 :19am Reason for Visit Admit Date Advanced maternal age (AMA) in August 27, 2024 9:25am August 27, 2024 9:25 am Supervision of high-risk August 27, 2024 9:25am Bleeding in early August 27, 025 9:25am Breast lump in upper outer quadrant August 27, 2024 9:25am Chronic neck pain August 27, 2024 9:25 am Constipation August 27, 2024 9:25 am Endometriosis August 27, 2024 9:25 am Female infertility unexplained after oly luation August 27, 2024 9:25am Pelvic pain August 27, 2024 9:25 am Seasonal allergies August 27, 2024 9:25 am at early stage August 27, 2024 9:25am Advanced maternal age (AMA) in September 10, 2024 10:38am September 10, 2024 10:38 am Supervision of high-risk September 10, 2024 10:38am Bleeding in early September 10 10:38am Breast lump in upper outer quadrant September 10, 2024 10:38am Chronic neck pain September 10, 2024 10:38 am Constipation September 10, 2024 10:38 am Endometriosis September 10, 2024 10:38 am Female infertility unexplained after oly luation September 10, 2024 10:38am Pelvic pain September 10, 2024 10:38 am Seasonal allergies September 10, 2024 10:38 am at early stage September 10, 2024 10:38am Advanced maternal age (AMA) in October 01, 2024 1:30pm October 01, 2024 1:30 pm Supervision of high-risk October 01, 2024 1:30pm Constipation October 01, 2024 1:30 pm Advanced maternal age (AMA) in October 13, 2024 8:22am October 13, 2024 8: 22am Supervision of high-risk Augus t 2024 8:22am Bleeding in early October 13, 2024 8:22am Advanced maternal age (AMA) in November 11, 2024 9:16am Low lying placenta, antepartum November 11, 2024 9:16am November 11, 2024 9:16am Supervision of high-risk Septe mber 2024 9:16am Advanced maternal age (AMA) in December 08, 2024 10:19am Low lying placenta, antepartum December 082024 10:19am December 08, 2024 10 :19am Supervision of high-risk Octob er 2024 10:19am Chief Complaint Admit Date 12 wk ob recheck September 10, 2024 10:38 am cramping/FHT October 01, 2024 1:30 pm 17 wk ob October 13, 2024 8: 22am 21 wk ob November 11, 2024 9:16am 25 WK OB December 08, 2024 10 :19am Yearly December 22, 2024 1 :55pm INT LBS December 25, 2024 1 0:30am 28 WK OB/GLUCOSE December 29, 2024 9 :26am Reason for Visit Admit Date Advanced maternal age (AMA) in September 10, 2024 10:38am September 10, 2024 10:38 am Supervision of high-risk September 10, 2024 10:38am Bleeding in early September 10 10:38am Breast lump in upper outer quadrant September 10, 2024 10:38am Chronic neck pain September 10, 2024 10:38 am Constipation September 10, 2024 10:38 am Endometriosis September 10, 2024 10:38 am Female infertility unexplained after oly luation September 10, 2024 10:38am Pelvic pain September 10, 2024 10:38 am Seasonal allergies September 10, 2024 10:38 am at early stage September 10, 2024 10:38am Advanced maternal age (AMA) in October 01, 2024 1:30pm October 01, 2024 1:30 pm Supervision of high-risk October 01, 2024 1:30pm Constipation October 01, 2024 1:30 pm Advanced maternal age (AMA) in October 13, 2024 8:22am October 13, 2024 8: 22am Supervision of high-risk Augus 2024 8:22am Bleeding in early October 13, 2024 8:22am Advanced maternal age (AMA) in November 11, 2024 9:16am November 11, 2024 9:16am Supervision of high-risk Septe mber 2024 9:16am Low lying placenta, antepartum November 11, 2024 9:16am Advanced maternal age (AMA) in December 08, 2024 10:19am December 08, 2024 10 :19am Supervision of high-risk Octob er 2024 10:19am Low lying placenta, antepartum December 082024 10:19am December 22, 2024 1 :55pm Preventative health care December 22 1:55pm Advanced maternal age (AMA) in December 29, 2024 9:26am December 29, 2024 9 :26am Supervision of high-risk Octob er 2024 9:26am UTI in December 29, 2024 9 :26am Family History No Family History Records Found Relationship Condition Age at Onset Recorded Date/T keena mother Malignant neoplasm 59 Family history of recurrent miscarriage U nknown aunt Malignant neoplasm of breast 50 grandfather Parkinson's disease Unknown grandmother Disorder of respiratory system Unknown Relationship Condition Age at Onset Recorded Date/T keena mother Malignant neoplasm 59 Family history of recurrent miscarriage U nknown aunt Malignant neoplasm of breast 50 Not Specified Parkinson's disease Unknown grandmother Disorder of respiratory system Unknown grandfather Malignant neoplasm Unknown Summary Purpose Advance Directives No Advanced Directives Records Found Advance Directive Response Recorded Date/ Time Living Will No March 22 8:15am Do you have a Healthcare Power of [employer]? No March 22, 2021 8:15am Additional Source Comments Care Teams (unrecognized sec tion and content) Team Status: Active Member Role Status Dates Dr. Yajaira You DO Family Provider Active Dr. Mariya Bocanegra MD Primary Care Provider Active Team Status: Inactive Member Role Status Dates Dr. Mariya Bocanegra MD Primary Care Provider Active Start: July 22, 2024 End: July 22, 2024 Dr. Mary Alicia DO Attending Provider Activ e Start: July 22, 2024 End: July 22, 2024 Dr. Mary Alicia DO Referring Provider Activ e Start: July 22, 2024 End: July 22, 2024 Team Status: Active Member Role Status Dates Dr. Mariya Bocanegra MD Primary Care Provider Active Start: July 24, 2024 Dr. Zaira Weston MD Attending Provider Active Start: July 24, 2024 Dr. Zaira Weston MD Referring Provider Active Start: July 24, 2024 Team Status: Inactive Member Role Status Dates Dr. Mariya Bocanegra MD Primary Care Provider Active Start: July 25, 2024 End: July 25, 2024 Dr. Mariya Bocanegra MD Referring Provider Active Start: July 25, 2024 End: July 25, 2024 Dr. Mary Alicia , DO Attending Provider Activ e Start: July 25, 2024 End: July 25, 2024 Team Status: Active Member Role Status Dates Dr. Mariya Bocanegra MD Primary Care Provider Active Start: July 26, 2024 Dr. Mary Alicia , DO Attending Provider Activ e Start: July 26, 2024 Dr. Mary Alicia DO Referring Provider Activ e Start: July 26, 2024 Team Status: Inactive Member Role Status Dates Dr. Mariya Bocanegra MD Primary Care Provider Active Start: July 24, 2024 End: July 24, 2024 Dr. Zaira Weston MD Attending Provider Active Start: July 24, 2024 End: July 24, 2024 Dr. Zaira Weston MD Referring Provider Active Start: July 24, 2024 End: July 24, 2024 Team Status: Inactive Member Role Status Dates Dr. Mariya Bocanegra MD Primary Care Provider Active Start: July 26, 2024 End: July 26, 2024 Dr. Mary Alicia , DO Attending Provider Activ e Start: July 26, 2024 End: July 26, 2024 Dr. Mary Alicia , DO Referring Provider Activ e Start: July 26, 2024 End: July 26, 2024 Team Status: Inactive Member Role Status Dates Dr. Mariya Bocanegra MD Primary Care Provider Active Start: August 01, 2024 End: August 01, 2024 Dr. Mariya Bocanegra MD Referring Provider Active Start: August 01, 2024 End: August 01, 2024 Dr. Mary Alicia , DO Attending Provider Activ e Start: August 01, 2024 End: August 01, 2024 Team Status: Inactive Member Role Status Dates Dr. Mariya Bocanegra MD Primary Care Provider Active Start: August 01, 2024 End: August 01, 2024 Dr. Mary Alicia , DO Attending Provider Activ e Start: August 01, 2024 End: August 01, 2024 Dr. Mary Alicia DO Referring Provider Activ e Start: August 01, 2024 End: August 01, 2024 Team Status: Inactive Member Role Status Dates Dr. Mariya Bocanerga MD Primary Care Provider Active Start: August 08, 2024 End: August 08, 2024 Dr. Mariya Bocanegra MD Referring Provider Active Start: August 08, 2024 End: August 08, 2024 Marguerite Valencia CNM Attending Provider Active Start: August 08, 2024 End: August 08, 2024 Team Status: Inactive Member Role Status Dates Dr. Mariay Bocanegra MD Primary Care Provider Active Start: August 27, 2024 End: August 27, 2024 Dr. Mariya Bocanegra MD Referring Provider Active Start: August 27, 2024 End: August 27, 2024 Dr. Mary Alicia DO Attending Provider Activ e Start: August 27, 2024 End: August 27, 2024 Team Status: Active Member Role Status Dates Dr. Mariya Bocanegra MD Primary Care Provider Active Start: August 27, 2024 Dr. Mary Alicia DO Attending Provider Activ e Start: August 27, 2024 Dr. Mary Alicia DO Referring Provider Activ e Start: August 27, 2024 Team Status: Active Member Role/Relationship Status Dates Dr. Yajaira You DO Family Provider Active Dr. Mariya Bocanegra MD Primary Care Provider Active Team Status: Inactive Member Role/Relationship Status Dates Dr. Mariya Bocanegra MD Primary Care Provider Active Start: July 22, 2024 End: July 22, 2024 Dr. Mary Alicia DO Attending Provider Activ e Start: July 22, 2024 End: July 22, 2024 Dr. Mary Alicia DO Referring Provider Activ e Start: July 22, 2024 End: July 22, 2024 Team Status: Inactive Member Role/Relationship Status Dates Dr. Mariya Bocanegra MD Primary Care Provider Active Start: July 24, 2024 End: July 24, 2024 Dr. Zaira Weston MD Attending Provider Active Start: July 24, 2024 End: July 24, 2024 Dr. Zaira Weston MD Referring Provider Active Start: July 24, 2024 End: July 24, 2024 Team Status: Inactive Member Role/Relationship Status Dates Dr. Mariya Bocanegra MD Primary Care Provider Active Start: July 25, 2024 End: July 25, 2024 Dr. Mariya Bocanegra MD Referring Provider Active Start: July 25, 2024 End: July 25, 2024 Dr. Mary Alicia DO Attending Provider Activ e Start: July 25, 2024 End: July 25, 2024 Team Status: Inactive Member Role/Relationship Status Dates Dr. Mariya Bocanegra MD Primary Care Provider Active Start: July 26, 2024 End: July 26, 2024 Dr. Mary Alicia DO Attending Provider Activ e Start: July 26, 2024 End: July 26, 2024 Dr. Mary Alicia DO Referring Provider Activ e Start: July 26, 2024 End: July 26, 2024 Team Status: Inactive Member Role/Relationship Status Dates Dr. Mariya Bocanegra MD Primary Care Provider Active Start: August 01, 2024 End: August 01, 2024 Dr. Mariya Bocanegra MD Referring Provider Active Start: August 01, 2024 End: August 01, 2024 Dr. Mary Alicia DO Attending Provider Activ e Start: August 01, 2024 End: August 01, 2024 Team Status: Inactive Member Role/Relationship Status Dates Dr. Mariya Bocanegra MD Primary Care Provider Active Start: August 01, 2024 End: August 01, 2024 Dr. Mary Alicia DO Attending Provider Activ e Start: August 01, 2024 End: August 01, 2024 Dr. Mary Alicia DO Referring Provider Activ e Start: August 01, 2024 End: August 01, 2024 Team Status: Inactive Member Role/Relationship Status Dates Dr. Mariya Bocanegra MD Primary Care Provider Active Start: August 08, 2024 End: August 08, 2024 Dr. Mariya Bocanegra MD Referring Provider Active Start: August 08, 2024 End: August 08, 2024 Marguerite Valencia CNM Attending Provider Active Start: August 08, 2024 End: August 08, 2024 Team Status: Inactive Member Role/Relationship Status Dates Dr. Mariya Bocanegra MD Primary Care Provider Active Start: August 27, 2024 End: August 27, 2024 Dr. Mariya Bocanegra MD Referring Provider Active Start: August 27, 2024 End: August 27, 2024 Dr. Mray Alicia DO Attending Provider Activ e Start: August 27, 2024 End: August 27, 2024 Team Status: Inactive Member Role/Relationship Status Dates Dr. Mariya Bocanegra MD Primary Care Provider Active Start: August 27, 2024 End: August 27, 2024 Dr. Mary Alicia DO Attending Provider Activ e Start: August 27, 2024 End: August 27, 2024 Dr. Mary Alicia DO Referring Provider Activ e Start: August 27, 2024 End: August 27, 2024 Team Status: Inactive Member Role/Relationship Status Dates Dr. Mariya Bocanegra MD Primary Care Provider Active Start: September 10, 2024 End: September 10, 2024 Dr. Mariya Bocanegra MD Referring Provider Active Start: September 10, 2024 End: September 10, 2024 Dr. Mary Alicia DO Attending Provider Activ e Start: September 10, 2024 End: September 10, 2024 Team Status: Inactive Member Role/Relationship Status Dates Dr. Mariya Bocanegra MD Primary Care Provider Active Start: October 01, 2024 End: October 01, 2024 Dr. Mariya Bocanegra MD Referring Provider Active Start: October 01, 2024 End: October 01, 2024 Stephy King NP, [employer]-C Attending Provider Active Start: October 01, 2024 End: October 01, 2024 Team Status: Inactive Member Role/Relationship Status Dates Dr. Mariya Bocanegra MD Primary Care Provider Active Start: October 13, 2024 End: October 13, 2024 Dr. Mariya Bocanegra MD Referring Provider Active Start: October 13, 2024 End: October 13, 2024 Stephy King NP, [employer]-C Attending Provider Active Start: October 13, 2024 End: October 13, 2024 Team Status: Active Member Role/Relationship Status Dates Dr. Mariya Bocanegra MD Primary Care Provider Active Team Status: Inactive Member Role/Relationship Status Dates Dr. Mariya Bocanegra MD Primary Care Provider Active Start: November 11, 2024 End: November 11, 2024 Dr. Mariya Bocanegra MD Referring Provider Active Start: November 11, 2024 End: November 11, 2024 Dr. Zaira Weston MD Attending Provider Active Start: November 11, 2024 End: November 11, 2024 Team Status: Active Member Role/Relationship Status Dates Dr. Mariya Bocanegra MD Primary care physician Activ e Team Status: Inactive Member Role/Relationship Status Dates Dr. Mariya Bocanegra MD Primary care physician Activ e Start: August 08, 2024 End: August 08, 2024 Dr. Mariya Bocanegra MD Referring Provider Active Start: August 08, 2024 End: August 08, 2024 Marguerite Valencia CNM Attending physician Active Start: August 08, 2024 End: August 08, 2024 Team Status: Inactive Member Role/Relationship Status Dates Dr. Mariya Bocanegra MD Primary care physician Activ e Start: August 27, 2024 End: August 27, 2024 Dr. Mariya Bocanegra MD Referring Provider Active Start: August 27, 2024 End: August 27, 2024 Dr. Mary Alicia DO Attending physician Acti ve Start: August 27, 2024 End: August 27, 2024 Team Status: Inactive Member Role/Relationship Status Dates Dr. Mariya Bocanegra MD Primary care physician Activ e Start: August 27, 2024 End: August 27, 2024 Dr. Mary Alicia DO Attending physician Acti ve Start: August 27, 2024 End: August 27, 2024 Dr. Mary Alicia DO Referring Provider Activ e Start: August 27, 2024 End: August 27, 2024 Team Status: Inactive Member Role/Relationship Status Dates Dr. Mariya Bocanegra MD Primary care physician Activ e Start: September 10, 2024 End: September 10, 2024 Dr. Mariya Bocanegra MD Referring Provider Active Start: September 10, 2024 End: September 10, 2024 Dr. Mary Alicia DO Attending physician Acti ve Start: September 10, 2024 End: September 10, 2024 Team Status: Inactive Member Role/Relationship Status Dates Dr. Mariya Bocanegra MD Primary care physician Activ e Start: October 01, 2024 End: October 01, 2024 Dr. Mariya Bocanegra MD Referring Provider Active Start: October 01, 2024 End: October 01, 2024 Stephy King NP, [employer]-C Attending physician Active Start: October 01, 2024 End: October 01, 2024 Team Status: Inactive Member Role/Relationship Status Dates Dr. Mariya Bocanegra MD Primary care physician Activ e Start: October 13, 2024 End: October 13, 2024 Dr. Mariya Bocanegra MD Referring Provider Active Start: October 13, 2024 End: October 13, 2024 Stephy King NP, [employer]-C Attending physician Active Start: October 13, 2024 End: October 13, 2024 Team Status: Inactive Member Role/Relationship Status Dates Dr. Mariya Bocanegra MD Primary care physician Activ e Start: November 11, 2024 End: November 11, 2024 Dr. Mariya Bocanegra MD Referring Provider Active Start: November 11, 2024 End: November 11, 2024 Dr. Zaira Weston MD Attending physician Active Start: November 11, 2024 End: November 11, 2024 Team Status: Inactive Member Role/Relationship Status Dates Dr. Mariya Bocanegra MD Primary care physician Activ e Start: November 21, 2024 End: November 21, 2024 Dr. Mary Alicia DO Attending physician Active Start: November End: November 21, 2024 Dr. Mary Alicia DO Referring Provider Active Start: November End: November 21, 2024 Team Status: Inactive Member Role/Relationship Status Dates Dr. Mariya Bocanegra MD Primary care physician Activ e Start: August 27, 2024 End: August 27, 2024 Dr. Mariya Bocanegra MD Referring Provider Active Start: August 27, 2024 End: August 27, 2024 Dr. Mary Alicia DO Attending physician Acti ve Start: August 27, 2024 End: August 27, 2024 Team Status: Inactive Member Role/Relationship Status Dates Dr. Mariya Bocanegra MD Primary care physician Activ e Start: August 27, 2024 End: August 27, 2024 Dr. Mary Alicia DO Attending physician Acti ve Start: August 27, 2024 End: August 27, 2024 Dr. Mary Alicia DO Referring Provider Activ e Start: August 27, 2024 End: August 27, 2024 Team Status: Inactive Member Role/Relationship Status Dates Dr. Mariya Bocanegra MD Primary care physician Activ e Start: September 10, 2024 End: September 10, 2024 Dr. Mariya Bocanegra MD Referring Provider Active Start: September 10, 2024 End: September 10, 2024 Dr. Mary Alicia DO Attending physician Acti ve Start: September 10, 2024 End: September 10, 2024 Team Status: Inactive Member Role/Relationship Status Dates Dr. Mariya Bocanegra MD Primary care physician Activ e Start: October 01, 2024 End: October 01, 2024 Dr. Mariay Bocanegra MD Referring Provider Active Start: October 01, 2024 End: October 01, 2024 Stephy King NP, COUGAR HUNTER-C Attending physician Active Start: October 01, 2024 End: October 01, 2024 Team Status: Inactive Member Role/Relationship Status Dates Dr. Mariya Bocanegra MD Primary care physician Activ e Start: October 13, 2024 End: October 13, 2024 Dr. Mariya Bocanegra MD Referring Provider Active Start: October 13, 2024 End: October 13, 2024 Stephy King COUGAR HUNTER, COUGAR HUNTER-C Attending physician Active Start: October 13, 2024 End: October 13, 2024 Team Status: Inactive Member Role/Relationship Status Dates Dr. Mariya Bocanegra MD Primary care physician Activ e Start: November 11, 2024 End: November 11, 2024 Dr. Mariya Bocanegra MD Referring Provider Active Start: November 11, 2024 End: November 11, 2024 Dr. Zaira Weston MD Attending physician Active Start: November 11, 2024 End: November 11, 2024 Team Status: Inactive Member Role/Relationship Status Dates Dr. Mariya Bocanegra MD Primary care physician Activ e Start: November 21, 2024 End: November 21, 2024 Dr. Mary Alicia DO Attending physician Active Start: November End: November 21, 2024 Dr. Mary Alicia DO Referring Provider Active Start: November End: November 21, 2024 Team Status: Inactive Member Role/Relationship Status Dates Dr. Mariya Bocanegra MD Primary care physician Activ e Start: December 08, 2024 End: December 08, 2024 Dr. Mariya Bocanegra MD Referring Provider Active Start: December 08, 2024 End: December 08, 2024 Ashley Joseph CNM Attending physician Active Start: December 08, 2024 End: December 08, 2024 Team Status: Inactive Member Role/Relationship Status Dates Dr. Mariya Bocanegra MD Primary care physician Activ e Start: September 10, 2024 End: September 10, 2024 Dr. Mariya Bocanegra MD Referring Provider Active Start: September 10, 2024 End: September 10, 2024 Dr. Mary Alicia DO Attending physician Acti ve Start: September 10, 2024 End: September 10, 2024 Team Status: Inactive Member Role/Relationship Status Dates Dr. Mariya Bocanegra MD Primary care physician Activ e Start: October 01, 2024 End: October 01, 2024 Dr. Mariya Bocanegra MD Referring Provider Active Start: October 01, 2024 End: October 01, 2024 Stephy King COUGAR HUNTER, COUGAR HUNTER-C Attending physician Active Start: October 01, 2024 End: October 01, 2024 Team Status: Inactive Member Role/Relationship Status Dates Dr. Mariya Bocanegra MD Primary care physician Activ e Start: October 13, 2024 End: October 13, 2024 Dr. Mariya Bocanegra MD Referring Provider Active Start: October 13, 2024 End: October 13, 2024 Stephy King COUGAR HUNTER, COUGAR HUNTER-C Attending physician Active Start: October 13, 2024 End: October 13, 2024 Team Status: Inactive Member Role/Relationship Status Dates Dr. Mariya Bocanegra MD Primary care physician Activ e Start: November 11, 2024 End: November 11, 2024 Dr. Mariya Bocanegra MD Referring Provider Active Start: November 11, 2024 End: November 11, 2024 Dr. Zaira Weston MD Attending physician Active Start: November 11, 2024 End: November 11, 2024 Team Status: Inactive Member Role/Relationship Status Dates Dr. Mariya Bocanegra MD Primary care physician Activ e Start: November 21, 2024 End: November 21, 2024 Dr. Mary Alicia DO Attending physician Active Start: November End: November 21, 2024 Dr. Mary Alicia DO Referring Provider Active Start: November End: November 21, 2024 Team Status: Inactive Member Role/Relationship Status Dates Dr. Mariya Bocanegra MD Primary care physician Activ e Start: December 08, 2024 End: December 08, 2024 Dr. Mariya Bocanegra MD Referring Provider Active Start: December 08, 2024 End: December 08, 2024 Ashley Joseph CNM Attending physician Active Start: December 08, 2024 End: December 08, 2024 Team Status: Inactive Member Role/Relationship Status Dates Dr. Mariya Bocanegra MD Primary care physician Activ e Start: December 22, 2024 End: December 22, 2024 Dr. Mariya Bocanegra MD Attending physician Active Start: December 22, 2024 End: December 22, 2024 Dr. Mariya Bocanegra MD Referring Provider Active Start: December 22, 2024 End: December 22, 2024 Team Status: Inactive Member Role/Relationship Status Dates Dr. Mariya Bocanegra MD Primary care physician Activ e Start: December 22, 2024 End: December 22, 2024 Dr. Mariya Bocanegra MD Attending physician Active Start: December 22, 2024 End: December 22, 2024 Dr. Mariya Bocanegra MD Referring Provider Active Start: December 22, 2024 End: December 22, 2024 Team Status: Inactive Member Role/Relationship Status Dates Dr. Mariya Bocanegra MD Primary care physician Activ e Start: December 25, 2024 End: December 25, 2024 Dr. Mariya Bocanegra MD Attending physician Active Start: December 25, 2024 End: December 25, 2024 Dr. Mariya Bocanegra MD Referring Provider Active Start: December 25, 2024 End: December 25, 2024 Team Status: Inactive Member Role/Relationship Status Dates Dr. Mariya Bocanegra MD Primary care physician Activ e Start: December 29, 2024 End: December 29, 2024 Dr. Mariya Bocanegra MD Referring Provider Active Start: December 29, 2024 End: December 29, 2024 Stephy King NP, COUGAR HUNTER-C Attending physician Active Start: December 29, 2024 End: December 29, 2024 Team Status: Inactive Member Role/Relationship Status Dates Dr. Mariya Bocanegra MD Primary care physician Activ e Start: December 29, 2024 End: December 29, 2024 Ashley Joseph CNM Attending physician Active Start: December 29, 2024 End: December 29, 2024 Ashley Joseph CNM Referring Provider Active S tart: December 29, 2024 End: December 29, 2024 Goals (unrecognized section and content) Type Care Experience Labor Preferences-CB /BF classes: []labor support person: []labor intervention preferences: []pain management options preferred: []cut cord/dad catch: []: []PP control planned: []discussed possible routes of delivery and associated risks: []special requests: [] Type Detail Care Experience Labor Preferences-CB /BF classes: encouragedlabor support person: Ryanlabor intervention preferences: []pain management options preferred: epiduralcut cord/dad catch: yesbreastfeeding: yesPP control planned: discussed. discussed possible routes of delivery and associated risks: []special requests: [] INFORMATION SOURCE (unrecogn ized section and content) DATE CREATED AUTHOR 12/27/2024 [facility] DATE CREATED AUTHOR AUTHOR'S ANGELLA ATBRUNA 01/14/2025 [facility] FOR RECORDS PERTAINING TO PATIENTS WHO ARE OR HAVE BEEN ENROLLED IN A CHEMICAL DEPENDENCY/SUBSTANCEABUSE PROGRAM, SOME INFORMATION MAY BE OMITTED. This clinical summary was aggregated from multiple sources. Caution should be exercised in using it in the provision of clinical care. This summary normalizes information from multiple sources, and as a consequence, information in this document may materially change the coding, format and clinical context of patient data. In addition, data may be omitted in some cases. CLINICAL DECISIONS SHOULD BE BASED ON THE PRIMARY CLINICAL RECORDS. [employer] provides no warranty or guarantee of the accuracy or completeness of information in this document.
== END | disposition home or self-care (01) ==
PROVIDERS: PCP Internal Medicine; Referring Provider Nurse Practitioner Women's Health; Visit Provider Nurse Practitioner Women's Health
DX: O26.849 Uterine size-date discrepancy, unspecified trimester (principal); Z3A.00 Weeks of gestation of pregnancy not specified
CPT/HCPCS: 76816

== ENCOUNTER 2025-02-20 09:07 | Outpatient (CLI) | payer OTHER, SELFPAY ==
[2025-02-20 09:07] VITALS: BP 123/84; PULSE 85; RESP 18; TEMP 37.1; O2SAT 100; O2SAT 98; BMI 23.4
--- NOTE | 2025-02-20 09:10 | ED.RN ---
willy rn called ob they were sending someone up to monitor pt in ed
--- NOTE | 2025-02-20 09:13 | ED.RN ---
Called OB charge upon arrival to request assessment and monitoring of fetus.
--- NOTE | 2025-02-20 09:38 | ED.VIS.FALL ---
HPI HPI - Fall History of Present Illness Chief Complaint: Fall Informant: patient Occured/Mechanism Occurred: Today Fall down steps #: 7-8 Usually ambulates: Without assistance Pain/Injury Location: Right shoulder and ribs Pain Location: chest, abdomen and upper extremity (Right shoulder) Quality of Pain: Aching Associated Symptoms Associated Symptoms: Negative for Parasthesias, Weakness, Loss of function, Inability to ambulate, Loss of consciousness or Amnesia Narrative Narrative: Patient presents after a fall today. Patient states she fell down 7 or 8 steps. Patient complains of pain in her right shoulder, scapula, and right upper ribs. Patient states her pain is worse with movement of her right shoulder. Patient describes her pain as aching. Patient states it is worse with movement. Patient denies any head injury or loss of consciousness. Patient is approximately 36 weeks . Patient denies any vaginal bleeding or discharge. Patient denies any leakage of fluids. Patient denies any abdominal pain. Patient was able to stand and ambulate after the fall. [facility] Medical History Abnormal urinalysis Leukocytosis Preventative health care Abdominal pain Alcohol use Non-smoker Flu vaccine need Female infertility unexplained after evaluation Seasonal allergies Home Medications ?Medication ?Instructions ?Recorded ?Last Taken ?Type lactobacillus combo no.11 15 1 cap PO DAILY 01/17/23 03/16/24 History billion cell sprinkle capsule (Probiotic) multivit-min no.71-iron fum 28 cap PO 07/25/24 Unknown History mg-folate no.1 1 mg-dha 300 mg capsule (PNV-[place]) cetirizine 10 mg capsule (Zyrtec) 10 mg PO QDAY PRN 12/22/24 Unknown History Allergy/AdvReac Type Severity Reaction Status Date / Time No Known Allergies Allergy Verified 02/20/25 09:10 Family History Mother Cancer, Onset Age: 59 Dermafibroid sarcadoma Family history of recurrent miscarriage 2 losses one at 24 wks Aunt Breast cancer, Onset Age: 50 Maternal Maternal Grandfather Parkinson disease Maternal Grandmother Respiratory disease Paternal Grandfather Cancer metastic cancer Surgical History H/O unilateral salpingectomy S/P laparoscopy History of tonsillectomy and adenoidectomy Social History adopted: No household members: spouse, children and other details: adopted daughter Annabella & son Asael housing: house number of children: 2 current occupation: [employer] pets and animals: Yes pets and animals: dog(s) history of recent travel: Yes ([place], [place], [place]) out of state: Yes out of country: No sexually active: Yes Smoking Status: Never smoker alcohol intake: current alcohol intake frequency: a few times a month Alcohol type: wine details: Not while substance use type: does not use diet: gluten free and lactose free well-balanced diet: daily or most days caffeine: No eating out: 1-3 times/week during the past year weight has: remained stable what type of physical activity do you participate in: none frequency: does not exercise minh/evangelical: Scientologist seatbelt use: always do you feel safe at home: Yes additional social history: - Yoandy ROS ROS ED Constitutional Constitutional ED: Denies chills or fever(s) Eyes Eyes: Denies blurry vision or change in vision ENT ENT ED: Denies rhinorrhea or sore throat Cardiovascular Cardiovascular: Denies chest pain or palpitations Respiratory/Chest Respiratory/Chest: Reports dyspnea; Denies cough Gastrointestinal Gastrointestinal: Denies nausea or vomiting Genitourinary Genitourinary ED: Denies dysuria or hematuria Musculoskeletal Musculoskeletal: Reports back pain; Denies neck pain Integumentary Denies abscess or rash Neurologic Neurologic: Denies headache(s) or weakness Allergic/Immunologic Allergic/Immunologic ED: Denies mouth swelling or urticaria EXAM Physical Exam Const Vital Signs: 02/20/25 09:07 02/20/25 09:07 02/20/25 10:07 Temperature 98.7 F 98.7 F Temperature Source Oral Pulse Rate 85 89 Respiratory Rate 18 18 Respiratory Effort Short of Breath Respiratory Depth Normal Respiratory Pattern Normal Blood Pressure 123/84 H 113/78 Blood Pressure Mean 97 89 Pulse Ox 98 100 98 Oxygen Delivery Method Room Air Room Air Room Air Positive well nourished and well developed General Appearance ED: well developed and NAD HEENT Reports normocephalic atraumatic Neck full ROM and supple Chest Wall Chest Narrative: There is tenderness over the right upper chest wall, right axilla, and posterior aspect of the right upper chest. There is no bony crepitance or step-off. There is no subcutaneous emphysema palpated. Resp normal respiratory effort and clear to auscultation bilaterally Cardio regular rate and regular rhythm GI non-tender and non-distended Palpation: soft Neuro oriented x3, CN's II-XII intact bilaterally, moves all extremities, no focal motor deficits and no sensory deficits noted Elva Coma Scale: document GCS findings Spontaneous Obeys Commands Oriented 15 Sensorium / Orientation: alert Motor Exam: strength 5/5 throughout Psych mental status grossly normal and thought process normal MDM MDM MDM Narrative Medical decision making narrative: Differential diagnosis includes scapular fracture, rib fracture, contusion, and sprain. X-rays of the right shoulder will be obtained to assess for fracture. Lab Data Labs: Laboratory Results - last 24 hr 02/20/25 09:55 WBC 12.6 H RBC 3.81 L Hgb 12.0 Hct 34.8 L MCV 91.3 MCH 31.5 MCHC 34.5 RDW Std Deviation 45.2 H RDW Coeff of Artemio 13.4 Plt Count 247 MPV 10.0 Immature Gran % (Auto) 1.500 H Neut % (Auto) 78.1 H Lymph % (Auto) 11.4 L Cedar % (Auto) 8.2 Eos % (Auto) 0.3 Baso % (Auto) 0.5 Absolute Neuts (auto) 9.8 H Absolute Lymphs (auto) 1.43 Nucleated RBC % 0 PT 12.5 INR 0.9 APTT 25.5 Fibrinogen 432 Radiography Diagnostic Testing: Clinical Impression(s) from Imaging Studies Shoulder X-Ray 02/20/25 10:00 IMPRESSION: No more than minimal degenerative changes are present, and without apparent joint narrowing. Satisfactory alignment is seen. No fracture site is evident. If clinical concern persists, short-term follow-up imaging may be obtained to rule out a currently occult fracture. Reading Location: [facility] [id number] ultrasound was performed. There is good heart movement. There is good movement. X-rays of the right shoulder were obtained. There are 4 views. On my independent interpretation, there is no acute fracture noted. There is no rib fracture. There is no pneumothorax. There is no dislocation noted. Radiologist also interpreted the x-rays and agrees. Management Discussion w/another healthcare provider: Personal Protection Specialist Treatment and Re-Evaluation Narrative: Patient was given a dose of Tylenol. Patient was given a sling for comfort. Dr. Daniel was in to see the patient. After x-rays, patient will be transferred to OB for further monitoring. Discharge Plan Dx/Rx/DC Orders Clinical Impression: Fall, , Contusion of right shoulder region Disposition Disposition: Acute Care Hospital [facility]
--- NOTE | 2025-02-20 10:00 | RAD_ITS ---
PROCEDURE: SHOULDER MIN 2 VIEWS 02/20/2025 REASON FOR EXAM: INJURY/PAIN TECHNIQUE: Procedure Code: RADSH Modality: DX Procedure: SHOULDER MIN 2 VIEWS COMPARISON: None. RAD/Shoulder min 2 Views IMPRESSION: No more than minimal degenerative changes are present, and without apparent danny nt narrowing. Satisfactory alignment is seen. No fracture site is evident. If clinical concern persists, short-term follow-up imaging may be obtained to r ule out a currently occult fracture. Reading Location: [place] [id number]
[2025-02-20 10:07] VITALS: BP 113/78; PULSE 89; RESP 18; O2SAT 98
[2025-02-20 10:07] LABS: Hematocrit 34.8 % (37-47); Hemoglobin 12.0 g/dL (12.0-15.0); Immature Granulocytes Count 0.190 X10^3/uL (0.0-0.0); Mean Corp Hgb Conc 34.5 g/dL (32-36); Mean Corpuscular Volume 91.3 fL (81-99); Mean Platelet Vol. 10.0 fl (6.2-12.0); NRBC Flagged by Analyzer 0 % (0-5); Platelet Count 247 K/mm3 (150-450); RBC Distribution Width CV 13.4 % (11.6-14.6); RBC Distribution Width SD 45.2 fl (35.1-43.9); Red Blood Count 3.81 M/mm3 (4.2-5.4); White Blood Count 12.6 K/mm3 (4.4-11.0)
[2025-02-20 10:14] LABS: Prothrombin Time (Protime)PT. 12.5 SECONDS (11.7-14.9)
[2025-02-20 10:15] LABS: Fibrinogen 432 mg/dl (203-444); Partial Thromboplast Time 25.5 Seconds (24.1-36.2)
[2025-02-20 11:00] VITALS: BP 114/78; PULSE 78; RESP 16; O2SAT 98
[2025-02-20 11:04] VITALS: BP 118/78; PULSE 64; RESP 18; TEMP 36.6; O2SAT 99
[2025-02-20 11:25] VITALS: BP 105/64; PULSE 78; RESP 16; TEMP 36.5
[2025-02-20 12:10] VITALS: BMI 24.9
--- NOTE | 2025-02-20 12:34 | US_ITS ---
EXAM: OB BIOPHYSICAL PROF W/O NST, 02/20/2025 CLINICAL HISTORY: WELL BEING COMPARISON: 01/30/2025. TECHNIQUE: A limited transabdominal obstetrical ultrasound was performed to determine biophysical profile score. FINDINGS: Gravid uterus with a single fetus. Breathing movement: 2 Gross Body movement: 2 Tone: 2 Qualitative Amniotic Fluid: 2 Amniotic Fluid Index: 7.8 (normal 5-25), deepest vertical pocket 3.5 cm (normal 2-8 cm). presentation: Cephalic. heart rate: Present, 138 bpm, regular. Placenta: Anterior. US/OB Biophysical Prof W/O NST IMPRESSION: 1. Biophysical Profile Score of 8 out of a possible 8. 2. Additional description as above. Reading Location: [id number]
--- NOTE | 2025-02-20 12:57 | OB.TRI.HP_ITS ---
HPI - General HPI Narrative PATRICIA DAVIES, is a 34 y/o @ 36 weeks who presents to [facility] ER after a fall down several basement stairs. She states that she lost her footing and did not fall due to feeling dizzy or unwell. ER checked her out and performed x-ray of arm where she fell and no occult fracture was noted. They put her arm in a sling and sent her to us on L&D. The baby was monitored for a short while in ER on NST and was found to be reactive. Here on L&D she is starting to feel more painful in her upper body but denies loss of fluid, vaginal bleeding, or dec fm. Abruption labs were ordered and normal. A BPP is pending. She consents to a pelvic exam that I recommend due to low amplitude contractions on the monitor. Maternal Data Information DUANE Calculator Estimated Delivery Date Method Current WG Current Estimate 03/22/25 LMP (Certain) 35w 5d Other Estimates 03/24/25 Ultrasound #1 35w 3d [facility] Medical History Abnormal urinalysis Leukocytosis Preventative health care Abdominal pain Alcohol use Non-smoker Flu vaccine need Female infertility unexplained after evaluation Seasonal allergies Home Medications ?Medication ?Instructions ?Recorded ?Last Taken ?Type lactobacillus combo no.11 15 1 cap PO DAILY 01/17/23 1 04/22/24 21:00 History billion cell sprinkle capsule 1 cap (Probiotic) multivit-min no.71-iron fum 28 cap PO 07/25/2402/19/2 5 21:00 History mg-folate no.1 1 mg-dha 300 mg 1 cap capsule (PNV-[place]) cyclobenzaprine 5 mg tablet 10 mg (2 x 5 mg) PO TID [place] N pain 02/20/25 Unknown Rx #20 tabs Allergy/AdvReac Type Severity Reaction Status Date / Time No Known Allergies Allergy Verified 02/20/25 12:09 Family History Mother Cancer, Onset Age: 59 Dermafibroid sarcadoma Family history of recurrent miscarriage 2 losses one at 24 wks Aunt Breast cancer, Onset Age: 50 Maternal Maternal Grandfather Parkinson disease Maternal Grandmother Respiratory disease Paternal Grandfather Cancer metastic cancer Surgical History H/O unilateral salpingectomy S/P laparoscopy History of tonsillectomy and adenoidectomy Social History adopted: No household members: spouse, children and other details: adopted daughter Annabella & son Asael housing: house number of children: 2 current occupation: [employer] pets and animals: Yes pets and animals: dog(s) history of recent travel: Yes ([place], [place], [place]) out of state: Yes out of country: No sexually active: Yes Smoking Status: Never smoker alcohol intake: current alcohol intake frequency: a few times a month Alcohol type: wine details: Not while substance use type: does not use diet: gluten free and lactose free well-balanced diet: daily or most days caffeine: No eating out: 1-3 times/week during the past year weight has: remained stable what type of physical activity do you participate in: none frequency: does not exercise minh/anabaptist: Tenriism seatbelt use: always do you feel safe at home: Yes additional social history: - Yoandy History 1 Elective abortions Hx Para 0 Spontaneous abortions Hx # Term Pregnancies Ectopic pregnancies Hx # Pregnancies Multiple births # of living children Past Pregnancies Del. Date Name GA/Weeks Outcome Route Bth Weight Infant Gen Labor Lgth Anesthesia Del Locatn Provider FOB 03/23/18 Adopted- Annabella 11/05/21 Adopted- Asael Visit Details Expected Delivery Route/Plan Labor Preferences- CB/BF classes: encouraged labor support person: Yoandy labor intervention preferences: [] pain management options preferred: epidural cut cord/dad catch: yes : yes PP control planned: discussed. discussed possible routes of delivery and associated risks: [] special requests: [] Plans Covid status: [] Flu vaccine: given Tdap vaccine: given Rhogam: na LARC form signed: yes movement and labor precautions reviewed. Problem list reviewed and updated with the most current plan of care details and appropriate orders placed. Relevant counseling for the gestational age provided. Continue routine care and follow up unless otherwise noted in visit notes/problem list details OB Flowsheet Initial Weight: 110 lb Date -?-?-?-?-?-?-?-?-?-?-?-?- EGA Weight BP Urine Prot -?-?-?-?-?-?-?-?-?-?-?-?- Glucose FHR FuHt Pres Dilation -?-?-?-?-?-?-?-?-?-?-?-?- Effaced St Visit Note 08/01/24 -?-?-?-?-?-?-?-?-?-?-?-?- 6w 5d 110 lb 4 oz (+4 oz) 120/77 -?-?-?-?-?-?-?-?-?-?-?-?- 122 -?-?-?-?-?-?-?-?-?-?-?-?- JV- CRL is consi stent with LMP. desires NIPT. since had bleeding and has a .33 cm BRITNEY and is so early and has struggled with infertility for so long, will bring back weekly for heart beat checks. 08/08/24 -?-?-?-?-?-?-?-?-?-?-?-?- 7w 5d 111 lb 8 oz (+1 lb 8 oz) 113/74 Negative -?-?-?-?-?-?-?-?-?-?-?-?- Negative 154 -?-?-?-?-?-?-?-?-?-?-?-?- LC-no vb/crampin g since progesterone. 08/27/24 -?-?-?-?-?-?-?-?-?-?-?-?- 10w 3d 109 lb 4 oz (-12 oz) 111/72 Negative -?-?-?-?-?-?-?-?-?-?-?-?- Negative 170 -?-?-?-?-?-?-?-?-?-?-?-?- JV- no further c ramping or spotting. states does not feel . nateral and PNL today. pt reassured by bedsde ultrasound. CRL measuring 10 week. overall looking great! 09/10/24 -?-?-?-?-?-?-?-?-?-?-?-?- 12w 3d 112 lb (+2 lb) 109/69 Negative -?-?-?-?-?-?-?-?-?-?-?-?- Negative 163 -?-?-?-?-?-?-?-?-?-?-?-?- JV- no complaint s today. CRL measuring 12 weeks. has anatomy scan scheduled. having a boy! low risk NIPT. 10/01/24 -?--?-?-?-?-?-?-?-?-?-?-?- 15w 3d 114 lb (+4 lb) 107/67 Negative -?-?-?-?-?-?-?-?-?-?-?-?- Negative 159 -?-?-?-?-?-?-?-?-?-?-?-?- -work in for i ncreased pelvic cramping. No VB. UA negative. Reassured. 10/13/24 -?-?-?-?-?-?-?-?-?-?-?-?- 17w 1d 117 lb 3 oz (+7 lb 3 oz) 109/64 Negative -?-?-?-?-?-?-?-?-?-?-?-?- Negative 153 -?-?-?-?-?-?-?-?-?-?-?-?- -No Vb. No fl utters yet. Denies concerns 11/11/24 -?-?-?-?-?-?-?-?-?-?-?-?- 21w 2d 122 lb 3 oz (+12 lb 3 oz) 110/72 Negative -?-?-?-?-?-?-?-?-?-?-?-?- Negative 145 21 -?-?-?-?-?--?-?-?-?-?-?-?- SM- no vb lof go od fm sometimes no regular ctx discussed low lying plcaenta, discussed afp- to decide. 12/08/24 -?-?-?-?-?-?-?-?-?-?-?-?- 25w 1d 126 lb 5 oz (+16 lb 5 oz) 107/74 Negative -?-?-?-?-?-?-?-?-?-?-?-?- Negative 145 25 -?-?-?-?-?-?-?-?-?-?-?-?- KW- no vb/lof/ct x. good fm. doing well. has US scheduled and discussed glucose labs 12/29/24 -?-?-?-?-?-?-?-?-?-?-?-?- 28w 1d 131 lb (+21 lb) 109/69 Negative -?-?-?-?-?-?-?-?-?-?-?-?- Negative 148 28 -?-?-?-?-?-?-?-?-?-?-?-?- MH-No VB. LOF. G ood FM. 28 wk labs pending. Larc, tdap. Previa resolved. 01/14/25 -?-?-?-?-?-?-?-?-?-?-?-?- 30w 3d 134 lb 4 oz (+24 lb 4 oz) 105/67 Negative -?-?-?-?-?-?-?-?-?-?-?-?- Negative 145 30 Cephalic -?-?-?-?-?-?-?-?-?-?-?-?- SM- no vb lof go od fm no regular ctx 01/26/25 -?-?-?-?-?-?-?-?-?-?-?-?- 32w 1d 133 lb 3 oz (+23 lb 3 oz) 97/60 Negative -?-?-?-?-?-?-?-?-?-?-?-?- Negative 135 30 -?-?-?-?-?-?-?-?-?-?-?-?- MH-No VB, LOF or CTX. Moved new house this weekend. No concerns. Growth US 02/12/25 -?-?-?-?-?-?-?-?-?-?-?-?- 34w 4d 137 lb 3 oz (+27 lb 3 oz) 105/71 Negative -?-?-?-?-?-?-?-?-?-?-?-?- Negative 140 33 Cephalic -?-?-?-?-?-?-?-?-?-?-?-?- SM- no vb lof go od fm no regular ctx moving going well. ROS Constitutional Constitutional: Reports systems reviewed and no addt'l complaints, except as documented Gastrointestinal Gastrointestinal: Denies bloating, constipation, cramping, diarrhea, nausea or vomiting Genitourinary Genitourinary: Reports other Details: Denies vaginal odor, vaginal bleeding, or vaginal discharge ; Denies difficulty urinating or flank pain Physical Exam Const alert, oriented x3 and no apparent distress HEENT normocephalic Chest Chest: symmetrical chest wall rise Resp normal respiratory effort and normal air movement no CVA tenderness Narrative: cx is closed/thick/high. Extremity normal to inspection General Extremity: edema bilateral (trace ) NST FHR Rate Baby A Baseline: 140 Variability:: Moderate Accelerations:: 15 x 15 Decelerations:: None NST Reactive:: Yes FHR Category:: Category I Uterine Activity:: some irregular low amplitude contractions present. Assessment & Plan (1) Trauma during : COMMENT: fall down basement stairs 02/20/25- normal shoulder and rib x-ray per ER, normal abruption labs. (2) Contusion of right shoulder region: (3) Fall: (4) Advanced maternal age (AMA) in : COMMENT: deliver by 39 and 36 weeks growth US (5) Supervision of high-risk : QUALIFIERS: Trimester: third trimester Qualified Code(s): O09.93 - Supervision of high risk , unspecified, third trimester COMMENT: PRR , DUANE 03/22/24, boy Adopted 2 children-Asael Winchester Yoandy (6) : QUALIFIERS: Weeks of gestation: 34 weeks Qualified Code(s): Z3A.34 - 34 weeks gestation of COMMENT: DOC ONLY. NIPT low risk, carrier neg. . nl anatomy feb afp screen. PLAN: Plan plan to order a bpp and when returns will give her 5 mg flexeril for the pain. if bpp is 8/8 she may be dischraged to home. Charges/Coding Multi Select Codes Visit Charges Office Visit/Consults: 56874 OV L3 Est 20min Urinary/Genital Urinary/Genital CPT Codes: 78843-06 non-stress test Interp
[2025-02-20 14:56] VITALS: BP 105/59; PULSE 76; RESP 16; TEMP 36.3
== END 2025-02-20 15:35 | disposition home or self-care (01) ==
LOC: ED 11:04 → WPOUT 11:08 → WP 11:08
PROVIDERS: Emergency Provider Emergency Medicine; PCP Internal Medicine; Visit Provider Obstetrics & Gynecology
DX: O9A.213 Injury, poisoning and certain other consequences of external causes complicating pregnancy, third trimester (principal); S40.011A Contusion of right shoulder, initial encounter; Z3A.36 36 weeks gestation of pregnancy; W10.9XXA Fall (on) (from) unspecified stairs and steps, initial encounter; O09.523 Supervision of elderly multigravida, third trimester
CPT/HCPCS: 59025; 59050; 73030; 76819; 85025; 85384; 85460; 85610; 85730; 99221; 99285; A4216; G0378

== ENCOUNTER → 2025-02-23 | Outpatient (CLI) | payer OTHER, SELFPAY | END | disposition home or self-care (01) | LOC: LABSPEC 16:20 | PROVIDERS: PCP Internal Medicine; Visit Provider Nurse Practitioner Women's Health | DX: O09.93 Supervision of high risk pregnancy, unspecified, third trimester (principal); Z3A.00 Weeks of gestation of pregnancy not specified | CPT/HCPCS: 87081 ==

== ENCOUNTER 2025-03-02 11:10 | Outpatient (CLI) | payer OTHER, SELFPAY ==
--- NOTE | 2025-03-02 11:17 | US_ITS ---
PROCEDURE: OB BIOPHYSICAL PROF W/O NST 03/02/2025 REASON FOR EXAM: DECELERATION IN OFFICE TECHNIQUE: Procedure Code: USBIOWO Modality: US Procedure: OB BIOPHYSICAL PROF W/O NST COMPARISON: February 20, 2025 FINDINGS Number: 1 Position: Vertex Placental Position: Anterior Placental Abnormalities: Low-lying BIOPHYSICAL ASSESSMENT: Amniotic Fluid Volume: Subjectively normal. Amniotic Fluid Index: 8.9 (8-24 cm normal range) Cardiac Motion: 140 (average) Trunk and Limb Motion: Present. Amniotic Fluid Volume: 2/2 Movements: 2/2 Tone: 2/2 Breathin/2 Total: 2/8 US/OB Biophysical Prof W/O NST IMPRESSION: BIOPHYSICAL PROFILE SCORE 8/8. Low-lying placenta. Cephalic presentation. Reading Location: [id number]
[2025-03-02 11:25] VITALS: BP 112/66; PULSE 77
[2025-03-02 11:31] VITALS: BMI 23.3
--- NOTE | 2025-03-03 09:20 | OB.TRI.PN ---
Progress Notes Date of Service: 03/02/25 Progress Note: seen for variable in the office, BPP done and 10/10 bordeline maritza will repeat in 1 week, growth US ordered but unable to be done today due to no spots available. 37 weeks variable decel overall reassuring dc home fu in 1 week, kick count precautions
== END 2025-03-02 13:20 | disposition home or self-care (01) ==
LOC: WPOUT 11:13 → WP 11:14
PROVIDERS: PCP Internal Medicine; Referring Provider Obstetrics & Gynecology; Visit Provider Obstetrics & Gynecology
DX: O36.8330 Maternal care for abnormalities of the fetal heart rate or rhythm, third trimester, not applicable or unspecified (principal); Z3A.37 37 weeks gestation of pregnancy
CPT/HCPCS: 59025; 59050; 76819; 99221; G0378